=== PATIENT | male | born 1955 | race Caucasian/White ===

== ENCOUNTER 2023-04-08 22:22 | Emergency (ER) | payer MEDICARE, SELFPAY ==
[2023-04-08 22:30] VITALS: BP 166/98; PULSE 85; RESP 22; TEMP 36.6; O2SAT 98; BMI 32.3
--- NOTE | 2023-04-08 23:08 | ED.BACK1 ---
HPI - Back Pain/Injury General Chief Complaint: Back Pain/Injury Stated Complaint: BACK PAIN Time Seen by Provider: 04/08/23 23:08 Source: patient Mode of arrival: Wheelchair History of Present Illness HPI Narrative: Patient presents to emergency department complaining of right low back pain. Patient states he has a history of chronic spinal stenosis that he gets injections. He also this could be stools.His had increased low back pain for which he took 1 g of Tylenol and OxyContin. He did not help yesterday today he took 2 OxyContin and it did not help. He denies any trauma. He denies any fever, chills. He denies any hematuria, dysuria. He denies any nausea, vomiting, diarrhea, constipation, or abdominal pain. States at times the pain does radiate to the right lateral 5. He also had right knee steroid injections done recently. Patient denies any urinary, bowel incontinence, retention. He has an appointment with his urologist this week. Related Data Previous Rx's Medication Instructions Recorded cyclobenzaprine 10 mg tablet 10 mg PO TID PRN muscle spasm #14 04/09/23 tabs Allergies Allergy/AdvReac Type Severity Reaction Status Date / Time [id number]-ROB-[id number] Reductase Allergy Severe Verified 04/08/23 22:36 Inhibitor Review of Systems ROS Status of ROS 10 or more systems reviewed and unremarkable except as noted in history and below Exam Narrative Exam Narrative: Nurses notes and vital signs reviewed and patient is not hypoxic. General: Nontoxic, Well-appearing and in no apparent distress. Skin: Warm, dry, no pallor noted. No Rash Head: Normocephalic, atraumatic. Neck: Supple, non-tender. Eye: Pupils are equal, round and EOMI. No scleral icterus. Ears, Nose, Mouth, and Throat: TM clear, no posterior oropharynx erythema or nasal mucosal hypertrophy, uvula is mid-line Oral mucosa is moist Cardiovascular: Regular Rate and Rhythm without murmur, gallop or rub. Respiratory: No accessory muscle use or respiratory distress. Lungs are clear to auscultation, no wheezing, rales or rhonchi Chest Wall: no tenderness Back: No midline thoracic or lumbar vertebral tenderness. Tenderness to palpation to the right lumbosacral junction and sacroiliac junction. There is no erythema, signs of trauma, infection. No CVA tenderness Musculoskeletal: normal ROM, no calf or popliteal tenderness, no lower extremity edema/swelling GI: Abdomen is soft, non-distended. Normal bowel sounds. No masses appreciated. No tenderness to palpation. No rebound, guarding, or rigidity noted. Neurological: A&O x4. No cranial nerve dysfunction observed. No truncal ataxia. Moves all extremities. Sensation intact. Psychiatric: Cooperative and interactive. Normal mood and affect. Constitutional Vital Signs, click to edit/add: Last Vital Signs Temp 97.8 F 04/08/23 22:30 Pulse 85 04/08/23 22:30 Resp 22 04/08/23 22:30 BP 166/98 H 04/08/23 22:30 Pulse Ox 98 04/08/23 22:30 O2 Del Method Room Air 04/08/23 22:51 Course Vital Signs Vital signs: Vital Signs Temperature 97.8 F 04/08/23 22:30 Pulse Rate 85 04/08/23 22:30 Respiratory Rate 22 04/08/23 22:30 Blood Pressure 166/98 H 04/08/23 22:30 Pulse Oximetry 98 04/08/23 22:30 Oxygen Delivery Method Room Air 04/08/23 22:30 Temperature 97.8 F 04/08/23 22:30 Pulse Rate 85 04/08/23 22:30 Respiratory Rate 22 04/08/23 22:30 Blood Pressure 166/98 H 04/08/23 22:30 Pulse Oximetry 98 04/08/23 22:30 Oxygen Delivery Method Room Air 04/08/23 22:51 MDM - Back Pain/Injury MDM Narrative Medical decision making narrative: CT scan of the pelvis was done. CT of the lumbar spine were done. Blood work was done. All results were discussed with patient. Patient was given analgesics, and IV fluids. Symptoms improved. Patient has to Medrol Dosepak at home I advised him to start taking it. He also has follow-up appointment with urology this week in his primary care doctor. He was given prescription for Flexeril. The patient has OxyContin at home. At this time the patient is without objective evidence of an acute process requiring hospitalization or inpatient management. The patient has remained hemodynamically stable. No additional indication for emergent studies at this time. I answered all questions. Discussed discharge instructions including standard anticipatory guidance and what should prompt a return to the emergency department, including if they get worse are not getting better or develops any new or concerning symptoms. I've given them specific time frame in which to follow-up, and who to follow-up with. The patient demonstrates understanding. Patient is nontoxic and stable for discharge with outpatient follow-up. This note was created with the assistance of a speech recognition program. Although the intention is to generate documents that actually reflects the content of the visit, no guarantees can be provided that every mistake has been identified and corrected by editing. Differential Diagnosis Differential diagnosis: Likely lumbar radiculopathy, strain of lumbar region, renal colic, pyelonephritis, AAA and discitis Lab Data Attestation: I reviewed the patient's lab results. Labs: Lab Results 04/08/23 04/08/23 04/09/23 Range/Units 01:00 23:00 02:39 WBC 12.4 H (4.0-11.0) 10^3/uL RBC 5.16 (4.70-6.10) 10^6/uL Hgb 16.0 (14.0-18.0) g/dL Hct 46.8 (42.0-54.0) % MCV 90.7 (80.0-94.0) fL MCH 31.0 (25.9-34.0) pg MCHC 34.2 (29.9-35.2) g/dL RDW 12.0 (11.0-15.0) % Plt Count 298 (150-450) 10^3/uL MPV 9.3 L (9.5-13.5) fL Neut % (Auto) 64.6 (43.0-75.0) % Lymph % (Auto) 24.3 (20.5-60.0) % [place] % (Auto) 7.9 (1.7-12.0) % Eos % (Auto) 2.0 (0.9-7.0) % Baso % (Auto) 0.6 (0.2-2.0) % Neut # (Auto) 8.0 H (1.4-6.5) 10^3/uL Lymph # (Auto) 3.0 (1.2-3.8) 10^3/uL [place] # (Auto) 1.0 H (0.3-0.8) 10^3/uL Eos # (Auto) 0.3 (0.0-0.7) 10^3/uL Baso # (Auto) 0.1 (0.0-0.1) 10^3/uL Abs Immat Gran (auto) 0.08 H (0.00-0.03) 10^3/uL Imm/Tot Granulo (auto) 0.6 H (0.0-0.5) % Sodium 139 (136-145) mmol/L Potassium 3.9 (3.5-5.1) mmol/L Chloride 103 (98-107) mmol/L Carbon Dioxide 26.7 (21.0-32.0) mmol/L Anion Gap 13.2 BUN 18.0 (7.0-18.0) mg/dL Creatinine 1.00 (0.70-1.30) mg/dL Est GFR ( Amer) >60 (>=60) Est GFR (Non-Af Amer) >60 (>=60) BUN/Creatinine Ratio 18.0 Glucose 113 H (74-106) mg/dL Lactate 2.9 H* 2.5 H* (0.4-2.0) mmol/L Calcium 9.5 (8.5-10.1) mg/dL Total Bilirubin 0.8 (0.2-1.0) mg/dL AST 39 H (15-37) U/L ALT 81 H (16-63) U/L Alkaline Phosphatase 104 (46-116) U/L Total Protein 8.0 (6.4-8.2) g/dL Albumin 4.2 (3.4-5.0) g/dL Globulin 3.8 g/dL Albumin/Globulin Ratio 1.1 Urine Color Yellow (YELLOW) Urine Clarity Clear (CLEAR) Urine pH 7.0 (5.0-9.0) Ur Specific [place] 1.015 (1.005-1.025) Urine Protein Negative (NEG/TRACE) mg/dL Urine Glucose (UA) Negative (NEGATIVE) mg/dL Urine Ketones 15 A (NEGATIVE) mg/dL Urine Occult Blood Negative (NEGATIVE) Urine Nitrite Negative (NEGATIVE) Urine Bilirubin Negative (NEGATIVE) Urine Urobilinogen 0.2 (0.2-1.0) EU/dL Ur Leukocyte Esterase Negative (NEGATIVE) Discharge Plan Discharge Chief Complaint: Back Pain/Injury Clinical Impression: Lumbar radiculopathy Patient Disposition: Home, Self-Care Time of Disposition Decision: 03:13 Condition: Good Mode of Transportation: Private Vehicle Prescriptions / Home Meds: New cyclobenzaprine 10 mg tablet 10 mg PO TID PRN (Reason: muscle spasm) Qty: 14 0RF Instructions: Lumbar Radiculopathy (ED), Back Pain (ED) Stand Alone Forms: Portal Instructions Referrals: Mitchel Guerrero DO [Primary Care Provider] - 1 week Discharge Date/Time: 04/09/23 03:52
--- NOTE | 2023-04-08 23:34 | CT_ITS ---
The [address] [address] Patient Name: AMBER GORDON MRN: [id number] date: 1955 Sex: M Assigned Patient Location: ER Current Patient Location: ER Accession/Order Number: [id number] Exam Date: 04/08/2023 23:59 Report Date: 04/09/2023 01:47 At the request of: YOCASTA RIOS Procedure: CT abdomen pelvis wo con EXAM: CT abdomen pelvis wo con, CT lumbar spine wo con HISTORY: pain right flank, right lower abdominal pain for 2 days COMPARISON: None available TECHNIQUE: Multiple axial views CT abdomen pelvis without IV contrast. Coronal sagittal reformats. CT lumbar spine without IV contrast. Multiple axial views with coronal sagittal reformats. FINDINGS: Abdomen and pelvis: Visualized lung bases and cardiac apex are unremarkable. Small hiatal hernia. Moderate hepatic steatosis. Right peripheral hepatic lobe 6.3 cm oval density (image 38 series 3). Gallbladder, pancreas, spleen, adrenal glands, underdistended urinary bladder, and appendix are unremarkable. Multiple 1-8 mm bilateral renal stones, largest of which at the left inferior kidney. (At these 3 calculi at the right inferior and superior kidney and at least 10 calculi scattered throughout the left kidney). Numerous 0.6 cm-1.3 cm bilateral renal cysts and dense foci, probably proteinaceous cysts. Marked prostamegaly measuring 5.5 cm transverse diameter. Prostate protrudes into the posterior urinary bladder wall. Mild colonic diverticula. No evidence for small bowel obstruction, large ascites, or free air. No acute bony abnormality. Lumbar: No vertebral body height loss, acute fracture line, or traumatic subluxation. Multilevel degenerative endplate vertebral body changes with associated Schmorl's nodes throughout the lumbar levels. Multilevel listhesis secondary to disc degeneration and facet arthropathy. Multilevel broad-based annular disc bulges/herniation, facet arthropathy, and ligamentum flavum thickening throughout the lumbar levels contribute to moderate bony spinal canal stenoses at L2-L3, L3-L4, and L4-L5. Bilateral foraminal/extraforaminal disc bulges/herniation and facet arthropathy contribute to severe bilateral bony foraminal stenoses at L2-L3, L3-L4, and L4-L5. There is cephalad migrated disc material at right L2-L3 into the right mid L2 level. CT/CT abdomen pelvis wo con IMPRESSION: Abdomen and pelvis: Multiple 1-8 mm bilateral renal stones, largest of which at the left inferior kidney. (At these 3 calculi at the right inferior and superior kidney and at least 10 calculi scattered throughout the left kidney). No radiopaque ureteral or urinary bladder stone, hydronephrosis, or perinephric fluid collection. Numerous 0.6 cm-1.3 cm bilateral renal cysts and dense foci, probably proteinaceous cysts. Nonemergency MRI with contrast or ultrasound to further characterize. Moderate hepatic steatosis. Right peripheral hepatic lobe 6.3 cm oval density (image 38 series 3). Finding is incompletely evaluated without contrast and reflects either focal fatty sparing or hepatic mass. Nonemergency MRI abdomen with contrast to further evaluate recommended. Marked prostamegaly protruding into the posterior urinary bladder wall. Lumbar: Multilevel broad-based annular disc bulges/herniation, facet arthropathy, and ligamentum flavum thickening throughout the lumbar levels contribute to moderate bony spinal canal stenoses at L2-L3, L3-L4, and L4-L5. Bilateral foraminal/extraforaminal disc bulges/herniation and facet arthropathy contribute to severe bilateral bony foraminal stenoses at L2-L3, L3-L4, and L4-L5. There is cephalad migrated disc material at right L2-L3 into the right mid L2 level. MRI can better evaluate for any particular level of nerve impingement as indicated. Electronically authenticated by: REBECCA MONTOYA Date: 04/09/2023 01:47
[2023-04-08 23:43] LABS: Basophils Absolute Auto 0.1 10^3/uL (0.0-0.1); Basophils Percent Auto 0.6 % (0.2-2.0); Eosinophils Absolute Auto 0.3 10^3/uL (0.0-0.7); Hematocrit 46.8 % (42.0-54.0); Immature Granulocytes Abs Auto 0.08 10^3/uL (0.00-0.03); Immature Granulocytes Pct Auto 0.6 % (0.0-0.5); Lymphocytes Percent Auto 24.3 % (20.5-60.0); Mean Corpuscular HGB Conc 34.2 g/dL (29.9-35.2); Mean Corpuscular Volume 90.7 fL (80.0-94.0); Mean Platelet Volume 9.3 fL (9.5-13.5); Monocytes Percent Auto 7.9 % (1.7-12.0); Neutrophils Percent Auto 64.6 % (43.0-75.0); Platelet Count 298 10^3/uL (150-450); Red Blood Count 5.16 10^6/uL (4.70-6.10); White Blood Count 12.4 10^3/uL (4.0-11.0)
[2023-04-08 23:54] LABS: Alanine Aminotransferase 81 U/L (16-63); Albumin Globulin Ratio 1.1; Albumin Level 4.2 g/dL (3.4-5.0); Alkaline Phosphatase 104 U/L (46-116); Anion Gap 13.2; Aspartate Amino Transferase 39 U/L (15-37); Bilirubin Total 0.8 mg/dL (0.2-1.0); Calcium 9.5 mg/dL (8.5-10.1); Carbon Dioxide 26.7 mmol/L (21.0-32.0); Chloride 103 mmol/L (98-107); Estimated GFR (African America >60 (>=60); Estimated GFR (Non-African Ame >60 (>=60); Globulin 3.8 g/dL; Glucose 113 mg/dL (74-106); Potassium 3.9 mmol/L (3.5-5.1); Sodium 139 mmol/L (136-145)
[2023-04-08] MEDS: 0.9 % SODIUM CHLORIDE 1,000 ML 999 ML IV (23:55)
[2023-04-08] MEDS: ONDANSETRON PF 4 MG/2 ML VIAL IV (23:55)
[2023-04-08] MEDS: HYDROMORPHONE HCL 2 MG/ML VIAL 1 MG IV (23:55)
[2023-04-08 23:58] LABS: Lactate/Lactic Acid 2.9 mmol/L (0.4-2.0)
--- NOTE | 2023-04-09 00:05 | CT_ITS ---
The [address] [address] Patient Name: AMBER GORDON MRN: [id number] date: 1955 Sex: M Assigned Patient Location: ER Current Patient Location: ER Accession/Order Number: [id number] Exam Date: 04/09/2023 23:59 Report Date: 04/09/2023 01:47 At the request of: YOCASTA RIOS Procedure: CT lumbar spine wo con EXAM: CT abdomen pelvis wo con, CT lumbar spine wo con HISTORY: pain right flank, right lower abdominal pain for 2 days COMPARISON: None available TECHNIQUE: Multiple axial views CT abdomen pelvis without IV contrast. Coronal sagittal reformats. CT lumbar spine without IV contrast. Multiple axial views with coronal sagittal reformats. FINDINGS: Abdomen and pelvis: Visualized lung bases and cardiac apex are unremarkable. Small hiatal hernia. Moderate hepatic steatosis. Right peripheral hepatic lobe 6.3 cm oval density (image 38 series 3). Gallbladder, pancreas, spleen, adrenal glands, underdistended urinary bladder, and appendix are unremarkable. Multiple 1-8 mm bilateral renal stones, largest of which at the left inferior kidney. (At these 3 calculi at the right inferior and superior kidney and at least 10 calculi scattered throughout the left kidney). Numerous 0.6 cm-1.3 cm bilateral renal cysts and dense foci, probably proteinaceous cysts. Marked prostamegaly measuring 5.5 cm transverse diameter. Prostate protrudes into the posterior urinary bladder wall. Mild colonic diverticula. No evidence for small bowel obstruction, large ascites, or free air. No acute bony abnormality. Lumbar: No vertebral body height loss, acute fracture line, or traumatic subluxation. Multilevel degenerative endplate vertebral body changes with associated Schmorl's nodes throughout the lumbar levels. Multilevel listhesis secondary to disc degeneration and facet arthropathy. Multilevel broad-based annular disc bulges/herniation, facet arthropathy, and ligamentum flavum thickening throughout the lumbar levels contribute to moderate bony spinal canal stenoses at L2-L3, L3-L4, and L4-L5. Bilateral foraminal/extraforaminal disc bulges/herniation and facet arthropathy contribute to severe bilateral bony foraminal stenoses at L2-L3, L3-L4, and L4-L5. There is cephalad migrated disc material at right L2-L3 into the right mid L2 level. CT/CT lumbar spine wo con IMPRESSION: Abdomen and pelvis: Multiple 1-8 mm bilateral renal stones, largest of which at the left inferior kidney. (At these 3 calculi at the right inferior and superior kidney and at least 10 calculi scattered throughout the left kidney). No radiopaque ureteral or urinary bladder stone, hydronephrosis, or perinephric fluid collection. Numerous 0.6 cm-1.3 cm bilateral renal cysts and dense foci, probably proteinaceous cysts. Nonemergency MRI with contrast or ultrasound to further characterize. Moderate hepatic steatosis. Right peripheral hepatic lobe 6.3 cm oval density (image 38 series 3). Finding is incompletely evaluated without contrast and reflects either focal fatty sparing or hepatic mass. Nonemergency MRI abdomen with contrast to further evaluate recommended. Marked prostamegaly protruding into the posterior urinary bladder wall. Lumbar: Multilevel broad-based annular disc bulges/herniation, facet arthropathy, and ligamentum flavum thickening throughout the lumbar levels contribute to moderate bony spinal canal stenoses at L2-L3, L3-L4, and L4-L5. Bilateral foraminal/extraforaminal disc bulges/herniation and facet arthropathy contribute to severe bilateral bony foraminal stenoses at L2-L3, L3-L4, and L4-L5. There is cephalad migrated disc material at right L2-L3 into the right mid L2 level. MRI can better evaluate for any particular level of nerve impingement as indicated. Electronically authenticated by: REBECCA MONTOYA Date: 04/09/2023 01:47
[2023-04-09 01:05] LABS: Bilirubin Urine NEGATIVE (NEGATIVE); Blood Urine NEGATIVE (NEGATIVE); Clarity Urine CLEAR (CLEAR); Color Urine YELLOW (YELLOW); Glucose Urine UA NEGATIVE (NEGATIVE); Ketones Urine 15 mg/dL (NEGATIVE); Leukocyte Esterase Urine NEGATIVE (NEGATIVE); Nitrite Urine NEGATIVE (NEGATIVE); Protein Urine NEGATIVE (NEG/TRACE); Specific Gravity Urine 1.015 (1.005-1.025); Urobilinogen Urine 0.2 EU/dL (0.2-1.0)
[2023-04-09 01:39] LABS: Urine Microscopic Indicated NO
[2023-04-09 03:11] LABS: Lactate/Lactic Acid 2.5 mmol/L (0.4-2.0)
[2023-04-09] MEDS: HYDROMORPHONE HCL 1 MG/ML CARTRIDGE IVP (03:30)
== END 2023-04-09 03:52 | disposition home or self-care (01) ==
PROVIDERS: Emergency Provider Emergency Medicine; PCP Internal Medicine
DX: M54.16 Radiculopathy, lumbar region (principal)
CPT/HCPCS: 36415; 72131; 74176; 80053; 81003; 83605; 85025; 96374; 96375; 96376; 99285; J1170

== ENCOUNTER 2023-04-27 09:47 | Outpatient (RCR) | payer MEDICARE, SELFPAY | END 2023-05-06 11:28 | disposition home or self-care (01) | LOC: PT 09:47 | PROVIDERS: PCP Internal Medicine; Visit Provider Internal Medicine | DX: M47.816 Spondylosis without myelopathy or radiculopathy, lumbar region (principal); M54.50 Low back pain, unspecified | CPT/HCPCS: 97012; 97110; 97113; 97140; 97162 ==

== ENCOUNTER 2023-04-29 08:15 | Outpatient (OUT) | payer MEDICARE, SELFPAY ==
--- NOTE | 2023-04-29 09:00 | MR_ITS ---
[address] [address] Patient Name: AMBER GORDON MRN: [id number] date: 1955 Sex: M Assigned Patient Location: MRI Current Patient Location: Accession/Order Number: [id number] Exam Date: 04/29/2023 09:00 Report Date: 04/30/2023 07:50 At the request of: MINISTERIO EISENBERG Procedure: MR abdomen wo/w con EXAMINATION: MR abdomen wo/w con HISTORY: Liver mass R16.0 COMPARISON: No relevant comparison available. TECHNIQUE: A comprehensive MRI examination of the abdomen was performed to optimize visualization of suspected pathology. Images were obtained both before and after intravenous administration of Dotarem contrast. FINDINGS: LIVER: Within posterior right hepatic lobe is a slightly lobular 6.0 x 5.7 x 3.5 cm markedly enhancing mass which also demonstrates increased T2 signal and low T1 signal; favoring a hemangioma. Slightly more inferiorly within the posterior right hepatic lobe is a 1.3 cm similar-appearing lesion. BILIARY: No visible dilatation or calcification. PANCREAS: No lesion, fluid collection, ductal dilatation, or atrophy. SPLEEN: No enlargement or focal lesion. KIDNEYS: Several rounded lesions bilaterally which appear to represent simple cysts and a few benign-appearing proteinaceous cyst. ADRENALS: No mass or enlargement. AORTA/VASCULAR: No aneurysm or dissection. RETROPERITONEUM: No mass or adenopathy. BOWEL/MESENTERY: No visible mass, obstruction, or bowel wall thickening. ABDOMINAL WALL: No mass or hernia. BONES: No bony lesion or fracture. LUNG BASES: No visible pleural disease. Lung bases not well assessed with MRI. OTHER: Negative. MR/MR abdomen wo/w con IMPRESSION: 1. Right hepatic lobe lesions favor hemangiomas. 2. Renal lesions favoring benign cysts. Bilateral nonobstructing kidney stones. 3. Consider follow-up CT abdomen without and with IV contrast in one year to document stability. Electronically authenticated by: TATIANA YEBOAH Date: 04/30/2023 07:50
== END 2023-04-29 08:16 | disposition home or self-care (01) ==
LOC: MRI 08:17
PROVIDERS: PCP Internal Medicine; Visit Provider Internal Medicine
DX: R16.0 Hepatomegaly, not elsewhere classified (principal)
CPT/HCPCS: 74183; A9575

== ENCOUNTER 2024-04-10 06:59 | Outpatient (OUT) | payer MEDICARE, SELFPAY ==
[2024-04-10 07:21] LABS: Basophils Absolute Auto 0.1 10^3/uL (0.0-0.1); Basophils Percent Auto 1.6 % (0.2-2.0); Eosinophils Absolute Auto 0.4 10^3/uL (0.0-0.7); Eosinophils Percent Auto 5.1 % (0.9-7.0); Hematocrit 47.7 % (42.0-54.0); Hemoglobin 16.1 g/dL (14.0-18.0); Immature Granulocytes Abs Auto 0.03 10^3/uL (0.00-0.03); Immature Granulocytes Pct Auto 0.4 % (0.0-0.5); Lymphocytes Absolute Auto 2.1 10^3/uL (1.2-3.8); Lymphocytes Percent Auto 31.3 % (20.5-60.0); Mean Corpuscular HGB Conc 33.8 g/dL (29.9-35.2); Mean Corpuscular Hemoglobin 30.9 pg (25.9-34.0); Mean Corpuscular Volume 91.6 fL (80.0-94.0); Mean Platelet Volume 9.3 fL (9.5-13.5); Monocytes Absolute Auto 0.7 10^3/uL (0.3-0.8); Monocytes Percent Auto 9.8 % (1.7-12.0); Neutrophils Absolute Auto 3.5 10^3/uL (1.4-6.5); Neutrophils Percent Auto 51.8 % (43.0-75.0); Platelet Count 250 10^3/uL (150-450); Red Blood Count 5.21 10^6/uL (4.70-6.10); Red Cell Distribution Width 11.8 % (11.0-15.0); White Blood Count 6.8 10^3/uL (4.0-11.0)
[2024-04-10 08:51] LABS: Alanine Aminotransferase 90 U/L (16-63); Albumin Level 3.8 g/dL (3.4-5.0); Alkaline Phosphatase 114 U/L (46-116); Aspartate Amino Transferase 50 U/L (15-37); BUN Creatinine Ratio 20.9; Bilirubin Total 0.7 mg/dL (0.2-1.0); Calcium 9.4 mg/dL (8.5-10.1); Chloride 102 mmol/L (98-107); Chol HDL Ratio 6.2; Cholesterol 231 mg/dL (<=200); Estimated GFR (African America >60 (>=60); Estimated GFR (Non-African Ame >60 (>=60); Globulin 3.7 g/dL; Glucose 97 mg/dL (74-106); HDL Cholesterol 37 mg/dL (40-60); Sodium 140 mmol/L (136-145); Total Protein 7.5 g/dL (6.4-8.2); Triglycerides 151 mg/dL (<=150); VLDL CHOLESTEROL 30.2 mg/dL
[2024-04-10 09:03] LABS: Prostate Specific Antigen Scrn 3.15 ng/mL (<=4.00)
== END 2024-04-10 07:00 | disposition home or self-care (01) ==
LOC: LAB 06:59
PROVIDERS: PCP Internal Medicine; Visit Provider Internal Medicine
DX: M47.816 Spondylosis without myelopathy or radiculopathy, lumbar region (principal); I10 Essential (primary) hypertension; E78.00 Pure hypercholesterolemia, unspecified; Z12.5 Encounter for screening for malignant neoplasm of prostate
CPT/HCPCS: 36415; 80053; 80061; 85025; G0103

== ENCOUNTER 2024-05-09 13:27 | Outpatient (OUT) | payer MEDICARE, SELFPAY ==
--- NOTE | 2024-05-09 13:30 | CT_ITS ---
[address] [address] Patient Name: AMBER GORDON MRN: [id number] date: 1955 Sex: M Assigned Patient Location: CT Current Patient Location: Accession/Order Number: [id number] Exam Date: 05/09/2024 13:55 Report Date: 05/10/2024 06:00 At the request of: MINISTERIO EISENBERG Procedure: CT abdomen wo/w con EXAMINATION: CT abdomen wo/w con HISTORY: Liver Mass, Renal Cyst COMPARISON: CT abdomen pelvis without contrast 04/09/2023, MRI abdomen 04/29/2023 TECHNIQUE: Axial, Coronal, and Sagittal images were obtained without and/or with IV contrast as indicated by examination type. Dose reduction techniques were achieved by using automated exposure control and/or adjustment of mA and/or kV according to patient size and/or use of iterative reconstruction technique FINDINGS: LUNG BASES: No visible pulmonary or pleural disease. LIVER: Stable posterior right hepatic lobe hypodensity with peripheral lobular enhancement favoring a hemangioma. BILIARY: No visible dilatation or calcification. PANCREAS: No lesion, fluid collection, ductal dilatation, or atrophy. SPLEEN: Small benign-appearing cyst. No enlargement or focal lesion. ADRENALS: No mass or enlargement. KIDNEYS: Stable small simple cysts and hemorrhagic/proteinaceous cysts. No appreciable mass. Nonobstructing stones bilaterally. BOWEL/MESENTERY: No visible mass, obstruction, or bowel wall thickening. AORTA/VASCULAR: No aneurysm or dissection. RETROPERITONEUM: No mass or adenopathy. ABDOMINAL WALL: No mass or hernia. BONES: Multilevel marked degenerative disc disease of the visible upper lumbar spine with progression since prior study. OTHER: Negative. CT/CT abdomen wo/w con IMPRESSION: 1. Stable posterior right hepatic lobe lesion most compatible with a benign hemangioma. 2. Stable renal lesions favoring simple cysts and hemorrhagic/proteinaceous cyst. 3. Bilateral nonobstructing nephrolithiasis. 4. Interval progression of marked degenerative disc disease of lumbar spine. Electronically authenticated by: TATIANA YEBOAH Date: 05/10/2024 06:00
== END 2024-05-09 13:28 | disposition home or self-care (01) ==
LOC: CT 13:27
PROVIDERS: PCP Internal Medicine; Visit Provider Internal Medicine
DX: R16.0 Hepatomegaly, not elsewhere classified (principal); N28.1 Cyst of kidney, acquired; N20.0 Calculus of kidney
CPT/HCPCS: 74170; Q9967

== ENCOUNTER 2024-06-24 06:49 | Outpatient (OUT) | payer MEDICARE, SELFPAY ==
--- OUTSIDE RECORDS SUMMARY | 2024-06-24 06:53 | XMS_ITS | CCD ---
Author Organization [facility] Care Team Providers Care Legal Coordinator Name Role Phone BeckaHectore Unavailable Ceasar Tubbs Unavailable Mitchel Guerrero Unavailable [facility], DR BELL Admitting Unavailable MISC, DR BELL Attending Unavailable BALL, DR MANDEL Primary Care Unavailable [place], DR ROSE Brito Consulting Unavailable MISC, DR BELL Consulting Unavailable BALL, DR MANDEL Admitting Unavailable BALL, DR MANDEL Attending Unavailable BALL, DR MANDEL Primary Care Unavailable BALL, DR MANDEL Consulting Unavailable ZIEBER, DR TATIANA Broderick Consulting Unavailable Mitchel Guerrero DO Primary Care Provider MITCHEL GUERRERO Referring Unavailable MITCHEL GUERRERO Primary Care Unavailable KASIA PEPPER Attending Unavailable MITCHEL GUERRERO Referring Unavailable MITCHEL GUERRERO Primary Care Unavailable Ceasar Tubbs Attending Unavailable Ceasar Tubbs Admitting Unavailable Mitchel Guerrero Primary Care Unavailable DO Mitchel Guerrero Primary Care Provider MD Ceasar Tubbs Attending Provider MITCHEL GUERRERO Referring Unavailable MITCHEL GUERRERO Primary Care Unavailable LESLIE BARILLAS Attending Unavailable MITCHEL GUERRERO Referring Unavailable MITCHEL GUERRERO Primary Care Unavailable LESLIE BARILLAS Admitting Unavailable LESLIE BARILLAS Attending Unavailable MITCHEL GUERRERO Primary Care Unavailable LESLIE BARILLAS Attending Unavailable MITCHEL GUERRERO Referring Unavailable MITCHEL GUERRERO Primary Care Unavailable ALYSSA, LESLIE Alonso Referring Unavailable MITCHEL GUERRERO Primary Care Unavailable ALYSSALESLIE WRIGHT Admitting Unavailable LESLIE BARILLAS Attending Unavailable LESLIE BARILLAS Referring Unavailable IMTCHEL GUERRERO Primary Care Unavailable ORLIN GALINDO Attending Unavailable MITCHEL GUERRERO Primary Care Unavailable MITCHEL GUERRERO Referring Unavailable MITCHEL GUERRERO Primary Care Unavailable Allergies Allergy Classification Reported Allergen(s) Allergy Type Date of Onset Reaction(s) Facility (20 sources) HMG-CoA reductase inhibitor Drug allergy MUSCLE ACHES [employer] Other (1 source) Ydzdopv-NUT-GiO Reductase Inhibitor Drug allergy (disorder) 4 [facility] Repository Medications Current Medications Medication Drug Class(es) Dates Sig (Normalized) Sig (Original) acetaminophen 325 mg oral tablet (18 sources) take 2 tablets by mouth every six hours as needed for pain acetaminophen (TYLENOL) 325 mg tablet Take 2 tablets (650 mg total) by mouth every 6 (six) hours as needed for pain. 0 Active take 1 capsule by mouth every si x hours Acetaminophen 500 MG 1 capsule as needed Orally every 6 hrs Active Tylenol Active acetaminophen 300 mg / codeine phosphate 30 mg oral tablet (1 source) Opioid Agonist Start: 05-29-2020 acetaminophen-codeine (TYLENOL #3) 300-30 mg per tablet Take by mouth. 0 05/29/2020 Active acetaminophen 325 mg / HYDROcodone bitartrate 5 mg oral tablet (7 sources) Opioid Agonist Start: 08-14-2020 take 1 tablet by mouth every six hours as needed for pain amLODIPine 5 mg oral tablet (20 sources) Dihydropyridine Calcium Channel Nara Start: 05-25-2024 take 1 tablet by mouth once daily Amlodipine Active 0 .ROUTE .COMPLEX 90 May 25, 2024 8:49am TAKE 1 TABLET BY MOUTH EVERY DAY Start: 06-11-2021 End: 05-25-2024 take 5 mg by mouth once daily Amlodipine Discontinued 5 MG PO Daily December 06, 2023 12:00am May 25, 2024 8:49am azithromycin 250 mg oral tablet (6 sources) Macrolide Antimicrobial Start: 10-30-2022 take 250 mg by mouth once daily cyclobenzaprine hydrochloride 10 mg oral tablet (20 sources) Muscle Relaxant Start: 12-06-2023 take 1 tablet by mouth once daily at bedtime as needed Cyclobenzaprine Active 0 .ROUTE .COMPLEX December 06, 2023 5:07pm TAKE 1 TABLET BY MOUTH EVERY DAY AT BEDTIME NEEDED FOR 30 DAYS Start: 12-06-2023 End: 12-06-2023 take 10 mg by mouth once daily at bedtime Cyclobenzaprine Discontinued 10 MG PO Daily at bedtime December 06, 2023 12:00am December 06, 2023 5:07pm Start: 04-27-2023 take 1 tablet by jia th every twenty-four hours Cyclobenzaprine HCl 10 MG 1 tablet at bedtime as needed Orally Once a day Apr, Active Start: 04-09-2023 take 1 tablet by jia th three times daily as needed for muscle spasms cyclobenzaprine (FLEXERIL) 10 mg tablet TAKE 1 TABLET BY MOUTH THREE TIMES A DAY NEEDED FOR MUSCLE SPASM 0 04/09/2023 Active ezetimibe 10 mg oral tablet (7 sources) Dietary Cholesterol Absorption Inhibitor Start: 2024 take 10 mg by mouth once daily Ezetimibe Active 10 MG PO Daily 2024 12:00am 120 actuat fluticasone propionate 0.22 mg/actuat metered dose inhaler (1 source) Corticosteroid Start: 07-26-2020 take 2 spray(s) by inhalation twice daily fluticasone propionate (FLOVENT HFA) 220 mcg/actuation inhaler Indications: Eosinophilic esophagitis 2 sprays BID and swallow. Use without a spacer and do not inhale. Do not eat/drink for 30 min after. 2 Inhaler 5 07/26/2020 Active hydroCHLOROthiazide 25 mg oral tablet (20 sources) Thiazide Diuretic Start: 12-06-2023 take 25 mg by mouth once daily Hydrochlorothiazide Active 25 MG PO Daily December 06, 2023 12:00am Start: 02-17-2023 take 1 tablet by jia twice daily before mealtime hydroCHLOROthiazide (HYDRODIURIL) 25 mg tablet TAKE 1 TABLET BY MOUTH TWICE A DAY BEFORE MEALS 180 tablet 4 02/17/2023 Active lidocaine 0.05 mg/mg medicated patch (11 sources) Antiarrhythmic, Amide Local Anesthetic Lidocaine 5 % as dir ected Externally Active Lidocaine 4 % as directed Externally Active losartan potassium 50 mg oral tablet (20 sources) Angiotensin 2 Receptor Nara Start: 03-31-2024 take 25 mg by mouth twice daily Losartan Active 25 MG PO Twice daily March 31, 2024 11:02am Start: 12-31-2023 End: 03-31-2024 take 50 mg by mouth twice daily Losartan Discontinued 50 MG PO Twice daily December 31, 2023 4:05pm March 31, 2024 11:02am Start: 11-29-2023 End: 12-31-2023 take 1 tablet by mouth once daily Losartan Discontinued 0 .ROUTE .COMPLEX 90 November 29, 2023 1:23pm December 31, 2023 4:06pm TAKE 1 TABLET BY MOUTH EVERY DAY Start: 04-15-2018 End: 11-29-2023 take 50 mg by mouth once daily Losartan Discontinued 5 0 MG PO Daily November 29, 2023 12:00am November 29, 2023 1:24pm hixenvlu-spss-SU-calcium &mins (THERAGRAN-M) 9 mg iron-400 mcg tablet (1 source) qignuzzk-kjse-LZ -calcium &mins (THERAGRAN-M) 9 mg iron-400 mcg tablet Take 1 tablet by mouth in the morning. 0 Active Multivitamin Adult - (11 sources) take 1 tablet by mouth once daily Multivitamin Adult - 1 tablet Orally Once a day Active omeprazole 20 mg delayed release oral capsule (20 sources) Proton Pump Inhibitor Star t: 11-18 take 20 mg by mouth once daily Omeprazole Active 20 MG PO Daily December 06, 2023 12:00am Start: 12-11-2020 take 1 tablet by jia th once daily before breakfast omeprazole (PriLOSEC OTC) 20 mg tablet,delayed release (DR/EC) Indications: Esophageal dysphagia , Gastroesophageal reflux disease, unspecified whether esophagitis present TAKE 1 TABLET BY MOUTH EVERY MORNING BEFORE BREAKFAST. 28 tablet 5 12/11/2020 Active take 1 capsule by mo [facility] once daily Omeprazole 20 MG 1 capsule 30 minutes before morning meal Orally Once a day Active ondansetron 4 mg oral tablet (1 source) Serotonin-3 Receptor Antagonist take 1 tablet by mouth every eight hours as needed for nausea and vomiting ondansetron (ZOFRAN) 4 mg tablet Take 1 tablet (4 mg total) by mouth every 8 (eight) hours as needed for nausea or vomiting. 0 Active potassium citrate 10 meq extended release oral tablet (10 sources) Start: take 10 mEq by mouth twice daily Potassium Citrate Active 10 MEQ PO Twice daily January 28, 2024 12:00am Start: 12-22-2023 take 1 tablet by jia th in the morning potassium citrate (UROCIT-K) 10 mEq (1,080 mg) CR tablet Take 1 tablet (10 mEq total) by mouth in the morning and 1 tablet (10 mEq total) in the evening. Take with meals. 180 tablet 0 12/22/2023 Active pravastatin sodium 10 mg oral tablet (18 sources) HMG-CoA Reductase Inhibitor take 1 tablet by mouth once daily in the evening Pravastatin Sodium 10 MG TAKE 1 TABLET BY MOUTH EVERY EVENING for 90 Active predniSONE 20 mg oral tablet (5 sources) Start: 3 predniSONE 20 MG 1 tablet Orally tid w/ food x 3 days, then bid w/ food x 3 days, then qd w/ food x 3 days for 9 Nov, Active rosuvastatin calcium 5 mg oral tablet (20 sources) HMG-CoA Reductase Inhibitor take 1 tablet by mouth once daily in the evening Rosuvastatin Calcium 5 MG TAKE 1 TABLET BY MOUTH EVERY DAY IN THE EVENING Oral Active tamsulosin hydrochloride 0.4 mg oral capsule (20 sources) alpha-Adrenergic Nara Start: 4 take 1 capsule by mouth once daily in the evening Tamsulosin Active 0 .ROUTE .COMPLEX 90 December 24, 2023 8:42am TAKE 1 CAPSULE BY MOUTH EVERY EVENING Start: 12-06-2023 End: 12-24-2023 take 0.4 mg by mouth once daily in the evening Tamsulosin Discontinued 0.4 MG PO Every evening December 06, 2023 12:00am December 24, 2023 8:42am Completed/Discontinued Medications Medication Drug Class(es) Dates Sig (Normalized) Sig (Original) diclofenac sodium 75 mg delayed release oral tablet (20 sources) Nonsteroidal Anti-inflammatory Drug Start: 4 End: 4 take 75 mg by mouth twice daily Diclofenac Sodium Discontinued 75 MG PO Twice daily December 06, 2023 12:00am December 31, 2023 4:06pm methylPREDNISolone 4 mg oral tablet (8 sources) Corticosteroid Start: 4 End: 4 take 1 tablet by mouth once Methylprednisolone (Medrol (Zak)) 4 mg tablets,dose pack Discontinued 0 PO per package directions March 31, 2024 12:00am April 27, 2024 8:23am PO PER PKG DIR oxyCODONE hydrochloride 5 mg oral tablet (20 sources) Opioid Agonist Start: 2 End: 4 take 5 mg by mouth every six hours Oxycodone Discontinued 5 MG PO Every 6 hours 35 30 November 15, 2023 December 17, 2023 1:08pm Problems Active Problems Problem Classification Problem Date Documented Da te Episodic/Chronic Allergic reactions (10 sources) Inflammatory dermatosis; Translations: [Dermatitis, unspecified] Episodic Cataract (2 sources) Nuclear sclerotic cataract; Translations: [Age-related nuclear cataract, bilateral] Onset: 04-25-2017 04-25-2017 Chronic Disorders of lipid metabolism (20 sources) Pure hypercholesterolemia ; Translations: [Familial hypercholesterolemia ] Onset: 01-22-2023 Chronic Esophageal disorders (20 sources) Gastro-esophageal reflux disease with esophagitis; Translations: [Gastroesophageal reflux disease with esophagitis without hemorrhage] Chronic Essential hypertension (20 sources) Essential hypertension; Translations: [Essential (primary) hypertension] Onset: 01-22-2023 Chronic Gastrointestinal hemorrhage (10 sources) Melena; Translations: [Melena] Episodic Genitourinary symptoms and ill-defined conditions (2 sources) Frequency of micturition; Translations: [Retention of urine] Onset: 06-08-2024 Episodic Headache; including migraine (1 source) Ophthalmic migraine; Translations: [Migraine with aura, not intractable, without status migrainosus] Onset: 12-22-2018 12-22-2018 Chronic Hyperplasia of prostate (20 sources) Lower urinary tract symptoms due to benign prostatic hypertrophy; Translations: [Benign prostatic hyperplasia with lower urinary tract symptoms] Onset: 09-19-2022 12-22-2023 Chronic Joint disorders and dislocations; trauma-related (20 sources) Derangement of right knee; Translations: [Unspecified internal derangement of right knee] Onset: 01-18-2023 Chronic Osteoarthritis (15 sources) Osteoarthritis of right knee joint; Translations: [Unilateral primary osteoarthritis, right knee] Chronic Other aftercare (3 sources) Other assisted (current) drug therapy; Translations: [OTH [facility] CURRENT DRUG THERAPY] Onset: 01-22-2023 Episodic Other aftercare (9 sources) Long-term current use of drug therapy; Translations: [Other assisted (current) drug therapy] Episodic Other aftercare (9 sources) Drug therapy finding; Translations: [retirement (current) use of opiate analgesic] 01-28-2024 Episodic Other aftercare (11 sources) termite renewal inspector (current) use of opiate analgesic; Translations: [Long-term (current) use of other medications] 01-28-2024 Episodic Other and unspecified benign neoplasm (10 sources) Lipoma (clinical); Translations: [Benign lipomatous neoplasm, unspecified] Episodic Other and unspecified benign neoplasm (1 source) Hemangioma of intra-abdominal structures Episodic Other and unspecified benign neoplasm (2 sources) Hemangioma of liver; Translations: [Hemangioma of intra-abdominal structures] 05-10-2024 Episodic Other connective tissue disease (2 sources) Cramp and spasm; Translations: [CRAMP AND SPASM] Onset: 01-22-2023 Episodic Other diseases of kidney and ureters (1 source) Cyst of kidney, acquired Episodic Other diseases of kidney and ureters (2 sources) Cyst of kidney; Translations: [Cyst of kidney, acquired] 05-10-2024 Episodic Other eye disorders (1 source) Vitreous hemorrhage; Translations: [Vitreous hemorrhage, unspecified eye] Onset: 04-25-2017 04-25-2017 Chronic Other eye disorders (1 source) Posterior vitreous detachment; Translations: [Vitreous degeneration, unspecified eye] Onset: 04-25-2017 04-25-2017 Chronic Other eye disorders (1 source) Vitreous floaters; Translations: [Other vitreous opacities, unspecified eye] Onset: 04-25-2017 04-25-2017 Chronic Other eye disorders (1 source) Vitreous degeneration, bilateral; Translations: [Vitreous degeneration, bilateral] Onset: 04-25-2017 Chronic Other injuries and conditions due to external causes (9 sources) History of fall; Translations: [History of falling] Episodic Other injuries and conditions due to external causes (1 source) History of falling; Translations: [History of falling] Episodic Other liver diseases (7 sources) Non-alcoholic fatty liver; Translations: [Fatty (change of) liver, not elsewhere classified] Chronic Other liver diseases (20 sources) Fatty (change of) liver, not elsewhere classified; Translations: [Non-alcoholic fatty liver disease] Onset: 01-22-2023 Chronic Other liver diseases (10 sources) Steatosis of liver; Translations: [Fatty (change of) liver, not elsewhere classified] Chronic Other liver diseases (1 source) Hepatomegaly, not elsewhere classified Episodic Other lower respiratory disease (20 sources) Dyspnea on exertion; Translations: [Shortness of breath] Episodic Other lower respiratory disease (9 sources) Dyspnea; Translations: [Shortness of breath] Episodic Other lower respiratory disease (2 sources) Shortness of breath; Translations: [Short of breath on exertion] Episodic Other male genital disorders (9 sources) Impotence of organic origin; Translations: [Male erectile dysfunction, unspecified] Onset: 07-08-2015 Chronic Other male genital disorders (1 source) Male erectile dysfunction, unspecified; Translations: [Male erectile dysfunction, unspecified] Onset: 07-08-2015 Chronic Other nervous system disorders (20 sources) Chronic pain; Translations: [Other chronic pain] 12-09-2023 Chronic Other nervous system disorders (20 sources) Other chronic pain; Translations: [Other chronic pain] Onset: 02-24-2022 Resolved: 03-05-2022 Chronic Other nervous system disorders (1 source) Other acute postprocedural pain; Translations: [Other acute postprocedural pain] Onset: 06-08-2024 Episodic Other nutritional; endocrine; and metabolic disorders (9 sources) Morbid obesity; Translations: [Morbid (severe) obesity due to excess calories] Onset: 07-06-2016 Chronic Other nutritional; endocrine; and metabolic disorders (19 sources) Obesity; Translations: [Obesity, unspecified] 01-28-2024 Chronic Other nutritional; endocrine; and metabolic disorders (9 sources) Simple obesity ; Translations: [Other obesity due to excess calories] Onset: 07-06-2016 Chronic Other nutritional; endocrine; and metabolic disorders (3 sources) Other obesity due to excess calories; Translations: [Other obesity due to excess calories] Onset: 07-06-2016 Chronic Other nutritional; endocrine; and metabolic disorders (1 source) Morbid (severe) obesity due to excess calories; Translations: [Morbid (severe) obesity due to excess calories] Onset: 07-06-2016 Chronic Other nutritional; endocrine; and metabolic disorders (8 sources) Body mass index 30+ - obesity; Translations: [Body mass index (BMI) 32.0-32.9, adult] Chronic Other nutritional; endocrine; and metabolic disorders (6 sources) Obesity caused by energy imbalance; Translations: [Other obesity due to excess calories] Chronic Other nutritional; endocrine; and metabolic disorders (1 source) Body mass index (BMI) 32.0-32.9, adult Chronic Other nutritional; endocrine; and metabolic disorders (1 source) Body mass index (BMI) 33.0-33.9, adult Chronic Other nutritional; endocrine; and metabolic disorders (11 sources) Obesity, unspecified; Translations: [Obesity, unspecified] 01-28-2024 Chronic Other screening for suspected conditions (not mental disorders or infectious disease) (17 sources) Encounter for screening for malignant neoplasm of prostate; Translations: [Patient encounter status] Onset: 01-22-2023 Episodic Residual codes; unclassified (20 sources) Edema; Translations: [Localized edema] Episodic Residual codes; unclassified (11 sources) Localized edema; Translations: [Localized edema] Episodic Retinal detachments; defects; vascular occlusion; and retinopathy (2 sources) Lattice degeneration of right retina; 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, right eye] Onset: 04-25-2017 02-19-2020 Chronic Screening and history of mental health and substance abuse codes (1 source) Encounter for screening for depression; Translations: [Encounter for screening for depression] Episodic Spondylosis; intervertebral disc disorders; other back problems (20 sources) Lumbosacral spondylosis with radiculopathy; Translations: [Other spondylosis with radiculopathy, lumbosacral region] Onset: 02-10-2022 Resolved: 04-16-2022 Chronic Spondylosis; intervertebral disc disorders; other back problems (20 sources) Spinal stenosis, lumbar region without neurogenic claudication; Translations: [Radiculopathy, lumbar region] Onset: 02-10-2022 Resolved: 04-16-2022 Episodic Unclassified (10 sources) Elevation of levels of liver transaminase levels; Translations: [Elevation of levels of liver transaminase levels] Unclassified (1 source) Retinal tear of left eye Onset: 02-11-2024 Unclassified (1 source) Low back pain, unspecified; Translations: [Low back pain, unspecified] Onset: 02-02-2024 Unclassified (1 source) Benign prostatic hyperplasia with urinary frequency [N40.1, R35.0] Onset: 02-01-2024 Past or Other Problems Problem Classification Problem Date Documented Da te Episodic/Chronic Abdominal pain (10 sources) Right upper quadrant pain; Translations: [Right upper quadrant pain] Onset: 12-09-2017 Episodic Blindness and vision defects (2 sources) Photopsia of right eye; Translations: [Other subjective visual disturbances] Onset: 12-22-2018 12-22-2018 Episodic Calculus of urinary tract (20 sources) History of calculus of kidney; Translations: [Personal history of urinary calculi] Onset: 01-14-2018 Episodic Esophageal disorders (2 sources) Esophageal disorders Joint disorders and dislocations; trauma-related (1 source) Tear of medial meniscus of knee; Translations: [Other tear of medial meniscus, current injury, right knee, initial encounter] Onset: 01-27-2023 01-27-2023 Episodic Other male genital disorders (10 sources) Hemospermia; Translations: [Hematospermia] Onset: 06-16-2018 Episodic Retinal detachments; defects; vascular occlusion; and retinopathy (2 sources) Retinal tear ; Translations: [Horseshoe tear of retina without detachment, unspecified eye] Onset: 04-25-2017 04-25-2017 Episodic Unclassified (20 sources) Elevated transaminase level; Translations: [Elevated transaminase level] Unclassified (1 source) Acute bilateral low back pain without sciatica M54.50 Unclassified (1 source) Elevated transaminase level R74.01 Viral infection (20 sources) Disease caused by 2019-nCoV; Translations: [COVID-19] Results Test Name Value Interpretation Reference Range Facility BASIC METABOLIC PANLon 06-09 Anion gap [Moles/Vol] 12 mmol/L Normal 5-15 [facility] Comment on above: Performed By: #### C BCA, 2776-09, , BMP #### [facility] ([id number]) [address], [address] [place] [address] Calcium [Mass/Vol] 8.2 mg/dL Low 8.5-10.5 [facility] Comment on above: Performed By: #### C BCA, 2776-09, , BMP #### [facility] ([id number]) [address], [address] [place] [address] Chloride [Moles/Vol] 99 mmol/L Normal 98-109 [facility] Comment on above: Performed By: #### C BCA, 2776-09, , BMP #### [facility] ([id number]) [address], [address] [place] [address] CO2 [Moles/Vol] 23 mmol/L Normal 22-32 [facility] Comment on above: Performed By: #### C FARNAZ, 2776-09, , BMP #### [facility] ([id number]) [address], [address] [place] [address] Creatinine [Mass/Vol] 0.94 mg/dL Normal 0.60-1.30 [facility] Comment on above: Result Comment: METH OD TRACEABLE TO IDMS STANDARD Performed By: #### C FARNAZ, 2776-09, , BMP #### [facility] ([id number]) [address], [address] [place] [address] GFR/1.73 sq M.predicted among non-blacks MDRD (S/P/Bld) [Vol rate/Area] 88 mL/min/{1.73_m2} Normal >59 [facility] Comment on above: Result Comment: Reported eGFR is based on the CKD-EPI 2020 equation that does not use a race coefficient. Performed By: #### C FARNAZ, 2776-09, , BMP #### [facility] ([id number]) [address], [address] [place] [address] Glucose [Mass/Vol] 110 mg/dL High 65-99 [facility] Comment on above: Performed By: #### C FARNAZ, 2776-09, , BMP #### [facility] ([id number]) [address], [address] [place] [address] Potassium [Moles/Vol] 4.7 mmol/L Normal 3.5-5.0 [facility] Comment on above: Performed By: #### C FARNAZ, 2776-09, , BMP #### [facility] ([id number]) [address], [address] [place] [address] Sodium [Moles/Vol] 134 mmol/L Normal 134-146 [facility] Comment on above: Performed By: #### Liliana OSEI, 2776-09, , BMP #### [facility] ([id number]) [address], [facility] [address] [place] [address] Urea nitrogen [Mass/Vol] 28 mg/dL High 5-27 [facility] Comment on above: Performed By: #### Liliana OSEI, 2776-09, , BMP #### [facility] ([id number]) [address], [address] [address] CBC AND AUTO DIFFon 06-09- 24 ABSOLUTE BASOPHIL 0.0 X10E9/L Normal 0.0-0.2 [facility] Comment on above: Performed By: #### Liliana OSEI, 2776-09, , BMP #### [facility] ([id number]) [address], [address] [address] ABSOLUTE NEUTROPHIL 17.8 X10E9/L High 1.5-6.6 [facility] Comment on above: Performed By: #### Liliana OSEI, 2776-09, , BMP #### [facility] ([id number]) [address], [address] [address] Basophils/100 WBC (Bld) 0.1 % Normal [facility] Comment on above: Performed By: #### Liliana OSEI 2776-09, , BMP #### [facility] ([id number]) [address], [address] [address] Eosinophils (Bld) [#/Vol] 0.0 10*3/uL Normal 0.0-0.4 [facility] Comment on above: Performed By: #### Liliana OSEI, 2776-09, , BMP #### [facility] ([id number]) [address], [address] [place] [address] Eosinophils/100 WBC (Bld) 0.0 % Normal [facility] Comment on above: Performed By: #### Liliana OSEI, 2776-09, , BMP #### [facility] ([id number]) [address], [address] [place] [address] Erythrocyte distribution width (RBC) [Ratio] 13.0 % Normal 11.5-15.0 [facility] Comment on above: Performed By: #### Liliana OSEI, 2776-09, , BMP #### [facility] ([id number]) [address], [address] [place] [address] Hematocrit (Bld) [Volume fraction] 40.6 % Normal 39-49 [facility] Comment on above: Performed By: #### Liliana OSEI, 2776-09, , BMP #### [facility] ([id number]) [address], [address] [place] [address] Hemoglobin (Bld) [Mass/Vol] 14.0 g/dL Normal 13.0-17.0 [facility] Comment on above: Performed By: #### Liliana OSEI, 2776-09, , BMP #### [facility] ([id number]) [address], [address] [place] [address] Lymphocytes (Bld) [#/Vol] 1.1 10*3/uL Normal 1.0-3.5 [facility] Comment on above: Performed By: #### Liliana OSEI, 2776-09, , BMP #### [facility] ([id number]) [address], [address] [place] [address] Lymphocytes/100 WBC (Bld) 5.6 % Normal [facility] Comment on above: Performed By: #### Liliana OSEI, 2776-09, , BMP #### [facility] ([id number]) [address], [address] [place] [address] MCH (RBC) [Entitic mass] 31.8 pg Normal 27-34 [facility] Comment on above: Performed By: #### Liliana OSEI, 2776-09, , BMP #### [facility] ([id number]) [address], [address] [place] [address] MCHC (RBC) [Mass/Vol] 34.4 g/dL Normal 32-36 [facility] Comment on above: Performed By: #### Liliana OSEI, 2776-09, , BMP #### [facility] ([id number]) [address], [address] [place] [address] MCV (RBC) [Entitic vol] 92 fL Normal 80-100 [facility] Comment on above: Performed By: #### Liliana OSEI, 2776-09, , BMP #### [facility] ([id number]) [address], [address] [place] [address] Monocytes (Bld) [#/Vol] 1.1 10*3/uL High 0-0.9 [facility] Comment on above: Performed By: #### Liliana OSEI, 2776-09, , BMP #### [facility] ([id number]) [address], [address] [place] [address] Monocytes/100 WBC (Bld) 5.6 % Normal [facility] Comment on above: Performed By: #### Liliana OSEI, 2776-09, , BMP #### [facility] ([id number]) [address], [address] [place] [address] Neutrophils/100 WBC (Bld) 88.7 % Normal [facility] Comment on above: Performed By: #### Liliana OSEI, 2776-09, , BMP #### [facility] ([id number]) [address], [address] [place] [address] Platelet mean volume (Bld) [Entitic vol] 7.2 fL Normal 7-12 [facility] Comment on above: Performed By: #### C FARNAZ, 7-, , BMP #### [facility] ([id number]) [address], [facility] [address] [place] [address] Platelets (Bld) [#/Vol] 245 10*3/uL Normal 150-450 [facility] Comment on above: Performed By: #### C FARNAZ, 2776-09, , BMP #### [facility] ([id number]) [address], [facility] [address] [place] [address] RBC COUNT 4.40 X10E12/L Normal 4.10-5.70 [facility] Comment on above: Performed By: #### C FARNAZ, 2776-09, , BMP #### [facility] ([id number]) [address], [address] [address] WBC (Bld) [#/Vol] 20.1 10*3/uL High 4.0-11.[address] [facility] Comment on above: Performed By: #### Liliana OSEI, 2776-09, , BMP #### [facility] ([id number]) [address], [facility] [address] [place] [address] FLUID CREATININEon 4 Creatinine [Mass/Vol] 0.92 mg/dL Normal [facility] Comment on above: Result Comment: The reference interval and other method performance specifications are unavailable for this body fluid. Comparison of this result to serum or plasma is recommended. Performed By: #### F CRET #### [facility] ([id number]) [address] [address] [place] [address] CRET SPECIMEN TYPE ASPIRATE Normal [facility] Comment on above: Result Comment: ÓSCAR CARVAJAL DRAINAGE Performed By: #### F CRET #### [facility] ([id number]) [address], [address] [place] [address] MAGNESIUMon 06-09-2024 Magnesium [Mass/Vol] 1.9 mg/dL Normal 1.8-2.6 [facility] Comment on above: Performed By: #### C FARNAZ, 2777-1, 59095-7, BMP #### [facility] ([id number]) [address], [address] [place] [address] PHOSPHORUSon 06-09-2024 Phosphate [Mass/Vol] 4.5 mg/dL Normal 2.4-4.9 [facility] Comment on above: Performed By: #### C FARNAZ, 2777-, , BMP #### [facility] ([id number]) [address], [address] [place] [address] BASIC METABOLIC PANLon 06-08 Anion gap [Moles/Vol] 13 mmol/L Normal 5-15 [facility] Comment on above: Performed By: #### B MP, CBC #### [facility] ([id number]) [address], [address] [place] [address] Calcium [Mass/Vol] 8.8 mg/dL Normal 8.5-10.5 [facility] Comment on above: Performed By: #### B MP, CBC #### [facility] ([id number]) [address], [address] [place] [address] Chloride [Moles/Vol] 100 mmol/L Normal 98-109 [facility] Comment on above: Performed By: #### B MP, CBC #### [facility] ([id number]) [address], [address] [place] [address] CO2 [Moles/Vol] 25 mmol/L Normal 22-32 [facility] Comment on above: Performed By: #### B MP, CBC #### [facility] ([id number]) [address], [address] [place] [address] Creatinine [Mass/Vol] 1.06 mg/dL Normal 0.60-1.30 [facility] Comment on above: Result Comment: METH OD TRACEABLE TO IDMS STANDARD Performed By: #### B MP, CBC #### [facility] ([id number]) [address], [address] [place] [address] GFR/1.73 sq M.predicted among non-blacks MDRD (S/P/Bld) [Vol rate/Area] 76 mL/min/{1.73_m2} Normal >59 [facility] Comment on above: Result Comment: Reported eGFR is based on the CKD-EPI 2020 equation that does not use a race coefficient. Performed By: #### B BLAKE, CBC #### [facility] ([id number]) [address], [address] [place] [address] Glucose [Mass/Vol] 133 mg/dL High 65-99 [facility] Comment on above: Performed By: #### B BLAKE, CBC #### [facility] ([id number]) [address] [address] [place] [address] Potassium [Moles/Vol] 4.9 mmol/L Normal 3.5-5.0 [facility] Comment on above: Performed By: #### B BLAKE, CBC #### [facility] ([id number]) [address] [address] [place] [address] Sodium [Moles/Vol] 138 mmol/L Normal 134-146 [facility] Comment on above: Performed By: #### B BLAKE, CBC #### [facility] ([id number]) [address], [address] [place] [address] Urea nitrogen [Mass/Vol] 26 mg/dL Normal 5-27 [facility] Comment on above: Performed By: #### B MP, CBC #### [facility] ([id number]) [address] [address] [place] [address] COMPLETE BLOOD COUNTon 06-08 Erythrocyte distribution width (RBC) [Ratio] 13.2 % Normal 11.5-15.0 [facility] Comment on above: Performed By: #### B MP, CBC #### [facility] ([id number]) [address], [facility] [address] [place] [address] Hematocrit (Bld) [Volume fraction] 44.3 % Normal 39-49 [facility] Comment on above: Performed By: #### B MP, CBC #### [facility] ([id number]) [address] [address] [place] [address] Hemoglobin (Bld) [Mass/Vol] 15.3 g/dL Normal 13.0-17.0 [facility] Comment on above: Performed By: #### B MP, CBC #### [facility] ([id number]) [address] [address] [place] [address] MCH (RBC) [Entitic mass] 31.9 pg Normal 27-34 [facility] Comment on above: Performed By: #### B MP, CBC #### [facility] ([id number]) [address] [address] [place] [address] MCHC (RBC) [Mass/Vol] 34.5 g/dL Normal 32-36 [facility] Comment on above: Performed By: #### B MP, CBC #### [facility] ([id number]) [address] [address] [place] [address] MCV (RBC) [Entitic vol] 92 fL Normal 80-100 [facility] Comment on above: Performed By: #### B MP, CBC #### [facility] ([id number]) [address], [address] [place] [address] Platelet mean volume (Bld) [Entitic vol] 7.0 fL Normal 7-12 [facility] Comment on above: Performed By: #### B MP, CBC #### [facility] ([id number]) [address], [facility] [address] [place] [address] Platelets (Bld) [#/Vol] 305 10*3/uL Normal 150-450 [facility] Comment on above: Performed By: #### B MP, CBC #### [facility] ([id number]) [address] [facility] [address] [place] [address] RBC COUNT 4.79 X10E12/L Normal 4.10-5.70 [facility] Comment on above: Performed By: #### B MP, CBC #### [facility] ([id number]) [address] [facility] [address] [place] [address] WBC (Bld) [#/Vol] 29.5 10*3/uL High 4.0-11.[address] [facility] Comment on above: Performed By: #### B MP, CBC #### [facility] ([id number]) [address], [facility] [address] [place] [address] Surgical Pathologyon 024 Surgical Pathology Normal [facility] Comment on above: Result Comment: [facility] [address] [place] [address] Surgical Pathology Consultation Patient Name:AMBER HENSON:1955 (Age: 69)Gender:MTaken:4Reported:4Physician(s):Leslie Barillas M.D. ([phone])Copy To: Rec. #:[id number]: #[id number] Final Pathologic Diagnosis Prostate, simple prostatectomy: Prostatic nodular stromal and glandular hyperplasia. Report Electronically Signed [facility]/06/12/2024jaycob Toney MD Interpretation performed at [facility], [address] [place] [address], License number: [id number]. Clinical History Benign prostatic hyperplasia with urinary frequency. Gross Description Received in formalin labeled HEIDI, prostate is a 58 g none radical prostatectomy, 7.0 x 4.5 x 4.0 cm. The specimen is inked black and sectioned to reveal blancas-white rubbery cut surfaces with periurethral nodularity up to 0.7 cm. The prostatic urethra is lined by pink-blancas, focal hemorrhagic and smooth mucosa. Vehicle Painter sections are submitted in cassettes A-H. (8,[id number], m1) [facility]/06/09/2024GR Specimen(s) Received Prostate Fee Codes(s): 1; [address]52 URINALYSISon 05-25-2024 Bilirubin Ql (U) Negative Normal NEG [facility] Comment on above: Performed By: #### U A #### [facility] ([id number]) [address] [place] [address], [address] [place] [address] BLOOD/HGB Negative Normal NEG [facility] Comment on above: Performed By: #### U A #### [facility] ([id number]) [address] [place] [address] [address] [place] [address] Color (U) YELLOW Normal YELLOW [facility] Comment on above: Performed By: #### U A #### [facility] ([id number]) [address] [place] [address], [address] [place] [address] Glucose Ql (U) Negative Normal NEG [facility] Comment on above: Performed By: #### U A #### [facility] ([id number]) [address] [place] [address], [address] [place] [address] Ketones Ql (U) Negative Normal NEG [facility] Comment on above: Performed By: #### U A #### [facility] ([id number]) [address] [place] [address], [address] [place] [address] Leukocyte esterase Test strip Ql (U) Negative Normal NEG [facility] Comment on above: Performed By: #### U A #### [facility] ([id number]) [address], [address] [place] [address] MUCOUS PRESENT Abnormal NONE [facility] Comment on above: Performed By: #### U A #### [facility] ([id number]) [address], [address] [place] [address] Nitrite Ql (U) Negative Normal NEG [facility] Comment on above: Performed By: #### U A #### [facility] ([id number]) [address], [address] [place] [address] pH (U) 7.0 [pH] Normal 5.0-8.5 [facility] Comment on above: Performed By: #### U A #### [facility] ([id number]) [address], [address] [place] [address] Protein Ql (U) Trace Abnormal NEG [facility] Comment on above: Performed By: #### U A #### [facility] ([id number]) [address], [address] [place] [address] R.B.CELLS 1 /hpf Normal 0-5 [facility] Comment on above: Performed By: #### U A #### [facility] ([id number]) [address], [address] [place] [address] Specific gravity (U) [Rel density] 1.024 Normal 1.003-1.035 [facility] Comment on above: Performed By: #### U A #### [facility] ([id number]) [address], [address] [place] [address] SQUAMOUS EPITHELIUM <1 Normal 0-5 [facility] Comment on above: Performed By: #### U A #### [facility] ([id number]) [address], [address] [place] [address] TURBIDITY CLEAR Normal CLEAR [facility] Comment on above: Performed By: #### U A #### [facility] ([id number]) [address], [address] [place] [address] Urobilinogen (U) [Mass/Vol] mg/dL Normal <1.1 [facility] Comment on above: Performed By: #### U A #### [facility] ([id number]) [address], [address] [place] [address] W.B.CELLS 3 /hpf Normal 0-5 [facility] Comment on above: Performed By: #### U A #### [facility] ([id number]) [address], [address] [place] [address] URINE CULTUREon 05-25-2024 Bacteria identified Cx Nom (U) CULTURE RESULTS NO GROWTH AT <1000 CFU/mL Normal [facility] Comment on above: Performed By: #### 6 30-4 #### [facility] ([id number]) [address], [address] [place] [address] XR lumbar spine AP/LAT/FLX/E XTon 04-14-2024 XR lumbar spine AP/LAT/FLX/EXT [place] [address] MRI Report Signed Patient: Amber Henson MR#: [id number] 82 : 1955 Acct:[id number] Age/Sex: 69 / M ADM Date: 04/14/24 Loc: Room: Type: [facility] Attending Dr: Ceasar Tubbs MD Copies to: Ceasar Tubbs MD Ordering Provider: Ceasar Tubbs MD Date of Service: 04/14/24 XR/XR lumbar spine AP/LAT/FLX/EXT: M47.817 - Spondylosis without myelopathy or radiculopathy... ([id number]) MR/MR lumbar spine wo con: M47.817 - Spondylosis without myelopathy or radiculopathy... MR lumbar spine wo con, XR lumbar spine AP/LAT/FLX/EXT 04/14/2024 6:49 AM SIGNS AND SYMPTOMS: Back pain with left lower extremity radiculopathy PROTOCOL: Multiplanar multisequence MR images of the lumbar spine were obtained without IV contrast. Frontal and lateral radiographs of the lumbar spine were obtained including flexion and extension. COMPARISON: 12/31/2021 FINDINGS: Radiographs of the lumbar spine: There is a levoconvex curvature of the lumbar spine with the apex at L2-L3. There is moderate disc height loss at L1-L2 with moderate to severe disc height loss at L2-3. There is mild disc height loss at L3-L4 with moderate scattered loss at L4-5 and L5-S1. There is anterior osteophyte formation. There is facet hypertrophy throughout. The sacroiliac joints are preserved. Flexion and extension view show no pathologic movement or malalignment. Multiple suspected radiodense renal stones are noted on the left measuring up to 6 mm in greatest dimension. MRI lumbar spine: Disc height loss and alignment is as noted above. There is preservation of vertebral body heights. There is Modic type III endplate sclerosis at L2-L3. There is accompanying Modic type I endplate ed paty. There is Modic type II fatty endplate degenerative change at L4-L5. There is a benign-appearing hemangioma at L1. There is a benign-appearing hemangioma within the left L1 pedicle. The conus terminates at the superior endplate of the L1 vertebral body level. No epidural or paraspinous fluid collection is appreciated. At T12-L1: There is a normal disc, central canal, and neural foramen. At L1-L2: There is a circumferential disc bulge with facet hypertrophy. There is moderate narrowing of the spinal canal with moderate to severe left and moderate right neural foraminal stenosis. This is similar to the prior exam. At L2-L3: There is a circumferential disc bulge. There is facet hypertrophy with ligamentum flavum thickening. There is moderate severe narrowing of the spinal canal with severe bilateral neural foraminal narrowing right greater than left. There is mass effect on the exiting L2 nerve roots, right greater than left. There is redundancy of the nerve roots of the cauda equina above this level suggesting mass effect on the cauda equina. This is worse when compared to the prior exam. At L3-L4: There is a circumferential disc bulge with facet hypertrophy. There is a small right-sided facet effusion. There is moderate spinal canal stenosis with moderate severe left and severe right neural foraminal narrowing. There is mass effect on the exiting right L3 nerve roots. This is similar to the prior exam. At L4-L5: There is a circumferential disc bulge with facet hypertrophy, ligament flavum thickening, and a small right-sided facet effusion. There is moderate narrowing of the spinal canal with severe right and moderate to severe left neural foraminal stenosis. Is mass effect on the exiting right L4 nerve roots. This is similar to the prior exam. At L5-S1: There is a circumferential disc bulge with endplate osteophyte formation. There is facet hypertrophy left greater than right. There is mild spinal canal stenosis with severe left and moderate right neural foraminal narrowing. There is mass effect on the exiting left L5 nerve roots similar to the prior exam. MR/MR lumbar spine wo con IMPRESSION: At L2-L3: There is a circumferential disc bulge. There is facet hypertrophy with ligamentum flavum thickening. There is moderate severe narrowing of the spinal canal with severe bilateral neural foraminal narrowing right greater than left. There is mass effect on the exiting L2 nerve roots, right greater than left. There is redundancy of the nerve roots of the cauda equina above this level suggesting mass effect on the cauda equina. This is worse when compared to the prior exam. At L3-L4: There is a circumferential disc bulge with facet hypertrophy. There is a small right-sided facet effusion. There is moderate spinal canal stenosis with moderate severe left and severe right neural foraminal narrowing. There is mass effect on the exiting right L3 nerve roots. This is similar to the prior exam. At L4-L5: There is a circumferential disc bulge with facet hypertrop (more content not included)... Normal [facility] Basophils Auto (Bld) [#/Vol] on 04-10-2024 Basophils (Bld) [#/Vol] 0.1 10 3/uL 0.0-0.1 [facility] Basophils/100 WBC Auto (Bld) on 04-10-2024 Basophils/100 WBC (Bld) 1.6 % 0.2-2.0 [facility] Cholesterol in LDL Calc [Mas s/Vol]on 04-10-2024 Cholesterol in LDL [Mass/Vol] 164.0 mg/dL [facility] Comment on above: <100 mg/dl [id number] 0-129 mg/dl NEAR OR ABOVE [id number] mg/dl BORDERLINE [id number] mg/dl HIGH>190 mg/dl VERY HIGH Cholesterol in VLDL Calc [Ma ss/Vol]on 04-10-2024 Cholesterol in VLDL [Mass/Vol] 30.2 mg/dL [facility] Eosinophils/100 WBC Auto (Bl d)on 04-10-2024 Eosinophils/100 WBC (Bld) 5.1 % 0.9-7.0 [facility] Erythrocyte distribution wid th Auto (RBC) [Ratio]on 04-10-2024 Erythrocyte distribution width (RBC) [Ratio] 11.8 % 11.0-15.0 [facility] Estimated glomerular filtrat ion rate (GFR) non- Americanon 04-10-2024 GFR/1.73 sq M.predicted among non-blacks MDRD (S/P/Bld) [Vol rate/Area] mL/min/{1.73_m2} >=60 [facility] Globulin Calc (S) [Mass/Vol] on 04-10-2024 Globulin (S) [Mass/Vol] 3.7 g/dL [facility] Hematocrit Auto (Bld) [Volum e fraction]on 04-10-2024 Hematocrit (Bld) [Volume fraction] 47.7 % 42.0-54.0 [facility] Hemoglobin [Mass/volume] in Bloodon 04-10-2024 Hemoglobin (Bld) [Mass/Vol] 16.1 g/dL 14.0-18.0 [facility] Laboratory - Chemistry and C hemistry - challengeon 04-10-2024 Albumin [Mass/Vol] 3.8 g/dL 3.4-5.0 [facility] ALP [Catalytic activity/Vol] 114 U/L 46-116 [facility] ALT [Catalytic activity/Vol] 90 U/L High 16-63 [facility] AST [Catalytic activity/Vol] 50 U/L High 15-37 [facility] Bilirubin [Mass/Vol] 0.7 mg/dL 0.2-1.0 [facility] Calcium [Mass/Vol] 9.4 mg/dL 8.5-10.1 [facility] Chloride [Moles/Vol] 102 mmol/L 98-107 [facility] Cholesterol [Mass/Vol] 231 mg/dL High <=200 [facility] Cholesterol in HDL [Mass/Vol] 37 mg/dL Low 40-60 [facility] Comment on above: > or =60 mg/dl - LOW CARDIOVASCULAR RISK<40 mg/dl - HIGH CARDIOVASCULAR RISK CO2 [Moles/Vol] 29.0 mmol/L 21.0-32.0 [facility] Creatinine [Mass/Vol] 0.86 mg/dL 0.70-1.30 [facility] GFR/1.73 sq M.predicted MDRD (S/P/Bld) [Vol rate/Area] mL/min/{1.73_m2} >=60 [facility] Glucose [Mass/Vol] 97 mg/dL 74-106 [facility] Potassium [Moles/Vol] 4.0 mmol/L 3.5-5.1 [facility] Protein [Mass/Vol] 7.5 g/dL 6.4-8.2 [facility] Sodium [Moles/Vol] 140 mmol/L 136-145 [facility] Triglyceride [Mass/Vol] 151 mg/dL High <=150 [facility] Urea nitrogen [Mass/Vol] 18.0 mg/dL 7.0-18.0 [facility] Urea nitrogen/Creatinine [Mass ratio] 20.9 mg/mg [facility] Laboratory - Hematology and Cell countson 04-10-2024 Immature granulocytes/100 WBC (Bld) 0.4 % 0.0-0.5 [facility] Leukocytes [#/volume] correc janna for nucleated erythrocytes in Blood by Automated counon 04-10-2024 WBC corrected for nucl RBC Auto (Bld) [#/Vol] 6.8 10 3/uL 4.0-11.0 [facility] Lymphocytes Auto (Bld) [#/Vo l]on 04-10-2024 Lymphocytes (Bld) [#/Vol] 2.1 10 3/uL 1.2-3.8 [facility] Lymphocytes/100 WBC Auto (Bl d)on 04-10-2024 Lymphocytes/100 WBC (Bld) 31.3 % 20.5-60.0 [facility] MCH Auto (RBC) [Entitic mass ]on 04-10-2024 MCH (RBC) [Entitic mass] 30.9 pg 25.9-34.0 [facility] MCHC Auto (RBC) [Mass/Vol]on 04-10-2024 MCHC (RBC) [Mass/Vol] 33.8 g/dL 29.9-35.2 [facility] MCV Auto (RBC) [Entitic vol] on 04-10-2024 MCV (RBC) [Entitic vol] 91.6 fL 80.0-94.0 [facility] Monocytes Auto (Bld) [#/Vol] on 04-10-2024 Monocytes (Bld) [#/Vol] 0.7 10 3/uL 0.3-0.8 [facility] Monocytes/100 WBC Auto (Bld) on 04-10-2024 Monocytes/100 WBC (Bld) 9.8 % 1.7-12.0 [facility] Neutrophils Auto (Bld) [#/Vo l]on 04-10-2024 Neutrophils (Bld) [#/Vol] 3.5 10 3/uL 1.4-6.5 [facility] Neutrophils/100 WBC Auto (Bl d)on 04-10-2024 Neutrophils/100 WBC (Bld) 51.8 % 43.0-75.0 [facility] No Panel Informationon 04-10 Eosinophils # (Auto) 0.4 10 3/uL 0.0-0.7 [facility] Immature Granulocyte # (Auto) 0.03 10 3/uL 0.00-0.03 [facility] Prostate Specific Antigen Screen 3.15 ng/mL <=4.00 [facility] Platelet mean volume Auto (B ld) [Entitic vol]on 04-10-2024 Platelet mean volume (Bld) [Entitic vol] 9.3 fL Low 9.5-13.5 [facility] Platelets Auto (Bld) [#/Vol] on 04-10-2024 Platelets (Bld) [#/Vol] 250 10 3/uL 150-450 [facility] RBC Auto (Bld) [#/Vol]on RBC (Bld) [#/Vol] 5.21 10 6/uL 4.70-6.10 [facility] Serum or plasma albumin/glob ulin mass ratioon 04-10-2024 Albumin/Globulin [Mass ratio] 1.0 {ratio} [facility] Serum or plasma anion gap de terminationon 04-10-2024 Anion gap [Moles/Vol] 13.0 mmol/L [facility] Serum or plasma total choles terol/high density lipoprotein (HDL) cholesterol mass jarad 04-10-2024 Cholesterol.total/Cho lesterol in HDL [Mass ratio] 6.2 {ratio} [facility] Comment on above: 3.3 - 4.4 LOW RISK4. 4 - 7.1 AVERAGE RISK7.1 - 11.0 MODERATE RISK>11.0 HIGH RISK XR ABDOMEN AP 1 VWon 024 XR ABDOMEN AP 1 VW XR ABDOMEN AP 1 VW XR ABDOMEN AP 1 VW HISTORY: Renal calculus screening and follow-up. Lower back pain. COMPARISON: Abdominal radiograph 06/18/2021. FINDINGS: Nonobstructive bowel gas pattern. Mild stool burden. Calcifications overlying the left kidney largest measuring up to 4 mm. Other smaller calculi projecting over the lower pole of both kidneys. Unchanged pelvic phleboliths. Levoconvex curvature of the lumbar spine with multilevel degenerative changes. IMPRESSION: * Left nephrolithiasis. Approved by Resident Juanjose Armendariz MD on 12/23/2023 8:17 AM I, Unruly Dowell MD have personally reviewed the image(s) and agree with and/or edited the report Finalized by Unruly Dowell MD on 12/23/2023 10:59 AM [facility] MRI KNEE RT WO CONon 023 MRI KNEE RT WO CON EXAMINATION: MRI KNEE RT WO CON HISTORY: Derangement of right knee ; chronic anterior medial right knee pain COMPARISON: No relevant comparison available. TECHNIQUE: A complete multi-planar MRI was performed. FINDINGS: MEDIAL COMPARTMENT MEDIAL MENISCUS: Maceration and extrusion of the body of the meniscus from the joint space. Undersurface tear of posterior horn. CARTILAGE: Thinning without focal defect. BONES: Mild subchondral edema adjacent the weightbearing surface of the tibial plateau and femoral condyle suggesting bone bruising. MCL AND MEDIAL CAPSULE: Grade I sprain of the medial collateral ligament. LATERAL COMPARTMENT LATERAL MENISCUS: No visible tear or significant degeneration. CARTILAGE: No visible defect. BONES: No marrow pathology, fracture, or significant arthropathy. LCL/POSTEROLAT COMPLEX: Normal lateral collateral ligament, fascicles, lateral capsule and ligaments. ANTERIOR COMPARTMENT PATELLA: No marrow pathology, fracture, or significant arthropathy. CARTILAGE: Tear of the cartilage overlying the lateral facet, mid body near the apex. No underlying marrow edema. TENDONS: Normal. EFFUSION: Moderate joint effusion. ACL: Normal appearing ligament. PCL: Normal appearing ligament. MENISCOFEMORAL: Normal meniscofemoral ligaments. OTHER: Moderate size Harrison's cyst. IMPRESSION: 1. 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 2. Medial compartment cartilage thinning and mild bone bruising of the tibial plateau and femoral condyle. 3. 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 4. Moderate joint effusion. 5. Moderate-sized Harrison's cyst. Electronically authenticated by: TATIANA YEBOAH Date: 2023-01-19 09:56 Normal [facility] CBC AUTO DIFFon 01-18-2023 BASO # 0.1 103/ul Normal 0.0-0.1 [facility] Comment on above: Performed By: #### C BC #### [facility] [address] [place], [place] [address] Dr. Sienna Powers Basophils/100 WBC (Bld) 1.4 % Normal 0.2-2.0 [facility] Comment on above: Performed By: #### C BC #### [facility] [address] [place], [place] [address] Dr. Sienna Powers EO # 0.4 103/ul Normal 0.0-0.7 [facility] Comment on above: Performed By: #### C BC #### [facility] [address] [place] [address] Dr. Sienna Powers Eosinophils/100 WBC (Bld) 5.3 % Normal 0.9-7.0 [facility] Comment on above: Performed By: #### C BC #### [facility] [address] [place] [address] Dr. Sienna Powers Erythrocyte distribution width (RBC) [Ratio] 12.2 % Normal 11.0-15.0 [facility] Comment on above: Performed By: #### C BC #### [facility] [address] [place] [address] Dr. Sienna Powers Hematocrit (Bld) [Volume fraction] 46.8 % Normal 42.0-54.0 [facility] Comment on above: Performed By: #### C BC #### [facility] [address] [place] [address] Dr. Sienna Powers Hemoglobin (Bld) [Mass/Vol] 15.8 g/dL Normal 14.0-18.0 [facility] Comment on above: Performed By: #### C BC #### [facility] [address] [place] [address] Dr. Sienna Powers IG # 0.05 10e3/ul Critically high 0.00-0.03 [facility] Comment on above: Performed By: #### C BC #### [facility] [address] [place] [address] Dr. Sienna Powers IG % 0.7 % Critically high 0.0-0.5 [facility] Comment on above: Performed By: #### C BC #### [facility] [address] [place] [address] Dr. Sienna Powers LYMPH # 1.8 103/ul Normal 1.2-3.8 [facility] Comment on above: Performed By: #### C BC #### [facility] [address] [place] [address] Dr. Sienna Powers Lymphocytes/100 WBC (Bld) 25.1 % Normal 20.5-60.0 [facility] Comment on above: Performed By: #### C BC #### [facility] [address] [place] [address] Dr. Sienna Powers MANUAL DIFF REQ NO Normal [facility] Comment on above: Performed By: #### C BC #### [facility] [address] [place] [address] Dr. Sienna Powers MCH (RBC) [Entitic mass] 30.9 pg Normal 25.9-34.0 [facility] Comment on above: Performed By: #### C BC #### [facility] [address] [place] [address] Dr. Sienna Powers MCHC (RBC) [Mass/Vol] 33.8 g/dL Normal 29.9-35.2 [facility] Comment on above: Performed By: #### C BC #### [facility] [address] [place] [address] Dr. Sienna Powers MCV (RBC) [Entitic vol] 91.6 fL Normal 80.0-94.0 [facility] Comment on above: Performed By: #### C BC #### [facility] [address] [place] [address] Dr. Sienna Powers MONO # 0.6 103/ul Normal 0.3-0.8 [facility] Comment on above: Performed By: #### C BC #### [facility] [address] [place] [address] Dr. Sienna Powers Monocytes/100 WBC (Bld) 8.8 % Normal 1.7-12.0 [facility] Comment on above: Performed By: #### C BC #### [facility] [address] [place] [address] Dr. Sienna Powers NEUT # 4.1 103/ul Normal 1.4-6.5 [facility] Comment on above: Performed By: #### C BC #### [facility] [address] [place] [address] Dr. Sienna Powers Neutrophils/100 WBC (Bld) 58.7 % Normal 43.0-75.0 [facility] Comment on above: Performed By: #### C BC #### [facility] [address] [place] [address] [address] Sienna Powers Platelet mean volume (Bld) [Entitic vol] 9.0 fL Critically low 9.5-13.5 [facility] Comment on above: Performed By: #### C BC #### [facility] [address] [place] [address] [address] Sienna Powers PLT 267 103/ul Normal 150-450 [facility] Comment on above: Performed By: #### C BC #### [facility] [address] [place] [address] Dr. Sienna Powers RBC 5.11 106/ul Normal 4.70-6.10 [facility] Comment on above: Performed By: #### C BC #### [facility] [address] [place] [address] Dr. Sienna Powers WBC 7.0 103/ul Normal 4.0-11.0 [facility] Comment on above: Performed By: #### C BC #### [facility] [address] [place] [address] Dr. Sienna Powers LIPID PROFILEon 01-18-2023 CHOL-HDL RATIO NORM SEE BELOW Normal [facility] Comment on above: Result Comment: 3.3 - 4.4 LOW RISK 4.4 - 7.1 AVERAGE RISK 7.1 - 11.0 MODERATE RISK >11.0 HIGH RISK Performed By: #### M G, LIPID, CMP #### [facility] [address] [place] [address] Dr. Sienna Powers Cholesterol [Mass/Vol] 212 mg/dL Critically high <=200 [facility] Comment on above: Performed By: #### M G, LIPID, CMP #### [facility] [address] [place] [address] Dr. Sienna Powers Cholesterol in HDL [Mass/Vol] 40 mg/dL Normal 40-60 [facility] Comment on above: Performed By: #### M G, LIPID, CMP #### [facility] [address] [place] [address] Dr. Sienna Powers Cholesterol in LDL [Mass/Vol] 154.0 mg/dL Normal [facility] Comment on above: Performed By: #### M G, LIPID, CMP #### [facility] [address] [place] [address] [address] Sienna Powers Cholesterol.total/Cho lesterol in HDL [Mass ratio] 5.3 {ratio} Normal [facility] Comment on above: Performed By: #### M G, LIPID, CMP #### [facility] [address] [place] [address] [address] Sienna Powers HDL NORMAL > or = 60 mg/dl - LOW CARDIOVASCULAR RISK <40 mg/dl - HIGH CARDIOVASCULAR RISK Normal [facility] Comment on above: Performed By: #### M G, LIPID, CMP #### [facility] [address] [place] [address] [address] Sienna Powers LDL CALC NORMAL SEE BELOW Normal [facility] Comment on above: Result Comment: <100 mg/dl OPTIMAL 100 - 129 mg/dl NEAR OR ABOVE OPTIMAL 130 - 159 mg/dl BORDERLINE HIGH 160 - 189 mg/dl HIGH >190 mg/dl VERY HIGH Performed By: #### M G, LIPID, CMP #### [facility] [address] [place] [address] [address] Sienna Powers Triglyceride [Mass/Vol] 90 mg/dL Normal <=150 [facility] Comment on above: Performed By: #### M G, LIPID, CMP #### [facility] [address] [place] [address] [address] Sienna Powers VLDL CALC 18.0 mg/dL Normal [facility] Comment on above: Performed By: #### M G, LIPID, CMP #### [facility] [address] [place] [address] [address] Sienna Powers MAGNESIUMon 01-18-2023 Magnesium [Mass/Vol] 1.7 mg/dL Critically low 1.8-2.4 [facility] Comment on above: Performed By: #### M G, LIPID, CMP #### [facility] [address] [place] [address] [address] Sienna Powers PROF 14(COMP METB)on 05-01-2 023 Albumin [Mass/Vol] 3.7 g/dL Normal 3.4-5.0 [facility] Comment on above: Performed By: #### M G, LIPID, CMP #### [facility] [address] [place] [address] [address] Sienna Powers Albumin/Globulin [Mass ratio] 0.9 {ratio} Normal [facility] Comment on above: Performed By: #### M G, LIPID, CMP #### [facility] [address] [place] [address] [address] Sienna Powers ALP [Catalytic activity/Vol] 111 U/L Normal 46-116 [facility] Comment on above: Performed By: #### M G, LIPID, CMP #### [facility] [address] [place] [address] [address] Sienna Powers ALT [Catalytic activity/Vol] 76 U/L Critically high 16-63 [facility] Comment on above: Performed By: #### M G, LIPID, CMP #### [facility] [address] [place] [address] [address] Sienna Powers Anion gap [Moles/Vol] 11.2 mmol/L Normal [facility] Comment on above: Performed By: #### M G, LIPID, CMP #### [facility] [address] [place] [address] [address] Sienna Powers AST [Catalytic activity/Vol] 31 U/L Normal 15-37 [facility] Comment on above: Performed By: #### M G, LIPID, CMP #### [facility] [address] [place] [address] [address] Sienna Powers Bilirubin [Mass/Vol] 0.7 mg/dL Normal 0.2-1.0 [facility] Comment on above: Performed By: #### M G, LIPID, CMP #### [facility] [address] [place] [address] [address] Sienna Powers Calcium [Mass/Vol] 9.6 mg/dL Normal 8.5-10.1 [facility] Comment on above: Performed By: #### M G, LIPID, CMP #### [facility] [address] [place] [address] [address] Sienna Powers Chloride [Moles/Vol] 104 mmol/L Normal 98-107 [facility] Comment on above: Performed By: #### M G, LIPID, CMP #### [facility] [address] [place] [address] [address] Sienna Powers CO2 [Moles/Vol] 29.1 mmol/L Normal 21.0-32.[address] [facility] Comment on above: Performed By: #### M G, LIPID, CMP #### [facility] [address] [place] [address] [address] Sienna Powers Creatinine [Mass/Vol] 0.95 mg/dL Normal 0.70-1.30 [facility] Comment on above: Performed By: #### M G, LIPID, CMP #### [facility] [address] [place] [address] Dr. Sienna Powers EGFR-AF KENYAN >60 Normal >=[address] [facility] Comment on above: Performed By: #### M G, LIPID, CMP #### [facility] [address] [place] [address] Dr. Sienna Powers EGFR-NON AF KENYAN >60 Normal >=60 [facility] Comment on above: Performed By: #### M G, LIPID, CMP #### [facility] [address] [place] [address] Dr. Sienna Powers Globulin (S) [Mass/Vol] 3.9 g/dL Normal [facility] Comment on above: Performed By: #### M G, LIPID, CMP #### [facility] [address] [place] [address] Dr. Sienna Powers Glucose [Mass/Vol] 99 mg/dL Normal 74-106 [facility] Comment on above: Performed By: #### M G, LIPID, CMP #### [facility] [address] [place] [address] [address] Sienna Powers Potassium [Moles/Vol] 4.3 mmol/L Normal 3.5-5.1 [facility] Comment on above: Performed By: #### M G, LIPID, CMP #### [facility] [address] [place] [address] [address] Sienna Powers Protein [Mass/Vol] 7.6 g/dL Normal 6.4-8.2 [facility] Comment on above: Performed By: #### M G, LIPID, CMP #### [facility] [address] [place] [address] [address] Sienna Powers Sodium [Moles/Vol] 140 mmol/L Normal 136-145 [facility] Comment on above: Performed By: #### M G, LIPID, CMP #### [facility] [address] [place] [address] [address] Sienna Powers Urea nitrogen [Mass/Vol] 16.0 mg/dL Normal 7.0-18.0 [facility] Comment on above: Performed By: #### M G, LIPID, CMP #### [facility] [address] [place] [address] [address] Sienna Powers Urea nitrogen/Creatinine [Mass ratio] 16.8 mg/mg Normal [facility] Comment on above: Performed By: #### M G, LIPID, CMP #### [facility] [address] [place] [address] [address] Sienna Powers XR KUB 1 VIEWon 09-18-2022 XR KUB 1 VIEW EXAMINATION: XR KUB 1 VIEW HISTORY: Kidney stone COMPARISON: No relevant comparison available. FINDINGS: KIDNEY/URETER - RIGHT: No visible renal or ureteral calcifications. KIDNEY/URETER - LEFT: Multiple left nephroliths PELVIS: No visible ureteral calcifications. Any visible calcifications favor phleboliths. BOWEL: No abnormal dilation or deviation. BONES: No acute abnormality. Degenerative changes of the spine OTHER: Negative. No abnormal gaseous collections. IMPRESSION: Left nephrolithiasis Electronically authenticated by: ROSE AGUILERA Date: 2022-09-18 07:51 Normal [facility] Vital Signs Date Time Vital Sign Value Performing Clinician Facility 06-06-2024 08:53-0400 Body weight 101.15 kg DO Mitchel Sunway [employer] Work Phone: [facility] 06-06-2024 08:53-0400 Diastolic blood pressure 80 mm[Hg] DO Mitchel [employer]way [employer] Work Phone: [facility] 06-06-2024 08:53-0400 Heart rate 81 /min DO Mitchel Ball Work Phone: [facility] 06-06-2024 08:53-0400 SaO2% (BldA) [Mass fraction] 97 % DO Mitchel Ball Work Phone: [facility] 06-06-2024 08:53-0400 Systolic blood pressure 122 mm[Hg] DO Mitchel Ball Work Phone: [facility] 05-09-2024 11:12-0400 Body height 177.8 cm DO Mitchel Ball Work Phone: [facility] 05-09-2024 11:12-0400 Body mass index (BMI) [Ratio] 32 kg/m2 DO Mitchel Ball Work Phone: [facility] 05-09-2024 11:12-0400 Body weight 101.15 kg DO Mitchel Ball Work Phone: [facility] 05-08-2024 15:21-0400 Body weight 101.6 kg DO Mitchel Ball Work Phone: [facility] 05-08-2024 15:21-0400 Diastolic blood pressure 90 mm[Hg] DO Mitchel Ball Work Phone: [facility] 05-08-2024 15:21-0400 Heart rate 83 /min DO Mitchel Ball Work Phone: [facility] 05-08-2024 15:21-0400 SaO2% (BldA) [Mass fraction] 97 % DO Mitchel Ball Work Phone: [facility] 05-08-2024 15:21-0400 Systolic blood pressure 152 mm[Hg] DO Mitchel Ball Work Phone: [facility] 04-27-2024 08:22-0400 Body height 177.8 cm DO Mitchel Ball Work Phone: [facility] 04-27-2024 08:22-0400 Body mass index (BMI) [Ratio] 32.1 kg/m2 DO Mitchel Ball Work Phone: [facility] 04-27-2024 08:22-0400 Body weight 101.6 kg DO Mitchel Ball Work Phone: [facility] 04-27-2024 08:22-0400 Diastolic blood pressure 85 mm[Hg] DO Mitchel Ball Work Phone: [facility] 04-27-2024 08:22-0400 Heart rate 103 /min DO Mitchel Ball Work Phone: [facility] 04-27-2024 08:22-0400 Systolic blood pressure 136 mm[Hg] DO Mitchel Ball Work Phone: [facility] 04-21-2024 13:00-0400 Body weight 103.41 kg DO Mitchel Ball Work Phone: [facility] 04-21-2024 13:00-0400 Diastolic blood pressure 70 mm[Hg] DO Mitchel Ball Work Phone: [facility] 04-21-2024 13:00-0400 Heart rate 98 /min DO Mitchel Ball Work Phone: [facility] 04-21-2024 13:00-0400 SaO2% (BldA) [Mass fraction] 97 % DO Mitchel Ball Work Phone: [facility] 04-21-2024 13:00-0400 Systolic blood pressure 118 mm[Hg] DO Mitchel Ball Work Phone: [facility] 03-31-2024 11:01-0400 Body weight 102.51 kg [facility] 03-31-2024 11:01-0400 Diastolic blood pressure 90 mm[Hg] [facility] 03-31-2024 11:01-0400 Heart rate 81 /min [facility] 03-31-2024 11:01-0400 SaO2% (BldA) [Mass fraction] 97 % [facility] 03-31-2024 11:01-0400 Systolic blood pressure 140 mm[Hg] [facility] 01-28-2024 09:09-0400 Body height 177.8 cm [facility] 01-28-2024 09:09-0400 Body mass index (BMI) [Ratio] 32.7 kg/m2 [facility] 01-28-2024 09:09-0400 Body weight 103.53 kg [facility] 01-28-2024 09:09-0400 Diastolic blood pressure 103 mm[Hg] [facility] 01-28-2024 09:09-0400 Heart rate 92 /min [facility] 01-28-2024 09:09-0400 Systolic blood pressure 138 mm[Hg] [facility] 01-10-2024 09:37-0400 Diastolic blood pressure 100 mm[Hg] [facility] 01-10-2024 09:37-0400 Heart rate 72 /min [facility] 01-10-2024 09:37-0400 SaO2% (BldA) [Mass fraction] 97 % [facility] 01-10-2024 09:37-0400 Systolic blood pressure 150 mm[Hg] [facility] 12-22-2023 08:09-0400 Body height 177.8 cm Leslie Barillas MD Work Phone: [facility] 12-22-2023 08:09-0400 Body mass index (BMI) [Ratio] 33 kg/m2 Leslie Barillas MD Work Phone: [facility] 12-22-2023 08:09-0400 Body weight 104.33 kg Leslie Barillas MD Work Phone: [facility] 12-22-2023 08:09-0400 Diastolic blood pressure 99 mm[Hg] Leslie Barillas MD Work Phone: [facility] 12-22-2023 08:09-0400 Heart rate 99 /min Leslie Barillas MD Work Phone: [facility] 12-22-2023 08:09-0400 Systolic blood pressure 164 mm[Hg] Leslie Barillas MD Work Phone: [facility] 12-09-2023 16:38-0400 Diastolic blood pressure 82 mm[Hg] [facility] 12-09-2023 16:38-0400 Heart rate 79 /min [facility] 12-09-2023 16:38-0400 SaO2% (BldA) [Mass fraction] 97 % [facility] 12-09-2023 16:38-0400 Systolic blood pressure 120 mm[Hg] [facility] 10-08-2023 09:30-0500 Body height 177.8 cm Mitchel Ball Other [facility] 10-08-2023 09:30-0500 Body mass index (BMI) [Ratio] 33.17 kg/m2 Mitchel Ball Other [facility] [employer] Other 10-08-2023 09:30-0500 Body weight 104.87 kg Mitchel Ball Other [facility] 10-08-2023 09:30-0500 Diastolic blood pressure 103 mm[Hg] Mitchel Ball Other [facility] 10-08-2023 09:30-0500 Respiratory rate 16 /min Mitchel Ball Other [employer] Other 10-08-2023 09:30-0500 Systolic blood pressure 164 mm[Hg] Mitchel Ball Other [facility] 08-19-2023 16:30-0500 Body height 177.8 cm Ceasar Tubbs Other [employer] Other 08-19-2023 16:30-0500 Body mass index (BMI) [Ratio] 33.17 kg/m2 Ceasar Tubbs Other [employer] Other 08-19-2023 16:30-0500 Body weight 104.87 kg Ceasar Tubbs Other [employer] Other 08-19-2023 16:30-0500 Diastolic blood pressure 84 mm[Hg] Ceasar Tubbs Other [employer] Other 08-19-2023 16:30-0500 SaO2% (BldA) [Mass fraction] 96 % Ceasar Tubbs Other [employer] Other 08-19-2023 16:30-0500 Systolic blood pressure 140 mm[Hg] Ceasar Tubbs Other [employer] Other 07-08-2023 10:30-0400 Body height 177.8 cm Mitchel Ball Other [employer] Other 07-08-2023 10:30-0400 Body mass index (BMI) [Ratio] 32.05 kg/m2 Mitchel Ball Other [employer] Other 07-08-2023 10:30-0400 Body weight 101.33 kg Mitchel Ball Other [employer] Other 07-08-2023 10:30-0400 Diastolic blood pressure 86 mm[Hg] Mitchel Ball Other [employer] Other 07-08-2023 10:30-0400 Respiratory rate 12 /min Mitchel Ball Other [employer] Other 07-08-2023 10:30-0400 Systolic blood pressure 128 mm[Hg] Mitchel Ball Other [employer] Other 05-17-2023 09:45-0400 Body height 177.8 cm Ceasar Tubbs Other [employer] Other 05-17-2023 09:45-0400 Body mass index (BMI) [Ratio] 32.28 kg/m2 Ceasar Tubbs Other [employer] Other 05-17-2023 09:45-0400 Body weight 102.06 kg Ceasar Tubbs Other [employer] Other 05-17-2023 09:45-0400 Diastolic blood pressure 90 mm[Hg] Ceasar Tubbs Other [employer] Other 05-17-2023 09:45-0400 SaO2% (BldA) [Mass fraction] 98 % Ceasar Tubbs Other [employer] Other 05-17-2023 09:45-0400 Systolic blood pressure 140 mm[Hg] Ceasar Tubbs Other [employer] Other 04-26-2023 14:30-0400 Body height 177.8 cm Ceasar Tubbs Other [employer] Other 04-26-2023 14:30-0400 Diastolic blood pressure 88 mm[Hg] Ceasar Tubbs Other [employer] Other 04-26-2023 14:30-0400 SaO2% (BldA) [Mass fraction] 97 % Ceasar Tubbs Other [employer] Other 04-26-2023 14:30-0400 Systolic blood pressure 126 mm[Hg] Ceasar Tubbs Other [employer] Other 04-16-2023 09:45-0400 Body height 177.8 cm Mitchel Cesar Other [employer] Other 04-16-2023 09:45-0400 Body mass index (BMI) [Ratio] 32.51 kg/m2 Mitchel Ball Other [employer] Other 04-16-2023 09:45-0400 Body weight 102.79 kg Mitchel Ball Other [employer] Other 04-16-2023 09:45-0400 Diastolic blood pressure 103 mm[Hg] Mitchel Ball Other [employer] Other 04-16-2023 09:45-0400 Respiratory rate 12 /min Mitchel Ball Other [employer] Other 04-16-2023 09:45-0400 Systolic blood pressure 163 mm[Hg] Mitchel Ball Other [employer] Other 03-22-2023 11:30-0400 Body height 177.8 cm Mitchel Ball Other [employer] Other 03-22-2023 11:30-0400 Body mass index (BMI) [Ratio] 33.11 kg/m2 Mitchel Ball Other [employer] Other 03-22-2023 11:30-0400 Body weight 104.69 kg Mitchel Ball Other [employer] Other 03-22-2023 11:30-0400 Diastolic blood pressure 83 mm[Hg] Mitchel Ball Other [employer] Other 03-22-2023 11:30-0400 Respiratory rate 12 /min Mitchel Ball Other [employer] Other 03-22-2023 11:30-0400 Systolic blood pressure 137 mm[Hg] Mitchel Ball Other [employer] Other 01-04-2023 11:30-0400 Body height 177.8 cm Mitchel Ball Other [employer] Other 01-04-2023 11:30-0400 Body mass index (BMI) [Ratio] 32.34 kg/m2 Mitchel Ball Other [employer] Other 01-04-2023 11:30-0400 Body weight 102.24 kg Mitchel Ball Other [employer] Other 01-04-2023 11:30-0400 Diastolic blood pressure 88 mm[Hg] Mitchel Ball Other [employer] Other 01-04-2023 11:30-0400 Respiratory rate 12 /min Mitchel Ball Other [employer] Other 01-04-2023 11:30-0400 Systolic blood pressure 140 mm[Hg] Mitchel Ball Other [employer] Other 12-24-2022 16:30-0400 Body height 177.8 cm Ceasarpaco Tubbs Other [employer] Other 12-24-2022 16:30-0400 Diastolic blood pressure 80 mm[Hg] Ceasar Tubbs Other [employer] Other 12-24-2022 16:30-0400 SaO2% (BldA) [Mass fraction] 98 % Ceaasrpaco Tubbs Other [employer] Other 12-24-2022 16:30-0400 Systolic blood pressure 130 mm[Hg] Ceasar Tubbs Other [employer] Other 12-04-2022 12:00-0400 Body height 177.8 cm Ceasar Tubbs Other [employer] Other 12-04-2022 12:00-0400 Body mass index (BMI) [Ratio] 32.83 kg/m2 Ceasar Tubbs Other [employer] Other 12-04-2022 12:00-0400 Body weight 103.78 kg Ceasar Tubbs Other [employer] Other 12-04-2022 12:00-0400 SaO2% (BldA) [Mass fraction] 96 % Ceasar Tubbs Other [employer] Other 11-24-2022 09:00-0500 Body height 177.8 cm Ceasar Tubbs Other [employer] Other 11-24-2022 09:00-0500 Body mass index (BMI) [Ratio] 33 kg/m2 Ceasar Tubbs Other [employer] Other 11-24-2022 09:00-0500 Body weight 104.33 kg Ceasar Tubbs Other [employer] Other 11-24-2022 09:00-0500 Diastolic blood pressure 82 mm[Hg] Ceasar Tubbs Other [employer] Other 11-24-2022 09:00-0500 SaO2% (BldA) [Mass fraction] 96 % Ceasar Tubbs Other [employer] Other 11-24-2022 09:00-0500 Systolic blood pressure 130 mm[Hg] Ceasar Tubbs Other [employer] Other 04-16-2022 12:20-0400 Body height 177.8 cm Andre Villeda [employer] Other 04-16-2022 12:20-0400 Body mass index (BMI) [Ratio] 32.28 kg/m2 Andre Jovel Other [employer] Other 04-16-2022 12:20-0400 Body weight 102.06 kg Andre Jovel Other [employer] Other 03-05-2022 15:00-0400 Body height 177.8 cm Ceasar Tubbs Other [employer] Other 03-05-2022 15:00-0400 Body mass index (BMI) [Ratio] 32.91 kg/m2 Ceasar Tubbs Other [employer] Other 03-05-2022 15:00-0400 Body weight 104.06 kg Ceasar Tubbs Other [employer] Other 03-05-2022 15:00-0400 Diastolic blood pressure 84 mm[Hg] Ceasar Tubbs Other [employer] Other 03-05-2022 15:00-0400 SaO2% (BldA) [Mass fraction] 97 % Ceasar Tubbs Other [employer] Other 03-05-2022 15:00-0400 Systolic blood pressure 138 mm[Hg] Ceasar Tubbs Other [employer] Other 02-24-2022 10:30-0400 Body height 177.8 cm Ceasar Tubbs Other [employer] Other 02-24-2022 10:30-0400 Body mass index (BMI) [Ratio] 34.15 kg/m2 Ceasar Tubbs Other [employer] Other 02-24-2022 10:30-0400 Body weight 107.96 kg Ceasar Tubbs Other [employer] Other 02-24-2022 10:30-0400 Diastolic blood pressure 80 mm[Hg] Ceasar Tubbs Other [employer] Other 02-24-2022 10:30-0400 SaO2% (BldA) [Mass fraction] 98 % Ceasar Tubbs Other [employer] Other 02-24-2022 10:30-0400 Systolic blood pressure 140 mm[Hg] Ceasar Tubbs Other [employer] Other 02-10-2022 09:40-0400 Body height 177.8 cm Andre Jovel Other [employer] Other 02-10-2022 09:40-0400 Body mass index (BMI) [Ratio] 39.31 kg/m2 Andre Jovel Other [employer] Other 02-10-2022 09:40-0400 Body weight 124.29 kg Andre Jovel Other [employer] Other Encounters Encounter Date Encounter Type Care Provider Facility Start: 06-16-2024 End: 06-16-2024 ambulatory MITCHEL GUERRERO [facility] Start: 06-09-2024 End: 06-09-2024 Evaluation and management of inpatient ORLIN Carmona [facility] Start: 06-08-2024 End: 06-09-2024 ambulatory LESLIE BARILLAS [facility] Start: 06-06-2024 End: 06-06-2024 ambulatory DO Mitchel Laughlin Phone: [facility] Work Phone: Start: 06-06-2024 End: 06-06-2024 Patient encounter procedure DO Mitchel Guererro Work Phone: [facility] Work Phone: Start: 05-30-2024 Non-patient / Non-visit DO Timoteo Guerrero Work Phone: [facility] Work Phone: Start: 05-30-2024 End: 05-30-2024 ambulatory DO Mitchel Guerrero Work Phone: [facility] Work Phone: Start: 05-30-2024 End: 05-30-2024 Patient encounter procedure DO Mitchel Guerrero Work Phone: [facility] Work Phone: Start: 05-25-2024 End: 05-25-2024 ambulatory [facility] Start: 05-25-2024 Encounter for other preprocedural examination [facility] Start: 05-09-2024 End: 05-09-2024 ambulatory DO Mitchel Guerrero Work Phone: [facility] Work Phone: Start: 05-09-2024 End: 05-09-2024 Patient encounter procedure DO Mitchel Cesar Work Phone: [facility] Work Phone: Start: 05-08-2024 End: 05-08-2024 ambulatory DO Mitchel Guerrero Work Phone: [facility] Work Phone: Start: 05-08-2024 End: 05-08-2024 Patient encounter procedure DO Mitchel Guerrero Work Phone: [facility] Work Phone: Start: 04-27-2024 Non-patient / Non-visit DO Timoteo Guerrero Work Phone: [facility] Work Phone: Start: 04-27-2024 End: 04-27-2024 ambulatory DO Mitchel Guerrero Work Phone: [facility] Work Phone: Start: 04-27-2024 End: 04-27-2024 Patient encounter procedure DO Mitchel Ball Work Phone: [facility] Work Phone: Start: 04-27-2024 End: 04-27-2024 ambulatory DO Mitchel Guerrero Work Phone: [facility] Work Phone: Start: 04-27-2024 End: 04-27-2024 Patient encounter procedure DO Mitchel Guerrero Work Phone: [facility] Work Phone: Start: 04-21-2024 End: 04-21-2024 ambulatory DO Mitchel Guerrero Work Phone: [facility] Work Phone: Start: 04-21-2024 End: 04-21-2024 Patient encounter procedure DO Mitchel Guerrero Work Phone: [facility] Work Phone: Start: 04-14-2024 End: 04-14-2024 Patient encounter procedure DO Mitchel Ball Work Phone: [facility] [place] Work Phone: Start: 04-14-2024 End: 04-14-2024 ambulatory Ceasar Tubbs Facility:[facility] Start: 04-10-2024 Non-patient / Non-visit DO Timoteo Guerrero Work Phone: [facility] Work Phone: Start: 03-31-2024 End: 03-31-2024 ambulatory [facility] Work Phone: Start: 03-31-2024 End: 03-31-2024 Patient encounter procedure [facility] [place] Work Phone: Start: 03-29-2024 End: 03-29-2024 ambulatory [facility] Start: 02-11-2024 End: 02-11-2024 ambulatory KASIA PEPPER [facility] Start: 02-02-2024 ambulatory MITCHEL GUERRERO [facility] Start: 02-01-2024 End: 02-01-2024 Evaluation and management of inpatient [facility] Start: 01-28-2024 End: 01-28-2024 ambulatory [facility] Work Phone: Start: 01-28-2024 End: 01-28-2024 Patient encounter procedure [facility] Work Phone: Start: 01-10-2024 End: 01-10-2024 ambulatory [facility] Work Phone: Start: 01-10-2024 End: 01-10-2024 Patient encounter procedure [facility] Work Phone: Start: 12-23-2023 End: 12-23-2023 ambulatory [facility] Work Phone: Start: 12-23-2023 End: 12-23-2023 Patient encounter procedure [facility] Work [facility]: Start: 12-23-2023 Non-patient / Non-visit [facility] Work Phone: Start: 12-22-2023 End: 12-22-2023 Office outpatient visit 25 minutes Leslie Barillas MD Work Phone: [facility] Comment on above: Calculus of kidney ( Primary Dx); Benign prostatic hyperplasia with urinary frequency Start: 12-22-2023 End: 12-22-2023 ambulatory MITCHEL GUERRERO [facility] Start: 12-09-2023 End: 12-09-2023 ambulatory [facility] Work Phone: Start: 12-09-2023 End: 12-09-2023 Patient encounter procedure [facility] Work Phone: Start: 11-29-2023 Non-patient / Non-visit [facility] [facility] [employer] Work Phone: Start: 11-15-2023 End: 11-15-2023 ambulatory Mitchel Guerrero Other [employer] Other Start: 11-15-2023 Telephone encounter Mitchel Cesar [facility] Start: 11-15-2023 Non-patient / Non-visit [facility] Work Phone: Start: 10-08-2023 End: 10-08-2023 ambulatory Mitchel Guerrero Other [employer] Other Start: 10-08-2023 Office outpatient vi sit 25 minutes Mitchel Guerrero [facility] Start: 10-08-2023 End: 10-08-2023 Patient encounter procedure [facility]- Start: 08-31-2023 (PROC) PROCEDURE Ceasar Fernandes [facility] Start: 08-31-2023 End: 08-31-2023 ambulatory Ceasar Tubbs Other [employer] Other Start: 08-23-2023 End: 08-23-2023 ambulatory Mitchel Guerrero Other [employer] Other Start: 08-23-2023 Telephone encounter Mitchel Guerrero KO [facility] Start: 08-19-2023 End: 08-19-2023 ambulatory Ceasar Tubbs Other [employer] Other Start: 08-19-2023 Office outpatient vi sit 25 minutes Ceasar Arley [facility] Start: 07-08-2023 End: 07-08-2023 ambulatory Mitchel Guerrero Other [employer] Other Start: 07-08-2023 Office outpatient vi sit 15 minutes Mitchel Cesar [facility] Start: 06-08-2023 End: 06-08-2023 ambulatory Mitchel Guerrero Other [employer] Other Start: 06-08-2023 Telephone encounter Mitchel Guerrero [facility] Start: 05-17-2023 End: 05-17-2023 ambulatory Ceasar Arley Other [employer] Other Start: 05-17-2023 Office outpatient vi sit 15 minutes Ceasar Arley [facility] Start: 05-10-2023 End: 05-10-2023 ambulatory Mitchel Guerrero Other [employer] Other Start: 05-10-2023 Telephone encounter Mitchel Guerrero [facility] Start: 04-30-2023 End: 04-30-2023 ambulatory Mitchel Guerrero Other [employer] Other Start: 04-30-2023 Telephone encounter Mitchel Guerrero [facility] Start: 04-27-2023 End: 04-27-2023 ambulatory Mitchel Guerrero Other [employer] Other Start: 04-27-2023 Telephone encounter Mitchel Guerrero [facility] Start: 04-26-2023 End: 04-26-2023 ambulatory Ceasar Arley Other [employer] Other Start: 04-26-2023 Office outpatient vi sit 25 minutes Ceasar Arley [facility] Start: 04-23-2023 End: 04-23-2023 ambulatory Mitchel Guerrero Other [employer] Other Start: 04-23-2023 Telephone encounter Mitchel Ball [facility] Start: 04-22-2023 End: 04-22-2023 ambulatory Mitchel Cesar Other [employer] Other Start: 04-22-2023 Telephone encounter Mitchel Ball [facility] Start: 04-16-2023 End: 04-16-2023 ambulatory Mitchel Cesar Other [employer] Other Start: 04-16-2023 Office outpatient vi sit 15 minutes Mitchel Ball [facility] Start: 04-15-2023 (PROC) PROCEDURE Ceasar Tubbs [facility] Start: 04-15-2023 End: 04-15-2023 ambulatory Ceasar Tubbs Other [employer] Other Start: 03-22-2023 End: 03-22-2023 ambulatory Mitchel Guerrero Other [employer] Other Start: 03-22-2023 Office outpatient vi sit 15 minutes Mitchel Ball [facility] Start: 02-19-2023 End: 02-19-2023 ambulatory Mitchel Guerrero Other [employer] Other Start: 02-19-2023 Telephone encounter Mitchel Ball [facility] Start: 01-26-2023 End: 01-26-2023 ambulatory Mitchel Cesar Other [employer] Other Start: 01-26-2023 Telephone encounter Mitchel Ball [facility] Start: 01-19-2023 End: 01-19-2023 ambulatory Mitchel Cesar Other [employer] Other Start: 01-19-2023 Telephone encounter Mitchel Ball [facility] Start: 01-18-2023 End: 01-19-[address] MITCHEL GUERRERO Facility: Start: 01-04-2023 End: 01-04-2023 ambulatory Mitchel Guerrero Other [employer] Other Start: 01-04-2023 Patient encounter procedure Mitchel Guerrero [facility] Start: 12-24-2022 End: 12-24-2022 ambulatory Ceasar Tubbs Other [employer] Other Start: 12-24-2022 Office outpatient vi sit 25 minutes Ceasar Arley [facility] Start: 12-10-2022 (PROC) PROCEDURE Ceasarpaco Fernandes [facility] Start: 12-10-2022 End: 12-10-2022 ambulatory Ceasar Arley Other [employer] Other Start: 12-04-2022 End: 12-04-2022 ambulatory Ceasarpaco Tubbs Other [employer] Other Start: 12-04-2022 Office outpatient vi sit 25 minutes Ceasar Arley [facility] Start: 12-02-2022 End: 12-02-2022 ambulatory Mitchel Guerrero Other [employer] Other Start: 12-02-2022 Telephone encounter Mitchel Guerrero [facility] Start: 11-26-2022 (PROC) PROCEDURE Ceasarpaco Fernandes S [facility] Start: 11-26-2022 End: 11-26-2022 ambulatory Ceasar Arley Other [employer] Other Start: 11-24-2022 End: 11-24-2022 ambulatory Ceasar Arley Other [employer] Other Start: 11-24-2022 Office outpatient vi sit 25 minutes Ceasar Arley [facility] Start: 09-17-2022 End: 09-18-[address] DOCTOR CARY Facility: Start: 04-16-2022 End: 04-16-2022 ambulatory Andre Jovel Other [employer] Other Start: 04-16-2022 Office outpatient vi sit 15 minutes Andre Jovel [facility] Start: 03-05-2022 End: 03-05-2022 ambulatory Ceasar Tubbs Other [employer] Other Start: 03-05-2022 Office outpatient vi sit 25 minutes Ceasar Tubbs [facility] Start: 02-26-2022 (Procedure) Short Ceasarpaco Tubbs [facility] Start: 02-26-2022 End: 02-26-2022 ambulatory Ceasar Tubbs Other [employer] Other Start: 02-26-2022 Telephone encounter Ceasar Tubbs [facility] [employer] Start: 02-24-2022 End: 02-24-2022 ambulatory Ceasar Tubbs Other [employer] Other Start: 02-24-2022 Office outpatient ne w 45 minutes Ceasar Tubbs [facility] Start: 02-10-2022 End: 02-10-2022 ambulatory Andre Jovel Other [employer] Other Start: 02-10-2022 Office outpatient ne w 30 minutes Andre Jovel [facility] Start: 01-22-2022 Adult health examination Jeanine kel Arley Other [employer] Other Start: 01-22-2022 Encounter for genera l adult medical examination without abnormal findings Mitchel Guerrero Other [employer] Other Procedures Date Procedure Procedure Detail Performing Clinician Start: 04-14-2024 MR lumbar spine wo con DO [employer] Work Phone: Start: 04-14-2024 X-ray of lumbar spin e, four views DO [employer] Work Phone: Start: 12-22-2023 Follow-up visit Follow-up LESLIE BARILLAS Start: 01-18-[address] DOCTOR CARY Comment on above: Performed By: #### P SASC #### [facility] [address] [place] [address] Dr. Sienna Powers Start: 09-17-[address] DOCTOR CARY Comment on above: Performed By: #### P SAD #### [facility] [address] [address] [address] Sienna Powers Start: 05-20-2017 Screening for malign ant neoplasm of colon Ceasar Tubbs Other Depression screening Ceasar Tubbs Other Screening for malign ant neoplasm of prostate Ceasar Tubbs Other Plan of Treatment Date Care Activity Detail Author Start: 12-21-2024 Adult BMI Screening Adult BMI Screen ing [facility] Start: 12-21-2024 Tobacco Screening Tobacco Screening [facility] Start: 06-28-2024 End: 06-28-2024 Patient encounter procedure [facility] - [facility] Start: 06-22-2024 End: 12-21-2024 Litholink 24 Hour (Non-[facility]) [facility]olink 24 Hour (Non[facility]) Lab Routine Calculus of kidney Expected: 06/22/2024 (Approximate), Expires: 12/21/2024 [facility] Comment on above: Expected: 06/22/2024 (Approximate), Expires: 12/21/2024 Start: 06-19-2024 End: 12-21-2024 Basic metabolic 2000 panel - Serum or Plasma Basic Metabolic Panel Lab Routine Calculus of kidney Expected: 06/19/2024 (Approximate), Expires: 12/21/2024 [facility] Comment on above: Expected: 06/19/2024 (Approximate), Expires: 12/21/2024 Start: 06-19-2024 End: 12-21-2024 XR Abdomen AP X-ray abdomen ap 1 view Imaging Routine Calculus of kidney Expected: 06/19/2024, Expires: 12/21/2024 [employer] Work Phone: Comment on above: Expected: 06/19/2024 , Expires: 12/21/2024 Start: 05-21-2024 Influenza vaccination Influenza Vacc ine [facility] Start: 04-21-2024 Patient referral [facility] Work Phone: Start: 02-11-2024 End: 02-11-2024 Patient encounter procedure 02/11/2024 8:00 AM EDT Office Visit [facility] [address] [place] [id number] Kasia Pepper MD [address] [place] [id number] [facility] Start: 05-21-2023 COVID-19 Vaccine ( season) COVID-19 Vaccine ( season) [facility] Start: 2021 Fall Risk Screening Fall Risk Screen ing [facility] Start: 2006 Administration of varicella zoster vaccine Zoster (Shingles) Vaccine (1 of 2) [facility] Start: 1975 DTaP,Tdap and Td Vac cines (1 - Tdap) DTaP,Tdap and Td Vaccines (1 - Tdap) [facility] Start: 1974 Adult BMI Follow Up Plan Adult BMI Follow Up Plan [facility] Start: 1968 Depression Screening Depression Scre ening [facility] Start: 1955 Medicare Annual Well ness Visit Medicare Annual Wellness Visit [facility] Comprehensive metabo lic 1999 panel - Serum or Plasma [facility] MR Lumbar spine WO contrast [facility] Patient Education Low back pain in adults [facility] Work Phone: Patient referral [facility] Work Phone: XR Lumbar spine 4 Views [facility] Immunizations Immunization Date Immunization Notes Care Provider Fa cility 07-14-2022 COVID-19 Moderna (BIvalent) Mitchel Guerrero Other [facility] 07-14-2022 Fluzone QIV High-Dos e 65YR+ DO Mitchel Guerrero Work Phone: [facility] 07-14-2022 influenza virus vaccine, unspecified formulation [facility] 07-14-2022 influenza, high dose seasonal, preservative-free Mitchel Guerrero Other [employer] Other 07-20-2021 COVID-19 Vaccine Moderna - Documentation Purposes Only Mitchel Guerrero Other [facility] 06-20-2021 influenza, injectabl e, quadrivalent, preservative free DO Mitchel Guerrero Work Phone: [facility] 06-20-2021 influenza virus vaccine, unspecified formulation Leslie Barillas MD Work Phone: [email or web address] 10-16-2020 COVID-19 Vaccine Moderna - Documentation Purposes Only Mitchel Guerrero Other [facility] 09-18-2020 COVID-19 Vaccine Moderna - Documentation Purposes Only Mitchel Guerrero Other [facility] 06-20-2020 influenza, injectabl e, quadrivalent, preservative free DO Mitchel Guerrero Work Phone: [facility] 07-19-2009 novel [id number], preservative-free, injectable DO Mitchel Guerrero Work Phone: [facility] 01-27-2006 tetanus toxoid, adsorbed Mitchel Guerrero Other [facility] Payers Date Payer Category Payer Self-pay 2021 Private Health Insurance [facility] SUPPLEMENT [id number] 2021-Present [phone] [address] [place] [address] [id number] 2021 Medicare MEDICARE MEDICAR E PART A & B [id number] 2021-Present [phone] [address] [place] [address] [id number] 2015 Unknown [id number] 1959 Medicare [id number] 1959 Unknown [id number] 1956 Unknown [id number] [id number] .593 1956 Unknown [id number] [id number] .593 1956 Unknown [id number] [id number] .128 1956 Unknown [id number] [id number] .1285 1955 Unknown [id number] [id number] .1285 1956 Unknown [id number] [id number] .128 1956 Unknown [id number] [id number] .128 1956 Unknown [id number] [id number] .128 1956 Unknown [id number] [id number] .1285 1956 Unknown [id number] 2.16.840.1.781978.3.579.2 .1285 1956 Unknown [id number] 2.16.840.1.307915.3.579.2 .1285 1956 Unknown [id number] 2.16.840.1.383562.3.579.2 .1286 1955 Unknown [id number] [id number] .1286 Unknown [id number] .531 Social History Date Type Detail Facility Start: 10-01-2020 End: 12-22-2023 Sex Assigned At [facility] Start: 1955 Sex Assigned At Male F [facility] Start: 01-27-2023 End: 06-06-2024 Tobacco smoking status NHIS Never smoked tobacco [facility] Start: 01-27-2023 Tobacco use and exposure Smokeless tobacco non-user [facility] Start: 12-22-2023 Alcohol intake Current drinke r of alcohol (finding) [facility] Start: 10-01-2020 End: 12-22-2023 History of Social function [facility] Childcare Unknown [facility] Start: 07-08-2020 Alcohol Comment OCC [facility] Start: 1955 Sex Assigned At Not on file P [facility] Clinical Notes 02-10-2022 to 12-22-2023 Leslie Barillas MD - 12/22/2023 8:30 AM EDT Note Date & Type Note Facility 12-22-2023 History of Present illness Narrative Images from the original note were not included. [address] [facility] [id number] Patient: Amber Henson Date of : 1955 Encounter Date: 12/22/2023 History of Present Illness: Chief Complaint: FOLLOW UP 6 MO LITHOLINK The patient is a 68 y.o. male, an established patient, and is here for kidney stones, BPH. Previous office note x1 reviewed. Patient presents today for follow-up of BPH and kidney stones. He denies any interval hematuria, dysuria, UTI, or flank pain in the interim. KUB today shows worsening left nonobstructive nephrolithiasis since 2020 and possibly some punctate stone in the right side with official read pending. Patient has been doing okay. He stopped taking his calcium supplement unfortunately 8 weeks ago due to the size of the pill. He also has been somewhat noncompliant with his hydrochlorothiazide and not taking it daily. I did review with him his Litholink that was completed on 12/08/2023 today showing - Vol 1.75 (L), UCa 325 (H), UOx 31, UCit 632 (BL), UpH 5.98, UUa 0.936 (H), Mihai 336 (H). Based on this, his urinary volume is still significantly low and I did advise him to increase his fluids as well as add lemon juice or other citric acid containing foods/compounds to increase citrate load which is still borderline low. His urinary calcium remains quite elevated and we will stop his calcium citrate supplement and after discussion of risks and benefits will start him on potassium citrate 10 mEq twice daily. Urine uric acid and sodium are also elevated and I did advise him to significantly reduce his dietary sodium and reduce animal protein. He needs to be compliant with this hydrochlorothiazide and I discussed with him that elevated sodium in the urine will negate the beneficial effect of calcium reabsorption from the medication. He does have progressively worsening overactive symptoms from likely BPH. I did discuss risks and benefits of proceeding with local cystoscopy for consideration of surgical intervention given that he is on Flomax and still having worsening issues. I did discuss with him course of disease of BPH as well as bladder health. I will try to obtain images from previous CT scan obtained at [facility] for stone disease to measure the size of the prostate. He would like to proceed with cystoscopy which I will plan to schedule in the near future. Regarding his stone disease, I will plan to see him back in 6 months with a repeat Litholink, KUB, and BMP. Patient agrees with plan of care and all questions were answered to satisfaction. Moderate MDM due to 2 chronic conditions with exacerbation (stone disease and BPH), record reviewed x1, labs and tests ordered and reviewed x5 with pharmacologic management and plans for diagnostic/operative evaluation. AUA-SS: 01/01 (urg) EDENILSON: 15 Summary of old records: OPV 06/16/23: The patient is a 68 y.o. male, an established patient, and is here for follow-up of nephrolithiasis. Patient here for 2 month follow-up with Litholink study. Today, patient denies any interval hematuria, dysuria, or UTI. Litholink study summarized as follows: 24-LL (05/04/23) - UVol 1.59 (L), UCa 271 (H), UOx 30 (BL), UCit 679, UpH 5.87, UUa 0.817, Mihai 316. Based on these results, patient has a low urinary volume, persistently elevated urine calcium, borderline urinary oxalate and citrate, and elevated urinary sodium. I did advise him today that we should increase his HCTZ to twice daily to reduce his urinary calcium and that he needs to significantly reduce his added salt to reduce his risk of stones as well as make his medication more efficacious. He does not need a refill at this time. I also advised to increase his fluids so that he has 2.5 L at least of urinary volume per day and add lemon as well as a calcium citrate supplement to increase his citrate load to prevent future stone episodes. I will plan to have the patient follow back up with a KUB in 6 months as well as a Litholink. Patient agrees with plan of care and all questions were answered to satisfaction. Moderate MDM due to chronic condition addressed with exacerbation, record reviewed x1, labs and tests ordered and reviewed x3 with pharmacologic management. Urinalysis today: No results for input(s): EXTPOCURCO , EXTPOCURCH , EXTPOCAPP , EXTPOCURBS , EXTPOCURBIL , EXTPOCUKET , EXTPOCUSPG , EXTPOCUHGB , EXTPOCUPRO , EXTPOCUURO , EXTPOCULEU , EXTPOCUNIT , EXTPOCUWBC , EXTPOCUBLD , EXTPOCURBC , EXTPOCUCRY , EXTPOCUBAC , EXTPOCUTREP , EXTPOCUPH , EXTPOCULEE in the last 72 hours. Last BUN and creatinine: Lab Results Component Value Date BUN 21 08/07/2020 Lab Results Component Value Date CREATININE 1.00 08/07/2020 Last PSA: Lab Results Component Value Date PSA 3.49 09/17/2022 PSA 3.28 12/27/2018 Lab Results Component Value Date PROSTATICSP 2.71 08/07/2020 Additional Lab/Culture results: None Imaging Reviewed during this Office Visit: KUB (Results were independently reviewed by physician and radiology report verified) Past Medical, Family, and Social History Update: The following portions of the patient's history were reviewed and updated as appropriate: allergies, current medications, past family history, past medical history, past social history, past surgical history and problem list. Past Medical History: Diagnosis Date Arthritis back- bulging disks- L1-L5 Benign headache Fatty liver GERD (gastroesophageal reflux disease) HL (hearing loss) slight HTN (hypertension) Hx of detached retina repair 04/2017 bilateral- repaired Hyperlipidemia no meds Kidney stone on left side here for workup for pending cysto lithotripsy Pneumonia hx of Visual floaters left worse than right Visual impairment glasses Past Surgical History: Procedure Laterality Date COLONOSCOPY CYST REMOVAL left side of head near ear- benign CYSTOSCOPY FLEXIBLE N/A 07/04/2018 Performed by Yuri Gomez MD at [facility] CYSTOSCOPY HOLMIUM LASER URETEROSCOPY Left 08/14/2020 Performed by Yuri Gomez MD at [facility] CYSTOSCOPY INSERTION STENT Left 08/14/2020 Performed by Yuri Gomez MD at [facility] CYSTOSCOPY REMOVAL STENT Left 08/19/2020 Performed by Yuri Gomez MD at [facility] CYSTOSCOPY W/ LASER LITHOTRIPSY EGD, DILATATION and biopsy N/A 07/25/2020 Performed by Antione Marin MD at [facility] ENDOSCOPY ESOPHAGOSCOPY / EGD with dilation HERNIA REPAIR 1980s left inguinal KNEE ARTHROSCOPY WITH SUBTOTAL MEDIAL MENISECTOMY, MEDIAL FEMORAL CONDYLE CHONDROPLASTY, PATELLA CHONDROPLASTY Right 02/05/2023 Performed by Edgardo Estrada MD at [facility] LASER REPAIR RETINOL TEAR DUONG Bilateral 04/21/2017 Performed by Kasia Pepper MD at [facility] SURGERY LITHOTRIPSY Left 08/29/2018 Performed by Yuri Gomez MD at [facility] SURGERY LITHOTRIPSY Left 07/04/2018 Performed by Yuri Gomez MD at [facility] SKIN BIOPSY right side of face- benign Family History Problem Relation Age of Onset Cancer Mother ovarian Cancer Father bladder Heart disease Father Hypertension Father No Known Problems Brother No Known Problems Brother Macular degeneration Neg Hx Diabetes Neg Hx Cataracts Neg Hx Glaucoma Neg Hx Anesthesia problems Neg Hx Current Outpatient Medications Medication Sig Dispense Refill acetaminophen (TYLENOL) 325 mg tablet Take 2 tablets (650 mg total) by mouth every 6 (six) hours as needed for pain. amLODIPine (NORVASC) 5 mg tablet Take 1 tablet (5 mg total) by mouth in the morning. cyclobenzaprine (FLEXERIL) 10 mg tablet TAKE 1 TABLET BY MOUTH THREE TIMES A DAY NEEDED FOR MUSCLE SPASM diclofenac (VOLTAREN) 75 mg EC tablet Take 1 tablet (75 mg total) by mouth in the morning and 1 tablet (75 mg total) before bedtime. With food . hydroCHLOROthiazide (HYDRODIURIL) 25 mg tablet TAKE 1 TABLET BY MOUTH TWICE A DAY BEFORE MEALS 180 tablet 4 losartan (COZAAR) 50 mg tablet Take 1 tablet (50 mg total) by mouth in the morning. 3 jbpoxeqo-wktt-DO-calcium &mins (THERAGRAN-M) 9 mg iron-400 mcg tablet Take 1 tablet by mouth in the morning. omeprazole (PriLOSEC OTC) 20 mg tablet,delayed release (DR/EC) TAKE 1 TABLET BY MOUTH EVERY MORNING BEFORE BREAKFAST. 28 tablet 5 ondansetron (ZOFRAN) 4 mg tablet Take 1 tablet (4 mg total) by mouth every 8 (eight) hours as needed for nausea or vomiting. oxyCODONE (ROXICODONE) 5 mg immediate release tablet Take 1 tablet (5 mg total) by mouth every 6 (six) hours as needed. tamsulosin (FLOMAX) 0.4 mg capsule Take 1 capsule (0.4 mg total) by mouth in the morning. acetaminophen-codeine (TYLENOL #3) 300-30 mg per tablet Take by mouth. (Patient not taking: Reported on 02/24/2021) fluticasone propionate (FLOVENT HFA) 220 mcg/actuation inhaler 2 sprays BID and swallow. Use without a spacer and do not inhale. Do not eat/drink for 30 min after. (Patient not taking: Reported on 03/02/2022) 2 Inhaler 5 HYDROcodone-acetaminophen (NORCO) 5-325 mg per tablet Take 1 tablet by mouth every 6 (six) hours as needed for pain for up to 20 doses. Max Daily Amount: 4 tablets (Patient not taking: Reported on 02/24/2021) 20 tablet 0 potassium citrate (UROCIT-K) 10 mEq (1,080 mg) CR tablet Take 1 tablet (10 mEq total) by mouth in the morning and 1 tablet (10 mEq total) in the evening. Take with meals. 180 tablet 0 No current facility-administered medications for this visit. (All medications reviewed and updated by provider since last office visit or hospitalization) Allergies: Patient has no known allergies. Tobacco History: Social History Tobacco Use Smoking Status Never Smokeless Tobacco Never (If patient a smoker, smoking cessation counseling offered) Social History: Social History Substance and Sexual Activity Alcohol Use Yes Comment: OCC Review of Systems: General: Negative for chills and fever. Cardiovascular: Negative for chest pain and shortness of breath. Gastrointestinal: Negative for constipation, diarrhea, nausea, and vomitting. -per HPI Physical Exam: BP (!) 164/99 Pulse 99 Ht 177.8 cm (5' 10 ) Wt 104.3 kg (230 lb) BMI 33.00 kg/m General: Alert, well appearing, and in no distress Integumentary: Normal coloration of skin, normal skin moisture Chest and lung exam: quiet, even and easy respiratory effort with no use of accessory muscles Neurologic: Normal coordination, normal gait Assessment and Plan: Amber was seen today for follow-up. Diagnoses and all orders for this visit: Calculus of kidney - X-ray abdomen ap 1 view; Future - Basic Metabolic Panel; Future - Litholink 24 Hour (Non-[facility]); Future Benign prostatic hyperplasia with urinary frequency Other orders - potassium citrate (UROCIT-K) 10 mEq (1,080 mg) CR tablet; Take 1 tablet (10 mEq total) by mouth in the morning and 1 tablet (10 mEq total) in the evening. Take with meals. Problem List Genitourinary Calculus of kidney - Primary Overview 04/13/23: Hx ca ox stone disease w/ hypercalciuria s/p L URS/HLL 08/14/20 100% ca ox mono; ERV [place] 04/08/23 - R low back, hx spinal stenosis, Cr 1.00, K 3.9, Ca 9.5, UA neg blood, pH7 - CTAP - BL stones nonobs; on HCTZ 25 mg qd x1 yr - get CTAP uploaded, check LL 2 mo 06/16/23: 24-LL (05/04/23) - UVol 1.59 (L), UCa 271 (H), UOx 30 (BL), UCit 679, UpH 5.87, UUa 0.817, Mihai 316 - inc HCTZ BID, cut Na, inc H20+lemon, ca cit supp, F/U 6 mo KUB/LL 12/22/23: KUB 12/22/23 - L nonobs neph, inc since 2020 (?R side punctate stone)>worsening; 24-LL (12/08/23) - UVol 1.75 (L), UCa 325 (H), UOx 31, UCit 632 (BL), UpH 5.98, UUa 0.936 (H), Mihai 336 (H)>>>inc fluids+lemon, stop Ca cit, start Urocit K 10 mEq BID, dec Na, F/U 6 mo KUB/LL/BMP Relevant Medications potassium citrate (UROCIT-K) 10 mEq (1,080 mg) CR tablet Other Relevant Orders X-ray abdomen ap 1 view Basic Metabolic Panel Litholink 24 Hour (Non[facility]) Other Benign prostatic hyperplasia with urinary frequency Overview 04/13/23: AUA-SS 12/3 (on Flomax 0.4 mg qd), PSA 3.71 (01/18/23) Cr 1.00 (04/08/23), PVR 0 mL; FHx bladder ca (father); JEREMY 50+g benign; cysto 08/14/20 (EP) - TL-BPH/large IPE - will monitor for now 12/22/23: AUA 14/4 (urg), bothered despite Flomax - plan local cysto, get outside CT images Follow-up: For cysto, 6 months for stone disease LESLIE BARILLAS MD This note was created with the assistance of a speech recognition program. While intending to generate a timely document that accurately reflects the content of the visit, no guarantee can be provided that every grammatical or spelling mistake has been or will be identified or corrected. Thank you for your understanding. documented in this encounter [facility] 11-15-2023 Evaluation note Encounter Date Diagnosis Assessment Notes Oct, Lumbosacral spondylosis with radiculopathy (ICD-10 - M47.27) [employer] Other 01-19-2024 Evaluation note* Encounter Date Diagnosis Assessment Notes Treatment Notes Treatment Clinical Notes Sep, Primary hypertension (ICD-10 - I10) This patient is instructed to consume a healthy, low-fat, low-salt diet. They are also encouraged to continue exercise to achieve/maintain a normal BMI. Patient is instructed on home BP measurements: - rest for 5 minutes w/o talking.- positioned w/ feet on floor and arm supported.- average best 2/3 readings w/ goal < 135/85.- update office w/ home readings in 2 weeks. Sep, Gastroesophageal reflux disease with esophagitis without hemorrhage (ICD-10 - K21.00) Avoid lying flat after eating. Avoid eating 2 hours prior to bedtime. Smaller, frequent meals may be better tolerated.Weight loss if overweight.PPI with any heartburn.Monitor for dysphagia. Sep, Bilateral renal cyst s (ICD-10 - N28.1) MRI abd: simple cyst - 04/2023 Appearance suggestive of symple cysts but recommended to recheck w/ CT in year. Denies flank pain or hematuria. Sep, Other obesity due to excess calories (ICD-10 - E66.09) This patient has been instructed on a low-fat, high-fiber diet. They are instructed to reduce calories, portion sizes and snacks. It is recommended that they exercise for 30 minutes, 3-5 times weekly. Sep, Body mass index [BMI ] 33.0-33.9, adult (ICD-10 - Z68.33) Sep, Hepatic hemangioma (ICD-10 - D18.03) MRI: hemangioma - 04/2023 Liver mass w/ appearance of hemangioma. Mild elevation of ALT alone. Denies RUQ pain. Monitor w/ CT abd in year. Sep, Elevated transaminas e level (ICD-10 - R74.01) Avoid alcohol, reduce dietary intake of fat, exercise w/ goal of loss of 10% body weight. Monitor Liver enzymes periodically. Sep, Primary osteoarthrit is of right knee (ICD-10 - M17.11) Quad exercises, ice/heat and Tylenol. Continue NSAIDs Avoid squatting or kneeling. Sep, Lumbosacral spondylosis with radiculopathy (ICD-10 - M47.27) The patient is instructed to avoid bending, twisting or lifting. They are to use intermittent heat and ice as needed. They may schedule a massage or gentle manipulation. They may safely use Tylenol as needed. f/u Pain management. This patient requires opiate use on a daily basis to control pain.This patient does not exhibit drug-seeking or aberrant behavior.This patient is able to continue with ADL, with an adequate quality of life, that they would not be able toachieve without the prescription pain medication.There has been no surgical treatment recommended for this condition.Use of non-opiate treatment should be continued, such as nonstrenuous and aquatic exercises.This patient has a pain management contract and they have been counseled on safe storage of the medication.They have been counseled on the risks of concomitant use with alcohol or sedating meds. PDMP is being followed and this patient's OARRS report is being monitored every 90 days. [employer] Other 12-04-2023 Evaluation note* Encounter Date Diagnosis Assessment Notes Treatment Notes Treatment Clinical Notes Aug, Lumbosacral spondylosis with radiculopathy (ICD-10 - M47.27) [employer] Other 11-30-2023 Evaluation note* Encounter Date Diagnosis Assessment Notes Treatment Notes Treatment Clinical Notes Jul, Lumbosacral spondylosis (ICD-10 - M47.817) Continue with current treatment plan. Jul, Lumbar radiculopathy (ICD-10 - M54.16) 68 year old male here for follow up to discuss chronic pain. He was last seen 3 months ago. He voices complaints of low back pain with radiation into the thighs bilaterally. He feels pain is worst in the mornings and is negatively impacting his activities of daily living. Anatomy of spine as well as different treatment options were discussed in detail with patient in regards to patients condition. I recommend we repeat the L5-S1 lumbar epidural steroid injection under fluoroscopic guidance as he feels this provided significant relief in the past. Risks and benefits of procedure explained to patient; patient verbalizes understanding. Jul, Sacroiliitis (ICD-10 - M46.1) In the future if the pain persists, we can consider bilateral sacroiliac joint injections in the future, if applicable. Jul, Chronic pain (ICD-10 - G89.29) Follow up after procedure. [employer] Other 10-19-2023 Evaluation note* Encounter Date Diagnosis Assessment Notes Treatment Notes Treatment Clinical Notes Jun, Primary hypertension (ICD-10 - I10) This patient is instructed to consume a healthy, low-fat, low-salt diet. They are also encouraged to continue exercise to achieve/maintain a normal BMI. Jun, Lumbosacral spondylosis with radiculopathy (ICD-10 - M47.27) The patient is instructed to avoid bending, twisting or lifting. They are to use intermittent heat and ice as needed. They may schedule a massage or gentle manipulation. They may safely use Tylenol as needed. Jun, Other obesity due to excess calories (ICD-10 - E66.09) This patient has been instructed on a low-fat, high-fiber diet. They are instructed to reduce calories, portion sizes and snacks. It is recommended that they exercise for 30 minutes, 3-5 times weekly. Jun, Body mass index [BMI] 32.0-32.9, adult (ICD-10 - Z68.32) [employer] Other 09-19-2023 Evaluation note* Encounter Date Diagnosis Assessment Notes Treatment Notes Treatment Clinical Notes May, Lumbar spondylosis (ICD-10 - M47.816) [employer] Other 08-28-2023 Evaluation note* Encounter Date Diagnosis Assessment Notes Treatment Notes Treatment Clinical Notes Apr, Lumbosacral spondylosis (ICD-10 - M47.817) Stable. Apr, Lumbar degenerative disc disease (ICD-10 - M51.36) 68 year old male here for follow up status post interlaminar epidural steroid injection at the L5-S1 level under fluoroscopic guidance. Patient reports 80% pain relief following procedure. He denies any back or lower extremity pain today but admits he had pain this morning upon rising. He states pain is generally worse in the mornings. Overall, He appears to be doing well. I recommend he increase his activities as tolerated. He is counseled against any excessive bending or twisting. He is advised to call the office if his pain returns. Apr, Sacroiliitis (ICD-10 - M46.1) Proceed with treatment plan. Apr, Chronic pain (ICD-10 - G89.29) Follow up after procedure. Apr, Lumbar stenosis with neurogenic claudication (ICD-10 - M48.062) Continue with current treatment plan. [employer] Other 08-21-2023 Evaluation note* Encounter Date Diagnosis Assessment Notes Treatment Notes Treatment Clinical Notes Apr, Lumbar spondylosis (ICD-10 - M47.816) [employer] Other 08-08-2023 Evaluation note* Encounter Date Diagnosis Assessment Notes Treatment Notes Treatment Clinical Notes Apr, Lumbar degenerative disc disease (ICD-10 - M51.36) [employer] Other 08-07-2023 Evaluation note* Encounter Date Diagnosis Assessment Notes Treatment Notes Treatment Clinical Notes Apr, Lumbosacral spondylosis (ICD-10 - M47.817) Stable. Apr, Lumbar degenerative disc disease (ICD-10 - M51.36) 68 year old male here for follow up status post lumbar facet medial branch nerve block bilaterally at the L2, L3 and L4 levels as well as the L5 dorsal ramus under fluoroscopic guidance. Patient reports minimal pain relief as well as increased function in standing, walking and daily activities following procedure. He voices complaints of low back pain. We will proceed with an L5-S1 epidural steroid injection. Risks and benefits of procedure explained to patient; patient verbalizes understanding. Apr, Sacroiliitis (ICD-10 - M46.1) Proceed with treatment plan. Apr, Chronic pain (ICD-10 - G89.29) Follow up after procedure. Apr, Lumbar stenosis with neurogenic claudication (ICD-10 - M48.062) [employer] Other 08-04-2023 Evaluation note* Encounter Date Diagnosis Assessment Notes Treatment Notes Treatment Clinical Notes Apr, Lumbar spondylosis (ICD-10 - M47.816) [employer] Other 08-03-2023 Evaluation note* Encounter Date Diagnosis Assessment Notes Treatment Notes Treatment Clinical Notes Apr, Liver mass (ICD-10 - R16.0) [employer] Other 07-28-2023 Evaluation note* Encounter Date Diagnosis Assessment Notes Treatment Notes Treatment Clinical Notes Mar, Acute bilateral low back pain without sciatica (ICD-10 - M54.50) Continue f/u w/ pain management Continue Voltaren, Tylenol and lidocaine Flexeril at HS Oxycodone as needed. Refer to PT Mar, Lumbar spondylosis (ICD-10 - M47.816) The patient is instructed to avoid bending, twisting or lifting. They are to use intermittent heat and ice as needed. They may schedule a massage. They may safely use Tylenol as needed. Mar, Primary hypertension (ICD-10 - I10) This patient is instructed to consume a healthy, low-fat, low-salt diet. They are also encouraged to continue exercise to achieve/maintain a normal BMI. INstructed to recheck BP at home when not in so much pain Goal < 140/90 [employer] Other 07-03-2023 Evaluation note* Encounter Date Diagnosis Assessment Notes Treatment Notes Treatment Clinical Notes Mar, Essential hypertension (ICD-10 - I10) This patient is instructed to consume a healthy, low-fat, low-salt diet. They are also encouraged to continue exercise to achieve/maintain a normal BMI. Mar, Non-alcoholic fatty liver disease (ICD-10 - K76.0) Low fat, high protein diet Exercise and weight loss stressed. Discussed NAFLD, BRODERICK and Cirrhosis risks. Mar, Lumbosacral spondylosis (ICD-10 - M47.817) The patient is instructed to avoid bending, twisting or lifting. They are to use intermittent heat and ice as needed. They may schedule a massage or gentle manipulation. They may safely use Tylenol as needed. [employer] Other 06-02-2023 Evaluation note* Encounter Date Diagnosis Assessment Notes Treatment Notes Treatment Clinical Notes Feb, Lumbosacral spondylosis with radiculopathy (ICD-10 - M47.27) [employer] Other 05-02-2023 Evaluation note* Encounter Date Diagnosis Assessment Notes Treatment Notes Treatment Clinical Notes January, Hyperlipidemia type II (ICD-10 - E78.01) [employer] Other 04-17-2023 Evaluation note* Encounter Date Diagnosis Assessment Notes Treatment Notes Treatment Clinical Notes Dec, Medicare annual wellness visit, initial (ICD-10 - Z00.00) Personalized health advice was given to the beneficiary including a written plan for screenings discussed and provided. Advanced care planning reviewed and/or information given as requested. Additional counseling was provided here today in regards to, [ ]. The above visit was performed by [ ] under direct supervision of [ ]. Document reviewed and amended by provider signed below. Dec, Essential hypertensi on (ICD-10 - I10) This patient is instructed to consume a healthy, low-fat, low-salt diet. They are also encouraged to continue exercise to achieve/maintain a normal BMI. Dec, Hyperlipidemia type II (ICD-10 - E78.01) Diet and exercise with continued statin therapy. Dec, Non-alcoholic fatty liver disease (ICD-10 - K76.0) Healthy low fat, high protein diet. Exercise and weight loss Dec, Lumbosacral spondylosis (ICD-10 - M47.817) The patient is instructed to avoid bending, twisting or lifting. They are to use intermittent heat and ice as needed. They may schedule a massage or gentle manipulation. They may safely use Tylenol as needed. Dec, Internal derangement of right knee (ICD-10 - M23.91) Failed conservative treatment - ROM exercises - Quad exercises - NSAIDs, Voltaren Gel, ice and Tylenol Dec, Gastroesophageal reflux disease with esophagitis without hemorrhage (ICD-10 - K21.00) Dec, Muscle cramp (ICD-10 - R25.2) Check Mg, K, Ca Hydrate Dec, High risk medication use (ICD-10 - Z79.899) Dec, Screening PSA (prostate specific antigen) (ICD-10 - Z12.5) Yearly JEREMY and PSA [employer] Other 04-06-2023 Evaluation note* Encounter Date Diagnosis Assessment Notes Treatment Notes Treatment Clinical Notes Dec, Sacroiliitis (ICD-10 - M46.1) Patient reports 70-80% pain relief and increased function following procedure. Dec, Lumbar radiculopathy (ICD-10 - M54.16) 67 year old male here for follow up status post bilateral sacroiliac joint injection under fluoroscopic guidance. Patient reports 70-80% pain relief as well as improved walking, standing and daily functions following procedure. He also complains of lower extremity muscle cramps. He also complains of heaviness in the left heel. Different treatment options were discussed in detail with the patient, if his lower extremity cramping persists or worsens, we can consider proceeding with a left L4,5 transforaminal epidural steroid injection under fluoroscopic guidance. Risks and benefits of procedure explained to patient; patient verbalizes understanding. Patient will call the office to schedule if he wishes to proceed Dec, Chronic pain (ICD-10 - G89.29) Patient is encouraged to call the office if his symptoms worsen. [employer] Other 03-17-2023 Evaluation note* Encounter Date Diagnosis Assessment Notes Treatment Notes Treatment Clinical Notes Nov, Lumbosacral spondylosis (ICD-10 - M47.817) Once sacral pain is improved we will consider a repeat lumbar facet medial branch nerve block. Nov, Sacroiliitis (ICD-10 - M46.1) 67 year old male here for follow up status post lumbar facet medial branch nerve block bilaterally at the L3 and L4 levels, as well as the L5 dorsal ramus under fluoroscopic guidance. Patient reports minimal pain even for a short time following the procedure. He continues to complain of low back pain today as expected. Clinically his pain presents as a combination of sacroiliitis and lumbosacral spondylosis, more prominent in the sacral area. I recommend proceeding with a bilateral SI joint injection. Risks and benefits of procedure explained to patient; patient verbalizes understanding. In the future once his sacral pain is improved we will consider a repeat lumbar facet medial branch nerve block. Nov, Chronic pain (ICD-10 - G89.29) Continue with current treatment plan [employer] Other 03-15-2023 Evaluation note* Encounter Date Diagnosis Assessment Notes Treatment Notes Treatment Clinical Notes Nov, Lumbosacral spondylosis with radiculopathy (ICD-10 - M47.27) [employer] Other 03-07-2023 Evaluation note* Encounter Date Diagnosis Assessment Notes Treatment Notes Treatment Clinical Notes Nov, Lumbosacral spondylosis (ICD-10 - M47.817) 67 year old male here for follow up to discuss chronic pain. He was last seen 9 months ago. He voices complaints of low back pain, denying radicular symptoms. He feels his pain is negatively impacting his activities of daily living. Anatomy of spine discussed in detail with patient in regards to patients condition. Patient is a candidate for a bilateral lumbar facet medial branch nerve block under fluoroscopic guidance. Risks and benefits of procedure explained to patient; patient verbalizes understanding. Nov, Sacroiliitis (ICD-10 - M46.1) If sacral pain becomes more bothersome, we can consider proceedng with a bilateral sacroiliac joint injection under fluoroscopic guidance. Nov, Chronic pain (ICD-10 - G89.29) Continue with current treatment plan [facility] Other 07-28-2022 Evaluation note* Encounter Date Diagnosis Assessment Notes Treatment Notes Treatment Clinical Notes Mar, Sacroiliitis (ICD-10 - M46.1) Mar, Lumbar radiculopathy (ICD-10 - M54.16) I again reviewed the MRI of the lumbar spine showing multiple level spinal stenosis and foraminal stenosis. The patient clinically had a left L5 radiculopathy and underwent a transforaminal injection by pain management which was also reviewed on film by me. The patient has had near complete relief of symptoms and is back to normal. He is happy with his result. I will see him on an as-needed basis. Mar, Lumbosacral spondylosis (ICD-10 - M47.817) Mar, Left lumbar radiculopathy (ICD-10 - M54.16) [employer] Other 06-16-2022 Evaluation note* Encounter Date Diagnosis Assessment Notes Treatment Notes Treatment Clinical Notes Feb, Sacroiliitis (ICD-10 - M46.1) Consider proceeding with an sacroiliac joint injection under fluoroscopic guidance in the future if needed. Feb, Lumbar radiculopathy (ICD-10 - M54.16) 66 year old male here for follow up status post left L5 transforaminal epidural steroid injection under fluoroscopic guidance. Patient reports 75% pain relief as well as improved walking, standing and daily functions following procedure. He voices complaints of left sided low back pain today. He feels radicular pain has significantly decreased since the procedure. He is overall doing very well and does not require any further treatment at this time. He can increase his activities gradually as tolerated. He is encouraged to call the office should his pain become bothersome. Feb, Lumbosacral spondylosis (ICD-10 - M47.817) Consider proceeding with a lumbar facet medial branch nerve block followed by a RFA if applicable in the future. Feb, Chronic pain (ICD-10 - G89.29) Stable. [facility] [employer] Other 06-07-2022 Evaluation note* Encounter Date Diagnosis Assessment Notes Treatment Notes Treatment Clinical Notes Feb, Sacroiliitis (ICD-10 - M46.1) In the future if the pain persists, we can consider proceeding with a left sacroiliac joint injection under fluoroscopic guidance. Feb, Lumbar radiculopathy (ICD-10 - M54.16) 66 y/o male here with complaints of low back pain with radiaiton down the left lower extremity to the big toe. 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 Pain significantly increased approx. 2 years ago after picking up his neighbor after a fall. He notes since the onset of pain he could use Prednisone intermittently which would relieve his pain however it is now becoming less effective. He denies any prior pain management, physical therapy or back surgeries. He notes he did join a gym, but this significantly increased his pain. Prior to examining the patient, I reviewed progress notes from his referring physician Dr Jovel. I also independently reviewed previous imaging of the lumbar spine which shows degenerative changes as well as facet arthropathy. Anatomy of spine discussed in detail with patient in regards to patients condition. Patient is a candidate for a L5 transforaminal epidural steroid injection on the left side under fluoroscopic guidance. Risks and benefits of procedure explained to patient; patient verbalizes understanding. Feb, Lumbosacral spondylosis (ICD-10 - M47.817) In the future if the pain persists, we can consider proceeding with a lumbar facet medial branch nerve block followed by a RFA if applicable under fluoroscopic guidance Feb, Chronic pain (ICD-10 - G89.29) Patient is aware to hold Diclofenac for 3-5 days prior to procedure. Feb, Other Medical deci franchesca making shows a new problem to me with further workup planned or suggested with the potential for extensive treatment options that were considered with the most applicable given this patient's situation as noted above. Treatment options considered include a combination of physical therapy approaches, pharmacologic management, and interventional procedures. Those most applicable to the patient were discussed at this time. Risk of complications and/or morbidity and mortality is high given that acute and chronic pain poses a threat to life and bodily function if undertreated, poorly treated or with failure to maintain adequate treatment and timely followup. Given the serious and fluctuating nature of pain with extensive consideration for whenever pain changes, there always remains the possibility of prolonged functional impairment requiring constant patient reassessment and high-level medical decision making. The amount and complexity of data reviewed is high given that patient labs, radiology reports, and other test were obtained, reviewed and summarized as applicable from the physician portal and/or outside medical records. Pertinent positive and negative findings were considered in medical decision-making. [facility] [employer] Other 05-24-2022 Evaluation note* Encounter Date Diagnosis Assessment Notes Treatment Notes Treatment Clinical Notes January, Lumbar stenosis without neurogenic claudication (ICD-10 - M48.061) I have independently reviewed the MRI of the lumbar spine and the report. I have ordered a 6 view lumbar spine of his back for the future. At this point the patient has left low back pain without true radicular component. He can walk a mile and a quarter. Most of his pain is in the left low back which is sacroiliac and lumbosacral in origin. He has no true neurogenic claudication. His MRI shows spinal stenosis at L2-3, L3-4, L4-5 that is moderate to moderate severe and a foraminal stenosis that is severe left L5-S1. I think it is important that we try pain management first. I would concentrate on the sacroiliac region and also consider medial-branch blocks lower lumbar spine. I would even consider 1 transforaminal injection L5-S1. Any surgery in this gentleman would be a very extensive surgery. I would like to see conservative care help him. January, Left lumbar radiculopathy (ICD-10 - M54.16) January, Inflammation of left sacroiliac joint (ICD-10 - M46.1) [facility] Other [facility]No [facility] [employer] Other Evaluation note* Diagnosis Onset Date Resolution Status Chronic pain acute Lumbar degenerative disc disease acute Lumbar radiculopathy acute [facility] Work Phone: Evaluation note* Diagnosis Calculus of kidney- Primary Benign prostatic hyperplasia with urinary frequency [facility]* Diagnosis Onset Date Resolution Status Chronic pain acute Lumbar degenerative disc disease acute Lumbar radiculopathy acute Lumbar spondylosis acute [facility] Work Phone: Evaluation note* Diagnosis Onset Date Resolution Status Chronic pain acute Lumbar degenerative disc disease acute Lumbar radiculopathy acute Lumbar spondylosis acute Chronic pain acute Lumbar radiculopathy acute Lumbosacral spondylosis acut e [facility] Work Phone: Evaluation note* Diagnosis Onset Date Resolution Status Chronic pain acute Lumbar degenerative disc disease acute Lumbar radiculopathy acute Lumbar spondylosis acute Chronic pain acute Lumbar radiculopathy acute Lumbosacral spondylosis acut e Essential hypertension acute Hypercholesterolemia acute Lumbar spondylosis acute Obesity acute Opiate analgesic use agreement exists acute Screening PSA (prostate specific antigen) acute Medicare annual wellness visit, subsequent noneactive [facility] Work Phone: Evaluation note* Diagnosis Onset Date Resolution Status Chronic pain acute Lumbar radiculopathy acute Lumbosacral spondylosis acut e Essential hypertension acute Hypercholesterolemia acute Lumbar spondylosis acute Obesity acute Opiate analgesic use agreement exists acute Screening PSA (prostate specific antigen) acute Medicare annual wellness visit, subsequent noneactive Chronic pain acute Lumbar radiculopathy acute Lumbosacral spondylosis acut e [facility] Work Phone: Evaluation note* Diagnosis Onset Date Resolution Status Essential hypertension acute Hypercholesterolemia acute Lumbar spondylosis acute Obesity acute Opiate analgesic use agreement exists acute Screening PSA (prostate specific antigen) acute Medicare annual wellness visit, subsequent noneactive Chronic pain acute Lumbar radiculopathy acute Lumbosacral spondylosis acut e Chronic pain acute Lumbar radiculopathy acute Lumbosacral spondylosis acut e Sacroiliitis acute [facility] Work Phone: Evaluation note* Diagnosis Onset Date Resolution Status Essential hypertension acute Hypercholesterolemia acute Lumbar spondylosis acute Obesity acute Opiate analgesic use agreement exists acute Screening PSA (prostate specific antigen) acute Medicare annual wellness visit, subsequent noneactive Chronic pain acute Lumbar radiculopathy acute Lumbosacral spondylosis acut e Chronic pain acute Lumbar radiculopathy acute Lumbosacral spondylosis acut e Sacroiliitis acute Essential hypertension acute Hypercholesterolemia acute Lumbar spondylosis acute Obesity acute Opiate analgesic use agreement exists acute [facility] Work Phone: Evaluation note* Diagnosis Onset Date Resolution Status Chronic pain acute Lumbar radiculopathy acute Lumbosacral spondylosis acut e Chronic pain acute Lumbar radiculopathy acute Lumbosacral spondylosis acut e Sacroiliitis acute Essential hypertension acute Hypercholesterolemia acute Lumbar spondylosis acute Obesity acute Opiate analgesic use agreement exists acute Chronic pain acute Lumbar radiculopathy acute Lumbosacral spondylosis acut e Sacroiliitis acute [facility] Work Phone: Evaluation note* Diagnosis Onset Date Resolution Status Chronic pain acute Lumbar radiculopathy acute Lumbosacral spondylosis acut e Chronic pain acute Lumbar radiculopathy acute Lumbosacral spondylosis acut e Sacroiliitis acute Essential hypertension acute Hypercholesterolemia acute Lumbar spondylosis acute Obesity acute Opiate analgesic use agreement exists acute Chronic pain acute Lumbar radiculopathy acute Lumbosacral spondylosis acut e Sacroiliitis acute Low back pain acute Lumbar stenosis without neurogenic claudication acute [facility] Work Phone: Evaluation note* Diagnosis Onset Date Resolution Status Chronic pain acute Lumbar radiculopathy acute Lumbosacral spondylosis acut e Chronic pain acute Lumbar radiculopathy acute Lumbosacral spondylosis acut e Sacroiliitis acute Essential hypertension acute Hypercholesterolemia acute Lumbar spondylosis acute Obesity acute Opiate analgesic use agreement exists acute Chronic pain acute Lumbar radiculopathy acute Lumbosacral spondylosis acut e Sacroiliitis acute Low back pain acute Lumbar stenosis without neurogenic claudication acute Chronic pain acute Lumbosacral spondylosis acut e Sacroiliitis acute [facility] Work Phone: History general Narrative - Reported* Type Description Date Medical History hypertension Medical History hypercholesterolemia Surgical History inguinal hernia repair Surgical History lithotripsy Surgical History EGD Surgical History eyes Surgical History ureteral stent placement Hospitalization History See Above [employer] [employer] Other [facility]ykhr general Narrative - Reported* Type Description Date Medical History hypercholesterolemia Medical History Lumbosacral spondylosis with rad iculopathy Medical History Edema of both lower extremities Medical History Elevated transaminase level Medical History COVID-19 Medical History Hyperlipidemia type II Medical History Short of breath on exertion Medical History Benign prostatic hyp erplasia with lower urinary tract symptoms Medical History Essential hypertension Medical History Non-alcoholic fatty liver diseas e Medical History History of nephrolithiasis Surgical History inguinal hernia repair Surgical History lithotripsy Surgical History EGD Surgical History eyes Surgical History ureteral stent placement Hospitalization History See Above [facility] Other Hismxdx general Narrative - Reported* Type Description Date Medical History hypercholesterolemia Medical History Lumbosacral spondylosis with rad iculopathy Medical History Edema of both lower extremities Medical History Elevated transaminase level Medical History COVID-19 Medical History Hyperlipidemia type II Medical History Short of breath on exertion Medical History Benign prostatic hyp erplasia with lower urinary tract symptoms Medical History Essential hypertension Medical History Non-alcoholic fatty liver diseas e Medical History History of nephrolithiasis Surgical History inguinal hernia repair Surgical History lithotripsy Surgical History EGD Surgical History eyes Surgical History ureteral stent placement Surgical History Right knee arthroscopy 01/2023 Hospitalization History See Above [facility] [employer] Other Hospital Discharge instructionsAmbulatory Orders* Referral to Neurosurgery Location: None Selected [facility] Work Phone: Instructions* Attachments The following attachments cannot be sent through Care Everywhere. * [facility] (Sammarinese) [facility] Reason for Referral Reason *Waiting for appt Evaluate and Treat Back Pain Please have Dr Tubbs read Dr Aldridge office note for specifics Diagnosis 1 Lumbar stenosis with out neurogenic claudication (M48.061) Referral Organization [facility] urosurgery Referring Provider First Name Andre Referring Provider Last Name Becka Referring Provider Specialty Neurologica l Surgery Referred Organization [facility] Referred Provider Ceasar Tubbs Referred Address [address] [address] ,[place], [place],[address] Referred Provider Specialty Pain Medicin e Referral Priority Routine General Notes Fore, Deepti M 022 07:27:46 AM >Received today and sent P2P Summary Purpose Family History No Family History Records Found Relationship Condition Age at Onset Recorded Date/T jennifer father Heart disease Unknown Malignant neoplasm Unknown mother Malignant neoplasm Unknown Advance Directives No Advanced Directives Records Found Advance Directive Response Recorded Date/ Time Advance Directives No December 08 4:31pm Advance Directive Response Recorded Date/ Time Advance Directives No April 24 3:20pm Chief Complaint and Reason for Visit Chief Complaint 3 Month Follow Up Amb Documentation Amb Documentation increased back pain Reason for Visit Chronic pain Lumbar degenerative disc disease Lumbar radiculopathy Chief Complaint 3 Month Follow Up Amb Documentation Amb Documentation increased back pain L5-S1 Lumbar epidural steroid injection Reason for Visit Chronic pain Lumbar degenerative disc disease Lumbar radiculopathy Lumbar spondylosis Chief Complaint Amb Documentation Amb Documentation increased back pain L5-S1 Lumbar epidural steroid injection f/u after LES Reason for Visit Chronic pain Lumbar degenerative disc disease Lumbar radiculopathy Lumbar spondylosis Chronic pain Lumbar radiculopathy Lumbosacral spondylosis Chief Complaint Amb Documentation Amb Documentation increased back pain L5-S1 Lumbar epidural steroid injection f/u after LES [facility] WELLNESS Reason for Visit Chronic pain Lumbar degenerative disc disease Lumbar radiculopathy Lumbar spondylosis Chronic pain Lumbar radiculopathy Lumbosacral spondylosis Essential hypertension Hypercholesterolemia Lumbar spondylosis Obesity Opiate analgesic use agreement exists Screening PSA (prostate specific antigen) Medicare annual wellness visit, subsequent Chief Complaint f/u after LES [facility] WELLNESS Back Pain Reason for Visit Chronic pain Lumbar radiculopathy Lumbosacral spondylosis Essential hypertension Hypercholesterolemia Lumbar spondylosis Obesity Opiate analgesic use agreement exists Screening PSA (prostate specific antigen) Medicare annual wellness visit, subsequent Chronic pain Lumbar radiculopathy Lumbosacral spondylosis Chief Complaint [facility] WELLNESS Back Pain M47.817 review MRI Reason for Visit Essential hypertensi on Hypercholesterolemia Lumbar spondylosis Obesity Opiate analgesic use agreement exists Screening PSA (prostate specific antigen) Medicare annual wellness visit, subsequent Chronic pain Lumbar radiculopathy Lumbosacral spondylosis Chronic pain Lumbar radiculopathy Lumbosacral spondylosis Sacroiliitis Chief Complaint [facility] WELLNESS Back Pain M47.817 review MRI 3 MONTH FOLLOW UP Reason for Visit Essential hypertensi on Hypercholesterolemia Lumbar spondylosis Obesity Opiate analgesic use agreement exists Screening PSA (prostate specific antigen) Medicare annual wellness visit, subsequent Chronic pain Lumbar radiculopathy Lumbosacral spondylosis Chronic pain Lumbar radiculopathy Lumbosacral spondylosis Sacroiliitis Essential hypertension Hypercholesterolemia Lumbar spondylosis Obesity Opiate analgesic use agreement exists Chief Complaint [facility] WELLNESS Back Pain M47.817 review MRI 3 MONTH FOLLOW UP L5-S1 EPIDURAL STEROID INJ Reason for Visit Essential hypertensi on Hypercholesterolemia Lumbar spondylosis Obesity Opiate analgesic use agreement exists Screening PSA (prostate specific antigen) Medicare annual wellness visit, subsequent Chronic pain Lumbar radiculopathy Lumbosacral spondylosis Chronic pain Lumbar radiculopathy Lumbosacral spondylosis Sacroiliitis Essential hypertension Hypercholesterolemia Lumbar spondylosis Obesity Opiate analgesic use agreement exists Chief Complaint Back Pain M47.817 review MRI 3 MONTH FOLLOW UP L5-S1 EPIDURAL STEROID INJ FOLLOW UP AFTER LES Reason for Visit Chronic pain Lumbar radiculopathy Lumbosacral spondylosis Chronic pain Lumbar radiculopathy Lumbosacral spondylosis Sacroiliitis Essential hypertension Hypercholesterolemia Lumbar spondylosis Obesity Opiate analgesic use agreement exists Chronic pain Lumbar radiculopathy Lumbosacral spondylosis Sacroiliitis Chief Complaint Back Pain M47.817 review MRI 3 MONTH FOLLOW UP L5-S1 EPIDURAL STEROID INJ FOLLOW UP AFTER LES f/u after injections-new images in pacs Reason for Visit Chronic pain Lumbar radiculopathy Lumbosacral spondylosis Chronic pain Lumbar radiculopathy Lumbosacral spondylosis Sacroiliitis Essential hypertension Hypercholesterolemia Lumbar spondylosis Obesity Opiate analgesic use agreement exists Chronic pain Lumbar radiculopathy Lumbosacral spondylosis Sacroiliitis Chief Complaint Back Pain M47.817 review MRI 3 MONTH FOLLOW UP L5-S1 EPIDURAL STEROID INJ FOLLOW UP AFTER LES f/u after injections-new images in pacs Bilat SI joint injection Reason for Visit Chronic pain Lumbar radiculopathy Lumbosacral spondylosis Chronic pain Lumbar radiculopathy Lumbosacral spondylosis Sacroiliitis Essential hypertension Hypercholesterolemia Lumbar spondylosis Obesity Opiate analgesic use agreement exists Chronic pain Lumbar radiculopathy Lumbosacral spondylosis Sacroiliitis Low back pain Lumbar stenosis without neurogenic claudication Chief Complaint Back Pain M47.817 review MRI 3 MONTH FOLLOW UP L5-S1 EPIDURAL STEROID INJ FOLLOW UP AFTER LES f/u after injections-new images in pacs Bilat SI joint injection follow up after SI Reason for Visit Chronic pain Lumbar radiculopathy Lumbosacral spondylosis Chronic pain Lumbar radiculopathy Lumbosacral spondylosis Sacroiliitis Essential hypertension Hypercholesterolemia Lumbar spondylosis Obesity Opiate analgesic use agreement exists Chronic pain Lumbar radiculopathy Lumbosacral spondylosis Sacroiliitis Low back pain Lumbar stenosis without neurogenic claudication Chronic pain Lumbosacral spondylosis Sacroiliitis Additional Source Comments REASON FOR VISIT (unrecogniz ed section and content) Reason Comments Follow-up FOLLOW UP 6 MO LITHO LINK (unrecognized sect ion and content) No Status Records FoundNo Status Records FoundNo Status Records FoundNo Status Records Found INFORMATION SOURCE (unrecogn ized section and content) DATE CREATED AUTHOR 01/23/2023 [facility] DATE CREATED AUTHOR AUTHOR'S ORGANIZ ATION 02/13/2024 [facility] DATE CREATED AUTHOR AUTHOR'S ORGANIZ ATION 04/17/2024 [facility] DATE CREATED AUTHOR AUTHOR'S ORGANIZ ATION 06/17/2024 [facility] Care Teams (unrecognized sec tion and content) Team Status: Active Member Role Status Dates Mitchel Guerrero DO Primary Care Provider Active Team Status: Inactive Member Role Status Dates Mitchel Guerrero DO Primary Care Provider Active Start: January 10, 2024 End: January 10, 2024 Ceasar Tubbs MD Attending Provider Active Sta rt: January 10, 2024 End: January 10, 2024 Team Status: Inactive Member Role Status Dates Mitchel Guerrero DO Primary Care Provide r, Attending Provider Active Start: January 28, 2024 End: January 28, 2024 Team Status: Inactive Member Role Status Dates Mitchel Guerrero DO Primary Care Provider Active Start: March 31, 2024 End: March 31, 2024 Ceasar Tubbs MD Attending Provider Active Sta rt: March 31, 2024 End: March 31, 2024 Team Status: Active Member Role Status Dates Mitchel Guerrero DO Primary Care Provider Active Start: November 15, 2023 Ambar Resendiz Attending Provider Active Start: [facility] 2023 Team Status: Active Member Role Status Dates Mitchel Guerrero DO Primary Care Provider Active Start: November 29, 2023 JORGE Brewster Attending Provider Active Start : November 29, 2023 Team Status: Inactive Member Role Status Remy Guerrero DO Primary Care Provider Active Start: December 09, 2023 End: December 09, 2023 Ceasar Tubbs MD Attending Provider Active Sta rt: December 09, 2023 End: December 09, 2023 Team Status: Active Member Role Status Remy Guerrero DO Primary Care Provider Active Start: December 23, 2023 Ceasar Tubbs MD Attending Provider Active Sta rt: December 23, 2023 Team Status: Inactive Member Role Status Remy Guerrero DO Primary Care Provider Active Start: December 23, 2023 End: December 23, 2023 Ceasar Tubbs MD Attending Provider Active Sta rt: December 23, 2023 End: December 23, 2023 Team Status: Inactive Member Role Status Remy Guerrero DO Attending Provider Active Sta rt: October 08, 2023 End: October 08, 2023 Legal Coordinator Relationship Specialty Start Date End Date Mitchel Guerrero DO [address] [place] [address] PCP - General 04/21/17 Team Status: Active Member Role Status Remy Guerrero DO Primary Care Provide r, Attending Provider Active Start: April 10, 2024 Team Status: Inactive Member Role Status Remy Guerrero DO Primary Care Provider Active Start: April 14, 2024 End: April 14, 2024 Ceasar Tubbs MD Attending Provider Active Sta rt: April 14, 2024 End: April 14, 2024 Team Status: Inactive Member Role Status Remy Guerrero DO Primary Care Provider Active Start: April 21, 2024 End: April 21, 2024 Ceasar Tubbs MD Attending Provider Active Sta rt: April 21, 2024 End: April 21, 2024 Team Status: Inactive Member Role Status Remy Guerrero DO Primary Care Provide r, Attending Provider Active Start: April 27, 2024 End: April 27, 2024 Team Status: Inactive Member Role Status Remy Guerrero DO Primary Care Provider Active Start: April 27, 2024 End: April 27, 2024 Ceasar Tubbs MD Attending Provider Active Sta rt: April 27, 2024 End: April 27, 2024 Team Status: Active Member Role Status Remy Guerrero DO Primary Care Provider Active Start: April 27, 2024 Ceasar Tubbs MD Attending Provider Active Sta rt: April 27, 2024 Team Status: Inactive Member Role Status Remy Guerrero DO Primary Care Provider Active Start: May 08, 2024 End: May 08, 2024 Ceasar Tubbs MD Attending Provider Active Sta rt: May 08, 2024 End: May 08, 2024 Team Status: Inactive Member Role Status Remy Guerrero DO Primary Care Provider Active Start: May 09, 2024 End: May 09, 2024 Andre Jovel MD Attending Provider Active Star t: May 09, 2024 End: May 09, 2024 Team Status: Inactive Member Role Status Remy Guerrero DO Primary Care Provider Active Start: May 30, 2024 End: May 30, 2024 Ceasar Tubbs MD Attending Provider Active Sta rt: May 30, 2024 End: May 30, 2024 Team Status: Active Member Role Status Remy Guerrero DO Primary Care Provider Active Start: May 30, 2024 Ceasar Tubbs MD Attending Provider Active Sta rt: May 30, 2024 Team Status: Inactive Member Role Status Remy Guerrero DO Primary Care Provider Active Start: June 06, 2024 End: June 06, 2024 Ceasar Tubbs MD Attending Provider Active Sta rt: June 06, 2024 End: June 06, 2024 Goals (unrecognized section and content) Goals may be documented in a n alternate section FOR RECORDS PERTAINING TO PATIENTS WHO ARE OR HAVE BEEN ENROLLED IN A CHEMICAL DEPENDENCY/SUBSTANCEABUSE PROGRAM, SOME INFORMATION MAY BE OMITTED. This clinical summary was aggregated from multiple sources. Caution should be exercised in using it in the provision of clinical care. This summary normalizes information from multiple sources, and as a consequence, information in this document may materially change the coding, format and clinical context of patient data. In addition, data may be omitted in some cases. CLINICAL DECISIONS SHOULD BE BASED ON THE PRIMARY CLINICAL RECORDS. [facility] [employer] [facility]. provides no warranty or guarantee of the accuracy or completeness of information in this document.
[2024-06-24 08:59] LABS: Anion Gap 13.9; BUN Creatinine Ratio 18.8; Calcium 9.7 mg/dL (8.5-10.1); Carbon Dioxide 29.6 mmol/L (21.0-32.0); Chloride 100 mmol/L (98-107); Estimated GFR (African America >60 (>=60 mL/min/1.73m^2); Estimated GFR (Non-African Ame >60 (>=60 mL/min/1.73m^2); Glucose 104 mg/dL (74-106); Potassium 4.5 mmol/L (3.5-5.1); Sodium 139 mmol/L (136-145)
== END 2024-06-24 06:50 | disposition home or self-care (01) ==
LOC: LAB 06:50
PROVIDERS: PCP Internal Medicine
DX: N20.0 Calculus of kidney (principal)
CPT/HCPCS: 36415; 80048

== ENCOUNTER 2025-05-09 19:54 | Outpatient (OUT) | payer MEDICARE, SELFPAY ==
--- OUTSIDE RECORDS SUMMARY | 2025-05-09 19:57 | XMS_ITS | CCD ---
Author Organization [facility] CliniSyid Care Team Providers Care Fish Warden Name Role Phone JovelAndre Unavailable Ceasar Tubbs Unavailable Mitchel Guerrero Unavailable MISC, DR BELL Admitting Unavailable MISC, DR BELL Attending Unavailable BALL, DR MANDEL Primary Care Unavailable WEST, DR ROSE Brito Consulting Unavailable MISC, DR BELL Consulting Unavailable BALL, DR MANDEL Admitting Unavailable BALL, DR MANDEL Attending Unavailable BALL, DR MANDEL Primary Care Unavailable BALL, DR MANDEL Consulting Unavailable ZIEBER, DR TATIANA Broderick Consulting Unavailable MITCHEL GUERRERO Referring Unavailable MITCHEL GUERRERO Primary Care Unavailable KASIA PEPPER Attending Unavailable MITCHEL GUERRERO Referring Unavailable MITCHEL GUERRERO Primary Care Unavailable DO Mitchel Guerrero Primary Care Provider [phone] MD Ceasar Tubbs Attending Provider [phone] Mitchel Guerrero DO Primary Care Provider Mitchel Guerrero Primary Care Unavailable Ceasar Tubbs Attending Unavailable Ceasar Tubbs Admitting Unavailable Ceasar Tubbs Attending Unavailable Ceasar Tubbs Admitting Unavailable Mitchel Guerrero Primary Care Unavailable Mitchel Guerrero DO Primary Care Provider Ceasar Tubbs MD Attending Provider [phone] Mitchel Guerrero DO Primary Care Provider Ceasar Tubbs MD Attending Provider [phone] Mitchel Guerrero DO Primary Care Provider Mitchel Guerrero DO Attending Provider [phone] Ceasar Tubbs MD Attending Provider [phone] MITCHEL GUERRERO Referring Unavailable MITCHEL GUERRERO Primary Care Unavailable LESLIE BARILLAS Referring Unavailable BALL, MITCHEL E Primary Care Unavailable ALYSSA, LESLIE Alonso Admitting Unavailable ALYSSA, LESLIE M Attending Unavailable ALYSSA, LESLIE M Referring Unavailable BALL, MITCHEL E Primary Care Unavailable ORLIN GALINDO Attending Unavailable BALL, MITCHEL E Primary Care Unavailable BALL, MITCHEL E Referring Unavailable BALL, MITCHEL E Primary Care Unavailable BALL, MITCHEL E Referring Unavailable BALL, MITCHEL E Primary Care Unavailable ALYSSA, LESLIE M Attending Unavailable BALL, MITCHEL E Referring Unavailable BALL, MITCHEL E Primary Care Unavailable BALL, MITCHEL E Referring Unavailable BALL, MITCHEL E Primary Care Unavailable ALYSSA, ELSLIE M Attending Unavailable BALL, MITCHEL E Referring Unavailable BALL, MITCHEL E Primary Care Unavailable LARS, KASIA Nguyễn Attending Unavailable BALL, MITCHEL E Referring Unavailable BALL, MITCHEL E Primary Care Unavailable LARS, KASIA Nguyễn Referring Unavailable BALL, MITCHEL E Primary Care Unavailable BALL, MITCHEL E Referring Unavailable BALL, MITCHEL E Primary Care Unavailable ALYSSA, LESLIE M Attending Unavailable BALL, MITCHEL E Referring Unavailable BALL, MITCHEL E Primary Care Unavailable Allergies Allergy Classification Reported Allergen(s) Allergy Type Date of Onset Reaction(s) Facility (20 sources) HMG-CoA reductase inhibitor Drug allergy MUSCLE ACHES Pager Other (1 source) [id number] Reductase Inhibitor Drug allergy (disorder) 4 [facility] Repository Medications Current Medications Medication Drug Class(es) Dates Sig (Normalized) Sig (Original) acetaminophen 325 mg oral tablet (20 sources) take 2 tablets by mouth every six hours as needed for pain acetaminophen (TYLENOL) 325 mg tablet Take 2 tablets (650 mg total) by mouth every 6 (six) hours as needed for pain. Active take 1 capsule by mouth every [...] 1 tablet by mouth once daily Amlodipine 5 mg tablet Active 0 .ROUTE .COMPLEX May 25, 2024 8:49am TAKE 1 TABLET BY MOUTH EVERY DAY Complies with drug therapy Start: 06-11-2021 End: 05-25-2024 take 1 tablet by mouth in the morning amLODIPine (NORVASC) 5 mg tablet Take 1 tablet (5 mg total) by mouth in the morning. 06/11/2021 Active cefadroxil 500 mg oral capsule (1 source) Cephalosporin Antibacterial Start: 02-01-2024 End: 02-04-2024 take 1 capsule by mouth in the morning, then take 1 capsule by mouth at bedtime cefaDROXil (DURICEF) 500 mg capsule Take 1 capsule (500 mg total) by mouth in the morning and 1 capsule (500 mg total) before bedtime. Do all this for 3 days. 6 capsule 02/01/2024 02/04/2024 Active cyclobenzaprine hydrochloride 10 mg oral tablet (20 sources) Muscle Relaxant Start: 12-06-2023 End: 10-20-2024 take 1 tablet by mouth once daily at bedtime as needed Cyclobenzaprine 10 mg tablet Active 0 .ROUTE .COMPLEX October 20, 2024 8:24am TAKE 1 TABLET BY MOUTH EVERY DAY AT BEDTIME NEEDED FOR 30 DAYS Complies with drug therapy Start: 04-09-2023 End: 12-06-2023 cyclobenzaprine (FLEXERIL) 1 0 mg tablet 04/09/2023 Active Start: 04-09-2023 take 1 tablet by jia th three times daily as needed for muscle spasms cyclobenzaprine (FLEXERIL) 10 mg tablet TAKE 1 TABLET BY MOUTH THREE TIMES A DAY NEEDED FOR MUSCLE SPASM 04/09/2023 Active docusate sodium 100 mg oral capsule (1 source) take 1 capsule by mouth in the morning, then take 1 capsule by mouth at bedtime docusate sodium (COLACE) 100 mg capsule Take 1 capsule (100 mg total) by mouth in the morning and 1 capsule (100 mg total) before bedtime. Active 120 actuat fluticasone propionate 0.22 mg/actuat metered dose inhaler (1 source) Corticosteroid Start : 07-26 take 2 spray(s) by inhalation twice daily fluticasone propionate (FLOVENT HFA) 220 mcg/actuation inhaler Indications: Eosinophilic esophagitis 2 sprays BID and swallow. Use without a spacer and do not inhale. Do not eat/drink for 30 min after. 2 Inhaler 5 07/26/2020 Active hydroCHLOROthiazide 25 mg oral tablet (20 sources) Thiazide Diuretic Start : 12-08 take 1 tablet by mouth twice daily before mealtime Hydrochlorothiazide 25 mg tablet Active 0 .ROUTE .COMPLEX 180 December 08, 2024 12:59pm TAKE 1 TABLET BY MOUTH TWICE A DAY BEFORE MEALS Complies with drug therapy Start: 12-06-2023 End: 12-08-2024 take 1 tablet by mouth once daily Hydrochlorothiazide 25 mg tablet Discontinued 25 MG PO Daily December 06, 2023 12:00am December 08, 2024 1:00pm Start: 02-17-2023 take 1 tablet by jia th twice daily before mealtime hydroCHLOROthiazide (HYDRODIURIL) 25 mg tablet TAKE 1 TABLET BY MOUTH TWICE A DAY BEFORE MEALS 180 tablet 4 02/17/2023 Active lidocaine 0.05 mg/mg medicated patch (20 sources) Antiarrhythmic, Amide Local Anesthetic apply 1 dose transdermal route once daily as needed, then apply 1 dose transdermal route every twelve hours as needed lidocaine (LIDODERM) 5 % Place 1 patch on the skin daily. Remove & Discard patch within 12 hours or as directed by MD-uses as needed Active Lidocaine 4 % as directed Externally Active losartan potassium 50 mg oral tablet (20 sources) Angiotensin 2 Receptor Nara Start: 01-14-2025 take 1 tablet by mouth once daily Losartan 50 mg tablet Active 0 .ROUTE .COMPLEX 90 January 14, 2025 8:13am TAKE 1 TABLET BY MOUTH EVERY DAY Complies with drug therapy Start: 07-18-2024 End: 01-14-2025 take 1 tablet by mouth twice daily Losartan 50 mg tablet Discontinued 0 .ROUTE .COMPLEX 180 July 18, 2024 8:36am January 14, 2025 8:13am TAKE 1 TABLET BY MOUTH TWICE A DAY Start: 03-31-2024 End: 07-18-2024 Losartan 50 mg tablet Discon tinued 25 MG PO Twice daily March 31, 2024 11:02am July 18, 2024 8:36am Start: 03-31-2024 take 25 mg by mouth twice roland y Losartan Active 25 MG PO Twice daily March 31, 2024 11:02am Start: 11-29-2023 End: 12-31-2023 take 1 tablet by mouth once daily Losartan 50 mg tablet Discontinued 0 .ROUTE .COMPLEX 90 November 29, 2023 1:23pm December 31, 2023 4:06pm TAKE 1 TABLET BY MOUTH EVERY DAY Start: 04-15-2018 End: 03-31-2024 take 1 tablet by mouth in the morning, then take 1 tablet by mouth at bedtime losartan (COZAAR) 50 mg tablet Take 1 tablet (50 mg total) by mouth in the morning and 1 tablet (50 mg total) before bedtime. 3 04/15/2018 Active Start: 04-15-2018 End: 11-29-2023 take 1 tablet by mouth once daily Losartan 50 mg tablet Discontinued 50 MG PO Daily November 29, 2023 12:00am November 29, 2023 1:24pm magnesium oxide 500 mg oral capsule (16 sources) take 1 capsule by mo uth in the morning magnesium oxide 500 mg capsule Take 1 capsule (500 mg total) by mouth in the morning. Active lojrjpjl-ycbf-AN-calcium &mins (THERAGRAN-M) 9 mg iron-400 mcg tablet (20 sources) endpmzde-jclf-WT -calcium &mins (THERAGRAN-M) 9 mg iron-400 mcg tablet Take 1 tablet by mouth in the morning. Active xtcmszdp-kspz-AR -calcium &mins (THERAGRAN-M) 9 mg iron-400 mcg tablet Take 1 tablet by mouth in the morning. 0 Active Multivitamin Adult - (11 sources) take 1 tablet by mouth once daily Multivitamin Adult - 1 tablet Orally Once a day Active omeprazole 20 mg delayed release oral capsule (20 sources) Proton Pump Inhibitor Start: take 1 capsule by mouth once daily Omeprazole 20 mg capsule,delayed release(DR/EC) Active 20 MG PO Daily December 06, 2023 12:00am Complies with drug therapy Start: 12-11-2020 take 1 tablet by jia th once daily before breakfast omeprazole (PriLOSEC OTC) 20 mg tablet,delayed release (DR/EC) Indications: Esophageal dysphagia , Gastroesophageal reflux disease, unspecified whether esophagitis present TAKE 1 TABLET BY MOUTH EVERY MORNING BEFORE BREAKFAST. 28 tablet 5 12/11/2020 Active take 1 capsule by mo uth once daily Omeprazole 20 MG 1 capsule 30 minutes before morning meal Orally Once a day Active ondansetron 4 mg oral tablet (20 sources) Serotonin-3 Receptor Antagonist take 1 tablet by mouth every eight hours as needed for nausea and vomiting ondansetron (ZOFRAN) 4 mg tablet Take 1 tablet (4 mg total) by mouth every 8 (eight) hours as needed for nausea or vomiting. Active oxyCODONE hydrochloride 5 mg oral tablet (20 sources) Opioid Agonist Start: 06-09-20 take 1 tablet by mouth every four hours as needed for pain oxyCODONE (ROXICODONE) 5 mg immediate release tablet Indications: Acute post-operative pain Take 1 tablet (5 mg total) by mouth every 4 (four) hours as needed for pain for up to 10 doses. Max Daily Amount: 30 mg 10 tablet 06/09/2024 Active Start: 01-19-2022 End: 03-08-2025 take 1 tablet by mouth every six hours as needed oxyCODONE (ROXICODONE) 5 mg immediate release tablet Take 1 tablet (5 mg total) by mouth every 6 (six) hours as needed. Takes one every am 01/19/2022 Active polyethylene glycol 3350 [id number] mg powder for oral solution (9 sources) Osmotic Laxative Start: 06-09-2024 End: 07-09-2024 polyethylene glycol (GLYCOLAX) 17 gram packet Take 17 g by mouth in the morning for 30 days. 30 packet 06/09/2024 07/09/2024 Active potassium citrate 10 meq extended release oral tablet (20 sources) Start: 12-22-2023 End: 04-08-2025 take 1 tablet by mouth at mealtime potassium citrate (UROCIT-K) 10 mEq (1,080 mg) CR tablet TAKE 1 TABLET BY MOUTH IN THE MORNING AND IN THE EVENING WITH MEALS 100 tablet 1 04/08/2025 Active pravastatin sodium 10 mg oral tablet (18 sources) HMG-CoA Reductase Inhibitor take 1 tablet by mouth once daily in the evening Pravastatin Sodium 10 MG TAKE 1 TABLET BY MOUTH EVERY EVENING for 90 Active predniSONE 20 mg oral tablet (5 sources) Start: 12-02-2022 predniSONE 20 MG 1 tablet Orally tid [...] EVERY DAY IN THE EVENING Oral Active sulfamethoxazole 800 mg / trimethoprim 160 mg oral tablet (2 sources) Dihydrofolate Reductase Inhibitor Antibacterial, Sulfonamide Antimicrobial Start: 06-09-2024 End: 06-12-2024 take 1 tablet by mouth once in the morning sulfamethoxazole- trimethoprim (BACTRIM DS) 800-160 mg per tablet Take 1 tablet by mouth in the morning and 1 tablet before bedtime. Do all this for 3 days. 6 tablet 06/09/2024 06/12/2024 Active Completed/Discontinued Medications Medication Drug Class(es) Dates Sig (Normalized) Sig (Original) azithromycin 250 mg oral tablet (11 sources) Macrolide Antimicrobial Start: 11-08-2024 End: 02-06-2025 Azithromycin 250 mg tablet Discontinued 250 MG PO .COMPLEX 6 5 November 08, 2024 1:00am February 06, 2025 9:25am 2 tabs on first day followed by 1 tab on days 2-5 Start: 10-30-2022 take 250 mg by mouth once roland y diclofenac sodium 75 mg delayed release oral tablet (20 sources) Nonsteroidal Anti-inflammatory Drug Start: 10-20-2024 End: 10-20-2024 take 1 tablet by mouth twice daily Diclofenac Sodium 75 mg tablet,delayed release (DR/EC) Discontinued 75 MG PO Twice daily 60 October 20, 2024 2:02pm October 20, 2024 2:03pm Start: 12-06-2023 End: 12-31-2023 take 1 tablet by mouth twice daily as needed Diclofenac Sodium 75 mg tablet,delayed release (DR/EC) Discontinued 75 MG PO Twice daily as needed December 06, 2023 12:00am December 31, 2023 4:06pm ezetimibe 10 mg oral tablet (20 sources) Dietary Cholesterol Absorption Inhibitor Start: 2024 End: 12-06-2024 take 1 tablet by mouth once daily Ezetimibe 10 mg tablet Discontinued 10 MG PO Daily December 06, 2024 4:19pm December 06, 2024 4:20pm hyoscyamine sulfate 0.125 mg oral tablet (12 sources) Start: 06-09-2024 End: 04-08-2025 take 1 tablet by mouth every four hours as needed for pain hyoscyamine (ANASPAZ,LEVSIN) 0.125 mg tablet Take 1 tablet (0.125 mg total) by mouth every 4 (four) hours as needed for cramping (bladder spasm). 30 tablet 06/09/2024 04/08/2025 Discontinued (Therapy completed) methylPREDNISolone 4 mg oral tablet (14 sources) Corticosteroid Start: 03-31-2024 End: 04-27-2024 take 1 tablet by mouth once Methylprednisolone (Medrol (Zak)) 4 mg tablets,dose pack Discontinued 0 PO per package directions March 31, 2024 12:00am April 27, 2024 8:23am PO PER PKG DIR tamsulosin hydrochloride 0.4 mg oral capsule (20 sources) alpha-Adrenergic Nara Start: 12-24-2023 End: 08-03-2024 take 1 capsule by mouth once daily in the evening Tamsulosin 0.4 mg capsule Discontinued 0 .ROUTE .COMPLEX 90 December 24, 2023 8:42am August 03, 2024 10:27am TAKE 1 CAPSULE BY MOUTH EVERY EVENING Start: 12-06-2023 End: 06-28-2024 take 1 capsule by mouth once daily in the evening Tamsulosin 0.4 mg capsule Discontinued 0.4 MG PO Every evening December 06, 2023 12:00am December 24, 2023 8:42am Problems Active Problems Problem Classification Problem Date Documented Da te Episodic/Chronic Allergic reactions (10 sources) Inflammatory dermatosis; Translations: [Dermatitis, unspecified] Episodic Calculus of urinary tract (20 sources) History of calculus of kidney; Translations: [Personal history of urinary calculi] Onset: 01-14-2018 Episodic Cataract (20 sources) Age-related nuclear cataract, bilateral; Translations: [Nuclear sclerotic cataract] Onset: 04-25-2017 04-25-2017 Chronic Disorders of lipid metabolism (20 sources) Pure hypercholesterolemia ; Translations: [Familial hypercholesterolemia ] Onset: 01-22-2023 Chronic Esophageal disorders (20 sources) Gastro-esophageal reflux disease with esophagitis; Translations: [Gastroesophageal reflux disease with esophagitis without hemorrhage] Chronic Essential hypertension (20 sources) Essential hypertension; Translations: [Essential (primary) hypertension] Onset: 01-22-2023 Chronic Gastrointestinal hemorrhage (10 sources) Melena; Translations: [Melena] Episodic Headache; including migraine (20 sources) Ophthalmic migraine; Translations: [Migraine with aura, not intractable, without status migrainosus] Onset: 12-22-2018 12-22-2018 Chronic Hyperplasia of prostate (20 sources) Lower urinary tract symptoms due to benign prostatic hypertrophy; Translations: [Benign prostatic hyperplasia with lower urinary tract symptoms] Onset: 09-19-2022 04-13-2024 Chronic Influenza (3 sources) Influenza due to other identified influenza virus with other respiratory manifestations; Translations: [Influenza due to identified 2008 H1N1 influenza virus with other respiratory manifestations] 11-02-2024 Episodic Joint disorders and dislocations; trauma-related (20 sources) Derangement of right knee; Translations: [Unspecified internal derangement of right knee] Onset: 01-18-2023 Chronic Osteoarthritis (20 sources) Osteoarthritis of right knee joint; Translations: [Unilateral primary osteoarthritis, right knee] Chronic Other aftercare (4 sources) Other intermediate accountant (current) drug therapy; Translations: [OTH EXECUTIVE CONSULTANT CURRENT DRUG THERAPY] Onset: 01-22-2023 Episodic Other aftercare (9 sources) Long-term current use of drug therapy; Translations: [Other alf (current) drug therapy] Episodic Other aftercare (17 sources) Drug therapy finding; Translations: [retirement (current) use of opiate analgesic] 01-28-2024 Episodic Other aftercare (15 sources) intermediate accountant (current) use of opiate analgesic; Translations: [Long-term (current) use of other medications] 01-28-2024 Episodic Other and unspecified benign neoplasm (10 sources) Lipoma (clinical); Translations: [Benign lipomatous neoplasm, unspecified] Episodic Other and unspecified benign neoplasm (1 source) Hemangioma of intra-abdominal structures Episodic Other and unspecified benign neoplasm (8 sources) Hemangioma of liver; Translations: [Hemangioma of intra-abdominal structures] 05-10-2024 Episodic Comment on above: CT: 04/2024 Other connective tissue disease (2 sources) Cramp and spasm; Translations: [CRAMP AND SPASM] Onset: 01-22-2023 Episodic Other diseases of kidney and ureters (1 source) Cyst of kidney, acquired Episodic Other diseases of kidney and ureters (8 sources) Cyst of kidney; Translations: [Cyst of kidney, acquired] 05-10-2024 Episodic Comment on above: Simple 04/2024 Other eye disorders (2 sources) Vitreous degeneration, bilateral; Translations: [Vitreous degeneration, bilateral] Onset: 04-25-2017 Chronic Other eye disorders (20 sources) Vitreous hemorrhage; Translations: [Vitreous hemorrhage, unspecified eye] Onset: 04-25-2017 04-25-2017 Chronic Other eye disorders (20 sources) Posterior vitreous detachment; Translations: [Vitreous degeneration, unspecified eye] Onset: 04-25-2017 04-25-2017 Chronic Other eye disorders (20 sources) Vitreous floaters; Translations: [Other vitreous opacities, unspecified eye] Onset: 04-25-2017 04-25-2017 Chronic Other eye disorders (2 sources) Bilateral posterior vitreous detachment; Translations: [Vitreous degeneration, bilateral] 02-11-2024 Chronic Other injuries and conditions due to [...] pain] Onset: 02-24-2022 Resolved: 03-05-2022 Chronic Other nutritional; endocrine; and metabolic disorders (9 sources) Morbid obesity; Translations: [Morbid (severe) obesity due to excess calories] Onset: 07-06-2016 Chronic Other nutritional; endocrine; and metabolic disorders (20 sources) Obesity; Translations: [Obesity, unspecified] 01-28-2024 Chronic [...] Chronic Other nutritional; endocrine; and metabolic disorders (15 sources) Obesity, unspecified; Translations: [Obesity, unspecified] 01-28-2024 Chronic Other screening for suspected conditions (not mental disorders or infectious disease) (20 sources) Encounter for screening for malignant neoplasm of prostate; Translations: [Patient encounter status] Onset: 01-22-2023 Episodic Residual codes; unclassified (20 sources) Edema; Translations: [Localized edema] Episodic Residual codes; unclassified (11 sources) Localized edema; Translations: [Localized edema] Episodic Retinal detachments; defects; vascular occlusion; and retinopathy (20 sources) Lattice degeneration of retina, right eye; Translations: [Lattice degeneration of right retina] Onset: 04-25-2017 02-19-2020 Chronic Screening and history [...] hyperplasia with urinary frequency [N40.1, R35.0] Onset: 06-08-2024 Past or Other Problems Problem Classification Problem Date Documented Date Episodic/Chronic Abdominal pain (10 sources) Right upper quadrant pain; Translations: [Right upper quadrant pain] Onset: 12-09-2017 Episodic Blindness and vision defects (20 sources) Other subjective visual disturbances; Translations: [Photopsia of right eye] Onset: 12-22-2018 12-22-2018 Episodic Esophageal disorders (2 sources) Esophageal disorders Genitourinary symptoms and ill-defined conditions (3 sources) Frequency of micturition; Translations: [Retention of urine] Onset: 06-16-2024 Episodic Joint disorders and dislocations; trauma-related (20 sources) Tear of medial meniscus of knee; Translations: [Other tear of medial meniscus, current injury, right knee, initial encounter] Onset: 01-27-2023 01-27-2023 Episodic Mood disorders (14 sources) Mood disorders Onset: 06-08-2024 06-08-2024 Other male genital disorders (10 sources) Hemospermia; Translations: [Hematospermia] Onset: 06-16-2018 Episodic Other nervous system disorders (1 source) Other acute postprocedural pain; Translations: [Other acute postprocedural pain] Onset: 06-08-2024 Episodic Retinal detachments; defects; vascular occlusion; and retinopathy (20 sources) Horseshoe tear of retina without detachment, left eye; Translations: [Retinal tear ] Onset: 04-25-2017 04-25-2017 Episodic Unclassified (20 sources) Elevated transaminase level; Translations: [Elevated transaminase level] Unclassified (1 source) Acute bilateral low back pain without sciatica M54.50 Unclassified (1 source) Elevated transaminase level R74.01 Viral infection (20 sources) Disease caused by 2019-nCoV; Translations: [COVID-19] Results Test Name Value Interpretation Reference Range Facility XR ABDOMEN AP 1 VWon 025 XR ABDOMEN AP 1 VW XR ABDOMEN [...] Fritz Davidson MD on 04/26/2025 11:37 AM Normal [facility] Measure post void residualon 04-25-2025 Volume 0 ml [facility] POCT urinalysis dipstick onl yon 04-25-2025 External Poct Urine Bilirubin Negative [facility] External Poct Urine Blood Negative [facility] External Poct Urine Glucose Negative [facility] External Poct Urine Leukocyte Esterase Negative [facility] External Poct Urine Nitrite Negative [facility] External Poct Urine Ph 6 [facility] External Poct Urine Protein Trace [facility] CBC WITH AUTO DIFFERENTIALon 04-20-2025 BASOPHILS ABSOLUTE COUNT (10*3/UL) BY AUTOMATED COUNT 0.1 10*3/uL Normal 0.0-0.2 [facility] Comment on above: Performed By: #### C BCA #### [facility] ([facility]) [address] [place] [address] VIR BASOPHILS RELATIVE PERCENT BY AUTOMATED COUNT 1.2 % Normal [facility] Comment on above: Performed By: #### C BCA #### [facility] ([facility]) [address] [place] [address] VIR CELLAVISION DIFFERENTIAL TYPE AUTOMATED DIFFERENTIAL Normal [facility] Comment on above: Performed By: #### C BCA #### [facility] ([facility]) [address] [place] [address] VIR Eosinophils (Bld) [#/Vol] 0.2 10*3/uL Normal 0.0-0.4 [facility] Comment on above: Performed By: #### C BCA #### [facility] ([facility]) [address] [place] [address] VIR EOSINOPHILS RELATIVE PERCENT BY AUTOMATED COUNT 3.1 % Normal [facility] Comment on above: Performed By: #### C BCA #### [facility] ([facility]) [address] [place] [address] VIR Erythrocyte distribution width (RBC) [Ratio] 12.8 % Normal 11.5-15 [facility] Comment on above: Performed By: #### C BCA #### [facility] ([facility]) [address] [place] [address] VIR Hematocrit (Bld) [Volume fraction] 45.3 % Normal 39-50 [facility] Comment on above: Performed By: #### C BCA #### [facility] ([facility]) [address] [place] [address] VIR Hemoglobin (Bld) [Mass/Vol] 15.6 g/dL Normal 13-17 [facility] Comment on above: Performed By: #### C BCA #### [facility] ([facility]) [address] [place] [address] VIR LYMPHOCYTES ABSOLUTE COUNT (10*3/UL) BY AUTOMATED COUNT 1.6 10*3/uL Normal 1.0-3.5 [facility] Comment on above: Performed By: #### C BCA #### [facility] ([facility]) [address] [place] [address] VIR LYMPHOCYTES RELATIVE PERCENT BY AUTOMATED COUNT 28.4 % Normal [facility] Comment on above: Performed By: #### C BCA #### [facility] ([facility]) [address] [place] [address] VIR MCH (RBC) [Entitic mass] 31.3 pg Normal 27-34 [facility] Comment on above: Performed By: #### C BCA #### [facility] ([facility]) [address] [place] [address] VIR MCHC (RBC) [Mass/Vol] 34.5 g/dL Normal 32-36 [facility] Comment on above: Performed By: #### C BCA #### [facility] ([facility]) [address] [place] [address] VIR MCV (RBC) [Entitic vol] 91 fL Normal 80-100 [facility] Comment on above: Performed By: #### C BCA #### [facility] ([facility]) [address] [place] [address] VIR MONOCYTES ABSOLUTE COUNT (10*3/UL) BY AUTOMATED COUNT 0.5 10*3/uL Normal 0.0-0.9 [facility] Comment on above: Performed By: #### C BCA #### [facility] ([facility]) [address] [place] [address] VIR MONOCYTES RELATIVE PERCENT BY AUTOMATED COUNT 9.0 % Normal [facility] Comment on above: Performed By: #### C BCA #### [facility] ([facility]) [address] [place] [address] VIR NEUTROPHILS ABSOLUTE COUNT BY AUTOMATED COUNT 3.2 10*3/uL Normal 1.5-6.6 [facility] Comment on above: Performed By: #### C BCA #### [facility] ([facility]) [address] [place] [address] VIR NEUTROPHILS RELATIVE PERCENT BY AUTOMATED COUNT 58.3 % Normal [facility] Comment on above: Performed By: #### C BCA #### [facility] ([facility]) [address] [place] [address] VIR Platelet mean volume (Bld) [Entitic vol] 7.5 fL Normal 7-12 [facility] Comment on above: Performed By: #### C BCA #### [facility] ([facility]) [address] [place] [address] VIR Platelets (Bld) [#/Vol] 255 10*3/uL Normal 150-450 [facility] Comment on above: Performed By: #### C BCA #### [facility] ([facility]) [address] [place] [address] VIR RBC COUNT 4.99 X10E12/L Normal 4.1-5.7 [facility] Comment on above: Performed By: #### C BCA #### [facility] ([facility]) [address] [place] [address] VIR WBC (Bld) [#/Vol] 5.5 10*3/uL Normal 4-11 [facility] Comment on above: Performed By: #### C BCA #### [facility] ([facility]) [address] [place] [address] VIR COMPREHENSIVE METABOLIC PANE Zachary 04-20-2025 Albumin [Mass/Vol] 4.3 g/dL Normal 3.2-5.3 [facility] Comment on above: Performed By: #### C MP #### [facility] ([facility]) [address] [place] [address] VIR ALP [Catalytic activity/Vol] 72 U/L Normal 39-130 [facility] Comment on above: Performed By: #### C MP #### [facility] ([facility]) [address] [place] [address] VIR ALT [Catalytic activity/Vol] 59 U/L High <=40 [facility] Comment on above: Performed By: #### C MP #### [facility] ([facility]) [address] [place] [address] VIR Anion gap [Moles/Vol] 9 mmol/L Normal 5-15 [facility] Comment on above: Performed By: #### C MP #### [facility] ([facility]) [address] [place] [address] VIR AST [Catalytic activity/Vol] 41 U/L Normal <=41 [facility] Comment on above: Performed By: #### C MP #### [facility] ([facility]) [address] [place] [address] VIR Bilirubin [Mass/Vol] 0.7 mg/dL Normal 0.3-1.2 [facility] Comment on above: Performed By: #### C MP #### [facility] ([facility]) [address] [place] [address] VIR Calcium [Mass/Vol] 9.5 mg/dL Normal 8.5-10.5 [facility] Comment on above: Performed By: #### C MP #### [facility] ([facility]) [address] [place] [address] VIR Chloride [Moles/Vol] 100 mmol/L Normal 98-109 [facility] Comment on above: Performed By: #### C MP #### [facility] ([facility]) [address] [place] [address] VIR CO2 [Moles/Vol] 30 mmol/L Normal 22-32 [facility] Comment on above: Performed By: #### C MP #### [facility] ([facility]) [address] [place] [address] VIR Creatinine [Mass/Vol] 0.92 mg/dL Normal 0.60-1.30 [facility] Comment on above: Result Comment: METH OD TRACEABLE TO IDMS STANDARD Performed By: #### C MP #### [facility] ([facility]) [address] [place] [address] VIR GFR/1.73 sq M.predicted among non-blacks MDRD (S/P/Bld) [Vol rate/Area] 90 mL/min/{1.73_m2} Normal >=60 [facility] Comment on above: Result Comment: [facility] eGFR is based on the CKD-EPI 2020 equation that does not use a race coefficient. Performed By: #### C MP #### [facility] ([facility]) [address] [place] [address] VIR Glucose [Mass/Vol] 93 mg/dL Normal 65-99 [facility] Comment on above: Performed By: #### C MP #### [facility] ([facility]) [address] [place] [address] VIR Potassium [Moles/Vol] 4.1 mmol/L Normal 3.5-5.0 [facility] Comment on above: Performed By: #### C MP #### [facility] ([facility]) [address] [place] [address] VIR Protein [Mass/Vol] 7.0 g/dL Normal 6.0-8.0 [facility] Comment on above: Performed By: #### C MP #### [facility] ([facility]) [address] [place] [address] VIR Sodium [Moles/Vol] 139 mmol/L Normal 134-146 [facility] Comment on above: Performed By: #### C MP #### [facility] ([facility]) [address] [place] [address] VIR Urea nitrogen [Mass/Vol] 22 mg/dL Normal 5-27 [facility] Comment on above: Performed By: #### C MP #### [facility] ([facility]) [address] [place] [address] VIR LIPID PROFILEon 04-20-2025 Cholesterol [Mass/Vol] 207 mg/dL High 150-200 [facility] Comment on above: Performed By: #### L IPR #### [facility] ([facility]) [address] [place] [address] VIR Cholesterol in HDL [Mass/Vol] 41 mg/dL Normal >39 [facility] Comment on above: Result Comment: HDL <40 mg/dL - High Risk HDL > or = 40mg/dL- Desirable HDL >60 mg/dL - Negative Risk Performed By: #### L IPR #### [facility] ([facility]) [address] [place] [address] VIR Cholesterol in LDL [Mass/Vol] 141 mg/dL High <130 [facility] Comment on above: Result Comment: LDL <100 mg/dL - Desirable LDL >160 mg/dL - High Risk Performed By: #### L IPR #### [facility] ([facility]) [address] [place] [address] VIR CHOLESTEROL:HDL 5.0 Normal 1.0-5.0 [facility] Comment on above: Performed By: #### L IPR #### [facility] ([facility]) [address] [place] [address] VIR Triglyceride [Mass/Vol] 123 mg/dL Normal 27-150 [facility] Comment on above: Performed By: #### L IPR #### [facility] ([facility]) [address] [place] [address] VIR VERY LOW LIPOPROTEIN 25 mg/dL Normal 0-30 [facility] Comment on above: Performed By: #### L IPR #### [facility] ([facility]) [address] [place] [address] VIR MAGNESIUMon 04-20-2025 Magnesium [Mass/Vol] 1.8 mg/dL Normal 1.8-2.6 [facility] Comment on above: Performed By: #### M G #### [facility] ([facility]) [address] [place] [address] VIR PROSTATIC SPECIFIC ANTIGEN, DIAGNOSTICon 04-20-2025 PROSTATIC SPEC ANT 0.50 ng/mL Normal 0.00-4.00 [facility] Comment on above: Result Comment: The method used for this test is [employer] DXI chemiluminescent immunoassay. Values obtained by different assay methods cannot be used interchangeably. Performed By: #### P SA #### [facility] ([facility]) [address] [place] [address] VIR No Panel Informationon 02-15 [facility] Measure post void residualon 06-28-2024 Volume 0 [facility] POCT Urinalysis Auto, W/O Mi croscopyon 06-28-2024 External Poct Urine Blood 3+ [facility] External Poct Urine Glucose Negative [facility] External Poct Urine Ketones Negative [facility] External Poct Urine Leukocyte Esterase 1+ [facility] External Poct Urine Nitrite Negative [facility] External Poct Urine Ph 6.5 [facility] External Poct Urine Protein 1+ [facility] [employer] [facility] XR ABDOMEN AP 1 VWon 024 XR [...] Eleazar Bender MD on 06/28/2024 8:40 PM Normal [facility] BASIC METABOLIC PANLon 06-09 Anion gap [Moles/Vol] 12 mmol/L Normal 5-15 [facility] Comment on above: Performed By: #### C BCA, BMP, , 2776-09 #### [facility] ([id number]) [address] [place] [address] Calcium [Mass/Vol] 8.2 mg/dL Low 8.5-10.5 [facility] Comment on above: Performed By: #### C BCA, BMP, , 2776-09 #### [facility] ([id number]) [address] [place] [address] Chloride [Moles/Vol] 99 mmol/L Normal 98-109 [facility] Comment on above: Performed By: #### C BCA, BMP, , 2776-09 #### [facility] ([id number]) [address], [address] [place] [address] CO2 [Moles/Vol] 23 mmol/L Normal 22-32 [facility] Comment on above: Performed By: #### C BCA, BMP, , 2776-09 #### [facility] ([id number]) [address] [place] [address] Creatinine [Mass/Vol] 0.94 mg/dL Normal 0.60-1.30 [facility] Comment on above: Result Comment: METH OD TRACEABLE TO IDMS STANDARD Performed By: #### C BCA, BMP, , 2776-09 #### [facility] ([id number]) [address] [place] [address] GFR/1.73 sq M.predicted among non-blacks MDRD (S/P/Bld) [Vol rate/Area] 88 mL/min/{1.73_m2} Normal >59 [facility] Comment on above: Result Comment: Reported eGFR is based on the CKD-EPI 2020 equation that does not use a race coefficient. Performed By: #### C DONA OSEI, , 2776-09 #### [facility] ([id number]) [address], [facility] [address] [place] [address] Glucose [Mass/Vol] 110 mg/dL High 65-99 [facility] Comment on above: Performed By: #### C DONA OSEI, , 2776-09 #### [facility] ([id number]) [address] [address] [place] [address] Potassium [Moles/Vol] 4.7 mmol/L Normal 3.5-5.0 [facility] Comment on above: Performed By: #### C DONA OSEI, , 2776-09 #### [facility] ([id number]) [address], [facility] [address] [place] [address] Sodium [Moles/Vol] 134 mmol/L Normal 134-146 [facility] Comment on above: Performed By: #### C DONA OSEI, , 2776-09 #### [facility] ([id number]) [address] [address] Urea nitrogen [Mass/Vol] 28 mg/dL High 5-27 [facility] Comment on above: Performed By: #### C DONA OSEI, , 2776-09 #### [facility] ([id number]) [address] [address] CBC AND AUTO DIFFon 09-20-20 24 ABSOLUTE BASOPHIL 0.0 X10E9/L Normal 0.0-0.2 [facility] Comment on above: Performed By: #### C DONA OSEI, , 2776-09 #### [facility] ([id number]) [address] [place] [address] ABSOLUTE NEUTROPHIL 17.8 X10E9/L High 1.5-6.6 [facility] Comment on above: Performed By: #### C FARNAZ, BMP, , 2776-09 #### [facility] ([id number]) [address] [place] [address] Basophils/100 WBC (Bld) 0.1 % Normal [facility] Comment on above: Performed By: #### C FARNAZ, BMP, , 2776-09 #### [facility] ([id number]) [address], [address] [place] [address] Eosinophils (Bld) [#/Vol] 0.0 10*3/uL Normal 0.0-0.4 [facility] Comment on above: Performed By: #### C FARNAZ, BMP, , 2776-09 #### [facility] ([id number]) [address] [place] [address] Eosinophils/100 WBC (Bld) 0.0 % Normal [facility] Comment on above: Performed By: #### C FARNAZ, BMP, , 2776-09 #### [facility] ([id number]) [address] [place] [address] Erythrocyte distribution width (RBC) [Ratio] 13.0 % Normal 11.5-15.0 [facility] Comment on above: Performed By: #### C FARNAZ, BMP, , 2776-09 #### [facility] ([id number]) [address] [place] [address] Hematocrit (Bld) [Volume fraction] 40.6 % Normal 39-49 [facility] Comment on above: Performed By: #### C FARNAZ, DONA, , 2776-09 #### [facility] ([id number]) [address] [place] [address] Hemoglobin (Bld) [Mass/Vol] 14.0 g/dL Normal 13.0-17.0 [facility] Comment on above: Performed By: #### Liliana OSEI, DONA, , 2776-09 #### [facility] ([id number]) [address] [place] [address] Lymphocytes (Bld) [#/Vol] 1.1 10*3/uL Normal 1.0-3.5 [facility] Comment on above: Performed By: #### Liliana OSEI, BMP, , 2776-09 #### [facility] ([id number]) [address], [facility] [address] [place] [address] Lymphocytes/100 WBC (Bld) 5.6 % Normal [facility] Comment on above: Performed By: #### Liliana OSEI, DONA, , 2776-09 #### [facility] ([id number]) [address] [place] [address] MCH (RBC) [Entitic mass] 31.8 pg Normal 27-34 [facility] Comment on above: Performed By: #### Liliana OSEI, DONA, , 2776-09 #### [facility] ([id number]) [address] [place] [address] MCHC (RBC) [Mass/Vol] 34.4 g/dL Normal 32-36 [facility] Comment on above: Performed By: #### C FARNAZ, BMP, , 2776-09 #### [facility] ([id number]) [address] [place] [address] MCV (RBC) [Entitic vol] 92 fL Normal 80-100 [facility] Comment on above: Performed By: #### C FARNAZ, BMP, , 2776-09 #### [facility] ([id number]) [address] [place] [address] Monocytes (Bld) [#/Vol] 1.1 10*3/uL High 0-0.9 [facility] Comment on above: Performed By: #### C BCA, BMP, , 2776-09 #### [facility] ([id number]) [address] [place] [address] Monocytes/100 WBC (Bld) 5.6 % Normal [facility] Comment on above: Performed By: #### C BCA, BMP, , 2776-09 #### [facility] ([id number]) [address] [place] [address] Neutrophils/100 WBC (Bld) 88.7 % Normal [facility] Comment on above: Performed By: #### C FARNAZ, BMP, , 2776-09 #### [facility] ([id number]) [address] [place] [address] Platelet mean volume (Bld) [Entitic vol] 7.2 fL Normal 7-12 [facility] Comment on above: Performed By: #### Liliana BCA, BMP, , 2776-09 #### [facility] ([id number]) [address] [place] [address] Platelets (Bld) [#/Vol] 245 10*3/uL Normal 150-450 [facility] Comment on above: Performed By: #### C BCA, BMP, , 2776-09 #### [facility] ([id number]) [address] [place] [address] RBC COUNT 4.40 X10E12/L Normal 4.10-5.70 [facility] Comment on above: Performed By: #### C BCA, BMP, , 2776-09 #### [facility] ([id number]) [address] [place] [address] WBC (Bld) [#/Vol] 20.1 10*3/uL High 4.0-11.0 [facility] Comment on above: Performed By: #### C BCA, BMP, , 2776-09 #### [facility] ([id number]) [address] [place] [address] FLUID CREATININEon Creatinine [Mass/Vol] 0.92 mg/dL Normal [facility] Comment on above: Result Comment: The reference interval and other method performance specifications are unavailable for this body fluid. Comparison of this result to serum or plasma is recommended. Performed By: #### F CRET #### [facility] ([id number]) [address] [place] [address] CRET SPECIMEN TYPE ASPIRATE Normal [facility] Comment on above: Result Comment: ÓSCAR NEGRETE CARVAJAL DRAINAGE Performed By: #### F CRET #### [facility] ([id number]) [address] [place] [address] MAGNESIUMon 06-09-2024 Magnesium [Mass/Vol] 1.9 mg/dL Normal 1.8-2.6 [facility] Comment on above: Performed By: #### C BCA, BMP, , 2776-09 #### [facility] ([id number]) [address], [facility] [address] [place] [address] PHOSPHORUSon 06-09-2024 Phosphate [Mass/Vol] 4.5 mg/dL Normal 2.4-4.9 [facility] Comment on above: Performed By: #### C BCA, BMP, , 2776-09 #### [facility] ([id number]) [address] [place] [address] BASIC METABOLIC PANLon 06-08 Anion gap [Moles/Vol] 13 mmol/L Normal 5-15 [facility] Comment on above: Performed By: #### Liliana NAVARRETE, BMP #### [facility] ([id number]) [address], [address] [place] [address] Calcium [Mass/Vol] 8.8 mg/dL Normal 8.5-10.5 [facility] Comment on above: Performed By: #### C ROSALBA, BMP #### [facility] ([id number]) [address] [place] [address] Chloride [Moles/Vol] 100 mmol/L Normal 98-109 [facility] Comment on above: Performed By: #### Liliana NAVARRETE, BMP #### [facility] ([id number]) [address] [place] [address] CO2 [Moles/Vol] 25 mmol/L Normal 22-32 [facility] Comment on above: Performed By: #### Liliana NAVARRETE, BMP #### [facility] ([id number]) [address] [address] [place] [address] Creatinine [Mass/Vol] 1.06 mg/dL Normal 0.60-1.30 [facility] Comment on above: Result Comment: METH OD TRACEABLE TO IDMS STANDARD Performed By: #### C ROSALBA, BMP #### [facility] ([id number]) [address] [address] [place] [address] GFR/1.73 sq M.predicted among non-blacks MDRD (S/P/Bld) [Vol rate/Area] 76 mL/min/{1.73_m2} Normal >59 [facility] Comment on above: Result Comment: Reported eGFR is based on the CKD-EPI 2020 equation that does not use a race coefficient. Performed By: #### C ROSALBA, BMP #### [facility] ([id number]) [address] [place] [address] Glucose [Mass/Vol] 133 mg/dL High 65-99 [facility] Comment on above: Performed By: #### C BC, BMP #### [facility] ([id number]) [address] [place] [address] Potassium [Moles/Vol] 4.9 mmol/L Normal 3.5-5.0 [facility] Comment on above: Performed By: #### C ROSALBA, BMP #### [facility] ([id number]) [address] [place] [address] Sodium [Moles/Vol] 138 mmol/L Normal 134-146 [facility] Comment on above: Performed By: #### C ROSALBA, BMP #### [facility] ([id number]) [address] [place] [address] Urea nitrogen [Mass/Vol] 26 mg/dL Normal 5-27 [facility] Comment on above: Performed By: #### C ROSALBA, BMP #### [facility] ([id number]) [address] [place] [address] COMPLETE BLOOD COUNTon 06-08 Erythrocyte distribution width (RBC) [Ratio] 13.2 % Normal 11.5-15.0 [facility] Comment on above: Performed By: #### C ROSALBA, BMP #### [facility] ([id number]) [address], [address] [place] [address] Hematocrit (Bld) [Volume fraction] 44.3 % Normal 39-49 [facility] Comment on above: Performed By: #### C BC, BMP #### [facility] ([id number]) [address], [address] [place] [address] Hemoglobin (Bld) [Mass/Vol] 15.3 g/dL Normal 13.0-17.0 [facility] Comment on above: Performed By: #### C ROSALBA, BMP #### [facility] ([id number]) [address], [address] [place] [address] MCH (RBC) [Entitic mass] 31.9 pg Normal 27-34 [facility] Comment on above: Performed By: #### C ROSALBA, BMP #### [facility] ([id number]) [address], [address] [place] [address] MCHC (RBC) [Mass/Vol] 34.5 g/dL Normal 32-36 [facility] Comment on above: Performed By: #### C ROSALBA, BMP #### [facility] ([id number]) [address], [address] [place] [address] MCV (RBC) [Entitic vol] 92 fL Normal 80-100 [facility] Comment on above: Performed By: #### C ROSALBA, BMP #### [facility] ([id number]) [address], [address] [place] [address] Platelet mean volume (Bld) [Entitic vol] 7.0 fL Normal 7-12 [facility] Comment on above: Performed By: #### C ROSALBA, BMP #### [facility] LAB ([id number]) [address], [address] [place] [address] Platelets (Bld) [#/Vol] 305 10*3/uL Normal 150-450 [facility] Comment on above: Performed By: #### C ROSALBA, BMP #### [facility] ([id number]) [address], [address] [place] [address] RBC COUNT 4.79 X10E12/L Normal 4.10-5.70 [facility] Comment on above: Performed By: #### C ROSALBA, BMP #### [facility] ([id number]) [address] [place] [address], [address] [place] [address] WBC (Bld) [#/Vol] 29.5 10*3/uL High 4.0-11.0 [facility] Comment on above: Performed By: #### C BC, BMP #### [facility] ([id number]) [address] [place] [address], [address] [place] [address] Surgical Pathologyon [address] [facility] Comment on above: Result Comment: [facility] [address] [place] [address] Surgical Pathology Consultation Patient Name:AMBER HENSON:1955 (Age: 69)Gender:MTaken:06/08/2024eported:06/12/2024hysician(s):Leslie Barillas M.D. ([phone])Copy To: Rec. #:[id number]: #[id number] Final Pathologic Diagnosis Prostate, simple prostatectomy: Prostatic nodular stromal and glandular hyperplasia. Report Electronically Signed [facility]/06/12/2024jaycob Toney MD Interpretation [place] [address], License number: [id number]. Clinical History Benign prostatic hyperplasia with urinary frequency. Gross Description Received in formalin labeled dorota HENSON is a 59 g none radical prostatectomy, 7.0 x 4.5 x 4.0 cm. The specimen is inked black and sectioned to reveal blancas-white rubbery cut surfaces with periurethral nodularity up to 0.7 cm. The prostatic urethra is lined by pink-blancas, focal hemorrhagic and smooth mucosa. Real Estate Assistant sections are submitted in cassettes A-H. (8,ss,[id number], m1) [facility]/06/09/2024GR Specimen(s) Received Prostate Fee Codes(s): 1; 12181 Bacteria identified Cx Nom ( U)on 05-26-2024 Service comment (Unsp spec) [Interp] NO GROWTH AT <1000 CFU/mL [facility] ABO Rh Repeaton 05-25-2024 ABO O [facility] Rh Nom (Bld) Positive [facility] ECG 12 leadon 05-25-2024 TRACEMASTERVUE [facility] Type and screen(includes ind irect elías)on 05-25-2024 ABO O [facility] Rh Nom (Bld) Positive [facility] URINALYSISon 05-25-2024 Bilirubin Ql (U) Negative Normal NEG [facility] Comment on above: Performed By: #### U A #### [facility] ([id number]) [address], [address] [place] [address] BLOOD/HGB Negative Normal NEG [facility] Comment on above: Performed By: #### U A #### [facility] ([id number]) [address], [address] [place] [address] Color (U) YELLOW Normal YELLOW [facility] Comment on above: Performed By: #### U A #### [facility] ([id number]) [address], [address] [place] [address] Glucose Ql (U) Negative Normal NEG [facility] Comment on above: Performed By: #### U A #### [facility] ([id number]) [address], [address] [place] [address] Ketones Ql (U) Negative Normal NEG [facility] Comment on above: Performed By: #### U A #### [facility] ([id number]) [address], [address] [place] [address] Leukocyte esterase Test strip Ql (U) Negative Normal NEG [facility] Comment on above: Performed By: #### U A #### [facility] ([id number]) [address], [address] [place] [address] MUCOUS PRESENT Abnormal NONE [facility] Comment on above: Performed By: #### U A #### [facility] ([id number]) [address], [address] [place] [address] Nitrite Ql (U) Negative Normal NEG [facility] Comment on above: Performed By: #### U A #### [facility] ([id number]) [address], [address] [place] [address] pH (U) 7.0 [pH] Normal 5.0-8.5 [facility] Comment on above: Performed By: #### U A #### [facility] ([id number]) [address] [facility] [facility] [place] [address] Protein Ql (U) Trace Abnormal NEG [facility] Comment on above: Performed By: #### U A #### [facility] ([id number]) [address] [facility] [facility] [place] [address] R.B.CELLS 1 /hpf Normal 0-5 [facility] Comment on above: Performed By: #### U A #### [facility] ([id number]) [address] [facility] [facility] [facility] [place] [address] Specific gravity (U) [Rel density] 1.024 Normal 1.003-1.035 [facility] Comment on above: Performed By: #### U A #### [facility] ([id number]) [address], [address] [place] [address] SQUAMOUS EPITHELIUM <1 Normal 0-5 [facility] Comment on above: Performed By: #### U A #### [facility] ([id number]) [address] [facility] [facility] [place] [address] TURBIDITY CLEAR Normal CLEAR [facility] Comment on above: Performed By: #### U A #### [facility] ([id number]) [address], [address] [place] [address] Urobilinogen (U) [Mass/Vol] mg/dL Normal <1.1 [facility] Comment on above: Performed By: #### U A #### [facility] ([id number]) [address], [address] [place] [address] W.B.CELLS 3 /hpf Normal 0-5 [facility] Comment on above: Performed By: #### U A #### [facility] ([id number]) [address], [address] [place] [address] URINE CULTUREon 05-25-2024 Bacteria identified Cx Nom (U) CULTURE RESULTS NO GROWTH AT <1000 CFU/mL Normal [facility] Comment on above: Performed By: #### 6 30-4 #### [facility] ([id number]) [address], [address] [place] [address] Urinalysison 05-25-2024 Bilirubin Ql (U) Negative Negative^Ne ga tive [facility] Color (U) YELLOW YELLOW^YELLOW [facility] Epithelial cells Auto (Urine sed) [#/Area] [facility] Glucose (U) [Mass/Vol] Negative Negative^Nega tive mg/dL [facility] Hemoglobin Auto test strip Ql (U) Negative Negative^Nega tive [facility] Interpretation and review of laboratory results Abnormal [facility] Ketones (U) [Mass/Vol] Negative Negative^Nega tive mg/dL [facility] Leukocyte esterase Auto test strip Ql (U) Negative Negative^Nega tive [facility] Mucus Ql (Urine sed) PRESENT Abnormal NONE^NONE [facility] Nitrite Auto test strip Ql (U) Negative Negative^Nega tive [facility] pH (U) 7.0 [pH] 5.0 - 8.5 [facility] Protein (U) [Mass/Vol] Trace Abnormal Negative^Nega tive mg/dL [facility] RBC Auto (Urine sed) [#/Area] 1 [facility] Specific gravity Refractometry automated (U) [Rel density] 1.024 1.003 - 1.035 [facility] Turbidity Ql (U) CLEAR CLEAR^CLEAR [facility] Urobilinogen Qn (U) NINF [facility] WBC Auto (Urine sed) [#/Area] 3 [facility] XR lumbar spine AP/LAT/FLX/E XTon 04-14-2024 XR lumbar spine AP/LAT/FLX/EXT [place] [address] MRI Report Signed Patient: Amber Henson MR#: [id number] 82 : 1955 Acct:[id number] Age/Sex: 69 / M ADM Date: 04/14/24 Loc: Room: Type: [facility] Attending Dr: Ceasar Tubbs MD Copies to: Ceasar Tubbs MD Ordering Provider: Ceasar Tubbs MD Date of Service: 04/14/24 XR/XR lumbar spine AP/LAT/FLX/EXT: M47.817 - Spondylosis without myelopathy or radiculopathy... ([id number]) MR/MR lumbar spine wo con: M47.817 - [...] hypertrop (more content not included)... Normal [facility] Basophils Auto (Bld) [#/Vol] on 04-10-2024 Basophils (Bld) [#/Vol] 0.1 10 3/uL 0.0-0.1 [facility] Basophils/100 WBC Auto (Bld) on 04-10-2024 Basophils/100 WBC (Bld) 1.6 % 0.2-2.0 [facility] Cholesterol in LDL Calc [Mas s/Vol]on 04-10-2024 Cholesterol in LDL [Mass/Vol] 164.0 mg/dL [facility] Comment on above: <100 mg/dl [id number] 0-129 mg/dl NEAR OR ABOVE [id number] mg/dl BORDERLINE [id number] mg/dl HIGH>190 mg/dl VERY HIGH Cholesterol in VLDL Calc [Ma ss/Vol]on 04-10-2024 Cholesterol in VLDL [Mass/Vol] 30.2 mg/dL [facility] Eosinophils/100 WBC Auto (Bl d)on 04-10-2024 Eosinophils/100 WBC (Bld) 5.1 % 0.9-7.0 [facility] Erythrocyte distribution wid th Auto (RBC) [Ratio]on 04-10-2024 Erythrocyte distribution width (RBC) [Ratio] 11.8 % 11.0-15.0 [facility] Estimated glomerular filtrat ion rate (GFR) non- Americanon 04-10-2024 GFR/1.73 sq M.predicted among non-blacks MDRD (S/P/Bld) [Vol rate/Area] mL/min/{1.73_m2} >=60 [facility] Globulin Calc (S) [Mass/Vol] on 04-10-2024 Globulin (S) [Mass/Vol] 3.7 g/dL [facility] Hematocrit Auto (Bld) [Volum e fraction]on 04-10-2024 Hematocrit (Bld) [Volume fraction] 47.7 % 42.0-54.0 [facility] Hemoglobin [Mass/volume] in Bloodon 04-10-2024 Hemoglobin (Bld) [Mass/Vol] 16.1 g/dL 14.0-18.0 [facility] Laboratory - Chemistry and C hemistry - challengeon 04-10-2024 Albumin [Mass/Vol] 3.8 g/dL 3.4-5.0 [facility] ALP [Catalytic activity/Vol] 114 U/L 46-116 [facility] ALT [Catalytic activity/Vol] 90 U/L High 16-63 [facility] AST [Catalytic activity/Vol] 50 U/L High 15-37 [facility] Bilirubin [Mass/Vol] 0.7 mg/dL 0.2-1.0 [facility] Calcium [Mass/Vol] 9.4 mg/dL 8.5-10.1 [facility] Chloride [Moles/Vol] 102 mmol/L 98-107 [facility] Cholesterol [Mass/Vol] 231 mg/dL High <=200 [facility] Cholesterol in HDL [Mass/Vol] 37 mg/dL Low 40-60 [facility] Comment on above: > or =60 mg/dl - LOW CARDIOVASCULAR RISK<40 mg/dl - HIGH CARDIOVASCULAR RISK CO2 [Moles/Vol] 29.0 mmol/L 21.0-32.0 [facility] Creatinine [Mass/Vol] 0.86 mg/dL 0.70-1.30 [facility] GFR/1.73 sq M.predicted MDRD (S/P/Bld) [Vol rate/Area] mL/min/{1.73_m2} >=60 [facility] Glucose [Mass/Vol] 97 mg/dL 74-106 [facility] Potassium [Moles/Vol] 4.0 mmol/L 3.5-5.1 [facility] Protein [Mass/Vol] 7.5 g/dL 6.4-8.2 [facility] Sodium [Moles/Vol] 140 mmol/L 136-145 [facility] Triglyceride [Mass/Vol] 151 mg/dL High <=150 [facility] Urea nitrogen [Mass/Vol] 18.0 mg/dL 7.0-18.0 [facility] Urea nitrogen/Creatinine [Mass ratio] 20.9 mg/mg [facility] Laboratory - Hematology and Cell countson 04-10-2024 Immature granulocytes/100 WBC (Bld) 0.4 % 0.0-0.5 [facility] Leukocytes [#/volume] correc janna for nucleated erythrocytes in Blood by Automated counon 04-10-2024 WBC corrected for nucl RBC Auto (Bld) [#/Vol] 6.8 10 3/uL 4.0-11.0 [facility] Lymphocytes Auto (Bld) [#/Vo l]on 04-10-2024 Lymphocytes (Bld) [#/Vol] 2.1 10 3/uL 1.2-3.8 [facility] Lymphocytes/100 WBC Auto (Bl d)on 04-10-2024 Lymphocytes/100 WBC (Bld) 31.3 % 20.5-60.0 [facility] MCH Auto (RBC) [Entitic mass ]on 04-10-2024 MCH (RBC) [Entitic mass] 30.9 pg 25.9-34.0 [facility] MCHC Auto (RBC) [Mass/Vol]on 04-10-2024 MCHC (RBC) [Mass/Vol] 33.8 g/dL 29.9-35.2 [facility] MCV Auto (RBC) [Entitic vol] on 04-10-2024 MCV (RBC) [Entitic vol] 91.6 fL 80.0-94.0 [facility] Monocytes Auto (Bld) [#/Vol] on 04-10-2024 Monocytes (Bld) [#/Vol] 0.7 10 3/uL 0.3-0.8 [facility] Monocytes/100 WBC Auto (Bld) on 04-10-2024 Monocytes/100 WBC (Bld) 9.8 % 1.7-12.0 [facility] Neutrophils Auto (Bld) [#/Vo l]on 04-10-2024 Neutrophils (Bld) [#/Vol] 3.5 10 3/uL 1.4-6.5 [facility] Neutrophils/100 WBC Auto (Bl d)on 04-10-2024 Neutrophils/100 WBC (Bld) 51.8 % 43.0-75.0 [facility] No Panel Informationon 04-10 Eosinophils # (Auto) 0.4 10 3/uL 0.0-0.7 [facility] Immature Granulocyte # (Auto) 0.03 10 3/uL 0.00-0.03 [facility] Prostate Specific Antigen Screen 3.15 ng/mL <=4.00 [facility] Platelet mean volume Auto (B ld) [Entitic vol]on 04-10-2024 Platelet mean volume (Bld) [Entitic vol] 9.3 fL Low 9.5-13.5 [facility] Platelets Auto (Bld) [#/Vol] on 04-10-2024 Platelets (Bld) [#/Vol] 250 10 3/uL 150-450 [facility] RBC Auto (Bld) [#/Vol]on RBC (Bld) [#/Vol] 5.21 10 6/uL 4.70-6.10 [facility] Serum or plasma albumin/glob ulin mass ratioon 04-10-2024 Albumin/Globulin [Mass ratio] 1.0 {ratio} [facility] Serum or plasma anion gap de terminationon 04-10-2024 Anion gap [Moles/Vol] 13.0 mmol/L [facility] Serum or plasma total choles terol/high density lipoprotein (HDL) cholesterol mass jarad 04-10-2024 Cholesterol.total/C holesterol in HDL [Mass ratio] 6.2 {ratio} [facility] Comment on above: 3.3 - 4.4 LOW RISK4. 4 - 7.1 AVERAGE RISK7.1 - 11.0 MODERATE RISK>11.0 HIGH RISK Measure post void residualon 03-29-2024 Volume 16 cc's [facility] POCT Urinalysis Auto, W/O Mi croscopyon 03-29-2024 External Poct Urine Blood Trace [employer] [facility] External Poct Urine Glucose Negative [facility] External Poct Urine Ketones Trace [employer] [facility] External Poct Urine Leukocyte Esterase Negative [facility] External Poct Urine Nitrite Negative [employer] External Poct Urine Ph 5.5 [facility] External Poct Urine Protein Trace [employer] [facility] MRI KNEE RT WO CONon 023 MRI [...] TATIANA YEBOAH Date: 2023-01-19 09:[address] [facility] CBC AUTO DIFFon 01-18-2023 BASO # 0.1 103/ul Normal 0.0-0.1 [facility] Comment on above: Performed By: #### C BC #### [facility] [address] [address] [address] Sienna Powers Basophils/100 WBC (Bld) 1.4 % Normal 0.2-2.0 [facility] Comment on above: Performed By: #### C BC #### [facility] [address] [place] [address] Dr. Sienna Powers EO # 0.4 103/ul Normal 0.0-0.7 [facility] Comment on above: Performed By: #### C BC #### [facility] [address] [address] [address] Sienna Powers Eosinophils/100 WBC (Bld) 5.3 % Normal 0.9-7.0 [facility] Comment on above: Performed By: #### C BC #### [facility] [address] [place] [address] Dr. Sienna Powers Erythrocyte distribution width (RBC) [Ratio] 12.2 % Normal 11.0-15.0 [facility] Comment on above: Performed By: #### C BC #### [facility] [address] [address] [address] Sienna Powers Hematocrit (Bld) [Volume fraction] 46.8 % Normal 42.0-54.0 [facility] Comment on above: Performed By: #### C BC #### [facility] [address] [place] [address] Dr. Sienna Powers Hemoglobin (Bld) [Mass/Vol] 15.8 g/dL Normal 14.0-18.0 [facility] Comment on above: Performed By: #### C BC #### [facility] [address] [place] [address] Dr. Sienna Powers IG # 0.05 10e3/ul Critically high 0.00-0.03 [facility] Comment on above: Performed By: #### C BC #### [facility] [address] [place] [address] Dr. Sienna Powers IG % 0.7 % Critically high 0.0-0.5 [facility] Comment on above: Performed By: #### C BC #### [facility] [address] [place] [address] Dr. Sienna Powers LYMPH # 1.8 103/ul Normal 1.2-3.8 [facility] Comment on above: Performed By: #### C BC #### [facility] [address] [place] [address] Dr. Sienna Powers Lymphocytes/100 WBC (Bld) 25.1 % Normal 20.5-60.0 [facility] Comment on above: Performed By: #### C BC #### [facility] [address] [place] [address] Dr. Sienna Powers MANUAL DIFF REQ NO Normal [facility] Comment on above: Performed By: #### C BC #### [facility] [address] [place] [address] Dr. Sienna Powers MCH (RBC) [Entitic mass] 30.9 pg Normal 25.9-34.0 [facility] Comment on above: Performed By: #### C BC #### [facility] [address] [place] [address] Dr. Sienna Powers MCHC (RBC) [Mass/Vol] 33.8 g/dL Normal 29.9-35.2 [facility] Comment on above: Performed By: #### C BC #### [facility] [address] [place] [address] Dr. Sienna Powers MCV (RBC) [Entitic vol] 91.6 fL Normal 80.0-94.0 [facility] Comment on above: Performed By: #### C BC #### [facility] [address] [place] [address] Dr. Sienna Powers MONO # 0.6 103/ul Normal 0.3-0.8 [facility] Comment on above: Performed By: #### C BC #### [facility] [address] [place] [address] Dr. Sienna Powers Monocytes/100 WBC (Bld) 8.8 % Normal 1.7-12.0 [facility] Comment on above: Performed By: #### C BC #### [facility] [address] [place] [address] Dr. Sienna Powers NEUT # 4.1 103/ul Normal 1.4-6.5 [facility] Comment on above: Performed By: #### C BC #### [facility] [address] [place] [address] Dr. Sienna Powers Neutrophils/100 WBC (Bld) 58.7 % Normal 43.0-75.0 [facility] Comment on above: Performed By: #### C BC #### [facility] [address] [place] [address] Dr. Sienna Powers Platelet mean volume (Bld) [Entitic vol] 9.0 fL Critically low 9.5-13.5 [facility] Comment on above: Performed By: #### C BC #### [facility] [address] [place] [address] Dr. Sienna Powers PLT 267 103/ul Normal 150-450 [facility] Comment on above: Performed By: #### C BC #### [facility] [address] [place] [address] Dr. Sienna Powers RBC 5.11 106/ul Normal 4.70-6.[address] [facility] Comment on above: Performed By: #### C BC #### [facility] [address] [place] [address] Dr. Sienna Powers WBC 7.0 103/ul Normal 4.0-11.0 [facility] Comment on above: Performed By: #### C BC #### [facility] [address] [place] [address] Dr. Sienna Powers LIPID PROFILEon 01-18-2023 CHOL-HDL RATIO NORM SEE BELOW Normal [facility] Comment on above: Result Comment: 3.3 - 4.4 LOW RISK 4.4 - 7.1 AVERAGE RISK 7.1 - 11.0 MODERATE RISK >11.0 HIGH RISK Performed By: #### M G, LIPID, CMP #### [facility] [address] [address] [address] Sienna Powers Cholesterol [Mass/Vol] 212 mg/dL Critically high <=200 [facility] Comment on above: Performed By: #### M G, LIPID, CMP #### [facility] [address] [address] [address] Sienna Powers Cholesterol in HDL [Mass/Vol] 40 mg/dL Normal 40-60 [facility] Comment on above: Performed By: #### M G, LIPID, CMP #### [facility] [address] [address] [address] Sienna Powers Cholesterol in LDL [Mass/Vol] 154.0 mg/dL Normal [facility] Comment on above: Performed By: #### M G, LIPID, CMP #### [facility] [address] [address] [address] Sienna Powers Cholesterol.total/C holesterol in HDL [Mass ratio] 5.3 {ratio} Normal [facility] Comment on above: Performed By: #### M G, LIPID, CMP #### [facility] [address] [address] [address] Sienna Powers HDL NORMAL > or = 60 mg/dl - LOW CARDIOVASCULAR RISK <40 mg/dl - HIGH CARDIOVASCULAR RISK Normal [facility] Comment on above: Performed By: #### M G, LIPID, CMP #### [facility] [address] [address] [address] Sienna Powers LDL CALC NORMAL SEE BELOW Normal [facility] Comment on above: Result Comment: <100 mg/dl OPTIMAL 100 - 129 mg/dl NEAR OR ABOVE OPTIMAL 130 - 159 mg/dl BORDERLINE HIGH 160 - 189 mg/dl HIGH >190 mg/dl VERY HIGH Performed By: #### M G, LIPID, CMP #### [facility] [address] [address] [address] Sienna Powers Triglyceride [Mass/Vol] 90 mg/dL Normal <=150 [facility] Comment on above: Performed By: #### M G, LIPID, CMP #### [facility] [address] [place] [address] Dr. Sienna Powers VLDL CALC 18.0 mg/dL Normal [facility] Comment on above: Performed By: #### M G, LIPID, CMP #### [facility] [address] [place] [address] Dr. Sienna Powers MAGNESIUMon 01-18-2023 Magnesium [Mass/Vol] 1.7 mg/dL Critically low 1.8-2.4 [facility] Comment on above: Performed By: #### M G, LIPID, CMP #### [facility] [address] [place] [address] Dr. Sienna Powers PROF 14(COMP METB)on 023 Albumin [Mass/Vol] 3.7 g/dL Normal 3.4-5.0 [facility] Comment on above: Performed By: #### M G, LIPID, CMP #### [facility] [address] [place] [address] Dr. Sienna Powers Albumin/Globulin [Mass ratio] 0.9 {ratio} Normal [facility] Comment on above: Performed By: #### M G, LIPID, CMP #### [facility] [address] [place] [address] Dr. Sienna Powers ALP [Catalytic activity/Vol] 111 U/L Normal 46-116 [facility] Comment on above: Performed By: #### M G, LIPID, CMP #### [facility] [address] [place] [address] Dr. Sienna Powers ALT [Catalytic activity/Vol] 76 U/L Critically high 16-63 [facility] Comment on above: Performed By: #### M G, LIPID, CMP #### [facility] [address] [place] [address] Dr. Sienna Powers Anion gap [Moles/Vol] 11.2 mmol/L Normal [facility] Comment on above: Performed By: #### M G, LIPID, CMP #### [facility] [address] [address] [address] Sienna Powers AST [Catalytic activity/Vol] 31 U/L Normal 15-37 [facility] Comment on above: Performed By: #### M G, LIPID, CMP #### [facility] [address] [address] [address] Sienna Powers Bilirubin [Mass/Vol] 0.7 mg/dL Normal 0.2-1.0 [facility] Comment on above: Performed By: #### M G, LIPID, CMP #### [facility] [address] [address] [address] Sienna Powers Calcium [Mass/Vol] 9.6 mg/dL Normal 8.5-10.1 [facility] Comment on above: Performed By: #### M G, LIPID, CMP #### [facility] [address] [place] [address] Dr. Sienna Powers Chloride [Moles/Vol] 104 mmol/L Normal 98-107 [facility] Comment on above: Performed By: #### M G, LIPID, CMP #### [facility] [address] [address] [address] Sienna Powers CO2 [Moles/Vol] 29.1 mmol/L Normal 21.0-32.0 [facility] Comment on above: Performed By: #### M G, LIPID, CMP #### [facility] [address] [place] [address] Dr. Sienna Powers Creatinine [Mass/Vol] 0.95 mg/dL Normal 0.70-1.30 [facility] Comment on above: Performed By: #### M G, LIPID, CMP #### [facility] [address] [address] [address] Sienna Powers EGFR-AF OMANI >60 Normal >=60 [facility] Comment on above: Performed By: #### M G, LIPID, CMP #### [facility] [address] [place] [address] Dr. Sienna Powers EGFR-NON AF OMANI >60 Normal >=60 [facility] Comment on above: Performed By: #### M G, LIPID, CMP #### [facility] [address] [address] [address] Sienna Powers Globulin (S) [Mass/Vol] 3.9 g/dL Normal [facility] Comment on above: Performed By: #### M G, LIPID, CMP #### [facility] [address] [address] [address] Sienna Powers Glucose [Mass/Vol] 99 mg/dL Normal 74-106 [facility] Comment on above: Performed By: #### M G, LIPID, CMP #### [facility] [address] [address] [address] Sienna Powers Potassium [Moles/Vol] 4.3 mmol/L Normal 3.5-5.1 [facility] Comment on above: Performed By: #### M G, LIPID, CMP #### [facility] [address] [place] [address] Dr. Sienna Powers Protein [Mass/Vol] 7.6 g/dL Normal 6.4-8.2 [facility] Comment on above: Performed By: #### M G, LIPID, CMP #### [facility] [address] [address] [address] Sienna Powers Sodium [Moles/Vol] 140 mmol/L Normal 136-145 [facility] Comment on above: Performed By: #### M G, LIPID, CMP #### [facility] [address] [address] [address] Sienna Powers Urea nitrogen [Mass/Vol] 16.0 mg/dL Normal 7.0-18.0 [facility] Comment on above: Performed By: #### M G, LIPID, CMP #### [facility] [address] [address] [address] Sienna Powers Urea nitrogen/Creatinine [Mass ratio] 16.8 mg/mg Normal [facility] Comment on above: Performed By: #### M G, LIPID, CMP #### [facility] [address] [address] [address] Sienna Powers XR KUB 1 VIEWon [...] by: ROSE AGUILERA Date: 2022-09-18 07:51 Normal [facility] Vital Signs Date Time Vital Sign Value Performing Clinician Facility 04-25-2025 10:56-0400 Body height 177.8 cm Leslie Barillas MD Work Phone: [facility] 04-25-2025 10:56-0400 Body mass index (BMI) [Ratio] 32.51 kg/m2 Leslie Barillas MD Work Phone: [facility] 04-25-2025 10:56-0400 Body weight 102.78 kg Leslie Barillas MD Work Phone: [facility] 04-25-2025 10:56-0400 Diastolic blood pressure 98 mm[Hg] Leslie Barillas MD Work Phone: [facility] 04-25-2025 10:56-0400 Heart rate 82 /min Leslie Barillas MD Work Phone: [facility] 04-25-2025 10:56-0400 Systolic blood pressure 142 mm[Hg] Leslie Barillas MD Work Phone: [facility] 03-28-2025 16:04-0400 Body height 177.8 cm Mitchel Ball DO Work Phone: [facility] 03-28-2025 16:04-0400 Body mass index (BMI) [Ratio] 32.4 kg/m2 Mitchel Ball DO Work Phone: [facility] 03-28-2025 16:04-0400 Body weight 102.51 kg Mitchel Ball DO Work Phone: [facility] 03-28-2025 16:04-0400 Diastolic blood pressure 90 mm[Hg] Mitchel Ball DO Work Phone: [facility] 03-28-2025 16:04-0400 Heart rate 86 /min Mitchel Ball DO Work Phone: [facility] 03-28-2025 16:04-0400 SaO2% (BldA) [Mass fraction] 97 % Mitchel Ball DO Work Phone: [facility] 03-28-2025 16:04-0400 Systolic blood pressure 138 mm[Hg] Mtichel Ball DO Work Phone: [facility] 03-05-2025 16:36-0400 Body height 177.8 cm Mitchel Ball DO Work Phone: [facility] 03-05-2025 16:36-0400 Body mass index (BMI) [Ratio] 33 kg/m2 Mitchel Ball DO Work Phone: [facility] 03-05-2025 16:36-0400 Body weight 104.32 kg Mitchel Ball DO Work Phone: [facility] 03-05-2025 16:36-0400 Diastolic blood pressure 84 mm[Hg] Mitchel Ball DO Work Phone: [facility] 03-05-2025 16:36-0400 Heart rate 76 /min Mitchel Ball DO Work Phone: [facility] 03-05-2025 16:36-0400 SaO2% (BldA) [Mass fraction] 97 % Mitchel Ball DO Work Phone: [facility] 03-05-2025 16:36-0400 Systolic blood pressure 126 mm[Hg] Mitchel Ball DO Work Phone: [facility] 02-06-2025 09:32-0400 Body height 177.8 cm Mitchel Ball DO Work Phone: [facility] 02-06-2025 09:32-0400 Body mass index (BMI) [Ratio] 33 kg/m2 Mitchel Ball DO Work Phone: [facility] 02-06-2025 09:32-0400 Body weight 104.32 kg Mitchel Ball DO Work Phone: [facility] 02-06-2025 09:32-0400 Diastolic blood pressure 80 mm[Hg] Mitchel Ball DO Work Phone: [facility] 02-06-2025 09:32-0400 Heart rate 83 /min Mitchel Ball DO Work Phone: [facility] 02-06-2025 09:32-0400 Respiratory rate 12 /min Mitchel Ball DO Work Phone: [facility] 02-06-2025 09:32-0400 Systolic blood pressure 125 mm[Hg] Mitchel Ball DO Work Phone: [facility] 12-06-2024 14:59-0400 Diastolic blood pressure 80 mm[Hg] [facility] 12-06-2024 14:59-0400 Heart rate 85 /min [facility] 12-06-2024 14:59-0400 SaO2% (BldA) [Mass fraction] 96 % [facility] 12-06-2024 14:59-0400 Systolic blood pressure 120 mm[Hg] [facility] 11-22-2024 16:41-0500 Body weight 101.6 kg Mitchel Ball DO Work Phone: [facility] 11-22-2024 16:41-0500 Diastolic blood pressure 76 mm[Hg] Mitchel Ball DO Work Phone: [facility] 11-22-2024 16:41-0500 Heart rate 82 /min Mitchel Ball DO Work Phone: [facility] 11-22-2024 16:41-0500 SaO2% (BldA) [Mass fraction] 92 % Micthel Ball DO Work Phone: [facility] 11-22-2024 16:41-0500 Systolic blood pressure 120 mm[Hg] Mitchel Ball DO Work Phone: [facility] 11-02-2024 09:29-0500 Body height 177.8 cm Mitchel Ball DO Work Phone: [facility] 11-02-2024 09:29-0500 Body mass index (BMI) [Ratio] 32.7 kg/m2 Mitchel Ball DO Work Phone: [facility] 11-02-2024 09:29-0500 Body weight 103.41 kg Mitchel Ball DO Work Phone: [facility] 11-02-2024 09:29-0500 Diastolic blood pressure 89 mm[Hg] Mitchel Ball DO Work Phone: [facility] 11-02-2024 09:29-0500 Heart rate 97 /min Mitchel Ball DO Work Phone: [facility] 11-02-2024 09:29-0500 Respiratory rate 12 /min Mitchel Ball DO Work Phone: [facility] 11-02-2024 09:29-0500 Systolic blood pressure 139 mm[Hg] Mitchel Ball DO Work Phone: [facility] 10-24-2024 16:24-0500 Body height 177.8 cm Leslie Barillas MD Work Phone: [facility] 10-24-2024 16:24-0500 Body mass index (BMI) [Ratio] 33.58 kg/m2 Leslie Barillas MD Work Phone: [facility] 10-24-2024 16:24-0500 Body weight 106.14 kg Leslie Barillas MD Work Phone: [facility] [employer] [facility] 10-24-2024 16:24-0500 Diastolic blood pressure 95 mm[Hg] Leslie Barillas MD Work Phone: [facility] 10-24-2024 16:24-0500 Heart rate 75 /min Leslie Barillas MD Work Phone: [facility] 10-24-2024 16:24-0500 Systolic blood pressure 154 mm[Hg] Leslie Barillas MD Work Phone: [facility] [employer] 09-25-2024 13:50-0500 Diastolic blood pressure 80 mm[Hg] Mitchel Ball DO Work Phone: [facility] 09-25-2024 13:50-0500 Heart rate 94 /min Mitchel Ball DO Work Phone: [facility] 09-25-2024 13:50-0500 SaO2% (BldA) [Mass fraction] 97 % Mitchel Ball DO Work Phone: [facility] 09-25-2024 13:50-0500 Systolic blood pressure 122 mm[Hg] Mitchel Ball DO Work Phone: [facility] 08-30-2024 10:56-0500 Diastolic blood pressure 90 mm[Hg] Mitchel Ball DO Work Phone: [facility] 08-30-2024 10:56-0500 Heart rate 74 /min Mitchel Ball DO Work Phone: [facility] 08-30-2024 10:56-0500 Respiratory rate 20 /min Mitchel Ball DO Work Phone: [facility] 08-30-2024 10:56-0500 SaO2% (BldA) [Mass fraction] 95 % Mitchel Ball DO Work Phone: [facility] 08-30-2024 10:56-0500 Systolic blood pressure 125 mm[Hg] Mitchel Ball DO Work Phone: [facility] 08-30-2024 10:16-0500 Inhaled oxygen flow rate 4 L/min Mitchel Ball DO Work Phone: [facility] 08-30-2024 08:44-0500 Body height 177.8 cm Mitchel Ball DO Work Phone: [facility] 08-30-2024 08:44-0500 Body weight 99.79 kg Mitchel Ball DO Work Phone: [facility] 08-29-2024 11:21-0500 Diastolic blood pressure 82 mm[Hg] Mitchel Ball DO Work Phone: [facility] 08-29-2024 11:21-0500 Heart rate 83 /min Mitchel Ball DO Work Phone: [facility] 08-29-2024 11:21-0500 SaO2% (BldA) [Mass fraction] 98 % Mitchel Ball DO Work Phone: [facility] 08-29-2024 11:21-0500 Systolic blood pressure 122 mm[Hg] Mitchel Ball DO Work Phone: [facility] 06-28-2024 07:57-0400 Body height 177.8 cm Leslie Barillas MD Work Phone: [facility] 06-28-2024 07:57-0400 Body mass index (BMI) [Ratio] 31.6 kg/m2 Leslie Barillas MD Work Phone: [facility] 06-28-2024 07:57-0400 Body weight 99.88 kg Leslie Barillas MD Work Phone: [facility] [employer] [facility] 06-28-2024 07:57-0400 Diastolic blood pressure 97 mm[Hg] Leslie Barillas MD Work Phone: [facility] 06-28-2024 07:57-0400 Heart rate 85 /min Leslie Barillas MD Work Phone: [facility] 06-28-2024 07:57-0400 Systolic blood pressure 140 mm[Hg] Leslie Barillas MD Work Phone: [facility] 06-06-2024 08:53-0400 Body weight 101.15 kg DO Mitchel Ball Work Phone: [facility] 06-06-2024 08:53-0400 Diastolic blood pressure 80 mm[Hg] DO Mitchel Ball Work Phone: [facility] 06-06-2024 08:53-0400 Heart rate 81 /min DO Mitchel Ball Work Phone: [facility] 06-06-2024 08:53-0400 SaO2% (BldA) [Mass fraction] 97 % DO Mitchel Ball Work Phone: [facility] 06-06-2024 08:53-0400 Systolic blood pressure 122 mm[Hg] DO Mitchel Ball Work Phone: [facility] 05-25-2024 12:02-0400 Body temperature 97.5 [degF] [facility] [employer] [facility] 05-25-2024 12:02-0400 Diastolic blood pressure 89 mm[Hg] [facility] [address] [place] [address] 05-25-2024 12:02-0400 Heart rate 87 /min [facility] [address] [place] [address] 05-25-2024 12:02-0400 Respiratory rate 16 /min [facility] [address] [place] [address] [employer] 05-25-2024 12:02-0400 SaO2% (BldA) [Mass fraction] 96 % [facility] [address] [place] [address] 05-25-2024 12:02-0400 Systolic blood pressure 128 mm[Hg] [facility] [address] [place] [address] 05-25-2024 11:27-0400 Body height 177.8 cm [facility] [address] [place] [address] 05-25-2024 11:27-0400 Body mass index (BMI) [Ratio] 32.01 kg/m2 [facility] [address] [place] [address] 05-25-2024 11:27-0400 Body weight 101.2 kg [facility] [address] [place] [address] 05-09-2024 11:12-0400 Body height 177.8 cm DO Mitchel Ball Work Phone: [facility] 05-09-2024 11:12-0400 Body mass index (BMI) [Ratio] 32 kg/m2 DO Mitchel Ball Work Phone: [facility] 05-09-2024 11:12-0400 Body weight 101.15 kg DO Mitchel Ball Work Phone: [facility] 05-08-2024 15:21-0400 Body weight 101.6 kg DO Mitchel Ball Work Phone: [facility] 05-08-2024 15:21-0400 Diastolic blood pressure 90 mm[Hg] DO Mitchel Ball Work Phone: [facility] 05-08-2024 15:21-0400 Heart rate 83 /min DO Mitchel Ball Work Phone: [facility] 05-08-2024 15:21-0400 SaO2% (BldA) [Mass fraction] 97 % DO Mitchel Ball Work Phone: [facility] 05-08-2024 15:21-0400 Systolic blood pressure 152 mm[Hg] DO Mitchel Ball Work Phone: [facility] 04-27-2024 08:22-0400 Body height 177.8 cm DO Mitchel Ball Work Phone: [facility] 04-27-2024 08:22-0400 Body mass index (BMI) [Ratio] 32.1 kg/m2 DO Mitchel Ball Work Phone: [facility] 04-27-2024 08:22-0400 Body weight 101.6 kg DO Mitchel Ball Work Phone: [facility] 04-27-2024 08:22-0400 Diastolic blood pressure 85 mm[Hg] DO Mitchel Ball Work Phone: [facility] 04-27-2024 08:22-0400 Heart rate 103 /min DO Mitchel Ball Work Phone: [facility] 04-27-2024 08:22-0400 Systolic blood pressure 136 mm[Hg] DO Mitchel Ball Work Phone: [facility] 04-21-2024 13:00-0400 Body weight 103.41 kg DO Mitchel Ball Work Phone: [facility] 04-21-2024 13:00-0400 Diastolic blood pressure 70 mm[Hg] DO Mitchel Ball Work Phone: [facility] 04-21-2024 13:00-0400 Heart rate 98 /min DO Mitchel Ball Work Phone: [facility] 04-21-2024 13:00-0400 SaO2% (BldA) [Mass fraction] 97 % DO Mitchel Ball Work Phone: [facility] 04-21-2024 13:00-0400 Systolic blood pressure 118 mm[Hg] DO Mitchel Ball Work Phone: [facility] 03-31-2024 11:01-0400 Body weight 102.51 kg [facility] 03-31-2024 11:01-0400 Diastolic blood pressure 90 mm[Hg] [facility] 03-31-2024 11:01-0400 Heart rate 81 /min [facility] 03-31-2024 11:01-0400 SaO2% (BldA) [Mass fraction] 97 % [facility] 03-31-2024 11:01-0400 Systolic blood pressure 140 mm[Hg] [facility] 03-29-2024 10:24-0400 Body height 177.8 cm Leslie Barillas MD Work Phone: [facility] 03-29-2024 10:24-0400 Body mass index (BMI) [Ratio] 32 kg/m2 Leslie Barillas MD Work Phone: [facility] 03-29-2024 10:24-0400 Body weight 101.15 kg Leslie Barillas MD Work Phone: [facility] 03-29-2024 10:24-0400 Diastolic blood pressure 93 mm[Hg] Leslie Barillas MD Work Phone: [facility] 03-29-2024 10:24-0400 Heart rate 89 /min Leslie Barillas MD Work Phone: [facility] 03-29-2024 10:24-0400 Systolic blood pressure 127 mm[Hg] Leslie Barillas MD Work Phone: [facility] 01-28-2024 09:09-0400 Body height 177.8 cm [facility] 01-28-2024 09:09-0400 Body mass index (BMI) [Ratio] 32.7 kg/m2 [facility] 01-28-2024 09:09-0400 Body weight 103.53 kg [facility] 01-28-2024 09:09-0400 Diastolic blood pressure 103 mm[Hg] [facility] 01-28-2024 09:09-0400 Heart rate 92 /min [facility] 01-28-2024 09:09-0400 Systolic blood pressure 138 mm[Hg] [facility] 01-10-2024 09:37-0400 Diastolic blood pressure 100 mm[Hg] [facility] 01-10-2024 09:37-0400 Heart rate 72 /min [facility] 01-10-2024 09:37-0400 SaO2% (BldA) [Mass fraction] 97 % [facility] 01-10-2024 09:37-0400 Systolic blood pressure 150 mm[Hg] [facility] 12-22-2023 08:09-0400 Body height 177.8 cm Leslie Barillas MD Work Phone: [facility] 12-22-2023 08:09-0400 Body mass index (BMI) [Ratio] 33 kg/m2 Leslie Barillas MD Work Phone: [facility] 12-22-2023 08:09-0400 Body weight 104.33 kg Leslie Barillas MD Work Phone: [facility] 12-22-2023 08:09-0400 Diastolic blood pressure 99 mm[Hg] Leslie Barillas MD Work Phone: [facility] 12-22-2023 08:09-0400 Heart rate 99 /min Leslie Barillas MD Work Phone: [facility] 12-22-2023 08:09-0400 Systolic blood pressure 164 mm[Hg] Leslie Barillas MD Work Phone: [facility] 12-09-2023 16:38-0400 Diastolic blood pressure 82 mm[Hg] [facility] 12-09-2023 16:38-0400 Heart rate 79 /min [facility] 12-09-2023 16:38-0400 SaO2% (BldA) [Mass fraction] 97 % [facility] 12-09-2023 16:38-0400 Systolic blood pressure 120 mm[Hg] [facility] 10-08-2023 09:30-0500 Body height 177.8 cm Mitchel Ball Other [facility] 10-08-2023 09:30-0500 Body mass index (BMI) [Ratio] 33.17 kg/m2 Mitchel Ball Other [employer] [facility] [employer] Other 10-08-2023 09:30-0500 Body weight 104.87 kg Mitchel Ball Other [facility] 10-08-2023 09:30-0500 Diastolic blood pressure 103 mm[Hg] Mitchel Ball Other [facility] 10-08-2023 09:30-0500 Respiratory rate 16 /min Mitchel Ball Other [employer] Other 10-08-2023 09:30-0500 Systolic blood pressure 164 mm[Hg] Mitchel Ball Other [facility] 08-19-2023 16:30-0500 Body height 177.8 cm Ceasar Tubbs Other [employer] Other 08-19-2023 16:30-0500 Body mass index (BMI) [Ratio] 33.17 kg/m2 Ceasar Tubbs Other [facility] Other 08-19-2023 16:30-0500 Body weight 104.87 kg Ceasar Tubbs Other [facility] Other 08-19-2023 16:30-0500 Diastolic blood pressure 84 mm[Hg] Ceasar Tubbs Other [facility] Other 08-19-2023 16:30-0500 SaO2% (BldA) [Mass fraction] 96 % Ceasar Tubbs Other [facility] Other 08-19-2023 16:30-0500 Systolic blood pressure 140 mm[Hg] Ceasar Tubbs Other [facility] Other 07-08-2023 10:30-0400 Body height 177.8 cm Mitchel Ball Other [facility] Other 07-08-2023 10:30-0400 Body mass index (BMI) [Ratio] 32.05 kg/m2 Mitchel Ball Other [facility] Other 07-08-2023 10:30-0400 Body weight 101.33 kg Mitchel Ball Other [facility] Other 07-08-2023 10:30-0400 Diastolic blood pressure 86 mm[Hg] Mitchel Ball Other [facility] Other 07-08-2023 10:30-0400 Respiratory rate 12 /min Mitchel Ball Other [facility] Other 07-08-2023 10:30-0400 Systolic blood pressure 128 mm[Hg] Mitchel Ball Other [facility] Other 05-17-2023 09:45-0400 Body height 177.8 cm Ceasar Tubbs Other [facility] Other 05-17-2023 09:45-0400 Body mass index (BMI) [Ratio] 32.28 kg/m2 Ceasar Tubbs Other [facility] Other 05-17-2023 09:45-0400 Body weight 102.06 kg Ceasar Tubbs Other [facility] Other 05-17-2023 09:45-0400 Diastolic blood pressure 90 mm[Hg] Ceasar Tubbs Other [facility] Other 05-17-2023 09:45-0400 SaO2% (BldA) [Mass fraction] 98 % Ceasar Tubbs Other [facility] Other 05-17-2023 09:45-0400 Systolic blood pressure 140 mm[Hg] Ceasar Tubbs Other [facility] Other 04-26-2023 14:30-0400 Body height 177.8 cm Ceasar Tubbs Other [facility] Other 04-26-2023 14:30-0400 Diastolic blood pressure 88 mm[Hg] Ceasar Tubbs Other [facility] Other 04-26-2023 14:30-0400 SaO2% (BldA) [Mass fraction] 97 % Ceasar Tubbs Other [facility] Other 04-26-2023 14:30-0400 Systolic blood pressure 126 mm[Hg] Ceasar Tubbs Other [facility] Other 04-16-2023 09:45-0400 Body height 177.8 cm Mitchel Ball Other [employer] Other 04-16-2023 09:45-0400 Body mass index (BMI) [Ratio] 32.51 kg/m2 Mitchel Ball Other [employer] Other 04-16-2023 09:45-0400 Body weight 102.79 kg Mitchel Ball Other [employer] Other 04-16-2023 09:45-0400 Diastolic blood pressure 103 mm[Hg] Mitchel Ball Other [facility] Other 04-16-2023 09:45-0400 Respiratory rate 12 /min Mitchel Ball Other [employer] Other 04-16-2023 09:45-0400 Systolic blood pressure 163 mm[Hg] Mitchel Ball Other [facility] Other 03-22-2023 11:30-0400 Body height 177.8 cm Mitchel Ball Other [employer] Other 03-22-2023 11:30-0400 Body mass index (BMI) [Ratio] 33.11 kg/m2 Mitchel Ball Other [employer] Other 03-22-2023 11:30-0400 Body weight 104.69 kg Mitchel Ball Other [employer] Other 03-22-2023 11:30-0400 Diastolic blood pressure 83 mm[Hg] Mitchel Ball Other [facility] Other 03-22-2023 11:30-0400 Respiratory rate 12 /min Mitchel Ball Other [facility] Other 03-22-2023 11:30-0400 Systolic blood pressure 137 mm[Hg] Mitchel Ball Other [facility] Other 01-04-2023 11:30-0400 Body height 177.8 cm Mitchel Ball Other [facility] Other 01-04-2023 11:30-0400 Body mass index (BMI) [Ratio] 32.34 kg/m2 Mitchel Ball Other [facility] Other 01-04-2023 11:30-0400 Body weight 102.24 kg Mitchel Ball Other [facility] Other 01-04-2023 11:30-0400 Diastolic blood pressure 88 mm[Hg] Mitchel Ball Other [facility] Other 01-04-2023 11:30-0400 Respiratory rate 12 /min Mitchel Ball Other [facility] Other 01-04-2023 11:30-0400 Systolic blood pressure 140 mm[Hg] Mitchel Ball Other [facility] Other 12-24-2022 16:30-0400 Body height 177.8 cm Ceasar Tubbs Other [facility] Other 12-24-2022 16:30-0400 Diastolic blood pressure 80 mm[Hg] Ceasar Tubbs Other [facility] Other 12-24-2022 16:30-0400 SaO2% (BldA) [Mass fraction] 98 % Ceasar Tubbs Other [facility] Other 12-24-2022 16:30-0400 Systolic blood pressure 130 mm[Hg] Ceasar Tubbs Other [employer] Other 12-04-2022 12:00-0400 Body height 177.8 cm Ceasar Tubbs Other [employer] Other 12-04-2022 12:00-0400 Body mass index (BMI) [Ratio] 32.83 kg/m2 Ceasar Tubbs Other [facility] Other 12-04-2022 12:00-0400 Body weight 103.78 kg Ceasar Tubbs Other [facility] Other 12-04-2022 12:00-0400 SaO2% (BldA) [Mass fraction] 96 % Ceasar Tubbs Other [facility] Other 11-24-2022 09:00-0500 Body height 177.8 cm Ceasar Tubbs Other [facility] Other 11-24-2022 09:00-0500 Body mass index (BMI) [Ratio] 33 kg/m2 Ceasar Tubbs Other [facility] Other 11-24-2022 09:00-0500 Body weight 104.33 kg Ceasar Tubbs Other [facility] Other 11-24-2022 09:00-0500 Diastolic blood pressure 82 mm[Hg] Ceasar Tubbs Other [facility] Other 11-24-2022 09:00-0500 SaO2% (BldA) [Mass fraction] 96 % Ceasar Tubbs Other [facility] Other 11-24-2022 09:00-0500 Systolic blood pressure 130 mm[Hg] Ceasar Tubbs Other [facility] Other 04-16-2022 12:20-0400 Body height 177.8 cm Andre Jovel Other [facility] Other 04-16-2022 12:20-0400 Body mass index (BMI) [Ratio] 32.28 kg/m2 Andrekenneth Jovel Other [facility] Other 04-16-2022 12:20-0400 Body weight 102.06 kg Andre Jovel Other [facility] Other 03-05-2022 15:00-0400 Body height 177.8 cm Ceasar Tubbs Other [facility] Other 03-05-2022 15:00-0400 Body mass index (BMI) [Ratio] 32.91 kg/m2 Ceasar Tubbs Other [facility] Other 03-05-2022 15:00-0400 Body weight 104.06 kg Ceasar Tubbs Other [facility] Other 03-05-2022 15:00-0400 Diastolic blood pressure 84 mm[Hg] Ceasar Tubbs Other [facility] Other 03-05-2022 15:00-0400 SaO2% (BldA) [Mass fraction] 97 % Ceasarpaco Tubbs Other [facility] Other 03-05-2022 15:00-0400 Systolic blood pressure 138 mm[Hg] Ceasar Tubbs Other [facility] Other 02-24-2022 10:30-0400 Body height 177.8 cm Ceasar Tubbs Other [facility] Other 02-24-2022 10:30-0400 Body mass index (BMI) [Ratio] 34.15 kg/m2 Ceasar Tubbs Other [facility] Other 02-24-2022 10:30-0400 Body weight 107.96 kg Ceasar Tubbs Other [facility] Other 02-24-2022 10:30-0400 Diastolic blood pressure 80 mm[Hg] Ceasar Tubbs Other [facility] Other 02-24-2022 10:30-0400 SaO2% (BldA) [Mass fraction] 98 % Ceasar Tubbs Other [facility] Other 02-24-2022 10:30-0400 Systolic blood pressure 140 mm[Hg] Ceasar Tubbs Other [facility] Other 02-10-2022 09:40-0400 Body height 177.8 cm Andre Jovel Other [facility] Other 02-10-2022 09:40-0400 Body mass index (BMI) [Ratio] 39.31 kg/m2 Andre Jovel Other [facility] Other 02-10-2022 09:40-0400 Body weight 124.29 kg Andre Jovel Other [employer] Other Encounters Encounter Date Encounter Type Care Provider Facility Start: 04-25-2025 End: 04-25-2025 Office outpatient visit 25 minutes Leslie Barillas MD Work Phone: [facility] Comment on above: Benign prostatic hyp erplasia with urinary frequency (Primary Dx); [facility] kidney Start: 04-25-2025 End: 04-25-2025 ambulatory MITCHEL GUERRERO [facility] Start: 04-20-2025 ambulatory MITCHEL GUERRERO [facility] Start: 04-19-2025 End: 04-19-2025 Telephone encounter Yonatan Rosenbaum CMA [facility] Start: 04-08-2025 End: 04-08-2025 Refill Leslie Barillas MD Work Phone: [facility] Start: 03-28-2025 End: 03-28-2025 ambulatory Mitchel Guerrero DO Work Phone: [facility] Work Phone: Start: 03-28-2025 End: 03-28-2025 Patient encounter procedure Ceasar Tubbs MD -[facility] Work Phone: Start: 03-15-2025 Non-patient / Non-visit Ceasar berger MD -[facility] Work Phone: Start: 03-15-2025 End: 03-15-2025 ambulatory Mitchel Guerrero DO Work Phone: [facility] Work Phone: Start: 03-15-2025 End: 03-15-2025 Patient encounter procedure Ceasar Tubbs MD -[facility] Work Phone: Start: 03-05-2025 End: 03-05-2025 Patient encounter procedure Ceasar Tubbs MD -[facility] Work Phone: Start: 02-15-2025 End: 02-15-2025 Office outpatient visit 25 minutes Kasia Pepper MD Work Phone: [facility], A Department of [facility] Comment on above: Retinal tear of left eye (Primary Dx); Posterior vitreous detachment of both eyes; Nuclear sclerotic cataract of both eyes; Lattice degeneration of retina, right; Photopsia of right eye Start: 02-15-2025 End: 02-15-2025 ambulatory [facility] Comment on above: Retinal tear of left eye Start: 02-06-2025 End: 02-06-2025 Patient encounter procedure Mitchel Ball DO -[facility] Work Phone: Start: 01-02-2025 End: 01-02-2025 Taoill Leslie Barillas MD Work Phone: [facility] Start: 12-06-2024 End: 12-06-2024 ambulatory [facility] Work Phone: Start: 12-06-2024 End: 12-06-2024 Patient encounter procedure [facility] Work Phone: Start: 11-28-2024 End: 11-28-2024 ambulatory [facility] Work Phone: Start: 11-28-2024 End: 11-28-2024 Patient encounter procedure [facility] Work Phone: Start: 11-28-2024 Non-patient / Non-visit [facility] Work Phone: Start: 11-22-2024 End: 11-22-2024 ambulatory Mitchel Ball DO Work Phone: [facility] Work Phone: Start: 11-22-2024 End: 11-22-2024 Patient encounter procedure Mitchel Ball DO Work Phone: [facility] Work Phone: Start: 11-02-2024 End: 11-02-2024 ambulatory Mitchel Ball DO Work Phone: [facility] Work Phone: Start: 11-02-2024 End: 11-02-2024 Patient encounter procedure Mitchel Ball DO Work Phone: [facility] Work Phone: Start: 10-24-2024 End: 10-24-2024 Office outpatient visit 25 minutes Leslie Barillas MD Work Phone: [facility] Comment on above: Calculus of kidney ( Primary Dx); Benign prostatic hyperplasia with urinary frequency Start: 10-24-2024 End: 10-25-2024 ambulatory P[facility] Gregorio Nurse 1 [facility] Comment on above: Benign prostatic hyp erplasia with urinary frequency (Primary Dx) Start: 09-25-2024 End: 09-25-2024 Patient encounter procedure Mitchel Ball DO Work Phone: [facility] Work Phone: Start: 09-08-2024 End: 09-08-2024 Refill Leslie Barillas MD Work Phone: [facility] Start: 08-30-2024 Non-patient / Non-visit Benjam in Ball DO Work Phone: [facility] [place][Note 2] Pain Mg[facility] Work Phone: Start: 08-30-2024 End: 08-30-2024 Admission to same day surgery center Mitchel Guerrero DO Work Phone: [facility] Work Phone: Start: 08-30-2024 End: 08-30-2024 ambulatory Mitchel Guerrero Facility:[facility] Start: 08-29-2024 End: 08-29-2024 Patient encounter procedure Mitchel Guerrero DO Work Phone: [facility] Work Phone: Start: 06-28-2024 End: 06-28-2024 Office outpatient visit 15 minutes Leslie Barillas MD Work Phone: [facility] Comment on above: Calculus of kidney ( Primary Dx); Benign prostatic hyperplasia with urinary frequency Start: 06-28-2024 End: 06-28-2024 ambulatory MITCHEL GUERRERO [facility] Start: 06-21-2024 End: 06-21-2024 Telephone encounter Yonatan Rosenbaum CMA [facility] Start: 06-16-2024 End: 06-16-2024 ambulatory Psc Gregorio Nurse 1 [facility] Comment on above: Benign prostatic hyp erplasia with urinary frequency (Primary Dx) Start: 06-10-2024 End: 06-10-2024 Refill Leslie Barillas MD Work Phone: [facility] Start: 06-09-2024 End: 06-09-2024 Evaluation and management of inpatient ORLIN GALINDO [facility] Start: 06-09-2024 End: 06-09-2024 Telephone encounter Leslie Barillas MD Work Phone: [facility] Start: 06-08-2024 End: 06-09-2024 ambulatory LESLIE M ALYSSA [facility] Start: 06-06-2024 End: 06-06-2024 ambulatory DO Mitchel Ball Work Phone: [facility] Work Phone: Start: 06-06-2024 End: 06-06-2024 Patient encounter procedure DO Mitchel Ball Work Phone: [facility] Work Phone: Start: 06-05-2024 End: 06-05-2024 Telephone encounter Yonatan Rosenbaum CMA [facility] Start: 05-30-2024 Non-patient / Non-visit DO Timoteo peña Ball Work Phone: [facility] Work Phone: Start: 05-30-2024 End: 05-30-2024 ambulatory DO Mitchel Ball Work Phone: [facility] Work Phone: Start: 05-30-2024 End: 05-30-2024 Patient encounter procedure DO Mitchel Ball Work Phone: [facility] Work Phone: Start: 05-25-2024 End: 05-25-2024 ambulatory [facility] Start: 05-25-2024 Encounter for other preprocedural examination [facility] Start: 05-25-2024 End: 05-25-2024 Patient encounter procedure [facility] 10 [facility] Comment on above: Preop testing (Prima ry Dx); Benign prostatic hyperplasia with urinary frequency Start: 05-25-2024 End: 05-25-2024 Patient encounter status [facility] Start: 05-16-2024 End: 05-16-2024 Telephone encounter Rosibel Funez [facility] Start: 05-09-2024 End: 05-09-2024 ambulatory DO Mitchel Ball Work Phone: [facility] Work Phone: Start: 05-09-2024 End: 05-09-2024 Patient encounter procedure DO Mitchel Ball Work Phone: [facility] Work Phone: Start: 05-08-2024 End: 05-08-2024 ambulatory DO Mitchel Ball Work Phone: [facility] Work Phone: Start: 05-08-2024 End: 05-08-2024 Patient encounter procedure DO Mitchel Ball Work Phone: [facility] Work Phone: Start: 04-27-2024 Non-patient / Non-visit DO Timoteo casey Ball Work Phone: [facility] Work Phone: Start: 04-27-2024 End: 04-27-2024 ambulatory DO Mitchel Ball Work Phone: [facility] Work Phone: Start: 04-27-2024 End: 04-27-2024 Patient encounter procedure DO Mitchel Guerrero Work Phone: [facility] Work Phone: Start: 04-27-2024 End: 04-27-2024 ambulatory DO Mitchel Guerrero Work Phone: [facility] Work Phone: Start: 04-27-2024 End: 04-27-2024 Patient encounter procedure DO Mitchel Guerrero Work Phone: [facility] Work Phone: Start: 04-21-2024 End: 04-21-2024 ambulatory DO Mitchel Guerrero Work Phone: [facility] Work Phone: Start: 04-21-2024 End: 04-21-2024 Patient encounter procedure DO Mitchel Guerrero Work Phone: [facility] Pain Management Work Phone: Start: 04-14-2024 End: 04-14-2024 Patient encounter procedure DO Mitchel Guerrero Work Phone: [facility] Work Phone: Start: 04-14-2024 End: 04-14-2024 ambulatory Ceasar Tubbs Facility:[facility] Start: 2024 End: 2024 Telephone encounter Leslie Barillas MD Work Phone: [facility] Start: 04-10-2024 Non-patient / Non-visit DO Timoteo Guerrero Work Phone: [facility] Work Phone: Start: 03-31-2024 End: 03-31-2024 ambulatory [facility] Work Phone: Start: 03-31-2024 End: 03-31-2024 Patient encounter procedure [facility] [place] Work Phone: Start: 03-29-2024 End: 03-29-2024 Office outpatient visit 40 minutes Leslie Barillas MD Work Phone: [facility] Comment on above: Calculus of kidney ( Primary Dx); Benign prostatic hyperplasia with urinary frequency Start: 03-22-2024 End: 03-22-2024 Telephone encounter [facility] Start: 03-18-2024 End: 03-19-2024 Refill Leslie Barillas MD Work Phone: [facility] Start: 02-11-2024 End: 02-11-2024 ambulatory [facility] Start: 02-11-2024 End: 02-11-2024 Office outpatient visit 15 minutes Kasia Pepper MD Work Phone: [facility] Comment on above: Retinal tear of left eye (Primary Dx); Lattice degeneration of retina, right; Nuclear sclerotic cataract of both eyes; Posterior vitreous detachment of both eyes; Photopsia of right eye Start: 02-02-2024 ambulatory MITCHEL GUERRERO [facility] Start: 02-01-2024 End: 02-01-2024 Telephone encounter Leslie Barillas MD [facility] Start: 01-28-2024 End: 01-28-2024 ambulatory [facility] Work Phone: Start: 01-28-2024 End: 01-28-2024 Patient encounter procedure [facility] Work Phone: Start: 01-10-2024 End: 01-10-2024 ambulatory [facility] Work Phone: Start: 01-10-2024 End: 01-10-2024 Patient encounter procedure [facility] Work Phone: Start: 12-23-2023 End: 12-23-2023 ambulatory [facility] Work Phone: Start: 12-23-2023 End: 12-23-2023 Patient encounter procedure [facility] Work Phone: Start: 12-23-2023 Non-patient / Non-visit [facility] Work Phone: Start: 12-22-2023 End: 12-22-2023 Office outpatient visit 25 minutes Leslie Barillas MD Work Phone: [facility] Comment on above: Calculus of kidney ( Primary Dx); Benign prostatic hyperplasia with urinary frequency Start: 12-09-2023 End: 12-09-2023 ambulatory [facility] Work Phone: Start: 12-09-2023 End: 12-09-2023 Patient encounter procedure [facility] Pain [facility] Work Phone: Start: 11-29-2023 Non-patient / Non-visit [facility] Work Phone: Start: 11-15-2023 End: 11-15-2023 ambulatory Mitchel Guerrero Other Pager Other Start: 11-15-2023 Telephone encounter Mitchel Guerrero [facility] Start: 11-15-2023 Non-patient / Non-visit [facility] Work Phone: Start: 10-08-2023 End: 10-08-2023 ambulatory Mitchel Guerrero Other Pager Other Start: 10-08-2023 Office outpatient vi sit 25 minutes Mitchel Guerrero [facility] Start: 10-08-2023 End: 10-08-2023 Patient encounter procedure [facility]- Start: 08-31-2023 (PROC) PROCEDURE Ceasar Fernandes [facility] Start: 08-31-2023 End: 08-31-2023 ambulatory Ceasar Arley Other Pager Other Start: 08-23-2023 End: 08-23-2023 ambulatory Mitchel Guerrero Other Pager Other Start: 08-23-2023 Telephone encounter Mitchel Guerrero FP [facility] Start: 08-19-2023 End: 08-19-2023 ambulatory Ceasarpaco Tubbs Other Pager Other Start: 08-19-2023 Office outpatient vi sit 25 minutes Ceasar Arley [facility] Start: 07-08-2023 End: 07-08-2023 ambulatory Mitchel Guerrero Other Pager Other Start: 07-08-2023 Office outpatient vi sit 15 minutes Mitchel Cesar [facility] Start: 06-08-2023 End: 06-08-2023 ambulatory Mitchel Guerrero Other Pager Other Start: 06-08-2023 Telephone encounter Mitchel Guerrero FP [facility] Start: 05-17-2023 End: 05-17-2023 ambulatory Ceasar Tubbs Other Pager Other Start: 05-17-2023 Office outpatient vi sit 15 minutes Ceasar Arley [facility] Start: 05-10-2023 End: 05-10-2023 ambulatory Mitchel Guerrero Other Pager Other Start: 05-10-2023 Telephone encounter Mitchel Ball FP G [facility] Start: 04-30-2023 End: 04-30-2023 ambulatory Mitchel Ball Other Pager Other Start: 04-30-2023 Telephone encounter Mitchel Ball FP G [facility] Start: 04-27-2023 End: 04-27-2023 ambulatory Mitchel Ball Other Pager Other Start: 04-27-2023 Telephone encounter Mitchel Guerrero FP [facility] Start: 04-26-2023 End: 04-26-2023 ambulatory Ceasar Arley Other Pager Other Start: 04-26-2023 Office outpatient vi sit 25 minutes Ceasar Tubbs [facility] Start: 04-23-2023 End: 04-23-2023 ambulatory Mitchel Guerrero Other Pager Other Start: 04-23-2023 Telephone encounter Mitchel Guerrero FP G [facility] Start: 04-22-2023 End: 04-22-2023 ambulatory Mitchel Cesar Other Pager Other Start: 04-22-2023 Telephone encounter Mitchel Guerrero FP [facility] Start: 04-16-2023 End: 04-16-2023 ambulatory Mitchel Guerrero Other Pager Other Start: 04-16-2023 Office outpatient vi sit 15 minutes Mitchel Ball [facility] Start: 04-15-2023 (PROC) PROCEDURE Ceasar Fernandes [facility] Start: 04-15-2023 End: 04-15-2023 ambulatory Ceasar Arley Other Pager Other Start: 03-22-2023 End: 03-22-2023 ambulatory Mitchel Guerrero Other Pager Other Start: 03-22-2023 Office outpatient vi sit 15 minutes Mitchel Ball [facility] Start: 02-19-2023 End: 02-19-2023 ambulatory Mitchel Ball Other Pager Other Start: 02-19-2023 Telephone encounter Mitchel Guerrero FP G [facility] Start: 01-26-2023 End: 01-26-2023 ambulatory Mitchel Ball Other Pager Other Start: 01-26-2023 Telephone encounter Mitchel CONNELL G [facility] Start: 01-19-2023 End: 01-19-2023 ambulatory Mitchel Guerrero Other Pager Other Start: 01-19-2023 Telephone encounter Mitchel [facility] Start: 01-18-2023 End: 01-19-[address] MITCHEL GUERRERO Facility:[facility] Start: 01-04-2023 End: 01-04-2023 ambulatory Mitchel Guerrero Other Pager Other Start: 01-04-2023 Patient encounter procedure Mitchel VALDERRAMA [facility] Start: 12-24-2022 End: 12-24-2022 ambulatory Ceasar Tubbs Other Pager Other Start: 12-24-2022 Office outpatient vi sit 25 minutes Ceasar Arley [facility] Start: 12-10-2022 (PROC) PROCEDURE [facility] Arley [facility] Start: 12-10-2022 End: 12-10-2022 ambulatory Ceasar Arley Other Pager Other Start: 12-04-2022 End: 12-04-2022 ambulatory Ceasarpaco Tubbs Other Pager Other Start: 12-04-2022 Office outpatient vi sit 25 minutes Ceasar Arley [facility] Start: 12-02-2022 End: 12-02-2022 ambulatory Mitchel Guerrero Other Pager Other Start: 12-02-2022 Telephone encounter Mitchel CONNELL G [facility] Start: 11-26-2022 (PROC) PROCEDURE Ceasarpaco Tubbs [facility] Start: 11-26-2022 End: 11-26-2022 ambulatory Ceasarpaco Tubbs Other Pager Other Start: 11-24-2022 End: 11-24-2022 ambulatory Ceasar Tubbs Other Pager Other Start: 11-24-2022 Office outpatient vi sit 25 minutes Ceasarpaco Tubbs [facility] Start: 09-17-2022 End: 09-18-[address] DOCTOR CARY Facility:[facility] Start: 04-16-2022 End: 04-16-2022 ambulatory Andre Jovel Other Pager Other Start: 04-16-2022 Office outpatient vi sit 15 minutes [address] [facility] Start: 03-05-2022 End: 03-05-2022 ambulatory Ceasar Tubbs Other Pager Other Start: 03-05-2022 Office outpatient vi sit 25 minutes Ceasar Tubbs [facility] Start: 02-26-2022 (Procedure) Short Ceasar Tubbs [facility] Start: 02-26-2022 End: 02-26-2022 ambulatory Ceasar Tubbs Other Pager Other Start: 02-26-2022 Telephone encounter Ceasar Tubbs [facility] Start: 02-24-2022 End: 02-24-2022 ambulatory Ceasar Tubbs Other Pager Other Start: 02-24-2022 Office outpatient ne w 45 minutes Ceasar Tubbs [facility] Start: 02-10-2022 End: 02-10-2022 ambulatory Andre Becka Other Pager Other Start: 02-10-2022 Office outpatient ne w 30 minutes [address] [facility] Start: 01-22-2022 Adult health examination Jeanine kel Arley Other Pager Other Start: 01-22-2022 Encounter for genera l adult medical examination without abnormal findings Mitchel Guerrero Other Pager Other Procedures Date Procedure Procedure Detail Performing Clinician Start: 04-25-2025 Urnls dip stick/tabl et rgnt non-auto w/o micrscp Leslie Barillas MD Work Phone: Start: 04-25-2025 MEASURE POST VOID RESIDUAL Leslie Barillas MD Work Phone: Start: 02-15-2025 Fundus photography w/interpretation & report Kasia Pepper MD Work Phone: Start: 08-30-2024 Injection of spinal epidural space Mitchel Guerrero DO Work Phone: Start: 06-28-2024 Urnls dip stick/tabl et rgnt auto w/o microscopy Leslie Barillas MD Work Phone: Start: 06-28-2024 MEASURE POST VOID RESIDUAL Leslie Barillas MD Work Phone: Start: 06-28-2024 Follow-up visit Follow-up LESLIE BARILLAS Start: 06-08-2024 Adult depression scr eening assessment Leslie Barillas MD Work Phone: Start: 05-25-2024 Antibody screen [facility] 1 0 Start: 05-25-2024 Blood typing serologic abo Leslie Barillas MD Work Phone: Start: 05-25-2024 REPEATED ABORH Leslie Barillas MD Work Phone: Start: 05-25-2024 Ecg routine ecg w/le ast 12 lds trcg only w/o i&r Jessica Fagan MD Work Phone: Start: 05-25-2024 Culture bacterial quanttative colony count urine Leslie Barillas MD Work Phone: Start: 05-25-2024 Urnls dip stick/tabl et rgnt auto w/o microscopy Leslie Barillas MD Work Phone: Start: 04-14-2024 MR lumbar spine wo con DO [employer] Work Phone: Start: 04-14-2024 X-ray of lumbar spin e, four views DO Mitchel Guerrero Work Phone: Start: 03-29-2024 Urnls dip stick/tabl et rgnt auto w/o microscopy Leslie Barillas MD Work Phone: Start: 03-29-2024 MEASURE POST VOID RESIDUAL Leslie Barillas MD Work Phone: Start: 01-18-[address] DOCTOR CARY Comment on above: Performed By: #### P SASC #### [facility] [address] [place] [address] Dr. Sienna Powers Start: 09-17-[address] DOCTOR CARY Comment on above: Performed By: #### P SAD #### [facility] [address] [place] [address] Dr. Sienna Powers Start: 05-20-2017 Screening for malign ant neoplasm of colon Ceasar Tubbs Other Depression screening Ceasar Tubbs Other Screening for malign ant neoplasm of prostate Ceasar Tubbs Other Plan of Treatment Date Care Activity Detail Author Start: 05-07-2026 Tobacco Screening Tobacco Screening [facility] Start: 05-01-2026 End: 05-01-2026 Patient encounter procedure 05/01/2026 8:15 AM EDT Office Visit [facility] [address] [place] [address] Leslie Barillas MD [address] [place] [address] [facility] Start: 04-25-2026 Adult BMI Screening Adult BMI Screen ing [facility] Start: 04-25-2026 End: 04-25-2027 XR Abdomen AP X-ray abdomen ap 1 view Imaging Routine Calculus of kidney Expected: 04/25/2026, Expires: 04/25/2027 Roberto Work Phone: Comment on above: Expected: 04/25/2026 , Expires: 04/25/2027 Start: 02-20-2026 End: 02-20-2026 Patient encounter procedure 02/20/2026 8:10 AM EDT Office Visit Roberto Maza A Department of [facility] [address] [facility] [address] [place] [id number] Kasia Pepper MD [address] [facility] [address] [place] [address] Roberto Maza A Department of [facility] Start: 02-15-2026 Tobacco Screening Tobacco Screening [facility] Start: 11-07-2025 Tobacco Screening Tobacco Screening [facility] Start: 10-24-2025 Adult BMI Screening Adult BMI Screen ing [facility] Start: 10-24-2025 Tobacco Screening Tobacco Screening [facility] Start: 07-06-2025 Tobacco Screening Tobacco Screening [facility] Start: 06-28-2025 Adult BMI Screening Adult BMI Screen ing [facility] Start: 06-28-2025 Tobacco Screening Tobacco Screening [facility] Start: 06-08-2025 Adult BMI Screening Adult BMI Screen ing [facility] Start: 06-08-2025 Depression Screening Depression Scre ening [facility] Start: 05-25-2025 Adult BMI Screening Adult BMI Screen ing [facility] Start: 05-25-2025 Tobacco Screening Tobacco Screening [facility] Start: 05-21-2025 Influenza vaccination Influenza Vacc ine [facility] Start: 04-25-2025 End: 04-25-2025 Patient encounter procedure [facility] Start: 04-23-2025 End: 10-24-2025 Prostatic specific antigen, diagnostic Prostatic specific antigen, diagnostic Lab Routine Benign prostatic hyperplasia with urinary frequency Expected: 04/23/2025 (Approximate), Expires: 10/24/2025 [facility] Comment on above: Expected: 04/23/2025 (Approximate), Expires: 10/24/2025 Start: 04-22-2025 End: 10-24-2025 XR Abdomen AP X-ray abdomen ap 1 view Imaging Routine Calculus of kidney Expected: 04/22/2025, Expires: 10/24/2025 [facility] Work Phone: Comment on above: Expected: 04/22/2025 , Expires: 10/24/2025 Start: 04-13-2025 Tobacco Screening Tobacco Screening [facility] Start: 03-29-2025 Adult BMI Screening Adult BMI Screen ing [facility] Start: 03-29-2025 Tobacco Screening Tobacco Screening [facility] Start: 02-15-2025 End: 02-15-2025 Patient encounter procedure [facility] Start: 02-10-2025 Tobacco Screening Tobacco Screening [facility] Start: 01-31-2025 Adult BMI Screening Adult BMI Screen ing [facility] Start: 01-31-2025 Tobacco Screening Tobacco Screening [facility] Start: 12-21-2024 Adult BMI Screening Adult BMI Screen ing [facility] Start: 12-21-2024 Tobacco Screening Tobacco Screening [facility] Start: 10-24-2024 End: 10-24-2024 Patient encounter procedure [facility] Comment on above: Arrived Start: 10-24-2024 End: 10-24-2024 ambulatory 10/24/2024 4:00 PM EST Support Visit [facility] [address] [place] [phone] [facility] Start: 10-04-2024 End: 10-04-2024 Patient encounter procedure 10/04/2024 10:45 AM EST Office Visit [facility] [address] [place] [phone] Leslie Barillas MD [address] [place] [phone] [facility] Start: 10-04-2024 End: 10-04-2024 ambulatory 10/04/2024 10:00 AM EST Support Visit [facility] [address] [place] [phone] [facility] Start: 09-28-2024 End: 12-27-2024 [facility] 24 Hour ([facility]) [facility] 24 Hour ([facility]) Lab Routine Calculus of kidney Expected: 09/28/2024 (Approximate), Expires: 12/27/2024 [facility] Work Phone: Comment on above: Expected: 09/28/2024 (Approximate), Expires: 12/27/2024 Start: 09-28-2024 End: 12-27-2024 Uroflowmetry Uroflowmetry Procedure Routine Benign prostatic hyperplasia with urinary frequency Expected: 09/28/2024 (Approximate), Expires: 12/27/2024 [place] [facility] [employer] [facility] Comment on above: Expected: 09/28/2024 (Approximate), Expires: 12/27/2024 Start: 08-30-2024 [facility] Start: 06-28-2024 End: 06-28-2024 Patient encounter procedure [facility] Start: 06-22-2024 End: 12-21-2024 [facility] 24 Hour ([facility]) [facility] Hour ([facility]) Lab Routine Calculus of kidney Expected: 06/22/2024 (Approximate), Expires: 12/21/2024 [facility] [employer] Comment on above: Expected: 06/22/2024 (Approximate), Expires: 12/21/2024 Start: 06-19-2024 End: 12-21-2024 Basic metabolic 2000 panel - Serum or Plasma Basic Metabolic Panel Lab Routine Calculus of kidney Expected: 06/19/2024 (Approximate), Expires: [facility]24 [facility] Comment on above: Expected: 06/19/2024 (Approximate), Expires: 12/21/2024 Start: 06-19-2024 End: 12-21-2024 XR Abdomen AP X-ray abdomen ap 1 view Imaging Routine Calculus of kidney Expected: 06/19/2024, Expires: 12/21/2024 [employer] Work Phone: Comment on above: Expected: 06/19/2024 , Expires: 12/21/2024 Start: 06-16-2024 End: 06-16-2025 Void Trial Void Trial Procedure Routine Benign prostatic hyperplasia with urinary frequency Expected: 06/16/2024 (Approximate), Expires: 06/16/2025 [employer] Work Phone: Comment on above: Expected: 06/16/2024 (Approximate), Expires: 06/16/2025 Start: 06-16-2024 End: 06-16-2024 ambulatory 06/16/2024 9:00 AM EDT Support Visit [facility] [address] [place] [address] [facility] Start: 06-08-2024 End: 06-08-2024 Admission to same day surgery center [facility] Comment on above: DAVINCI PROSTATECTOM Y SIMPLE [93534 (CPT )] Start: 06-08-2024 End: 06-08-2024 DAVINCI PROSTATECTOMY SIMPLE [facility] Start: 06-08-2024 Subsequent hospital visit by physician [facility] Start: 05-25-2024 End: 05-25-2024 Patient encounter procedure 05/25/2024 11:00 AM EDT [facility] [address] [id number] [facility] Start: 05-21-2024 COVID-19 Vaccine ( season) COVID-19 Vaccine ( season) [facility] Start: 05-21-2024 COVID-19 Vaccine ( season) COVID-19 Vaccine ( season) [facility] Start: 05-21-2024 Influenza vaccination Influenza Vacc ine [facility] Start: 04-21-2024 Patient referral [facility] Work Phone: Start: 03-29-2024 End: 03-29-2024 Patient encounter procedure 03/29/2024 10:15 AM EDT Office Visit [facility] [address] [place] [phone] Leslie Barillas MD [address] [place] [phone] [facility] Start: 02-11-2024 End: 02-11-2024 Patient encounter procedure 02/11/2024 8:00 AM EDT Office Visit [facility] [address] [facility] [address] [place] [phone] Kasia Pepper MD [address] [facility] [address] [place] [phone] [facility] Start: 05-21-2023 COVID-19 Vaccine ( season) COVID-19 Vaccine ( season) [facility] Start: 05-21-2023 COVID-19 Vaccine ( season) COVID-19 Vaccine ( season) [facility] Start: 2021 Fall Risk Screening Fall Risk Screen ing [facility] Start: 2006 Administration of varicella zoster vaccine Zoster (Shingles) Vaccine (1 of 2) [facility] Start: 1975 DTaP,Tdap and Td Vac cines (1 - Tdap) DTaP,Tdap and Td Vaccines (1 - Tdap) [facility] Start: 1974 Adult BMI Follow Up Plan Adult BMI Follow Up Plan [facility] Start: 1968 Depression Screening Depression Scre ening [facility] Start: 1955 Medicare Annual Well ness Visit Medicare Annual Wellness Visit [facility] Comprehensive metabo lic 1999 panel - Serum or Plasma [facility] Comprehensive metabo lic 1999 panel - Serum or Plasma [facility] MR Lumbar spine WO contrast [facility] Patient Education [facility] Work Phone: Patient referral [facility] Work Phone: XR Lumbar spine 4 Views [facility] Immunizations Immunization Date Immunization Notes Care Provider Fa [facility] 08-03-2024 influenza, high dose seasonal, preservative-free Mitchel Guerrero DO Work Phone: [facility] 07-14-2022 COVID-19 Moderna (BIvalent) Mitchel Cesar Other [facility] 07-14-2022 Fluzone QIV High-Dos e 65YR+ DO Mitchel Guerrero Work Phone: [facility] 07-14-2022 influenza virus vaccine, unspecified formulation [facility] 07-14-2022 influenza, high dose seasonal, preservative-free Mitchel Guerrero Other [facility] Other 07-20-2021 COVID-19 Vaccine Moderna - Documentation Purposes Only Mitchel Guerrero Other [facility] 06-20-2021 influenza, injectabl e, quadrivalent, preservative free DO Mitchel Guerrero Work Phone: [facility] 06-20-2021 influenza virus vaccine, unspecified formulation Lelsie Barillas MD Work Phone: [facility] 10-16-2020 COVID-19 Vaccine Moderna - Documentation Purposes Only Mitchel Guerrero Other [facility] 09-18-2020 COVID-19 Vaccine Moderna - Documentation Purposes Only Mitchel Cesar Other [facility] 06-20-2020 influenza, injectabl e, quadrivalent, preservative free DO Mitchel Guerrero Work Phone: [facility] 07-19-2009 novel [id number], preservative-free, injectable DO Mitchel Guerrero Work Phone: [facility] 01-27-2006 tetanus toxoid, adsorbed Mitchel Guerrero Other [facility] Payers Date Payer Category Payer Self-pay 2021 Managed Care Other (unspecified) [facility] [id number] 2021 Private Health Insurance [facility] AAR SUPPLEMENT [id number] 2021-Present [phone] [address] [place] [address] [id number] 2021 Medicare [id number] 2015 Unknown [id number] 1959 Medicare [id number] 1959 Unknown [id number] [id number] 1956 Unknown [id number] 2.16.840.1.390811.3.579.2 .593 1956 Unknown [id number] 2.16.840.1.478555.3.579.2 .593 1956 Unknown [id number] 2.16.840.1.416120.3.579.2 .1285 1956 Unknown [id number] 2.16.840.1.055694.3.579.2 .1285 1956 Unknown [id number] 2.16.840.1.345224.3.579.2 .1285 1956 Unknown [id number] 2.16840.1.123622.3.579.2 .1285 1956 Unknown [id number] 2.16840.1.917314.3.579.2 .1285 1956 Unknown [id number] 2.16840.1.167640.3.579.2 .1285 1956 Unknown [id number] 2.840.1.129977.3.579.2 .1285 1956 Unknown [id number] 2.840.1.078154.3.579.2 .1285 1956 Unknown [id number] 2.840.1.329913.3.579.2 .1285 1956 Unknown [id number] 2.16840.1.080708.3.579.2 .1285 1956 Unknown [id number] 2.840.1.289881.3.579.2 .1285 1956 Unknown [id number] 2.840.1.119039.3.579.2 .1285 1956 Unknown [id number] 2.16840.1.967093.3.579.2 .1285 1956 Unknown [id number] 2.16840.1.295712.3.579.2 .1285 1956 Unknown [id number] 2.16840.1.498970.3.579.2 .1285 1956 Unknown [id number] 2.16.840.1.040742.3.579.2 .1286 Unknown [id number] 2.16.840.1.831089.3.579.2 .531 Unknown [id number] 2.16.840.1.827855.3.579.2 .531 Social History Date Type Detail Facility Start: 10-01-2020 End: 06-08-2024 Sex Assigned At Pager Other Start: 1955 Sex Assigned At Male [facility] Start: 01-27-2023 End: 04-27-2024 Tobacco smoking status NHIS Never smoked tobacco (finding) [facility] Start: 01-27-2023 Tobacco use and exposure Smokeless tobacco non-user [facility] Start: 07-06-2024 End: 05-08-2025 Alcoholic beverage intake Current drinker of alcohol (finding) [facility] Start: 10-01-2020 End: 06-08-2024 History of Social function [facility] Has the [employer], or [employer] threatened to shut off services in your home in past 12Mo No [facility] How often to you hav e a drink containing alcohol? Never [facility] How many standard drinks containing alcohol do you have on a typical day? Patient does not drink [facility] Start: 07-08-2020 Alcohol Comment OCC [facility] Start: 1955 Sex assigned at Not on file [facility] [employer] Start: 04-23-2015 End: 12-06-2024 Sex Male (finding) [facility] Start: 04-25-2025 Gender identity Identifies as male gender (finding) [facility] Start: 04-25-2025 Sexual orientation Heterosexual (finding) [facility] Goals Date Patient Goal Desired Activity /State Clinical Notes 02-10-2022 to 04-25-2025 Leslie Barillas MD - 04/25/2025 10:15 AM EDTTelephone Encounter - Yonatan Rosenbaum CMA - 04/19/2025 11:41 AM EDTTelephone Encounter - Yonatan Rosenbaum DIANA - 04/19/2025 11:41 AM EDT Note Date & Type Note Facility 04-25-2025 History of Present illness Narrative Images from the original note were not included. [id number] [facility] [id number] Patient: Amber Henson Date of : 1955 Encounter Date: 04/25/2025 History of Present Illness: Chief Complaint: x6 months; elevated psa and kub The patient is a 70 y.o. male, an established patient, and is here for follow-up BPH/kidney stones. Patient presents today for six-month follow-up. He is relatively well. He denies any hematuria, dysuria, UTI symptoms, flank pain or stone episodes in the interim. He is voiding very well since his previous robotic simple prostatectomy. KUB today shows stable bilateral nephrolithiasis (nonobstructing) he is following previous stone prevention recommendations as I previously discuss with him. He has no concerns today. We will continue to monitor his voiding. I will plan to follow up in 1 year with a KUB. Patient agrees with plan of care and all questions were answered to satisfaction. Moderate MDM due to 2 stable chronic conditions addressed, testing reviewed/order x5 including imaging. Please note that I am providing longitudinal care for a specific serious/complex urologic condition that I am assuming responsibility for (BPH/kidney stones; modifier G2211). UMIC: 01/18 UA: neg PVR: 0 mL Summary of old records: Prior office note Urinalysis today: No results for input(s): EXTPOCURCO , EXTPOCURCH , EXTPOCAPP , EXTPOCURBS , EXTPOCURBIL , EXTPOCUKET , EXTPOCUSPG , EXTPOCUHGB , EXTPOCUPRO , EXTPOCUURO , EXTPOCULEU , EXTPOCUNIT , EXTPOCUWBC , EXTPOCUBLD , EXTPOCURBC , EXTPOCUCRY , EXTPOCUBAC , EXTPOCUTREP , EXTPOCUPH , EXTPOCULEE in the last 72 hours. Last BUN and creatinine: Lab Results Component Value Date BUN 22 04/20/2025 Lab Results Component Value Date CREATININE 0.92 04/20/2025 Last PSA: Lab Results Component Value Date PSA 0.50 04/20/2025 PSA 3.49 09/17/2022 PSA 3.28 12/27/2018 Lab [...] Diagnosis Date Arthritis back- bulging disks- L1-L5 Back pain 10/2017 Benign headache Benign prostatic hyperplasia with urinary frequency DDD (degenerative disc disease), lumbar Dental crown present Fatty liver GERD (gastroesophageal reflux disease) HL (hearing loss) slight HTN (hypertension) Hx of detached retina repair 04/2017 bilateral- repaired Hyperlipidemia no meds Kidney stone on left side here for workup for pending cysto lithotripsy Nocturia Numbness right thigh and left large toe Pneumonia 20+years ago hx of Visual floaters left worse than right Visual impairment glasses Past Surgical History: Procedure Laterality Date CARDIAC CATHETERIZATION Normal COLONOSCOPY CYST REMOVAL left side of head near ear- benign CYSTOSCOPY N/A 02/01/2024 Performed by Leslie Barillas MD at [facility] CYSTOSCOPY FLEXIBLE N/A 07/04/2018 Performed by Yuri Gomez MD at [facility] CYSTOSCOPY HOLMIUM LASER URETEROSCOPY Left 08/14/2020 Performed by Yuri Gomez MD at [facility] CYSTOSCOPY INSERTION STENT Left 08/14/2020 Performed by Yuri Gomez MD at [facility] CYSTOSCOPY REMOVAL STENT Left 08/19/2020 Performed by Yuri Gomez MD at [facility] CYSTOSCOPY W/ LASER LITHOTRIPSY [facility] PROSTATECTOMY SIMPLE N/A 06/08/2024 Performed by Leslie Barillas MD at [facility] EGD, DILATATION and biopsy N/A 07/25/2020 Performed by Antione Marin MD at [facility] ENDOSCOPY ESOPHAGOSCOPY / EGD with dilation HERNIA REPAIR left inguinal INGUINAL HERNIA REPAIR KNEE ARTHROSCOPY WITH SUBTOTAL MEDIAL MENISECTOMY, MEDIAL FEMORAL CONDYLE CHONDROPLASTY, PATELLA CHONDROPLASTY Right 02/05/2023 Performed by Edgardo Estrada MD at [facility] LASER REPAIR RETINOL TEAR JERO Bilateral 04/21/2017 Performed by Kasia Pepper MD at [facility] SURGERY LITHOTRIPSY Left 08/29/2018 Performed by Yuri Gomez MD at [facility] LITHOTRIPSY Left 07/04/2018 Performed by Yuri Gomez MD at [facility] SURGERY SKIN BIOPSY right side of face- benign Family History Problem Relation Age of Onset Cancer Mother ovarian Ovarian cancer Mother Arthritis Mother Cancer Father bladder Heart disease Father Hypertension Father No Known Problems Brother No Known Problems Brother Early Maternal Grandmother Other Maternal Grandmother childbirth Lung cancer Maternal Grandfather Stroke Paternal Grandmother Macular degeneration Neg Hx Diabetes Neg Hx Cataracts Neg Hx Glaucoma Neg Hx Anesthesia problems Neg Hx Bleeding Disorder Neg Hx Clotting disorder Neg Hx Prostate cancer Neg Hx Colon cancer Neg Hx Current Outpatient Medications Medication Sig Dispense Refill acetaminophen (TYLENOL) 325 mg tablet Take 2 tablets (650 mg total) by mouth every 6 (six) hours as needed for pain. amLODIPine (NORVASC) 5 mg tablet Take 1 tablet (5 mg total) by mouth in the morning. cyclobenzaprine (FLEXERIL) 10 mg tablet diclofenac (VOLTAREN) 75 mg EC tablet Take 1 tablet (75 mg total) by mouth in the morning and 1 tablet (75 mg total) before bedtime. With food . docusate sodium (COLACE) 100 mg capsule Take 1 capsule (100 mg total) by mouth in the morning and 1 capsule (100 mg total) before bedtime. ezetimibe (ZETIA) 10 mg tablet Take 1 tablet (10 mg total) by mouth in the morning. hydroCHLOROthiazide (HYDRODIURIL) 25 mg tablet TAKE 1 TABLET BY MOUTH TWICE A DAY BEFORE MEALS (Patient taking differently: Take 1 tablet (25 mg total) by mouth daily Indications: high blood pressure, prevention of calcium-containing kidney stones. Pt takes as needed) 180 tablet 4 lidocaine (LIDODERM) 5 % Place 1 patch on the skin daily. Remove & Discard patch within 12 hours or as directed by MD-uses as needed losartan (COZAAR) 50 mg tablet Take 1 tablet (50 mg total) by mouth in the morning and 1 tablet (50 mg total) before bedtime. 3 magnesium oxide 500 mg capsule Take 1 capsule (500 mg total) by mouth in the morning. hobprgda-xmks-KF-calcium &mins (THERAGRAN-M) 9 mg iron-400 mcg tablet Take 1 tablet by mouth in the morning. omeprazole (PriLOSEC OTC) 20 mg tablet,delayed release (DR/EC) TAKE 1 TABLET BY MOUTH EVERY MORNING BEFORE BREAKFAST. (Patient taking differently: Take 1 tablet (20 mg total) by mouth every morning before breakfast.) 28 tablet 5 ondansetron (ZOFRAN) 4 mg tablet Take 1 tablet (4 mg total) by mouth every 8 (eight) hours as needed for nausea or vomiting. oxyCODONE (ROXICODONE) 5 mg immediate release tablet Take 1 tablet (5 mg total) by mouth every 6 (six) hours as needed. Takes one every am potassium citrate (UROCIT-K) 10 mEq (1,080 mg) CR tablet TAKE 1 TABLET BY MOUTH IN THE MORNING AND IN THE EVENING WITH MEALS 100 tablet 1 oxyCODONE (ROXICODONE) 5 mg immediate release tablet Take 1 tablet (5 mg total) by mouth every 4 (four) hours as needed for pain for up to 10 doses. Max Daily Amount: 30 mg (Patient not taking: Reported on 10/24/2024) 10 tablet 0 No current facility-administered medications for [...] General: Negative for chills and fever. Cardiovascular: Positive for shortness of breath Gastrointestinal: Negative for constipation, diarrhea, nausea, and vomitting. -per HPI Physical Exam: BP (!) 142/98 (BP Site: Left Arm, BP Postition: Sitting, BP CUFF SIZE: L (13-17 inches)) Pulse 82 Ht 177.8 cm (5' 10 ) Wt 102.8 kg (226 lb 9.6 oz) BMI 32.51 kg/m General: Alert, well appearing, and in no distress Integumentary: Normal coloration of skin, normal skin moisture Chest and lung exam: quiet, even and easy respiratory effort with no use of accessory muscles Neurologic: Normal coordination, normal gait Assessment and Plan: Amber was seen today for follow-up. Diagnoses and all orders for this visit: Benign prostatic hyperplasia with urinary frequency - POCT urinalysis dipstick only - Measure post void residual Calculus of kidney - X-ray abdomen ap 1 view; Future Problem List Genitourinary Calculus of kidney Overview 04/13/23: Hx ca ox stone disease w/ hypercalciuria s/p L URS/HLL 08/14/20 100% ca ox mono; ERV Irina 04/08/23 - R low back, hx spinal [...] BID, dec Na, F/U 6 mo KUB/LL/BMP 06/28/24: KUB 06/28/24 - non-obs stones (7mm largest), ?3mm punctate R stone; Cr 1.17, K 4.5, Ca 9.7 (06/24/24); 24-LL (03/20/24) - UVol 1.59 (L), UCa 244 (H), UOx 34, UCit 997, UpH 5.83, UUa 0.712, Mihai 274 (H)>>>inc fluids, dec Na, F/U 3 mo LL 10/24/24: 24-LL (10/12/24) - UVol 1.59 (L), UCa 258 (H), UOx 28, UCit 810, UUa 0.905 (H), Mihai 246 (H); Taking HCTZ daily, UCK BID - monitor KUB Relevant Orders X-ray abdomen ap 1 view Other Benign prostatic hyperplasia with urinary frequency - Primary Overview 04/13/23: AUA-SS 12/ (on Flomax 0.4 mg qd), PSA 3.71 (01/18/23) Cr 1.00 (04/08/23), PVR 0 mL; FHx bladder ca (father); JEREMY 50+g benign; cysto 08/14/20 (EP) - TL-BPH/large IPE - will monitor for now 12/22/23: AUA 14/ (urg), bothered despite Flomax - plan local cysto, get outside CT images 02/01/24: Cysto - TL-BPH (small IPE), sig lat lobes; G2-3 trab/DTM; CT-L/WOC - prost vol >100 mL (04/14/23) 03/29/24: Discussed options - plan RASP 06/08/24: RASP - path benign (58g) 06/28/24: PVR 0 - F/U 3 mo UF, stop Flomax 10/24/24: AUA 01/18, UF (10/24/24): Qmax 17.6 mL/s, PVR 38 mL (vv 106 mL) - monitor Relevant Orders POCT urinalysis dipstick only (Completed) Measure post void residual (Completed) Follow-up: 1 year LESLIE BARILLAS MD This note was created with the assistance of a speech recognition program. While intending to generate a timely document that accurately reflects the content of the visit, no guarantee can be provided that every grammatical or spelling mistake has been or will be identified or corrected. Thank you for your understanding. documented in this encounter [employer] 04-19-2025 Miscellaneous Notes Appt 04/25/25 Called and spoke with pt to remind him to get PSA done. Pt understood. Pt is going to a [facility] lab. Offered to email him lab orders if [facility] pt declined and stated he will go to [place] documented in this encounter [facility] 04-19-2025 Telephone encounter Note Appt 04/25/25 Called and spoke with pt to remind him to get PSA done. Pt understood. Pt is going to a [facility] lab. Offered to email him lab orders if he would like to [facility]-- pt declined and stated he will go to [facility] 02-15-2025 Note Right Eye Progression has no prior data. Disc findings include normal observations. Macula findings include normal observations. Vessel findings include normal observations. Periphery findings include laser scars. Left Eye Progression has no prior data. Disc findings include normal observations. Macula findings include normal observations. Vessel findings include normal observations. Periphery findings include laser scars, retinal tear. MANUALLY TRANSCRIBED RESULTS 02-15-2025 Note Right Eye Progression has no prior data. Disc findings include normal observations. Macula findings include normal observations. Vessel findings include normal observations. Periphery findings include laser scars. Left Eye Progression has no prior data. Disc findings include normal observations. Macula findings include normal observations. Vessel findings include normal observations. Periphery findings include laser scars, retinal tear. MANUALLY TRANSCRIBED RESULTS 02-15-2025 History of Present illness Narrative Amber Henson had concerns including Retinal tear of left eye . HPI EP/ME Patient is here for a yearly follow up. Patient states vision is stable since last visit. He has longstanding floaters, not bothersome. Denies flashes. He does not use any eye drops. Last edited by Erika Bell on 02/15/2025 7:59 AM. ROS Positive for: Genitourinary, Cardiovascular Negative for: Constitutional, Gastrointestinal, Neurological, Skin, Musculoskeletal, HENT, Endocrine, Eyes, Respiratory, Psychiatric, Allergic/Imm, Heme/Lymph Last edited by Erika Bell on 02/15/2025 7:59 AM. No current outpatient medications on file. (Ophthalmic Drugs) No current facility-administered medications for this visit. (Ophthalmic Drugs) Current Outpatient Medications (Other) Medication Sig acetaminophen (TYLENOL) 325 mg tablet Take 2 tablets (650 mg total) by mouth every 6 (six) hours as needed for pain. amLODIPine (NORVASC) 5 mg tablet Take 1 tablet (5 mg total) by mouth in the morning. cyclobenzaprine (FLEXERIL) 10 mg tablet diclofenac (VOLTAREN) 75 mg EC tablet Take 1 tablet (75 mg total) by mouth in the morning and 1 tablet (75 mg total) before bedtime. With food . ezetimibe (ZETIA) 10 mg tablet Take 1 tablet (10 mg total) by mouth in the morning. hydroCHLOROthiazide (HYDRODIURIL) 25 mg tablet TAKE 1 TABLET BY MOUTH TWICE A DAY BEFORE MEALS (Patient taking differently: Take 1 tablet (25 mg total) by mouth daily Indications: high blood pressure, prevention of calcium-containing kidney stones. Pt takes as needed) lidocaine (LIDODERM) 5 % Place 1 patch on the skin daily. Remove & Discard patch within 12 hours or as directed by MD-uses as needed losartan (COZAAR) 50 mg tablet Take 1 tablet (50 mg total) by mouth in the morning and 1 tablet (50 mg total) before bedtime. magnesium oxide 500 mg capsule Take 1 capsule (500 mg total) by mouth in the morning. vzjssnmr-dhsw-HP-calcium &mins (THERAGRAN-M) 9 mg iron-400 mcg tablet Take 1 tablet by mouth in the morning. omeprazole (PriLOSEC OTC) 20 mg tablet,delayed release (DR/EC) TAKE 1 TABLET BY MOUTH EVERY MORNING BEFORE BREAKFAST. (Patient taking differently: Take 1 tablet (20 mg total) by mouth every morning before breakfast.) ondansetron (ZOFRAN) 4 mg tablet Take 1 tablet (4 mg total) by mouth every 8 (eight) hours as needed for nausea or vomiting. oxyCODONE (ROXICODONE) 5 mg immediate release tablet Take 1 tablet (5 mg total) by mouth every 6 (six) hours as needed. Takes one every am potassium citrate (UROCIT-K) 10 mEq (1,080 mg) CR tablet TAKE 1 TABLET BY MOUTH IN THE MORNING AND IN THE EVENING WITH MEALS hyoscyamine (ANASPAZ,LEVSIN) 0.125 mg tablet Take 1 tablet (0.125 mg total) by mouth every 4 (four) hours as needed for cramping (bladder spasm). (Patient not taking: Reported on 10/24/2024) oxyCODONE (ROXICODONE) 5 mg immediate release tablet Take 1 tablet (5 mg total) by mouth every 4 (four) hours as needed for pain for up to 10 doses. Max Daily Amount: 30 mg (Patient not taking: Reported on 10/24/2024) No current facility-administered medications for this visit. (Other) Social History Socioeconomic History Marital status: Spouse name: Not on file Number of children: Not on file Years of education: Not on file Highest education level: Not on file Occupational History Not on file Tobacco Use Smoking status: Never Smokeless tobacco: Never Vaping Use Vaping status: Never Used Substance and Sexual Activity Alcohol use: Yes Comment: OCC Drug use: No Sexual activity: Defer Other Topics Concern Not on file Social History Narrative Lives with . Social Drivers of Health Financial Resource Strain: Not on file Food Insecurity: No Food Insecurity (10/24/2024) Hunger Screening Food Insecurity - Worry: Never True Food Insecurity - Inability: Never True Transportation Needs: No Transportation Needs (06/08/2024) PRAPARE - Transportation Lack of Transportation (Medical): No Lack of Transportation (Non-Medical): No Physical Activity: Not on file Stress: Not on file Social Connections: Not on file Interpersonal Safety: Not At Risk (06/08/2024) Humiliation, Afraid, Rape, and Kick questionnaire Fear of Current or Ex-Partner: No Emotionally Abused: No Physically Abused: No Sexually Abused: No Housing Instability: Low Risk (06/08/2024) Housing Instability Housing Instability: No Family History Problem Relation Age of Onset Cancer Mother ovarian Cancer Father bladder Heart disease Father Hypertension Father No Known Problems Brother No Known Problems Brother Early Maternal Grandmother Other Maternal Grandmother childbirth Lung cancer Maternal Grandfather Stroke Paternal Grandmother Macular degeneration Neg Hx Diabetes Neg Hx Cataracts Neg Hx Glaucoma Neg Hx Anesthesia problems Neg Hx Bleeding Disorder Neg Hx Clotting disorder Neg Hx Prostate cancer Neg Hx Colon cancer Neg Hx Mr. Henson has a past medical history of Arthritis, Back pain, Benign headache, Benign prostatic hyperplasia with urinary frequency, DDD (degenerative disc disease), lumbar, Dental crown present, Fatty liver, GERD (gastroesophageal reflux disease), HL (hearing loss), HTN (hypertension), detached retina repair (04/2017), Hyperlipidemia, Kidney stone on left side, Nocturia, Numbness, Pneumonia (), Visual floaters, and Visual impairment. He has a past surgical history that includes Colonoscopy; Cystoscopy w/ laser lithotripsy; Esophagoscopy / EGD; Cyst Removal; Extracorporeal shock wave lithotripsy (Left, 07/04/2018); Cystoscopy (N/A, 07/04/2018); Extracorporeal shock wave lithotripsy (Left, 08/29/2018); Esophagogastroduodenoscopy (N/A, 07/25/2020); Eye surgery (Bilateral, 04/21/2017); Hernia repair (); Skin biopsy; Cystourethroscopy (Left, 08/14/2020); Cystoscopy w/ ureteral stent placement (Left, 08/14/2020); Cystoscopy w/ ureteral stent removal (Left, 08/19/2020); Knee arthroscopy w/ meniscectomy (Right, 02/05/2023); Cystoscopy (N/A, 02/01/2024); and Prostatectomy (N/A, 06/08/2024). Base Eye Exam Visual Acuity (Snellen - Linear) Right Left Dist cc 20/20 20/25 Correction: Glasses Tonometry (Tonopen, 8:04 AM) Right Left Pressure 11 12 Pupils Pupils Right PERRL Left PERRL Visual Packer (Counting fingers) Right Left Full Full Extraocular Movement Right Left Full Full Neuro/Psych Oriented x3: Yes Mood/Affect: Normal Dilation Both eyes: 1.0% Tropicamide, 2.5% Phenylephrine Hydrochloride @ 8:04 AM Slit Lamp and Fundus Exam External Exam Right Left External Normal Normal Slit Lamp Exam Right Left Lids/Lashes Meibomian gland dysfunction Meibomian gland dysfunction Conjunctiva/Sclera White and quiet White and quiet Cornea Clear Clear Anterior Chamber Deep and quiet Deep and quiet Iris Round and reactive Round and reactive Lens 1+ Nuclear sclerosis 1+ Nuclear sclerosis Fundus Exam Right Left Vitreous Posterior vitreous detachment Posterior vitreous detachment, floaters Disc Normal Normal C/D Ratio 0.2 0.2 Macula Normal Normal Vessels Normal Normal Periphery Inferior laser, vitreoretinal tuft inferior Supratemporal laser Diagnosis 1. Retinal tear of left eye 2. Posterior vitreous detachment of both eyes 3. Nuclear sclerotic cataract of both eyes 4. Lattice degeneration of retina, right 5. Photopsia of right eye ASSESSMENT/PLAN 1. Retinal tear of left eye (Primary) LEFT EYE- s/p RTR 04-21-17 -Retinal tear sealed well with laser -s/p RTR -No new retinal tears, holes or detachments -Continue observation. - Fundus Photos - OU - Both Eyes; Future 2. Posterior vitreous detachment of both eyes BOTH EYES- stable. -Posterior vitreous detachment noted on exam -No holes or tears noted. -Patient instructed to return sooner if any visual changes are noted. -Continue observation 3. Nuclear sclerotic cataract of both eyes BOTH EYES- stable. -Nuclear sclerotic cataract noted on examination. -Continue observation. 4. Lattice degeneration of retina, right BOTH EYES- stable. -Nuclear sclerotic cataract noted on examination. -Visual requirement for cataract surgery: (-) -Continue observation. 5. Photopsia of right eye RIGHT EYE - Observation Patient Education: Questions were encouraged to stated satisfaction from the patient. Discussed with patient that failure to follow up as recommended (appointment time, onset of new ocular symptoms) can lead to permanent loss of vision and/or blindness. Patient understands and agrees. Return Visit: 1 year DFE OU with OCT Physician: Kasia Pepper MD Scribe: EDMUNDO Hazel Scribe Statement: Scribed for and in the presence of Kasia Pepper MD by EDMUNDO Hazel documented in this encounter [facility] [employer] 02-06-2025 Evaluation note Diagnosis Onset Date Resolution Benign prostatic hyperplasia with lower urinary tract symptoms acute February 06, 2025 9:23am Essential hypertension acute 2024 9:23am Hypercholesterolemia acute February 06, 2025 9:23am Lumbar spondylosis acute February 062024 9:23am Obesity acute February 06, 2025 9:23am Opiate analgesic use agreement exists acute February 06, 2025 9:23am Screening PSA (prostate specific antigen) acute February 06, 2025 9:23am Medicare annual wellness visit, subsequent noneactive February 06, 2025 9:23am Chronic pain acute March 05, 2 025 4:28pm Lumbosacral spondylosis acute J une 2024 4:28pm Sacroiliitis acute March 05 2 025 4:28pm [facility] Work Phone: 1(538) 663-658605-20-2025 Evaluation note* Diagnosis Onset Date Resolution Status Admit Date Benign prostatic hyperplasia with lower urinary tract symptoms acute February 06, 2025 9:23am Essential hypertension acute 2024 9:23am Hypercholesterolemia acute February 06, 2025 9:23am Lumbar spondylosis acute February 062024 9:23am Obesity acute February 06, 2025 9:23am Opiate analgesic use agreeme nt exists acute February 06, 2025 9:23am Screening PSA (prostate spec ific antigen) acute February 06, 2025 9:23am Medicare annual wellness vis it, subsequent noneactive February 06, 2025 9:23am Chronic pain acute March 05, 2 025 4:28pm Lumbosacral spondylosis acute J une 2024 4:28pm Sacroiliitis acute March 05, 025 4:28pm Chronic pain acute March 28 4:01pm Lumbosacral spondylosis acute J adan 2024 4:01pm Sacroiliitis acute March 28 4:01pm [facility] Work Phone: 1(661) 963-863002-04-2025 History of Present illness Narrative* Leslie Barillas MD - 10/24/2024 4:30 PM EST Images from the original note were not included. [address] [facility] [id number] Patient: Amber Henson Date of : 1955 Encounter Date: 10/24/2024 History of Present Illness: Chief Complaint: Follow up kidney stone/BPH The patient is a 69 y.o. male, an established patient, and is here for follow up above. Patient presents today for short-term follow-up. He is voiding very well since simple prostatectomy with no hematuria, dysuria, UTI symptoms, flank pain, or stone episodes. He is having some mild abdominal tenderness which is minimal over the incision sites which we will monitor. On exam there was no hernia or incisional abnormalities at this time. I did recommend vitamin-E cream to help over the scars. 24 hour urine Litholink repeated on 10/12/2024 with the following findings - UVol 1.59 (L), UCa 258 (H),UOx 28, UCit 810, UUa 0.905 (H), Mihai 246 (H). I reiterated to patient he needs to continue to work on increasing hydration so that urine volume is 2.5 L or greater daily. I have also recommended thathe reduce animal protein and decrease added salt/reduce sodium 223 mg daily from food sources. He is taking hydrochlorothiazide daily and Urocit-K twice daily. He needs to continue to work on decreasing sodium. Uroflow as noted below is excellent and he has significant improvement in voiding off of Flomax. I will have him follow up in 6 months with a KUB and PSA. Patient agrees with plan of care and all questions were answered to satisfaction. Moderate MDM due to 2 stable chronic conditions addressed, record reviewed x1, labs and tests ordered and reviewed x4. AUA-SS: 01/18 UF (10/24/24): Qmax 17.6 mL/s, PVR 38 mL (vv 106 mL) Summary of old records: Previous office note Urinalysis today: No results for input(s): EXTPOCURCO , EXTPOCURCH , EXTPOCAPP , EXTPOCURBS , EXTPOCURBIL , EXTPOCUKET , EXTPOCUSPG , EXTPOCUHGB , EXTPOCUPRO , EXTPOCUURO , EXTPOCULEU , EXTPOCUNIT , EXTPOCUWBC , EXTPOCUBLD , EXTPOCURBC , EXTPOCUCRY , EXTPOCUBAC , EXTPOCUTREP , EXTPOCUPH , EXTPOCUL EE in the last 72 hours. Last BUN and creatinine: Lab Results Component Value Date BUN 28 (H) 06/09/2024 Lab Results Component Value Date CREATININE 0.94 06/09/2024 Last PSA: Lab Results Component Value Date PSA 3.49 09/17/2022 PSA 3.28 12/27/2018 Lab Results Component Value Date PROSTATICSP 2.71 08/07/2020 Additional Lab/Culture results: None Imaging Reviewed during this Office Visit: None (Results were independently reviewed by physician and radiology report verified) Past Medical, Family, and Social History Update: The following portions of the patient's history were reviewed and updated as appropriate: allergies, current medications, past family history, past medical history, past social history, past surgicalhistory and problem list. Past Medical History: Diagnosis Date Arthritis back- bulging disks- L1-L5 Back pain Benign headache Benign prostatic hyperplasia with urinary frequency DDD (degenerative disc disease), lumbar Dental crown present Fatty liver GERD (gastroesophageal reflux disease) HL (hearing loss) slight HTN (hypertension) Hx of detached retina repair 04/2017 bilateral- repaired Hyperlipidemia no meds Kidney stone on left side here for workup for pending cysto lithotripsy Nocturia Numbness right thigh and left large toe Pneumonia hx of Visual floaters left worse than right Visual impairment glasses Past Surgical History: Procedure Laterality Date COLONOSCOPY CYST REMOVAL left side of head near ear- benign CYSTOSCOPY N/A 02/01/2024 Performed by Leslie Barillas MD at [facility] CYSTOSCOPY FLEXIBLE N/A 07/04/2018 Performed by Yuri Gomez MD at [facility] CYSTOSCOPY HOLMIUM LASER URETEROSCOPY Left 08/14/2020 Performed by Yuri Gomez MD at [facility] CYSTOSCOPY INSERTION STENT Left 08/14/2020 Performed by Yuri Gomez MD at [facility] CYSTOSCOPY REMOVAL STENT Left 08/19/2020 Performed by Yuri Gomez MD at [facility] CYSTOSCOPY W/ LASER LITHOTRIPSY DAVINCI PROSTATECTOMY SIMPLE N/A 06/08/2024 Performed by Leslie Barillas MD at [facility] EGD, DILATATION and biopsy N/A 07/25/2020 Performed by Antione Marin MD at [facility] ENDOSCOPY ESOPHAGOSCOPY / EGD with dilation HERNIA REPAIR 1980s left inguinal KNEE ARTHROSCOPY WITH SUBTOTAL MEDIAL MENISECTOMY, MEDIAL FEMORAL CONDYLE CHONDROPLASTY, PATELLA CHONDROPLASTY Right 02/05/2023 Performed by Edgardo Estrada MD at [facility] LASER REPAIR RETINOL TEAR JERO Bilateral 04/21/2017 Performed by Kasia Pepper MD at [facility] SURGERY LITHOTRIPSY Left 08/29/2018 Performed by Yuri Gomez MD at [facility] SURGERY LITHOTRIPSY Left 07/04/2018 Performed by Yuri Gomez MD at [facility] SKIN BIOPSY right side of face- benign Family History Problem Relation Age of Onset Cancer Mother ovarian Cancer Father bladder Heart disease Father Hypertension Father No Known Problems Brother No Known Problems Brother Early Maternal Grandmother Other Maternal Grandmother childbirth Lung cancer Maternal Grandfather Stroke Paternal Grandmother Macular degeneration Neg Hx Diabetes Neg Hx Cataracts Neg Hx Glaucoma Neg Hx Anesthesia problems Neg Hx Bleeding Disorder Neg Hx Clotting disorder Neg Hx Prostate cancer Neg Hx Colon cancer Neg Hx Current Outpatient Medications Medication Sig Dispense Refill acetaminophen (TYLENOL) 325 mg tablet Take 2 tablets (650 mg total) by mouth every 6 (six) hours asneeded for pain. amLODIPine (NORVASC) 5 mg tablet Take 1 tablet (5 mg total) by mouth in the morning. cyclobenzaprine (FLEXERIL) 10 mg tablet diclofenac (VOLTAREN) 75 mg EC tablet Take 1 tablet (75 mg total) by mouth in the morning and 1 tablet (75 mg total) before bedtime. With food . ezetimibe (ZETIA) 10 mg tablet Take 1 tablet (10 mg total) by mouth in the morning. hydroCHLOROthiazide (HYDRODIURIL) 25 mg tablet TAKE 1 TABLET BY MOUTH TWICE A DAY BEFORE MEALS (Patient taking differently: Take 1 tablet (25 mg total) by mouth daily Indications: high blood pressure, prevention of calcium-containing kidney stones. Pt takes as needed) 180 tablet 4 lidocaine (LIDODERM) 5 % Place 1 patch on the skin daily. Remove & Discard patch within 12 hours or as directed by MD-uses as needed losartan (COZAAR) 50 mg tablet Take 1 tablet (50 mg total) by mouth in the morning and 1 tablet (50mg total) before bedtime. 3 magnesium oxide 500 mg capsule Take 1 capsule (500 mg total) by mouth in the morning. uxacykdw-jxlt-UY-calcium &mins (THERAGRAN-M) 9 mg iron-400 mcg tablet Take 1 tablet by mouth inthe morning. omeprazole (PriLOSEC OTC) 20 mg tablet,delayed release (DR/EC) TAKE 1 TABLET BY MOUTH EVERY MORNINGBEFORE BREAKFAST. (Patient taking differently: Take 1 tablet (20 mg total) by mouth every morning before breakfast.) 28 tablet 5 oxyCODONE (ROXICODONE) 5 mg immediate release tablet Take 1 tablet (5 mg total) by mouth every 6 (six) hours as needed. Takes one every am potassium citrate (UROCIT-K) 10 mEq (1,080 mg) CR tablet TAKE 1 TABLET BY MOUTH IN THE MORNING AND IN THE EVENING WITH MEALS 180 tablet 0 hyoscyamine (ANASPAZ,LEVSIN) 0.125 mg tablet Take 1 tablet (0.125 mg total) by mouth every 4 (four)hours as needed for cramping (bladder spasm). (Patient not taking: Reported on 10/24/2024) 30 tablet 0 ondansetron (ZOFRAN) 4 mg tablet Take 1 tablet (4 mg total) by mouth every 8 (eight) hours as needed for nausea or vomiting. (Patient not taking: Reported on 10/24/2024) oxyCODONE (ROXICODONE) 5 mg immediate release tablet Take 1 tablet (5 mg total) by mouth every 4 (four) hours as needed for pain for up to 10 doses. Max Daily Amount: 30 mg (Patient not taking: Reported on 10/24/2024) 10 tablet 0 No current facility-administered medications for [...] vomitting. -per HPI Physical Exam: BP (!) 154/95 (BP Site: Left Arm, BP Postition: Sitting) Pulse 75 Ht 177.8 cm (5' 10 ) Wt 106.1 kg (234 lb) BMI 33.58 kg/m General: Alert, well appearing, and in no distress Integumentary: Normal coloration of skin, normal skin moisture Chest and lung exam: quiet, even and easy respiratory effort with no use of accessory muscles Neurologic: Normal coordination, normal gait\ Assessment and Plan: Amber was seen today for follow-up. Diagnoses and all orders for this visit: Calculus of kidney - X-ray abdomen ap 1 view; Future Benign prostatic hyperplasia with urinary frequency - Prostatic specific antigen, diagnostic; Future Problem List Genitourinary Calculus of kidney - Primary Overview 04/13/23: Hx ca ox stone disease w/ hypercalciuria s/p L URS/HLL 08/14/20 100% ca ox mono; ERV Irina 04/08/23 - R low back, hx spinal [...] BID, dec Na, F/U 6 mo KUB/LL/BMP 06/28/24: KUB 06/28/24 - non-obs stones (7mm largest), ?3mm punctate R stone; Cr 1.17, K 4.5, Ca 9.7 (06/24/24); 24-LL (03/20/24) - UVol 1.59 (L), UCa 244 (H), UOx 34, UCit 997, UpH 5.83, UUa 0.712, Mihai 274 (H)>>>inc fluids, dec Na, F/U 3 mo LL 10/24/24: 24-LL (10/12/24) - UVol 1.59 (L), UCa 258 (H), UOx 28, UCit 810, UUa 0.905 (H), Mihai 246 (H);Taking HCTZ daily, UCK BID - monitor KUB Relevant Orders X-ray abdomen ap 1 view Other Benign prostatic hyperplasia with urinary frequency Overview 04/13/23: AUA-SS 12/ (on Flomax 0.4 mg qd), PSA 3.71 (01/18/23) Cr 1.00 (04/08/23), PVR 0 mL; FHx bladder ca (father); JEREMY 50+g benign; cysto 08/14/20 (EP) - TL- BPH/large IPE - will monitor for now 12/22/23: AUA 14/ (urg), bothered despite Flomax - plan local cysto, get outside CT images 02/01/24: Cysto - TL-BPH (small IPE), sig lat lobes; G2-3 trab/DTM; CT-L/WOC - prost vol >100 mL (04/14/23) 03/29/24: Discussed options - plan RASP 06/08/24: RASP - path benign (58g) 06/28/24: PVR 0 - F/U 3 mo UF, stop Flomax 10/24/24: AUA 5, UF (10/24/24): Qmax 17.6 mL/s, PVR 38 mL (vv 106 mL) - monitor Relevant Orders Prostatic specific antigen, diagnostic Follow-up: Six-month LESLIE BARILLAS MD This note was created with the assistance of a speech recognition program. While intending to generate a timely document that accurately reflects the content of the visit, no guarantee can be provided that every grammatical or spelling mistake has been or will be identified or corrected. Thank you for your understanding. [facility] History of Present illness Narrative* Anette Ward LPN - 10/24/2024 4:00 PM EST Images from the original note were not included. NAME: Amber Henson : 1955 STAFF: Anette Ward LPN URINE VOLUME: 106 mL FLOW TIME: 11 sec. PEAK FLOW RATE: 3 mL/sec. AVERAGE FLOW RATE: 9.4 mL/sec. POST VOIDED RESIDUAL URINE: 0 mL [facility] Evaluation note* Diagnosis Onset Date Resolution Status Admit Date Chronic pain acute September 25, 2024 1:46pm Lumbar radiculopathy acute Marcio [id number] 1:46pm Lumbosacral spondylosis acute J anuary 2024 1:46pm Sacroiliitis acute September 25, 2024 1:46pm Essential hypertension acute Fe bruary 2024 9:17am Hypercholesterolemia acute Febr uary 2024 9:17am Lumbar spondylosis acute Febr2024 9:17am Obesity acute November 02, 2024 9:17am Opiate analgesic use agreeme nt exists acute November 02 9:17am Influenza A (H1N1) noneactive 2024 9:17am Chronic pain acute November 22 4:28pm Lumbar radiculopathy acute Diego 2024 4:28pm Lumbosacral spondylosis acute 2024 4:28pm Sacroiliitis acute November 22 4:28pm [facility] Work Phone: 1(461) 834-848701-06-2025 Evaluation note* Diagnosis Onset Date Resolution Status Admit Date Chronic pain acute September 25, 2024 1:46pm Lumbar radiculopathy acute Marcio [id number] 1:46pm Lumbosacral spondylosis acute J anuary 2024 1:46pm Sacroiliitis acute September 25, 2024 1:46pm Essential hypertension acute Fe bruary 2024 9:17am Hypercholesterolemia acute Febr uary 2024 9:17am Lumbar spondylosis acute Februa ry 2024 9:17am Obesity acute November 02, 2024 9:17am Opiate analgesic use agreeme nt exists acute November 02 9:17am Influenza A (H1N1) noneactive Februa 2024 9:17am Chronic pain acute November 22 025 4:28pm Lumbar radiculopathy acute Diego h 2024 4:28pm Lumbosacral spondylosis acute M arch 2024 4:28pm Sacroiliitis acute November 22 025 4:28pm Chronic pain acute December 06, 2024 2:49pm Lumbosacral spondylosis acute M arch 2024 2:49pm Sacroiliitis acute December 06, 2024 2:49pm [facility] Work Phone: 1(363) 918-207412-10-2024 Evaluation note* Diagnosis Onset Date Resolution Status Admit Date Chronic pain acute August 11:06am Lumbar radiculopathy acute Dece mber 2023 11:06am Lumbosacral spondylosis acute D ecember 2023 11:06am Sacroiliitis acute August 11:06am Chronic pain acute September 25, 2024 1:46pm Lumbar radiculopathy acute Marcio barb 2024 1:46pm Lumbosacral spondylosis acute J anuary 2024 1:46pm Sacroiliitis acute September 25, 2024 1:46pm Benign prostatic hyperplasia with lower urinary tract symptoms acute Feb ruary 2024 9:17am Essential hypertension acute Fe bruary 2024 9:17am Hypercholesterolemia acute Febr uary 2024 9:17am Lumbar spondylosis acute Februa ry 2024 9:17am Obesity acute November 02, 2024 9:17am Opiate analgesic use agreeme nt exists acute November 02 9:17am [facility] Work Phone: 1(244) 164-885110-09-2024 History of Present illness Narrative* Leslie Barillas MD - 06/28/2024 8:15 AM EDT Images from the original note were not included. [address] [facility] [id number] Patient: Amber Henson Date of : 1955 Encounter Date: 06/28/2024 History of Present Illness: Chief Complaint: Follow up simple prostatectomy, kidney stones The patient is a 69 y.o. male, an established patient, and is here for follow up of BPH and kidney stones. Patient presents today for postoperative visit as well as follow up for kidney stones. He underwent uncomplicated robotic simple prostatectomy on 06/08/2024 for BPH refractory to pharmacologictherapy. His pathology did return benign tissue, 58 g. Postoperatively he has been doing relativelywell. Bowel function is okay with return of good diet and ambulating well without issue. He is having some mild unmasked overactive bladder symptoms, but his flow/stream is good and he is sleeping better at night. He denies any current hematuria, dysuria, UTI. On exam his incisions are okay other than some mild supraumbilical bruising. I did recommend he keep his lifting restrictions for 3 more weeks less than 10 lb. Regarding history of stone disease, he does return today with KUB which does show some left nonobstructing stones as well as a possible small punctate right nonobstructing stone. We will continue to monitor this for now given his recent surgery. Most recent BMP 06/24/2024 shows creatinine 1.17, K 4.5, and calcium 9.7. 24 hour urine Litholink was completed earlier this year in March 2024 revealing the followin-LL (03/20/24) - UVol 1.59 (L), UCa 244 (H), UOx 34, UCit 997, UpH 5.83, UUa 0.712, Mihai 274 (H). Based on these results I have recommended patient continue to work on keeping his fluid intake high and decreasing sodium. I have recommended he stop Flomax at this time. I will have him follow up in 3 months with a Litholink and uroflow study. Patient agrees with plan of care and all questions were answered to satisfaction. Modifier 22 being added due to separate management of condition apart from normal postoperative period (kidney stones ). Please note that I am providing longitudi nal care for a specific serious/complex urologic condition that I am assuming responsibility for (modifier G2211). UA: 3+ blood, 1+ LE PVR: 0 mL Summary of old records: Previous office and operative note reviewed Urinalysis today: No results for input(s): EXTPOCURCO , EXTPOCURCH , EXTPOCAPP , EXTPOCURBS , EXTPOCURBIL , EXTPOCUKET , EXTPOCUSPG , EXTPOCUHGB , EXTPOCUPRO , EXTPOCUURO , EXTPOCULEU , EXTPOCUNIT , EXTPOCUWBC , EXTPOCUBLD , EXTPOCURBC , EXTPOCUCRY , EXTPOCUBAC , EXTPOCUTREP , EXTPOCUPH , EXTPOCUL EE in the last 72 hours. Last BUN and creatinine: Lab Results Component Value Date BUN 28 (H) 06/09/2024 Lab Results Component Value Date CREATININE 0.94 06/09/2024 Last PSA: Lab Results Component Value Date [...] past medical history, past social history, past surgicalhistory and problem list. Past Medical History: Diagnosis Date Arthritis back- bulging disks- L1-L5 Back pain Benign headache Benign prostatic hyperplasia with urinary frequency DDD (degenerative disc disease), lumbar Dental crown present Fatty liver GERD (gastroesophageal reflux disease) HL (hearing loss) slight HTN (hypertension) Hx of detached retina repair 04/2017 bilateral- repaired Hyperlipidemia no meds Kidney stone on left side here for workup for pending cysto lithotripsy Nocturia Numbness right thigh and left large toe Pneumonia hx of Visual floaters left worse than right Visual impairment glasses Past Surgical History: Procedure Laterality Date COLONOSCOPY CYST REMOVAL left side of head near ear- benign CYSTOSCOPY N/A 02/01/2024 Performed by Leslie Barillas MD at [facility] CYSTOSCOPY FLEXIBLE N/A 07/04/2018 Performed by Yuri Gomez MD at [facility] CYSTOSCOPY HOLMIUM LASER URETEROSCOPY Left 08/14/2020 Performed by Yuri Gomez MD at [facility] CYSTOSCOPY INSERTION STENT Left 08/14/2020 Performed by Yuri Gomez MD at [facility] CYSTOSCOPY REMOVAL STENT Left 08/19/2020 Performed by Yuri Gomez MD at [facility] CYSTOSCOPY W/ LASER LITHOTRIPSY DAVINCI PROSTATECTOMY SIMPLE N/A 06/08/2024 Performed by Leslie Barillas MD at [facility] EGD, DILATATION and biopsy N/A 07/25/2020 Performed by Antione Marin MD at [facility] ENDOSCOPY ESOPHAGOSCOPY / EGD with dilation HERNIA REPAIR 1980s left inguinal KNEE ARTHROSCOPY WITH SUBTOTAL MEDIAL MENISECTOMY, MEDIAL FEMORAL CONDYLE CHONDROPLASTY, PATELLA CHONDROPLASTY Right 02/05/2023 Performed by Edgardo Estrada MD at [facility] LASER REPAIR RETINOL TEAR JERO Bilateral 04/21/2017 Performed by Kasia Pepper MD at [facility] LITHOTRIPSY Left 08/29/2018 Performed by Yuri Gomez MD at [facility] LITHOTRIPSY Left 07/04/2018 Performed by Yuri Gomez MD at [facility] SKIN BIOPSY right side of face- benign Family History Problem Relation Age of Onset Cancer Mother ovarian Cancer Father bladder Heart disease Father Hypertension Father No Known Problems Brother No Known Problems Brother Early Maternal Grandmother Other Maternal Grandmother childbirth Lung cancer Maternal Grandfather Stroke Paternal Grandmother Macular degeneration Neg Hx Diabetes Neg Hx Cataracts Neg Hx Glaucoma Neg Hx Anesthesia problems Neg Hx Bleeding Disorder Neg Hx Clotting disorder Neg Hx Prostate cancer Neg Hx Colon cancer Neg Hx Current Outpatient Medications Medication Sig Dispense Refill acetaminophen (TYLENOL) 325 mg tablet Take 2 tablets (650 mg total) by mouth every 6 (six) hours asneeded for pain. amLODIPine (NORVASC) 5 mg tablet Take 1 tablet (5 mg total) by mouth in the morning. diclofenac (VOLTAREN) 75 mg EC tablet Take 1 tablet (75 mg total) by mouth in the morning and 1 tablet (75 mg total) before bedtime. With food . ezetimibe (ZETIA) 10 mg tablet Take 1 tablet (10 mg total) by mouth in the morning. hydroCHLOROthiazide (HYDRODIURIL) 25 mg tablet TAKE 1 TABLET BY MOUTH TWICE A DAY BEFORE MEALS (Patient taking differently: Take 1 tablet (25 mg total) by mouth daily Indications: high blood pressure, prevention of calcium-containing kidney stones. Pt takes as needed) 180 tablet 4 lidocaine (LIDODERM) 5 % Place 1 patch on the skin daily. Remove & Discard patch within 12 hours or as directed by MD-uses as needed losartan (COZAAR) 50 mg tablet Take 1 tablet (50 mg total) by mouth in the morning and 1 tablet (50mg total) before bedtime. 3 magnesium oxide 500 mg capsule Take 1 capsule (500 mg total) by mouth in the morning. ypuwbjvt-slaf-MA-calcium &mins (THERAGRAN-M) 9 mg iron-400 mcg tablet Take 1 tablet by mouth inthe morning. omeprazole (PriLOSEC OTC) 20 mg tablet,delayed release (DR/EC) TAKE 1 TABLET BY MOUTH EVERY MORNINGBEFORE BREAKFAST. (Patient taking differently: Take 1 tablet (20 mg total) by mouth every morning before breakfast.) 28 tablet 5 oxyCODONE (ROXICODONE) 5 mg immediate release tablet Take 1 tablet (5 mg total) by mouth every 6 (six) hours as needed. Takes one every am oxyCODONE (ROXICODONE) 5 mg immediate release tablet Take 1 tablet (5 mg total) by mouth every 4 (four) hours as needed for pain for up to 10 doses. Max Daily Amount: 30 mg 10 tablet 0 polyethylene glycol (GLYCOLAX) 17 gram packet Take 17 g by mouth in the morning for 30 days. 30 packet 0 potassium citrate (UROCIT-K) 10 mEq (1,080 mg) CR tablet TAKE 1 TABLET BY MOUTH IN THE MORNING AND IN THE EVENING WITH MEALS 180 tablet 0 cyclobenzaprine (FLEXERIL) 10 mg tablet TAKE 1 TABLET BY MOUTH THREE TIMES A DAY NEEDED FOR MUSCLE SPASM (Patient not taking: Reported on 06/28/2024) hyoscyamine (ANASPAZ,LEVSIN) 0.125 mg tablet Take 1 tablet (0.125 mg total) by mouth every 4 (four)hours as needed for cramping (bladder spasm). (Patient not taking: Reported on 06/28/2024) 30 tablet0 ondansetron (ZOFRAN) 4 mg tablet Take 1 tablet (4 mg total) by mouth every 8 (eight) hours as needed for nausea or vomiting. (Patient not taking: Reported on 06/28/2024) No current facility-administered medications for this visit. [...] vomitting. -per HPI Physical Exam: BP (!) 140/97 (BP Site: Left Arm, BP Postition: Sitting) Pulse 85 Ht 177.8 cm (5' 10 ) Wt 99.9 kg (220 lb 3.2 oz) BMI 31.60 kg/m General: Alert, well appearing, and in no distress Integumentary: Normal coloration of skin, normal skin moisture Chest and lung exam: quiet, even and easy respiratory effort with no use of accessory muscles Neurologic: Normal coordination, normal gait Assessment and Plan: Amber was seen today for follow-up. Diagnoses and all orders for this visit: Calculus of kidney - Measure post void residual - POCT Urinalysis Auto, W/O Microscopy - [facility] 24 Hour (Non-[facility]); Future Benign prostatic hyperplasia with urinary frequency - Uroflowmetry; Future Problem List Genitourinary Calculus of kidney - Primary Overview 04/13/23: Hx ca ox stone disease w/ hypercalciuria s/p L URS/HLL 08/14/20 100% ca ox mono; ERV [place] 04/08/23 - R low back, hx spinal [...] ca cit supp, F/U 6 mo KUB/LL 4/3/24: KUB 12/22/23 - L nonobs neph, inc since 2020 (?R side punctate stone)>worsening; 24-LL (12/08/23) - UVol 1.75 (L), UCa 325 (H), UOx 31, UCit 632 (BL), UpH 5.98, UUa 0.936 (H), Mihai 336 (H)>>>inc fluids+lemon, stop Ca cit, start Urocit K 10 mEq BID, dec Na, F/U 6 mo KUB/LL/BMP 06/28/24: KUB 06/28/24 - non-obs stones (7mm largest), ?3mm punctate R stone; Cr 1.17, K 4.5, Ca 9.7 (06/24/24); 24-LL (03/20/24) - UVol 1.59 (L), UCa 244 (H), UOx 34, UCit 997, UpH 5.83, UUa 0.712, Mihai 274 (H)>>>inc fluids, dec Na, F/U 3 mo LL Relevant Orders Measure post void residual (Completed) POCT Urinalysis Auto, W/O Microscopy (Completed) [facility] 24 Hour (Non-[facility]) Other Benign prostatic hyperplasia with urinary frequency Overview 04/13/23: AUA-SS 12/3 (on Flomax 0.4 mg qd), PSA 3.71 (01/18/23) Cr 1.00 (04/08/23), PVR 0 mL; FHx bladder ca (father); JEREMY 50+g benign; cysto 08/14/20 (EP) - TL- BPH/large IPE - will monitor for now 12/22/23: AUA 14/4 (urg), bothered despite Flomax - plan local cysto, get outside CT images 02/01/24: Cysto - TL-BPH (small IPE), sig lat lobes; G2-3 trab/DTM; CT-L/WOC - prost vol >100 mL (04/14/23) 03/29/24: Discussed options - plan RASP 06/08/24: RASP - path benign (58g) 06/28/24: PVR 0 - F/U 3 mo UF, stop Flomax Relevant Orders Uroflowmetry Follow-up: Three-months LESLIE BARILLAS MD This note was created with the assistance of a speech recognition program. While intending to generate a timely document that accurately reflects the content of the visit, no guarantee can be provided that every grammatical or spelling mistake has been or will be identified or corrected. Thank you for your understanding. [facility] Miscellaneous Notes* Telephone Encounter - Yonatan Rosenbaum CMA - 06/21/2024 2:17 PM EDT Called pt to remind him to get BMP completed per Dr. Barillas orders. Pt requested for the order juliet faxed to [facility]. Faxed over and status is success. documented [facility] Telephone encounter Note* Telephone Encounter - Yonatan Rosenbaum CMA - 06/21/2024 2:17 PM EDT Called pt to remind him to get BMP completed per Dr. Barillas orders. Pt requested for the order juliet faxed to [facility]. Faxed over and status is success. [facility] History of Present illness Narrative* Rose Worthington LPN - 06/16/2024 9:00 AM EDT Patient presents for fill and pull per Provider-Dr. Leslie Barillas MD . Explained procedure to pt and he agrees to proceed. Drainage bag with 200cc dark yellow urine cloudy Instilled approx 175cc's of sterile water through verdugo catheter. Pt felt strong urge to urinate. Balloon deflated and 22fr 3 way siliconefoley removed without difficulty. Pt was able to urinate 75cc's. Light red clear urine lost urge to void. Gave pt instruction sheet and informed pt to call if any concerns. Pt tolerated procedure well Ordering Provider: Dr. Leslie Barillas MD Supervising Provider: Dr Ольга Rubin documented in this [facility]09-20-2024 Miscellaneous Notes* Telephone Encounter - Leslie Barillas MD - 06/09/2024 3:59 PM EDT Patient had robotic simple prostatectomy 06/08. He needs to be scheduled for fill and pull voiding trial, nursing visit, in one-week. He has follow up appointment in early June which he can keep with me. Thanks. * Telephone Encounter - Anna You - 06/09/2024 3:59 PM EDT Spoke with pt, he has been scheduled for void trial Saturday 06/16 Pt was also reminded of his follow up date in June with KUB before. documented [facility] Telephone encounter Note* Telephone Encounter - Leslie Barillas MD - 06/09/2024 3:59 PM EDT Patient had robotic simple prostatectomy 06/08. He needs to be scheduled for fill and pull voiding trial, nursing visit, in one-week. He has follow up appointment in early June which he can keep with me. Thanks. [facility] Telephone encounter Note* Telephone Encounter - Anna You - 06/09/2024 3:59 PM EDT Spoke with pt, he has been scheduled for void trial Saturday 06/16 Pt was also reminded of his follow up date in June with KUB before. [facility] Miscellaneous Notes* Telephone Encounter - Yonatan Rosenbaum CMA - 06/05/2024 1:[address] Barillas, Pt is scheduled for a DaVinci prostatectomy simple on 06/08/24. Pt was wondering if there was any bowel prep for his procedure? Pt was also wondering if there was going to be 6 incisions? * Telephone Encounter - Leslie Barillas MD - 06/05/2024 1:07 PM EDT No prep. Yes 6 small incisions. * Telephone Encounter - Yonatan Rosenbaum CMA - 06/05/2024 1:07 [address] you Dr. Barillas. Pt has been informed. documented [facility] Telephone encounter Note* Telephone Encounter - Yonatan Rosenbaum CMA - 06/05/2024 1:[address] Barillas, Pt is scheduled for a DaVinci prostatectomy simple on 06/08/24. Pt was wondering if there was any bowel prep for his procedure? Pt was also wondering if there was going to be 6 incisions? [facility] Telephone encounter Note* Telephone Encounter - Leslie Barillas MD - 06/05/2024 1:07 PM EDT No prep. Yes 6 small incisions. [facility] Telephone encounter Note* Telephone Encounter - Yonatan DIANA Rosenbaum - 06/05/2024 1:[address] you [address] Barillas. Pt has been informed. [facility]09-05-[facility] History and physical note* Kirstie Gopi Zhao, [employer] SUPPORT [employer]OCIATE-[employer]IDENTIAL SALES REP - 05/25/2024 11:00 AM EDT PRE-OPERATIVE HISTORY AND PHYSICAL Exam Date: 05/25/24 Surgery Date: 06/08/24 PCP: MITCHEL GUERRERO DO Surgeon: Leslie Barillas MD CC: Benign prostatic hyperplasia with urinary frequency HPI: Amber Henson is a 69 y.o. male who presents for pre-op H&P for planned davinci simple prostatectomy. In a review of the record, he was last seen by Dr. Barillas on 03/29/24. He had a cystoscopy on 02/01/24 that revealed trilobar BPH with significant lateral lobe obstruction and a small intravesical component. He had grade 2 to 3 bladder trabeculations with posterior wall diverticuli. He r eports that he has had nocturia and an enlarged prostate for years. He is up every 1 to 2 hours to void. He has some dribbling on occasion as well as a variable stream. He denies any hematuria. He denies any fever, chills or sweats. He denies any abdominal or rectal pain. He denies recurrent bladder or prostate infections. No Known Allergies Prior to Admission medications Medication Sig Start Date End Date Taking? Authorizing Provider acetaminophen (TYLENOL) 325 mg tablet Take 2 tablets (650 mg total) by mouth every 6 (six) hours asneeded for pain. Not In System Ref Prov amLODIPine (NORVASC) 5 mg tablet Take 1 tablet (5 mg total) by mouth in the morning. 06/11/21 Not InSystem Ref Prov cyclobenzaprine (FLEXERIL) 10 mg tablet TAKE 1 TABLET BY MOUTH THREE TIMES A DAY NEEDED FOR MUSCLE SPASM 04/09/23 Not In System Ref Prov diclofenac (VOLTAREN) 75 mg EC tablet Take 1 tablet (75 mg total) by mouth in the morning and 1 tablet (75 mg total) before bedtime. With food . Not In System Ref Prov hydroCHLOROthiazide (HYDRODIURIL) 25 mg tablet TAKE 1 TABLET BY MOUTH TWICE A DAY BEFORE MEALS Patient taking differently: Take 1 tablet (25 mg total) by mouth daily. 02/17/23 Yuri Gomez MD losartan (COZAAR) 50 mg tablet Take 1 tablet (50 mg total) by mouth in the morning. 04/15/18 Not In System Ref Prov kxodoppa-povv-RL-calcium &mins (THERAGRAN-M) 9 mg iron-400 mcg tablet Take 1 tablet by mouth inthe morning. Not In System Ref Prov omeprazole (PriLOSEC OTC) 20 mg tablet,delayed release (DR/EC) TAKE 1 TABLET BY MOUTH EVERY MORNINGBEFORE BREAKFAST. Patient taking differently: Take 1 tablet (20 mg total) by mouth every morning before breakfast. 12/11/20 Antione Marin MD ondansetron (ZOFRAN) 4 mg tablet Take 1 tablet (4 mg total) by mouth every 8 (eight) hours as needed for nausea or vomiting. Not In System Ref Prov oxyCODONE (ROXICODONE) 5 mg immediate release tablet Take 1 tablet (5 mg total) by mouth every 6 (six) hours as needed. 01/19/22 Not In System Ref Prov potassium citrate (UROCIT-K) 10 mEq (1,080 mg) CR tablet TAKE 1 TABLET BY MOUTH IN THE MORNING AND IN THE EVENING WITH MEALS 03/19/24 Leslie Barillas MD tamsulosin (FLOMAX) 0.4 mg capsule Take 1 capsule (0.4 mg total) by mouth in the morning. Not In System Ref Prov History : Past Medical History: Diagnosis Date Arthritis back- bulging disks- L1-L5 Back pain Benign headache Benign prostatic hyperplasia with urinary frequency DDD (degenerative disc disease), lumbar Dental crown present Fatty liver GERD (gastroesophageal reflux disease) HL (hearing loss) slight HTN (hypertension) Hx of detached retina repair 04/2017 bilateral- repaired Hyperlipidemia no meds Kidney stone on left side here for workup for pending cysto lithotripsy Nocturia Numbness right thigh and left large toe Pneumonia 1980s hx of Visual floaters left worse than right Visual impairment glasses Past Surgical History: Procedure Laterality Date COLONOSCOPY CYST REMOVAL left side of head near ear- benign CYSTOSCOPY N/A 02/01/2024 Performed by Leslie Barillas MD at [facility] CYSTOSCOPY FLEXIBLE N/A 07/04/2018 Performed by Yuri Gomez MD at [facility] CYSTOSCOPY HOLMIUM LASER URETEROSCOPY Left 08/14/2020 Performed by Yuri Gomez MD at [facility] CYSTOSCOPY INSERTION STENT Left 08/14/2020 Performed by Yuri Gomez MD at [facility] CYSTOSCOPY REMOVAL STENT Left 08/19/2020 Performed by Yuri Gomez MD at [facility] CYSTOSCOPY W/ LASER LITHOTRIPSY EGD, DILATATION and biopsy N/A 07/25/2020 Performed by Antione Marin MD at [facility] ENDOSCOPY ESOPHAGOSCOPY / EGD with dilation HERNIA REPAIR 1980s left inguinal KNEE ARTHROSCOPY WITH SUBTOTAL MEDIAL MENISECTOMY, MEDIAL FEMORAL CONDYLE CHONDROPLASTY, PATELLA CHONDROPLASTY Right 02/05/2023 Performed by Edgardo Estrada MD at [facility] LASER REPAIR RETINOL TEAR JERO Bilateral 04/21/2017 Performed by Kasia Pepper MD at [facility] SURGERY LITHOTRIPSY Left 08/29/2018 Performed by Yuri Gomez MD at [facility] SURGERY LITHOTRIPSY Left 07/04/2018 Performed by Yuri Gomez MD at [facility] SKIN BIOPSY right side of face- benign Family History Problem Relation Age of Onset Cancer Mother ovarian Cancer Father bladder Heart disease Father Hypertension Father No Known Problems Brother No Known Problems Brother Early Maternal Grandmother Other Maternal Grandmother childbirth Lung cancer Maternal Grandfather Stroke Paternal Grandmother Macular degeneration Neg Hx Diabetes Neg Hx Cataracts Neg Hx Glaucoma Neg Hx Anesthesia problems Neg Hx Bleeding Disorder Neg Hx Clotting disorder Neg Hx Prostate cancer Neg Hx Colon cancer Neg Hx Social History Socioeconomic History Marital status: Spouse name: Not on file Number of children: Not on file Years of education: Not on file Highest education level: Not on file Occupational History Not on file Tobacco Use Smoking status: Never Smokeless tobacco: Never Vaping Use Vaping status: Never Used Substance and Sexual Activity Alcohol use: Yes Comment: OCC Drug use: No Sexual activity: Defer Other Topics Concern Not on file Social History Narrative Lives with . Social Determinants of Health Financial Resource Strain: Not on file Food Insecurity: No Food Insecurity (05/25/2024) Hunger Screening Food Insecurity - Worry: Never True Food Insecurity - Inability: Never True Transportation Needs: Not on file Physical Activity: Not on file Stress: Not on file Social Connections: Not on file Interpersonal Safety: Not on file Housing Instability: Not on file Review of Systems Review of Systems Constitutional: Positive for fatigue. Negative for fever, chills, diaphoresis and unexpected weightchange. HENT: Positive for dental problem (has a crown), hearing loss and sore throat. Negative for congestion, ear pain, nosebleeds, sinus pressure, tinnitus and trouble swallowing. Eyes: Positive for visual disturbance (wears glasses). Negative for pain and discharge. Respiratory: Negative for cough, choking, shortness of breath and wheezing. Cardiovascular: Negative for chest pain, leg swelling, PND and orthopnea. Gastrointestinal: Negative for nausea, vomiting, abdominal pain, diarrhea, constipation, blood in stool, anal bleeding, rectal pain and black tarry stool. Endocrine: Negative for polydipsia, polyphagia and polyuria. Genitourinary: Positive for frequency. Negative for bladder incontinence, dysuria, urgency, hematuria, enuresis and difficulty urinating. Has nocturia Musculoskeletal: Positive for myalgias, back pain, arthralgias and gait problem (walks with a cane). Negative for joint swelling. Skin: Negative for rash. Neurological: Negative for seizures, speech difficulty, weakness, numbness and headaches. Hematological: Does not bruise/bleed easily. Psychiatric/Behavioral: Positive for sleep disturbance. Negative for dysphoric mood and suicidal ideas. The patient is not nervous/anxious. Vital Signs BP 128/89 Pulse 87 Temp 36.4 C (97.5 F) (Temporal) Resp 16 Ht 177.8 cm (5' 10 ) Wt 101.2 kg (223 lb 1.7 oz) SpO2 96% BMI 32.01 kg/m Labs/Diagnostics: Recent Results (from the past 24 hour(s)) Urinalysis Collection Time: 05/25/24 11:40 AM Result Value Ref Range Color YELLOW YELLOW^YELLOW Turbidity CLEAR CLEAR^CLEAR Specific gravity 1.024 1.003 - 1.035 Nitrite Negative Negative^Negative Ph urine 7.0 5.0 - 8.5 Leukocyte esterase Negative Negative^Negative Protein Trace (A) Negative^Negative mg/dL Glucose, Ur Negative Negative^Negative mg/dL Ketones urine Negative Negative^Negative mg/dL Urobilinogen <1.1 <1.1 eu/dL Bilirubin, urine Negative Negative^Negative Hemoglobin Negative Negative^Negative Mucus, UA PRESENT (A) NONE^NONE RBC 1 0 - 5 /hpf Squamous epithelium <1 0 - 5 /hpf WBC 3 0 - 5 /hpf Physical Exam Physical Exam Constitutional He is oriented to person, place, and time. He appears well- developed and well-nourished. HENT Head Normocephalic and atraumatic. Ears Right Ear: Tympanic membrane, external ear and ear canal normal. Right external auditory canal: External auditory canal is normal. Left Ear: Tympanic membrane, external ear and ear canal normal. Left external auditory canal: External auditory canal is normal. Nose Nose normal. No rhinorrhea. Mucosa/turbinates: Negative for rhinorrhea. Turbinates normal Mouth/Throat Oral Cavity: normal tongue. Throat: Oropharynx: oropharynx clear and moist normal. Oropharynx negative for abnormal hard palate and abnormal oral tongue. Tonsils: right tonsil normal and left tonsil normal Able to visualize hard and soft palate and 1/4 tonsillar pillar Eyes: Conjunctivae and EOM are normal. Pupils are equal, round, and reactive to light. Right eye exhibits no discharge and no exudate. Left eye exhibits no discharge and no exudate. Conjunctiva: Right conjunctiva is not injected. Negative for exudate.Left conjunctiva is not injected. Negative for exudate.Negative for scleral icterus. Neck Normal range of motion. Neck supple. Carotid bruit is not present. . Negative for thyromegaly. Cardiovascular: Normal rate and regular rhythm. No murmur heard. Pulses: intact distal pulses Heart Sounds: normal heart sounds. no friction rub Pulmonary/Chest: Effort normal and breath sounds normal. He has no wheezes. Abdominal: Bowel sounds are normal. He exhibits no mass. Soft. There is no hepatosplenomegaly. There is no abdominal tenderness. There is no rebound and no guarding. Musculoskeletal: General: Normal range of motion. Cervical back: Normal range of motion and neck supple. Neurological He is alert and oriented to person, place, and time. He has normal reflexes. Speech: normal speech Skin: Skin is warm and dry. Psychiatric: He has a normal mood and affect. His speech is normal and behavior is normal. Judgment and thought content normal. Assessment Benign prostatic hyperplasia with urinary frequency 2. Hypertension 3. GERD Plan davinci simple prostatectomy Follow anesthesia guidelines regarding medications Continue current medications WAQAS Pickens 05/25/24 [address] [employer] Phone: [phone] 768-590409-05-2024 History and physical note* WAQAS Pickens - 05/25/2024 11:00 AM EDT PRE-OPERATIVE HISTORY AND PHYSICAL Exam Date: 05/25/24 Surgery Date: 06/08/24 PCP: MITCHEL GUERRERO DO Surgeon: Leslie Barillas MD CC: Benign prostatic hyperplasia with urinary frequency HPI: Amber Henson is a 69 y.o. male who presents for pre-op H&P for planned davinci simple prostatectomy. In a review of the record, he was last seen by Dr. Barillas on 03/29/24. He had a cystoscopy on 02/01/24 that revealed trilobar BPH with significant lateral lobe obstruction and a small intravesical component. He had grade 2 to 3 bladder trabeculations with posterior wall diverticuli. He r eports that he has had nocturia and an enlarged prostate for years. He is up every 1 to 2 hours to void. He has some dribbling on occasion as well as a variable stream. He denies any hematuria. He denies any fever, chills or sweats. He denies any abdominal or rectal pain. He denies recurrent bladder or prostate infections. No Known Allergies Prior to Admission medications Medication Sig Start Date End Date Taking? Authorizing Provider acetaminophen (TYLENOL) 325 mg tablet Take 2 tablets (650 mg total) by mouth every 6 (six) hours asneeded for pain. Not In System Ref Prov amLODIPine (NORVASC) 5 mg tablet Take 1 tablet (5 mg total) by mouth in the morning. 06/11/21 Not InSystem Ref Prov cyclobenzaprine (FLEXERIL) 10 mg tablet TAKE 1 TABLET BY MOUTH THREE TIMES A DAY NEEDED FOR MUSCLE SPASM 04/09/23 Not In System Ref Prov diclofenac (VOLTAREN) 75 mg EC tablet Take 1 tablet (75 mg total) by mouth in the morning and 1 tablet (75 mg total) before bedtime. With food . Not In System Ref Prov hydroCHLOROthiazide (HYDRODIURIL) 25 mg tablet TAKE 1 TABLET BY MOUTH TWICE A DAY BEFORE MEALS Patient taking differently: Take 1 tablet (25 mg total) by mouth daily. 02/17/23 Yuri Gomez MD losartan (COZAAR) 50 mg tablet Take 1 tablet (50 mg total) by mouth in the morning. 04/15/18 Not In System Ref Prov jgqzfwms-nzyv-CG-calcium &mins (THERAGRAN-M) 9 mg iron-400 mcg tablet Take 1 tablet by mouth inthe morning. Not In System Ref Prov omeprazole (PriLOSEC OTC) 20 mg tablet,delayed release (DR/EC) TAKE 1 TABLET BY MOUTH EVERY MORNINGBEFORE BREAKFAST. Patient taking differently: Take 1 tablet (20 mg total) by mouth every morning before breakfast. 12/11/20 Antione Marin MD ondansetron (ZOFRAN) 4 mg tablet Take 1 tablet (4 mg total) by mouth every 8 (eight) hours as needed for nausea or vomiting. Not In System Ref Prov oxyCODONE (ROXICODONE) 5 mg immediate release tablet Take 1 tablet (5 mg total) by mouth every 6 (six) hours as needed. 01/19/22 Not In System Ref Prov potassium citrate (UROCIT-K) 10 mEq (1,080 mg) CR tablet TAKE 1 TABLET BY MOUTH IN THE MORNING AND IN THE EVENING WITH MEALS 03/19/24 Leslie Barillas MD tamsulosin (FLOMAX) 0.4 mg capsule Take 1 capsule (0.4 mg total) by mouth in the morning. Not In System Ref Prov History : Past Medical History: Diagnosis Date Arthritis back- bulging disks- L1-L5 Back pain Benign headache Benign prostatic hyperplasia with urinary frequency DDD (degenerative disc disease), lumbar Dental crown present Fatty liver GERD (gastroesophageal reflux disease) HL (hearing loss) slight HTN (hypertension) Hx of detached retina repair 04/2017 bilateral- repaired Hyperlipidemia no meds Kidney stone on left side here for workup for pending cysto lithotripsy Nocturia Numbness right thigh and left large toe Pneumonia 1980s hx of Visual floaters left worse than right Visual impairment glasses Past Surgical History: Procedure Laterality Date COLONOSCOPY CYST REMOVAL left side of head near ear- benign CYSTOSCOPY N/A 02/01/2024 Performed by Leslie Barillas MD at [facility] CYSTOSCOPY FLEXIBLE N/A 07/04/2018 Performed by Yuri Gomez MD at [facility] CYSTOSCOPY HOLMIUM LASER URETEROSCOPY Left 08/14/2020 Performed by Yuri Gomez MD at [facility] CYSTOSCOPY INSERTION STENT Left 08/14/2020 Performed by Yuri Gomez MD at [facility] CYSTOSCOPY REMOVAL STENT Left 08/19/2020 Performed by Yuri Gomez MD at [facility] CYSTOSCOPY W/ LASER LITHOTRIPSY EGD, DILATATION and biopsy N/A 07/25/2020 Performed by Antione Marin MD at [facility] ENDOSCOPY ESOPHAGOSCOPY / EGD with dilation HERNIA REPAIR 1980s left inguinal KNEE ARTHROSCOPY WITH SUBTOTAL MEDIAL MENISECTOMY, MEDIAL FEMORAL CONDYLE CHONDROPLASTY, PATELLA CHONDROPLASTY Right 02/05/2023 Performed by Edgardo Estrada MD at [facility] LASER REPAIR RETINOL TEAR JERO Bilateral 04/21/2017 Performed by Kasia Pepper MD at [facility] SURGERY LITHOTRIPSY Left 08/29/2018 Performed by Yuri Gomez MD at [facility] SURGERY LITHOTRIPSY Left 07/04/2018 Performed by Yuri Gomez MD at [facility] SKIN BIOPSY right side of face- benign Family History Problem Relation Age of Onset Cancer Mother ovarian Cancer Father bladder Heart disease Father Hypertension Father No Known Problems Brother No Known Problems Brother Early Maternal Grandmother Other Maternal Grandmother childbirth Lung cancer Maternal Grandfather Stroke Paternal Grandmother Macular degeneration Neg Hx Diabetes Neg Hx Cataracts Neg Hx Glaucoma Neg Hx Anesthesia problems Neg Hx Bleeding Disorder Neg Hx Clotting disorder Neg Hx Prostate cancer Neg Hx Colon cancer Neg Hx Social History Socioeconomic History Marital status: Spouse name: Not on file Number of children: Not on file Years of education: Not on file Highest education level: Not on file Occupational History Not on file Tobacco Use Smoking status: Never Smokeless tobacco: Never Vaping Use Vaping status: Never Used Substance and Sexual Activity Alcohol use: Yes Comment: OCC Drug use: No Sexual activity: Defer Other Topics Concern Not on file Social History Narrative Lives with . Social Determinants of Health Financial Resource Strain: Not on file Food Insecurity: No Food Insecurity (05/25/2024) Hunger Screening Food Insecurity - Worry: Never True Food Insecurity - Inability: Never True Transportation Needs: Not on file Physical Activity: Not on file Stress: Not on file Social Connections: Not on file Interpersonal Safety: Not on file Housing Instability: Not on file Review of Systems Review of Systems Constitutional: Positive for fatigue. Negative for fever, chills, diaphoresis and unexpected weightchange. HENT: Positive for dental problem (has a crown), hearing loss and sore throat. Negative for congestion, ear pain, nosebleeds, sinus pressure, tinnitus and trouble swallowing. Eyes: Positive for visual disturbance (wears glasses). Negative for pain and discharge. Respiratory: Negative for cough, choking, shortness of breath and wheezing. Cardiovascular: Negative for chest pain, leg swelling, PND and orthopnea. Gastrointestinal: Negative for nausea, vomiting, abdominal pain, diarrhea, constipation, blood in stool, anal bleeding, rectal pain and black tarry stool. Endocrine: Negative for polydipsia, polyphagia and polyuria. Genitourinary: Positive for frequency. Negative for bladder incontinence, dysuria, urgency, hematuria, enuresis and difficulty urinating. Has nocturia Musculoskeletal: Positive for myalgias, back pain, arthralgias and gait problem (walks with a cane). Negative for joint swelling. Skin: Negative for rash. Neurological: Negative for seizures, speech difficulty, weakness, numbness and headaches. Hematological: Does not bruise/bleed easily. Psychiatric/Behavioral: Positive for sleep disturbance. Negative for dysphoric mood and suicidal ideas. The patient is not nervous/anxious. Vital Signs BP 128/89 Pulse 87 Temp 36.4 C (97.5 F) (Temporal) Resp 16 Ht 177.8 cm (5' 10 ) Wt 101.2 kg (223 lb 1.7 oz) SpO2 96% BMI 32.01 kg/m Labs/Diagnostics: Recent Results (from the past 24 hour(s)) Urinalysis Collection Time: 05/25/24 11:40 AM Result Value Ref Range Color YELLOW YELLOW^YELLOW Turbidity CLEAR CLEAR^CLEAR Specific gravity 1.024 1.003 - 1.035 Nitrite Negative Negative^Negative Ph urine 7.0 5.0 - 8.5 Leukocyte esterase Negative Negative^Negative Protein Trace (A) Negative^Negative mg/dL Glucose, Ur Negative Negative^Negative mg/dL Ketones urine Negative Negative^Negative mg/dL Urobilinogen <1.1 <1.1 eu/dL Bilirubin, urine Negative Negative^Negative Hemoglobin Negative Negative^Negative Mucus, UA PRESENT (A) NONE^NONE RBC 1 0 - 5 /hpf Squamous epithelium <1 0 - 5 /hpf WBC 3 0 - 5 /hpf Physical Exam Physical Exam Constitutional He is oriented to person, place, and time. He appears well- developed and well-nourished. HENT Head Normocephalic and atraumatic. Ears Right Ear: Tympanic membrane, external ear and ear canal normal. Right external auditory canal: External auditory canal is normal. Left Ear: Tympanic membrane, external ear and ear canal normal. Left external auditory canal: External auditory canal is normal. Nose Nose normal. No rhinorrhea. Mucosa/turbinates: Negative for rhinorrhea. Turbinates normal Mouth/Throat Oral Cavity: normal tongue. Throat: Oropharynx: oropharynx clear and moist normal. Oropharynx negative for abnormal hard palate and abnormal oral tongue. Tonsils: right tonsil normal and left tonsil normal Able to visualize hard and soft palate and 1/4 tonsillar pillar Eyes: Conjunctivae and EOM are normal. Pupils are equal, round, and reactive to light. Right eye exhibits no discharge and no exudate. Left eye exhibits no discharge and no exudate. Conjunctiva: Right conjunctiva is not injected. Negative for exudate.Left conjunctiva is not injected. Negative for exudate.Negative for scleral icterus. Neck Normal range of motion. Neck supple. Carotid bruit is not present. . Negative for thyromegaly. Cardiovascular: Normal rate and regular rhythm. No murmur heard. Pulses: intact distal pulses Heart Sounds: normal heart sounds. no friction rub Pulmonary/Chest: Effort normal and breath sounds normal. He has no wheezes. Abdominal: Bowel sounds are normal. He exhibits no mass. Soft. There is no hepatosplenomegaly. There is no abdominal tenderness. There is no rebound and no guarding. Musculoskeletal: General: Normal range of motion. Cervical back: Normal range of motion and neck supple. Neurological He is alert and oriented to person, place, and time. He has normal reflexes. Speech: normal speech Skin: Skin is warm and dry. Psychiatric: He has a normal mood and affect. His speech is normal and behavior is normal. Judgment and thought content normal. Assessment Benign prostatic hyperplasia with urinary frequency 2. Hypertension 3. GERD Plan davinci simple prostatectomy Follow anesthesia guidelines regarding medications Continue current medications WAQAS Pickens 05/25/24 [id number] documented in this encounterMercy [facility] HospitalCortex Pharmaceuticals [id number] Instructions* Patient Instructions* Christiane Simpson RN - 05/25/2024 11:00 AM EDT Bathing Before Surgery- Patients greater than 2 months of age You can help to lower your chance of infection at the site of your surgery by showering or bathing with a special soap called chlorhexidine gluconate (CHG). Germs live on your skin. This special soapwill help lower the amount of germs so they do not get into your surgery site. Special points to know: Do not use this soap if you know that you are allergic to CHG. Shower or bathe with CHG the night before and the morning of surgery. Do not shave the area of your body where the surgery will be done within 7 days of surgery. The CHG may make your skin a little dry, but do not use lotion. Steps for Bathing: Wash your hair as usual with your normal shampoo. Rinse your hair and body well after you shampoo to get rid all of the shampoo. Wash gently with the CHG from the neck down, but do not scrub the skin to hard. Be sure to wash thearea of your surgery very well. If showering, turn the water off while washing and then turn the water back onto rinse. Do not get CHG in the genital (private) area. Do not get CHG in the eyes, ears, nose or mouth. (If the soap gets into the eyes, flush them immediately with water). Do not wash with regular soap after CHG is used. Pat skin dry with a soft, clean towel. Patient should sleep in freshly laundered night clothes and report for surgery in clean clothes. Your surgery/procedure is scheduled at [facility] on 06/08/24 at 11:30 am Arrival Time 9:30 am [facility] Address: [address] [place] [address]. [place], [place] [address] [address] located on [facility]. Report to the Entrance B. Check in at the information desk the surgery. The waiting room located on the second floor. If you have any questions prior to surgery, please call Pre-Admission Clinic at [phone] between 7:30 am and 4:30 pm Wednesday through Wednesday. If you have questions the morning of surgery, please call the Pre-op Department at [phone]. Notify your SURGEON if you develop any illness such as a cold, cough, fever, sore throat, vomiting or are hospitalized between now and your surgery. Medication Instructions (Do not stop your medications without consulting the prescribing physician). Take the following medications the morning of surgery with a sip of water: amlodipine and omeprazole oxycodone . Blood thinners: Please contact your prescribing physician regarding a stop/hold date for these medications. Medications such as Coumadin, Heparin, Aspirin, Plavix, Eliquis, Pradaxa Non-steriodal Anti-Inflammatory Drugs (NSAIDS)- Hold 7 days prior to surgery unless otherwise directed by your surgeon. Vitamins/Herbal Products: STOP taking all vitamins, supplements, and herbal products/teas one week prior to your surgery. If you have been given bowel prep instructions by your surgeon, please call the surgeon's office with any questions about these instructions. What do I do the day of Surgery? Age 2 through adult - Stop all solids by midnight, You may have clear liquids up to 2 hours before surgery, unless otherwise instructed by your surgeon. Clear liquids are: water, sports drinks such as Gatorade or G2, or apple juice. You may NOT have: tube feedings, dairy products, alcoholic beverages, orange juice, or any liquids with solids or pulp in it. shower again with CHG soap the morning of your surgery. If you received a green plastic bracelet, bring it with you the day of surgery and your nurse will put it on you. In order to help prevent infection post-operatively, you may be asked to use a CHG mouthwash when you arrive to the Pre-op area. Your nurse will provide instruction the morning of. What do I need to do to prepare for surgery? You should not smoke or drink alcohol 24 hours before your surgery. Alcohol thins the blood and may cause bleeding problems during surgery. Smoking increases the risk of breathing problems after surgery. Do not use lotions, creams, powders, perfume, make up, cologne or after-shaves day of surgery. Remove ALL jewelry including wedding rings, body piercings (including dermal piercings ,hair extensions that contain metal, nail wolof, make-up, and contact lens. You may brush your teeth the morning of surgery, but do not swallow the water. Wear your dentures and partial plates to the hospital (no adhesive). Shower the night the before. use the CHG (chlorhexidine gluconate) soap What should I bring to the hospital? If you received a green plastic bracelet, bring it with you the day of surgery and your nurse will put it on you. Eyeglass or contact lens case If you will be spending the night, please bring personal care items and leave them in the car untilyou are taken to your room after surgery. Leave ALL valuables at home. If any of these instructions conflict with those you received from the surgeon, please seek clarification from your surgeon's office. DEEP BREATHING EXERCISES This exercise helps promote good air exchange and helps to prevent pneumonia after surgery. Breathe in slowly and deeply through the nose. Hold your breath for a few seconds and then exhale slowly through the mouth. Repeat this three times and then cough.Coughing helps to clear your lungs. If you have had a surgery with an incision into your abdomen or chest, press gently against your incision with a pillow or a folded blanket when you cough. Please be aware - it may not be edwards to cough following some types of surgeries involving the eyes,ears, sinuses and throat. Always follow your doctor's instructions. LEG EXERCISE These exercises help promote good circulation and help to prevent blood clots after surgery. Point your toes to the ceiling and then point them to the wall. Do this slowly about 15-20 times. You may also move your feet in circles. Do the exercise that is most comfortable for you. If you have had surgery involving your shoulder or arm, we recommend you move your fingers. PRACTICING We ask that you begin practicing these exercises before your surgery. After surgery try to do both exercises at least every 2 hours during the day and early evening. SURGICAL SITE INFECTION PREVENTION What is a Surgical Site Infection? Infection can happen to the area of the body where surgery is done. This is called a surgical site infection (SSI). A SSI does not happen very often. Can SSIs be treated? Antibiotics are used to treat SSI. Some patients may need another surgery to treat the infection. The doctor will discuss treatment options with you. What are some of the things that hospitals are doing to prevent SSIs? Soap and water or alcohol hand rub are used before and after caring for each patient. Special soap is used to clean surgery workers hands and arms just before the surgery. Masks, gowns, gloves and hair covers are worn during the surgery to keep the area clean. Hair in the surgery area may be removed with clippers (not razors). A special soap that kills germs is used to clean the skin at the surgery site. Antibiotics may be given before the surgery starts. What can you do to prevent SSIs? Before surgery: You may be asked to shower or bathe with a special soap that kills germs the night before and the day of surgery. Use the soap as you were told. If you smoke, stop or cut down. Ask your doctor about ways to quit. Do not shave near where you will have surgery. Shaving can irritate the skin and make it easier to get and infection. After surgery: Be sure that the doctors and nurses clean their hands before and after touching you. Be sure your family and friends clean their hands before and after visiting you. Do not be afraid to remind them. * Care for your wound at home as told by your doctor or nurse * Call your doctor right away if you have fever, redness, increased pain, or drainage at the surgery site. Further questions? Contact the doctor, nurse or the Infection Prevention and Control department if you have any questions. PATIENT RIGHTS AND RESPONSIBILITIES As a patient at [facility], you have the right to: Receive medical care and be informed of who is taking care of you Be treated with dignity and respect Have a family member/front desk representative of choice and your physician notified of your admission Receive information and actively participate in decisions about your care and treatment Refuse care, treatment and services Decide who may provide your support and speak for you Access latter-day and spiritual services Participate in ethical issues and questions about your care Receive private and confidential care Have appropriate assessment and management of your pain Know guest visitation restrictions or limitations Have an advance directive Access protective services Consent or refuse to participate in research studies or production or recordings, films or other images Have resolution of your complaints Receive information of hospital charges and payment methods Patient/patient front desk representative responsibilities are to: Provide information about health status to facilitate care, treatment and services Follow the treatment, plan, keep appointments and speak up when you do not understand the plan Respect the rights of other patients and healthcare personnel Follow organizational rules and regulations that support quality care and a safe environment Fulfill financial obligations as promptly as possible documented in this encounter[facility] Miscellaneous Notes* Telephone Encounter - Rosibel Funez CMA - 05/16/2024 10:28 AM EDT Patient is scheduled for a prostatectomy and said pain med wants to do a steroid injection in his SI joints on 05/30. He said he was told he might want to check to make sure there are now contraindications with the surgery and the injection. * Telephone Encounter - Leslie Barillas MD - 05/16/2024 10:28 AM EDT No that is fine. * Telephone Encounter - Rosibel Funez CMA - 05/16/2024 10:28 AM EDT Patient informed documented in this encounterEast [facility]08-27-[facility]24 Telephone encounter Note* Telephone Encounter - Rosibel Funez CMA - 05/16/2024 10:28 AM EDT Patient is scheduled for a prostatectomy and said pain med wants to do a steroid injection in his SI joints on 05/30. He said he was told he might want to check to make sure there are now contraindications with the surgery and the injection. [facility] Telephone encounter Note* Telephone Encounter - Leslie Barillas MD - 05/16/2024 10:28 AM EDT No that is fine. [facility]-27-[facility] Telephone encounter Note* Telephone Encounter - Rosibel Funez CMA - 05/16/2024 10:28 AM EDT Patient informed [facility]07-24-[facility] Miscellaneous Notes* Telephone Encounter - Suzanne Chavez - 2024 10:18 AM EDT PATIENT CALLED TO SCHEDULE A DAVINCI SIMPLE PROSTATECTOMY IN SEPT BETWEEN HIS SPOUSE'S SURGERIES. IHAVE SCHEDULED FOLLOWS: PAT- 05/25/2024 AT 11AM SURG AT TT- 06/08/2024 PATIENT TO ARRIVE AT 930AM. WENT OVER INSTRUCTIONS. LETTER TO PATIENT INTO MY CHART. DR BARILLAS: SEEMA. PLEASE ADVISE IF THIS IS CORRECT ORDER THANK YOU documented in this encounterEast [facility]07-24-2024 Telephone encounter Note* Telephone Encounter - Suzanne Chavez - 2024 10:18 AM EDT PATIENT CALLED TO SCHEDULE A DAVINCI SIMPLE PROSTATECTOMY IN SEPT BETWEEN HIS SPOUSE'S SURGERIES. IHAVE SCHEDULED FOLLOWS: PAT- 05/25/2024 AT 11AM SURG AT TT- 06/08/2024 PATIENT TO ARRIVE AT 930AM. WENT OVER INSTRUCTIONS. LETTER TO PATIENT INTO MY CHART. DR BARILLAS: SEEMA. PLEASE ADVISE IF THIS IS CORRECT ORDER THANK YOU [facility]07-10-[facility]24 History of Present illness Narrative* Leslie Barillas MD - 03/29/2024 10:15 AM EDT Images from the original note were not included. [id number] [facility] [id number] Patient: Amber Henson Date of : 1955 Encounter Date: 03/29/2024 History of Present Illness: Chief Complaint: BPH The patient is a 69 y.o. male, an established patient, and is here for follow-up of BPH. Patient previously underwent local cystoscopy on 02/01/2024 revealing trilobar BPH with significant lateral lobe obstruction and small intravesical component. He did have significant bladder dysfunction on evaluation with previous CT scan of the lumbar spine on 04/14/2023 showing prostate volume over 100 mL putting him in the largest category of prostate volume. His is currently going through surgical planning for breast reconstruction after mastectomy. He is interested in surgical treatment due to having significant lower urinary tract symptoms despite pharmacologic therapy. I discussed with the patient that based on the most recent AUA guidelines (2020), he meets criteriafor surgical management of lower urinary tract symptoms/obstruction secondary to BPH. These criteria include renal insufficiency secondary to BPH, refractory urinary retention secondary to BPH, recurrent urinary tract infections (UTIs), recurrent bladder stones or gross hematuria due to BPH, and/orpatients with LUTS refractory to or unwilling to use other therapies. I also did discuss the etiology and natural course of outlet obstruction including progressive bladder dysfunction and deterioration. The various treatment options offered for surgical management include: Transurethral incision of prostate (TUIP): TUIP is a minimally invasive option for patients with prostates ?30cc for the surgical treatment ofBPH/LUTS, patients with primary bladder neck obstruction, and patients who desire to preserve sexual function, particularly antegrade ejaculation, either through a unilateral or bilateral approach. The specific risks of infection, bleeding, damage to surrounding structures including the bladder, ureteral orifices, and external rhabdosphincter causing stress urinary incontinence, scarring/stricture, need for reoperation, and risks related to general or spinal anesthesia including but not limitedto VTE, cardiopulmonary events, and were discussed. The need for temporary postoperative gracie terization 24-72 hours was discussed. Prostatic urethral lift (PUL): PUL is a minimally invasive treatment option for patients with BPH/LUTS provided prostate volume 30-80cc and ideally with an absence of an obstructive median lobe. I discussed the minimal impact on sexual function, particularly antegrade ejaculation and erectile function, with this approach. Specifically, I discussed the at least 5 year durability of this procedure, usually obviating the need for postoperative catheterization, and early return to activity. I also discussed the utility in patients who have undergone radiation or who have bradykinesia secondary to Parkinson's disease to reduce the risk of stress urinary incontinence. The specific risks of infection, bleeding, damage to surrounding structures including the bladder, need for future outlet procedure, and risks related to monitor anesthesia including but not limited to VTE, cardiopulmonary events, and were discussed. Transurethral resection of the prostate (TURP): TURP is a minimally invasive treatment option for patients with BPH/LUTS with prostate volume 30-80+cc and is useful for patients with obstructive median lobes. This procedure can be performed in a staged manner for larger prostates. The specific risks of infection, bleeding with 1% risk of transfusion, damage to surrounding structures including the bladder, ureteral orifices, and external rhabdosphincter causing stress urinary incontinence, erectile dysfunction, scarring/stricture, need for reoperation, expected outcome of retrograde ejaculation, discovery of incidental prostate cancer, and risks related to general or spinal anesthesia including but not limited to VTE, cardiopulmonary events, and were discussed. I did discuss the need for temporary postoperative catheterization ric20-01 hours and the 4-6 week postoperative course and restrictions during which time I would likelyutilize finasteride, a 5-MERCEDES, to reduce bleeding risks postoperatively. GreenLight photovaporization of the prostate (PVP): PVP is a minimally invasive treatment option for patients with BPH/LUTS with prostate volume 30-80+cc and is useful for patients with obstructive median lobes. This procedure is useful for patients who are anticoagulated or are at otherwise high risk for bleeding postoperatively. The specific risksof infection, bleeding, damage to surrounding structures including the bladder, ureteral orifices, and external rhabdosphincter causing stress urinary incontinence, erectile dysfunction, scarring/stricture, need for reoperation, expected outcome of retrograde ejaculation, and risks related to general or spinal anesthesia including but not limited to VTE, cardiopulmonary events, and were discussed. I did discuss the need for temporary postoperative catheterization for 24-72 hours and the 4-8 week postoperative course with some irritative lower urinary tract symptoms, and restrictions during which time I would likely utilize finasteride, a 5-MERCEDES, to reduce bleeding risks postoperatively. Robotic-assisted laparoscopic simple prostatectomy (RASP): RASP is a minimally invasive treatment option for patients with BPH/LUTS with prostate volume 80+ cc and is useful for patients with obstructive median lobes and potentially for patients with large bladder stones or bladder diverticulae. This procedure provides the highest durability with significant improvements in voiding postoperatively at the cost of being a more invasive abdominal surgery. The specific risks of infection, bleeding with 1% risk of transfusion, damage to surrounding structures including bowel, major neurovascular structures, ureteral orifices, rectum and external rhabdosphincter causing stress urinary incontinence, erectile dysfunction, scarring/stricture, need for reoperation, expected outcome of retrograde ejaculation, discovery of incidental prostate cancer, and risks related to general anesthesia including but not limited to VTE, cardiopulmonary events, and deathwere discussed. I did discuss the need for temporary postoperative catheterization for 7-10 days and the 4-6 week postoperative course and restrictions. After discussion of all relevant management options, prostate volume and anatomical considerations,and specific patient characteristics and preferences, patient would like to proceed with robotic simple prostatectomy. I will plan to schedule him in between his 's surgeries as desired. He will also follow up in June for stone disease. Patient expressed understanding of plan of care. All questions were answered to satisfaction. I will plan to schedule the patient for the procedure at their convenience. High MDM due to chronic condition with exacerbation (worsening urinary tract symptomsdespite medication), record review x2, labs and tests ordered and reviewed x2 with plans for major operative intervention under general anesthesia. Please note that I am providing longitudinal care for a specific serious/complex urologic condition that I am assuming responsibility for (modifier [id number]). UA: tr blo PVR: 16 mL Summary of old records: Previous office note and operative note reviewed Urinalysis today: No results for input(s): EXTPOCURCO , EXTPOCURCH , EXTPOCAPP , EXTPOCURBS , EXTPOCURBIL , EXTPOCUKET , EXTPOCUSPG , EXTPOCUHGB , EXTPOCUPRO , EXTPOCUURO , EXTPOCULEU , EXTPOCUNIT , EXTPOCUWBC , EXTPOCUBLD , EXTPOCURBC , EXTPOCUCRY , EXTPOCUBAC , EXTPOCUTREP , EXTPOCUPH , EXTPOCUL EE in the last 72 hours. Last BUN and creatinine: Lab Results Component Value Date BUN 21 08/07/2020 Lab Results Component Value Date CREATININE 1.00 08/07/2020 Last PSA: Lab Results Component Value Date PSA 3.49 09/17/2022 PSA 3.28 12/27/2018 Lab Results Component Value Date PROSTATICSP 2.71 08/07/2020 Additional Lab/Culture results: None Imaging Reviewed during this Office Visit: None (Results were independently reviewed by physician and radiology report verified) Past Medical, Family, and Social History Update: The following portions of the patient's history were reviewed and updated as appropriate: allergies, current medications, past family history, past medical history, past social history, past surgicalhistory and problem list. Past Medical History: Diagnosis [...] side of head near ear- benign CYSTOSCOPY N/A 02/01/2024 Performed by Leslie Barillas MD at [facility] CYSTOSCOPY FLEXIBLE N/A 07/04/2018 Performed by Yuri Gomez MD at [facility] CYSTOSCOPY HOLMIUM LASER URETEROSCOPY Left 08/14/2020 Performed by Yuri Gomez MD at [facility] CYSTOSCOPY INSERTION STENT Left 08/14/2020 Performed by Yuri Gomez MD at [facility] CYSTOSCOPY REMOVAL STENT Left 08/19/2020 Performed by Yuri Gomez MD at [facility] CYSTOSCOPY W/ LASER LITHOTRIPSY EGD, DILATATION and biopsy N/A 07/25/2020 Performed by Antione Marin MD at [facility] ENDOSCOPY ESOPHAGOSCOPY / EGD with dilation HERNIA REPAIR 1980s left inguinal KNEE ARTHROSCOPY WITH SUBTOTAL MEDIAL MENISECTOMY, MEDIAL FEMORAL CONDYLE CHONDROPLASTY, PATELLA CHONDROPLASTY Right 02/05/2023 Performed by Edgardo Estrada MD at [facility] LASER REPAIR RETINOL TEAR JERO Bilateral 04/21/2017 Performed by Kasia Pepper MD at [facility] SURGERY LITHOTRIPSY Left 08/29/2018 Performed by Yuri Gomez MD at [facility] LITHOTRIPSY Left 07/04/2018 Performed by Yuri Gomez MD at [facility] SURGERY SKIN BIOPSY right side of face- benign [...] total) by mouth every 6 (six) hours asneeded for pain. amLODIPine (NORVASC) 5 mg tablet [...] BY MOUTH TWICE A DAY BEFORE MEALS (Patient taking differently: Take 1 tablet (25 mg total) by mouth daily.) 180 tablet 4 losartan (COZAAR) 50 mg tablet Take 1 tablet (50 mg total) by mouth in the morning. 3 zuqgjnei-qpcp-PT-calcium &mins (THERAGRAN-M) 9 mg iron-400 mcg tablet Take 1 tablet by mouth inthe morning. omeprazole (PriLOSEC OTC) 20 mg tablet,delayed release (DR/EC) TAKE 1 TABLET BY MOUTH EVERY MORNINGBEFORE BREAKFAST. (Patient taking differently: Take 1 tablet (20 mg total) by mouth every morning before breakfast.) 28 tablet 5 ondansetron (ZOFRAN) 4 mg tablet Take 1 tablet (4 mg total) by mouth every 8 (eight) hours as needed for nausea or vomiting. oxyCODONE (ROXICODONE) 5 mg immediate release tablet Take 1 tablet (5 mg total) by mouth every 6 (six) hours as needed. potassium citrate (UROCIT-K) 10 mEq (1,080 mg) CR tablet TAKE 1 TABLET BY MOUTH IN THE MORNING AND IN THE EVENING WITH MEALS 180 tablet 0 tamsulosin (FLOMAX) 0.4 mg capsule Take 1 capsule (0.4 mg total) by mouth in the morning. No current facility-administered medications for this visit. [...] vomitting. -per HPI Physical Exam: BP (!) 127/93 Pulse 89 Ht 177.8 cm (5' 10 ) Wt 101.2 kg (223 lb) BMI 32.00 kg/m General: Alert, well appearing, and in no distress Integumentary: Normal coloration of skin, normal skin moisture Chest and lung exam: quiet, even and easy respiratory effort with no use of accessory muscles Neurologic: Normal coordination, normal gait Assessment and Plan: Amber was seen today for follow-up. Diagnoses and all orders for this visit: Calculus of kidney - Measure post void residual - POCT Urinalysis Auto, W/O Microscopy Benign prostatic hyperplasia with urinary frequency Problem List Genitourinary Calculus of kidney - Primary Overview 04/13/23: Hx ca ox stone disease w/ hypercalciuria s/p L URS/HLL 08/14/20 100% ca ox mono; ERV [place] 04/08/23 - R low back, hx spinal [...] dec Na, F/U 6 mo KUB/LL/BMP Relevant Orders Measure post void residual (Completed) POCT Urinalysis Auto, W/O Microscopy (Completed) Other Benign prostatic hyperplasia with urinary frequency Overview 04/13/23: AUA-SS 12/3 (on Flomax 0.4 mg qd), PSA 3.71 (01/18/23) Cr 1.00 (04/08/23), PVR 0 mL; FHx bladder ca (father); JEREMY 50+g benign; cysto 08/14/20 (EP) - TL- BPH/large IPE - will monitor for now 12/22/23: AUA 14/4 (urg), bothered despite Flomax - plan local cysto, get outside CT images 02/01/24: Cysto - TL-BPH (small IPE), sig lat lobes; G2-3 trab/DTM; CT-L/WOC - prost vol >100 mL (04/14/23) 03/29/24: Discussed options - plan RASP Follow-up: For robotic simple prostatectomy LESLIE BARILLAS MD This note was created with the assistance of a speech recognition program. While intending to generate a timely document that accurately reflects the content of the visit, no guarantee can be provided that every grammatical or spelling mistake has been or will be identified or corrected. Thank you for your understanding. documented [facility] Miscellaneous Notes* Telephone Encounter - Rosibel Kurtz RN - 03/22/2024 2:40 PM EDT Patient was seen in office by Dr. Barillas on 12/22/23. Patient was to have a 6 mo follow up with repeat Litholink and KUB. Patient scheduled his appointment for 03/29/24 (3 months) because his has same day appointment. Does patient need to reschedule for June with testing as ordered or can he be seen on 03/29/24? If he is to keep his upcoming appointment, do you want him to have this testing done prior to said appointment or wait until June? Please advise. documented in this encounterEast [facility]24 Telephone encounter Note* Telephone Encounter - Rosibel Kurtz RN - 03/22/2024 2:40 PM EDT Patient was seen in office by Dr. Barillas on 12/22/23. Patient was to have a 6 mo follow up with repeat Litholink and KUB. Patient scheduled his appointment for 03/29/24 (3 months) because his has same day appointment. Does patient need to reschedule for June with testing as ordered or can he be seen on 03/29/24? If he is to keep his upcoming appointment, do you want him to have this testing done prior to said appointment or wait until June? Please advise. [facility] History of Present illness Narrative* Kasia Pepper MD - 02/11/2024 8:00 AM EDT Amber Kelleypinky Narayan had concerns including Retinal tear of left eye. HPI Patient here for a yr follow up. Patient says his vision has been stable since his last visit. He denies any change in floaters, any flashes or any discomfort. He denies using any ocular drops. Last edited by Dorinda Good on 02/11/2024 7:52 AM. ROS Positive for: Genitourinary, Cardiovascular Negative for: Constitutional, Gastrointestinal, Neurological, Skin, Musculoskeletal, HENT, Endocrine, Eyes, Respiratory, Psychiatric, Allergic/Imm, Heme/Lymph Last edited by Dorinda Good on 02/11/2024 7:52 AM. No current outpatient medications on file. (Ophthalmic Drugs) No current facility-administered medications for this visit. (Ophthalmic Drugs) Current Outpatient Medications (Other) Medication Sig acetaminophen (TYLENOL) 325 mg tablet Take 2 tablets (650 mg total) by mouth every 6 (six) hours asneeded for pain. amLODIPine (NORVASC) 5 mg tablet [...] BY MOUTH TWICE A DAY BEFORE MEALS (Patient taking differently: Take 1 tablet (25 mg total) by mouth daily.) losartan (COZAAR) 50 mg tablet Take 1 tablet (50 mg total) by mouth in the morning. kmqyeplq-tvem-NI-calcium &mins (THERAGRAN-M) 9 mg iron-400 mcg tablet Take 1 tablet by mouth inthe morning. omeprazole (PriLOSEC OTC) 20 mg tablet,delayed release (DR/EC) TAKE 1 TABLET BY MOUTH EVERY MORNINGBEFORE BREAKFAST. (Patient taking differently: Take 1 tablet (20 mg total) by mouth every morning before breakfast.) ondansetron (ZOFRAN) 4 mg tablet Take 1 tablet (4 mg total) by mouth every 8 (eight) hours as needed for nausea or vomiting. oxyCODONE (ROXICODONE) 5 mg immediate release tablet Take 1 tablet (5 mg total) by mouth every 6 (six) hours as needed. potassium citrate (UROCIT-K) 10 mEq (1,080 mg) CR tablet Take 1 tablet (10 mEq total) by mouth in the morning and 1 tablet (10 mEq total) in the evening. Take with meals. tamsulosin (FLOMAX) 0.4 mg capsule Take 1 capsule (0.4 mg total) by mouth in the morning. No current facility-administered medications for this visit. (Other) Social History Socioeconomic History Marital status: Spouse name: Not on file Number of children: Not on file Years of education: Not on file Highest education level: Not on file Occupational History Not on file Tobacco Use Smoking status: Never Smokeless tobacco: Never Vaping Use Vaping status: Never Used Substance and Sexual Activity Alcohol use: Yes Comment: OCC Drug use: No Sexual activity: Defer Other Topics Concern Not on file Social History Narrative Not on file Social Determinants of Health Financial Resource Strain: Not on file Food Insecurity: No Food Insecurity (04/13/2023) Hunger Screening Food Insecurity - Worry: Never True Food Insecurity - Inability: Never True Transportation Needs: Not on file Physical Activity: Not on file Stress: Not on file Social Connections: Not on file Interpersonal Safety: Not on file Housing Instability: Not on file Family History Problem Relation Age of Onset Cancer Mother ovarian Cancer Father bladder Heart disease Father Hypertension Father No Known Problems Brother No Known Problems Brother Macular degeneration Neg Hx Diabetes Neg Hx Cataracts Neg Hx Glaucoma Neg Hx Anesthesia problems Neg Hx Mr. Henson has a past medical history of Arthritis, Benign headache, Fatty liver, GERD (gastroesophageal reflux disease), HL (hearing loss), HTN (hypertension), detached retina repair (04/2017), Hyperlipidemia, Kidney stone on left side, Pneumonia (), Visual floaters, and Visual impairment. He has a past surgical history that includes Colonoscopy; Cystoscopy w/ laser lithotripsy; Esophagoscopy / EGD; Cyst Removal; Extracorporeal shock wave lithotripsy (Left, 07/04/2018); Cystoscopy (N/A, 07/04/2018); Extracorporeal shock wave lithotripsy (Left, 08/29/2018); Esophagogastroduodenoscopy (N/A, 07/25/2020); Eye surgery (Bilateral, 04/21/2017); Hernia repair (); Skin biopsy; Cystourethroscopy (Left, 08/14/2020); Cystoscopy w/ ureteral stent placement (Left, 08/14/2020); Cystoscopy w/ ureteral stent removal (Left, 08/19/2020); Knee arthroscopy w/ meniscectomy (Right, 02/05/2023); and Cystoscopy (N/A, 02/01/2024). Base Eye Exam Visual Acuity (Snellen - Linear) Right Left Dist cc 20/20 -1 20/20 -1 Correction: Glasses Tonometry (Tonopen, 7:57 AM) Right Left Pressure 17 14 Pupils Pupils Right PERRL Left PERRL Visual Packer (Counting fingers) Right Left Full Full Extraocular Movement Right Left Full Full Neuro/Psych Oriented x3: Yes Mood/Affect: Normal Dilation Both eyes: 1.0% Tropicamide, 2.5% Phenylephrine Hydrochloride @ 7:57 AM Slit Lamp and Fundus Exam External Exam Right Left External Normal Normal Slit Lamp Exam Right Left Lids/Lashes Meibomian gland dysfunction Meibomian gland dysfunction Conjunctiva/Sclera White and quiet White and quiet Cornea Clear Clear Anterior Chamber Deep and quiet Deep and quiet Iris Round and reactive Round and reactive Lens 1+ Nuclear sclerosis 1+ Nuclear sclerosis Fundus Exam Right Left Vitreous Posterior vitreous detachment Posterior vitreous detachment, floaters Disc Normal Normal C/D Ratio 0.2 0.2 Macula Normal Normal Vessels Normal Normal Periphery Inferior laser, vitreoretinal tuft inferior Supratemporal laser Refraction Wearing Rx Age: 3yrs Diagnosis 1. Retinal tear of left eye 2. Lattice degeneration of retina, right 3. Nuclear sclerotic cataract of both eyes 4. Posterior vitreous detachment of both eyes 5. Photopsia of right eye ASSESSMENT/PLAN 1. Retinal tear of left eye LEFT EYE- s/p RTR 04-21-17 -Observation 2. Lattice degeneration of retina, right RIGHT EYE- s/p RTR prophylaxis 04-21-17 - No additional tears noted. 3. Nuclear sclerotic cataract of both eyes BOTH EYES- stable. -Nuclear sclerotic cataract noted on examination. -Visual requirement for cataract surgery: (-) -Continue observation. 4. Posterior vitreous detachment of both eyes BOTH EYES- no holes or tears noted. - Vitreous opacity noted on exam -Patient instructed to return sooner if any visual changes are noted. -The patient was made aware signs and symptoms of retinal tear. - Recommend observation 5. Photopsia of right eye RIGHT EYE - Observation Patient Education: Questions were encouraged to stated satisfaction from the patient. Discussed with patient that failure to follow up as recommended (appointment time, onset of new ocular symptoms) can lead to permanent loss of vision and/or blindness. Patient understands and agrees. Return Visit: 1 year DFE OU Physician: Kasia Pepper MD Scribe: EDMUNDO Hazel Scribe Statement: Scribed for and in the presence of Kasia Pepper MD by EDMUNDO Hazel I, Kasia Pepper MD personally performed the services described in the documentation, as scribed by Juanita WYATT in my presence, and it is both accurate and complete. documented in this encounter[facility]05-[facility]24 Miscellaneous Notes* Telephone Encounter - Leslie Barillas MD - 02/01/2024 9:59 AM EDT Patient had cysto today. Please have him follow up with me in 3 months in the office. Thank you. documented in [facility] encounter[facility]05-14-[facility]24 Telephone encounter Note* Telephone Encounter - Leslie Barillas MD - 02/01/2024 9:59 AM EDT Patient had cysto today. Please have him follow up with me in 3 months in the office. Thank you. [facility]04-03-[facility] History of Present illness Narrative* Leslie Barillas MD - 12/22/2023 8:30 AM EDT Images from the original note were not included. [address] [facility] [id number] Patient: Amber Henson Date of : 1955 Encounter Date: 12/22/2023 History of Present Illness: Chief Complaint: FOLLOW UP 6 MO LITHOLINK The patient is a 68 y.o. male, an established patient, and is here for kidney stones, BPH. Previousoffice note x1 reviewed. Patient presents today for follow- up of BPH and kidney stones. He denies [...] 632 (BL), UpH 5.98, UUa 0.936 (H), [id number] (H). Based on this, his urinary volume is still significantly low and I did advise him to increase his fluids as well as add lemon juice or other citric acid containing foods/compounds to increase citrateload which is still borderline low. His urinary calcium remains quite elevated and we will stop hiscalcium citrate supplement and after discussion of risks [...] images from previous CT scan obtained at [facility] for stone disease to measure the [...] plans for diagnostic/operative evaluation. AUA-SS: 01/01 (urg) EEDNILSON: 15 Summary of old records: OPV 06/16/23: [...] reduce his added salt to reduce his riskof stones as well as make his medication more efficacious. He does not need a refill at this time. I also advised to increase his fluids so that he has 2.5 L at least of urinary volume per day and add lemon as well as a calcium citrate supplement to increase his citrate load to prevent future stoneepisodes. I will plan to have the patient follow back up with a KUB in 6 months as well as a Litholink. Patient agrees with plan of care and all questions were answered to satisfaction. Moderate MDM due to chronic condition addressed with exacerbation, record reviewed x1, labs and tests ordered andreviewed x3 with pharmacologic management. Urinalysis today: No results for input(s): EXTPOCURCO , EXTPOCURCH , EXTPOCAPP , EXTPOCURBS , EXTPOCURBIL , EXTPOCUKET , EXTPOCUSPG , EXTPOCUHGB , EXTPOCUPRO , EXTPOCUURO , EXTPOCULEU , EXTPOCUNIT , EXTPOCUWBC , EXTPOCUBLD , EXTPOCURBC , EXTPOCUCRY , EXTPOCUBAC , EXTPOCUTREP , EXTPOCUPH , EXTPOCUL EE in the last 72 hours. Last BUN [...] past medical history, past social history, past surgicalhistory and problem list. Past Medical History: Diagnosis [...] 07/04/2018 Performed by Yuri Gomez MD at [facility] CYSTOSCOPY HOLMIUM LASER URETEROSCOPY Left 08/14/2020 Performed by Yuri Gomez MD at [facility] CYSTOSCOPY INSERTION STENT Left 08/14/2020 Performed by Yuri Gomez MD at [facility] CYSTOSCOPY REMOVAL STENT Left 08/19/2020 Performed by Yuri Gomez MD at [facility] CYSTOSCOPY W/ LASER LITHOTRIPSY EGD, DILATATION and biopsy N/A 07/25/2020 Performed by Antione Marin MD at [facility] ENDOSCOPY ESOPHAGOSCOPY / EGD with dilation HERNIA REPAIR 1980s left inguinal KNEE ARTHROSCOPY WITH SUBTOTAL MEDIAL MENISECTOMY, MEDIAL FEMORAL CONDYLE CHONDROPLASTY, PATELLA CHONDROPLASTY Right 02/05/2023 Performed by Edgardo Estrada MD at [facility] LASER REPAIR RETINOL TEAR JERO Bilateral 04/21/2017 Performed by Kasia Pepper MD at [facility] SURGERY LITHOTRIPSY Left 08/29/2018 Performed by Yuri Gomez MD at [facility] LITHOTRIPSY Left 07/04/2018 Performed by Yuri Gomez MD at [facility] SKIN BIOPSY right side of face- [...] total) by mouth every 6 (six) hours asneeded for pain. amLODIPine (NORVASC) 5 mg tablet [...] total) by mouth in the morning. 3 cgovhevd-tjvt-JA-calcium &mins (THERAGRAN-M) 9 mg iron-400 mcg tablet Take 1 tablet by mouth inthe morning. omeprazole (PriLOSEC OTC) 20 mg tablet,delayed release (DR/EC) TAKE 1 TABLET BY MOUTH EVERY MORNINGBEFORE BREAKFAST. 28 tablet 5 ondansetron (ZOFRAN) 4 [...] tablet by mouth every 6 (six) hours asneeded for pain for up to 20 doses. [...] URS/HLL 08/14/20 100% ca ox mono; ERV [place] 04/08/23 - R low back, hx spinal [...] JEREMY 50+g benign; cysto 08/14/20 (EP) - TL- BPH/large IPE - will monitor for now 12/22/23: [...] you for your understanding. documented in this encounterEast [facility]02-[facility] Evaluation note* Encounter Date Diagnosis Assessment Notes Treatment Notes Treatment Clinical Notes Oct, Lumbosacral spondylosis with radiculopathy (ICD-10 - M47.27) Pager Other 01-19-2024 Evaluation note* Encounter Date Diagnosis [...] report is being monitored every 90 days. Pager Other 12-04-2023 Evaluation note* Encounter Date Diagnosis Assessment Notes Treatment Notes Treatment Clinical Notes Aug, Lumbosacral spondylosis with radiculopathy (ICD-10 - M47.27) Pager Other 11-30-2023 Evaluation note* Encounter Date Diagnosis [...] (ICD-10 - G89.29) Follow up after procedure. Pager Other 10-19-2023 Evaluation note* Encounter Date Diagnosis [...] index [BMI] 32.0-32.9, adult (ICD-10 - Z68.32) Pager Other 09-19-2023 Evaluation note* Encounter Date Diagnosis Assessment Notes Treatment Notes Treatment Clinical Notes May, Lumbar spondylosis (ICD-10 - M47.816) Pager Other 08-28-2023 Evaluation note* Encounter Date Diagnosis [...] - M48.062) Continue with current treatment plan. Pager Other 08-21-2023 Evaluation note* Encounter Date Diagnosis Assessment Notes Treatment Notes Treatment Clinical Notes Apr, Lumbar spondylosis (ICD-10 - M47.816) Pager Other 08-08-2023 Evaluation note* Encounter Date Diagnosis Assessment Notes Treatment Notes Treatment Clinical Notes Apr, Lumbar degenerative disc disease (ICD-10 - M51.36) Pager Other 08-07-2023 Evaluation note* Encounter Date Diagnosis [...] stenosis with neurogenic claudication (ICD-10 - M48.062) Pager Other 08-04-2023 Evaluation note* Encounter Date Diagnosis Assessment Notes Treatment Notes Treatment Clinical Notes Apr, Lumbar spondylosis (ICD-10 - M47.816) Pager Other 08-03-2023 Evaluation note* Encounter Date Diagnosis Assessment Notes Treatment Notes Treatment Clinical Notes Apr, Liver mass (ICD-10 - R16.0) Pager Other 07-28-2023 Evaluation note* Encounter Date Diagnosis [...] in so much pain Goal < 140/90 Pager Other 07-03-2023 Evaluation note* Encounter Date Diagnosis [...] They may safely use Tylenol as needed. Pager Other 06-02-2023 Evaluation note* Encounter Date Diagnosis Assessment Notes Treatment Notes Treatment Clinical Notes Feb, Lumbosacral spondylosis with radiculopathy (ICD-10 - M47.27) Pager Other 05-02-2023 Evaluation note* Encounter Date Diagnosis Assessment Notes Treatment Notes Treatment Clinical Notes January, Hyperlipidemia type II (ICD-10 - E78.01) Pager Other 04-17-2023 Evaluation note* Encounter Date Diagnosis [...] (ICD-10 - Z12.5) Yearly JEREMY and PSA Pager Other 04-06-2023 Evaluation note* Encounter Date Diagnosis [...] call the office if his symptoms worsen. Pager Other 03-17-2023 Evaluation note* Encounter Date Diagnosis [...] - G89.29) Continue with current treatment plan Pager Other 03-15-2023 Evaluation note* Encounter Date Diagnosis Assessment Notes Treatment Notes Treatment Clinical Notes Nov, Lumbosacral spondylosis with radiculopathy (ICD-10 - M47.27) Pager Other 03-07-2023 Evaluation note* Encounter Date Diagnosis [...] - G89.29) Continue with current treatment plan Pager Other 07-28-2022 Evaluation note* Encounter Date Diagnosis [...] Mar, Left lumbar radiculopathy (ICD-10 - M54.16) Pager Other 06-16-2022 Evaluation note* Encounter Date Diagnosis [...] Feb, Chronic pain (ICD-10 - G89.29) Stable. 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 Pain significantly increased approx. 2 years ago [...] negative findings were considered in medical decision-making. Pager Other 05-24-2022 Evaluation note* Encounter Date Diagnosis [...] of left sacroiliac joint (ICD-10 - M46.1) [facility] [employer] Other evaluation noteNo InformationNortLehigh [facility] [address] [employer] Other Evaluation note* Diagnosis Onset Date Resolution Status Chronic pain acute Lumbar degenerative disc disease acute Lumbar radiculopathy acute [facility] Work Phone: Evaluation note* Diagnosis Onset Date Resolution Status Chronic pain acute Lumbar degenerative disc disease acute Lumbar radiculopathy acute Lumbar spondylosis acute [facility] Work Phone: Evaluation note* Diagnosis Onset Date Resolution Status Chronic pain acute Lumbar degenerative disc disease acute Lumbar radiculopathy acute Lumbar spondylosis acute Chronic pain acute Lumbar radiculopathy acute Lumbosacral spondylosis acut e [facility] Work Phone: Evaluation note* Diagnosis Onset Date Resolution Status Chronic pain acute Lumbar degenerative disc disease acute Lumbar radiculopathy acute Lumbar spondylosis acute Chronic pain acute Lumbar radiculopathy acute Lumbosacral spondylosis acut e Essential hypertension acute Hypercholesterolemia acute Lumbar spondylosis acute Obesity acute Opiate analgesic use agreement exists acute Screening PSA (prostate specific antigen) acute Medicare annual wellness visit, subsequent noneactive [facility] Work Phone: Evaluation note* Diagnosis Onset Date Resolution Status Chronic pain acute Lumbar radiculopathy acute Lumbosacral spondylosis acut e Essential hypertension acute Hypercholesterolemia acute Lumbar spondylosis acute Obesity acute Opiate analgesic use agreement exists acute Screening PSA (prostate specific antigen) acute Medicare annual wellness visit, subsequent noneactive Chronic pain acute Lumbar radiculopathy acute Lumbosacral spondylosis acut e [facility] Work Phone: Evaluation note* Diagnosis Onset Date Resolution Status Essential hypertension acute Hypercholesterolemia acute Lumbar spondylosis acute Obesity acute Opiate analgesic use agreement exists acute Screening PSA (prostate specific antigen) acute Medicare annual wellness visit, subsequent noneactive Chronic pain acute Lumbar radiculopathy acute Lumbosacral spondylosis acut e Chronic pain acute Lumbar radiculopathy acute Lumbosacral spondylosis acut e Sacroiliitis acute [facility] Work Phone: Evaluation note* Diagnosis Onset [...] acute Opiate analgesic use agreement exists acute [facility] Work Phone: Evaluation note* Diagnosis Onset Date Resolution Status Chronic pain acute Lumbar radiculopathy acute Lumbosacral spondylosis acut e Chronic pain acute Lumbar radiculopathy acute Lumbosacral spondylosis acut e Sacroiliitis acute Essential hypertension acute Hypercholesterolemia acute Lumbar spondylosis acute Obesity acute Opiate analgesic use agreement exists acute Chronic pain acute Lumbar radiculopathy acute Lumbosacral spondylosis acut e Sacroiliitis acute [facility] Work Phone: Evaluation note* Diagnosis Onset [...] acute Lumbar stenosis without neurogenic claudication acute [facility] Work Phone: Evaluation note* Diagnosis Onset [...] acute Lumbosacral spondylosis acut e Sacroiliitis acute [facility] Work Phone: Evaluation note* Diagnosis Benign prostatic hyperplasia with urinary frequency- Primary [facility] Diagnosis Retinal tear of left eye- Primary Lattice degeneration of retina, right Lattice degeneration of peripheral retina Nuclear sclerotic cataract of both eyes Senile nuclear sclerosis Posterior vitreous detachment of both eyes Vitreous degeneration Photopsia of right eye [facility] Diagnosis Calculus of kidney- Primary Benign prostatic hyperplasia with urinary frequency Benign prostatic hyperplasia with urinary frequency [facility]* Diagnosis Calculus of kidney- Primary Benign prostatic hyperplasia with urinary frequency documented [facility]* Diagnosis Benign prostatic hyperplasia with urinary frequency- Primary documented in [facility]* Diagnosis Preop testing- Primary Unspecified pre-operative examination Benign prostatic hyperplasia with urinary frequency Benign prostatic hyperplasia with urinary frequency documented [facility]* Diagnosis Calculus of kidney- Primary Benign prostatic hyperplasia with urinary frequency documented [facility] encounter [facility]* Diagnosis Calculus of kidney- Primary Benign prostatic hyperplasia with urinary frequency documented [facility]* Diagnosis Retinal tear of left eye- Primary Posterior vitreous detachment of both eyes Vitreous degeneration Nuclear sclerotic cataract of both eyes Senile nuclear sclerosis Lattice degeneration of retina, right Lattice degeneration of peripheral retina Photopsia of right eye Retinal tear of left eye documented in [facility] encounter [facility]* Diagnosis Retinal tear of left eye [facility] Diagnosis Benign prostatic hyperplasia with urinary frequency- Primary Calculus of kidney [facility] N[facility]ative - Reported* Type Description Date Medical History hypertension Medical History hypercholesterolemia Surgical History inguinal hernia repair Surgical History lithotripsy Surgical History EGD Surgical History eyes Surgical History ureteral stent placement Hospitalization History See Above Pager Other History general Narrative - Reported* Type Description [...] ureteral stent placement Hospitalization History See Above Pager Other History general Narrative - Reported* Type Description [...] knee arthroscopy 01/2023 Hospitalization History See Above Pager Other Hospital Discharge instructionsAmbulatory Orders* Referral to Neurosurgery Location: None Selected [facility] Work Phone: InstructionsNot on filedocumented in this encounter [facility]ructionsNot on filedocumented in this encounter [facility] SystemInstructionsNot on filedocumented in this encounter [facility]* Attachments The following attachments cannot be sent through Care Everywhere. * How to Care for Your Eyes (Belgian) documented in this encounterProMedica Health SystemInstructionsNot on file documented in this encounterProMedica Health SystemInstructionsNot on file [facility] [employer] SystemInstructions* Attachments The following attachments cannot be sent through Care Everywhere. * Benign prostatic hyperplasia (enlarged prostate) (Belgian) [facility] [employer] SystemInstructions* Attachments The following attachments cannot be sent through Care Everywhere. * Cystoscopy (Belgian) [facility] [employer] SystemInstructionsNot on file documented in [facility] encounterNor[facility] [employer] SystemInstructionsNot on file documented in this encounterNor[facility] [employer] SystemInstructionsNot on file documented in this encounterMount [facility] SystemInstructions* Attachments The following attachments cannot be sent through Care Everywhere. * Kidney stones in adults (Belgian) documented [facility] [employer] SystemInstructionsNot on file documented in this encounterNor[facility] [employer] SystemInstructionsNot on file documented in this encounterMount [facility] SystemInstructions* Attachments The following attachments cannot be sent through Care Everywhere. * Benign prostatic hyperplasia (enlarged prostate) (Belgian) documented in [facility] [employer] SystemInstructionsNot on file documented in this encounterProH[facility] [employer] SystemInstructionsNot on file documented in this encounterProH[facility] [employer] SystemInstructions* Attachments The following attachments cannot be sent through Care Everywhere. * Kidney stone diet (Belgian) documented in [facility] [employer] SystemReason for referral (narrative)No reason for referral information availableSt. [facility] Work Phone: Reason for Referral Reason *Waiting for appt Evaluate and Treat Back Pain Please have Dr Tubbs read Dr Aldridge office note for specifics Diagnosis 1 Lumbar stenosis with out neurogenic claudication (M48.061) Referral Organization [facility] Referring Provider First Name Andre Referring Provider Last Name Becka Referring Provider Specialty Neurologica l Surgery Referred Organization [facility] t Referred Provider Ceasar Tubbs Referred Address [address] [place] [id number] Referred Provider Specialty Pain Medicin e Referral Priority Routine General Notes Deepti Burns 022 07:27:46 AM >Received today and sent P2P Specialty Diagnoses / Procedures Referred By Conthany t Referred To Contact Diagnoses Calculus of kidney Procedures Measure post void residual Leslie Barillas MD [address] [place] [address] Referral ID Status Reason Start Date Expiration Date V isits Requested Visits Authorized [id number] Pending Review 03/29/2024 03/29/2025 1 1 Specialty Diagnoses / Procedures Referred By Contac t Referred To Contact Diagnoses Benign prostatic hyperplasia with urinary frequency Procedures Void Trial Leslie Barillas MD [address] [place] [address] Referral ID Status Reason Start Date Expiration Date V isits Requested Visits Authorized [id number] Pending Review 06/16/2024 06/16/2025 1 1 Specialty Diagnoses / Procedures Referred By Contac t Referred To Contact Diagnoses Preop testing Procedures ECG 12 lead Jessica Fagan MD [address] [facility], [address] [place] [id number] Referral ID Status Reason Start Date Expiration Date V isits Requested Visits Authorized [id number] Pending Review 05/25/2024 05/25/2025 1 1 Summary Purpose Family History Relationship Condition Age at Onset Recorded Date/T jennifer father Heart disease Unknown Malignant neoplasm Unknown mother Malignant neoplasm Unknown Advance Directives Advance Directive Response Recorded Date/ Time Advance Directives No December 08, 024 4:31pm Advance Directive Response Recorded Date/ Time Advance Directives No April 24 024 3:20pm Date Activated Date Inactivated Comments 06/08/2024 9:17 AM 06/09/2024 7:06 PM Advance Directive Response Recorded Date/ Time Advance Directives No April 24 024 2:20pm Date Activated Date Inactivated Comments 06/08/2024 9:17 AM 06/09/2024 7:06 PM Date Activated Date Inactivated Comments 06/08/2024 9:17 AM Chief Complaint and Reason for Visit Chief [...] Lumbar epidural steroid injection f/u after LES MCR WELLNESS Reason for Visit Chronic pain Lumbar [...] Opiate analgesic use agreement exists Chief Complaint MCR WELLNESS Back Pain M47.817 [...] neurogenic claudication Chronic pain Lumbosacral spondylosis Sacroiliitis Chief Complaint Admit Date low back pain discuss injection August 29, 2024 11:06am Back Pain August 30, 2024 8:23am Back Pain August 30, 2024 10:13am f/u after right LTR September 25, 2024 1: 46pm 3 month f/u November 02, 2024 9:17am Reason for Visit Admit Date Chronic pain August 29, 2024 11:06am Lumbar radiculopathy August 29, 2024 11:06am Lumbosacral spondylosis August 29, 024 11:06am Sacroiliitis August 29, 2024 11:06am Chronic pain September 25, 2024 1: 46pm Lumbar radiculopathy September 25, 2024 1 :46pm Lumbosacral spondylosis September 25 1:46pm Sacroiliitis September 25, 2024 1: 46pm Benign prostatic hyperplasia with lower urinary tract symptoms November 02, 2024 9:17am Essential hypertension November 02 9:17am Hypercholesterolemia November 02, 2024 9:17am Lumbar spondylosis November 02, 2024 9:17am Obesity November 02, 2024 9:17am Opiate analgesic use agreement exists bruary 2024 9:17am Chief Complaint Admit Date Back Pain August 30, 2024 8:23am Back Pain August 30, 2024 10:13am f/u after right LTR September 25, 2024 1: 46pm 3 month f/u November 02, 2024 9:17am FOLLOW UP TO REASSESS LOW BACK PAIN Diego ferreira 2024 4:28pm Reason for Visit Admit Date Chronic pain September 25, 2024 1: 46pm Lumbar radiculopathy September 25, 2024 1 :46pm Lumbosacral spondylosis September 25 1:46pm Sacroiliitis September 25, 2024 1: 46pm Essential hypertension November 02 9:17am Hypercholesterolemia November 02, 2024 9:17am Lumbar spondylosis November 02, 2024 9:17am Obesity November 02, 2024 9:17am Opiate analgesic use agreement exists [facility] 2024 9:17am Influenza A (H1N1) November 02, 2024 9:17am Chronic pain November 22, 2024 4:28 pm Lumbar radiculopathy November 22, 2024 4:2 8pm Lumbosacral spondylosis November 22, 2024 4:28pm Sacroiliitis November 22, 2024 4:28 pm Chief Complaint Admit Date f/u after right LTR September 25, 2024 1: 46pm 3 month f/u November 02, 2024 9:17am FOLLOW UP TO REASSESS LOW BACK PAIN Diego ольга 2024 4:28pm jero SI joint inj November 28, 2024 2:5 9pm Chief Complaint Admit Date f/u after right LTR September 25, 2024 1: 46pm 3 month f/u November 02, 2024 9:17am FOLLOW UP TO REASSESS LOW BACK PAIN Diego h 2024 4:28pm jero SI joint inj November 28, 2024 2:5 9pm f/u after jero SI joint inj December 06, 2 025 2:49pm Reason for Visit Admit Date Chronic pain September 25, 2024 1: 46pm Lumbar radiculopathy September 25, 2024 1 :46pm Lumbosacral spondylosis September 25 1:46pm Sacroiliitis September 25, 2024 1: 46pm Essential hypertension November 02 9:17am Hypercholesterolemia November 02, 2024 9:17am Lumbar spondylosis November 02, 2024 9:17am Obesity November 02, 2024 9:17am Opiate analgesic use agreement exists Jimena bruary 2024 9:17am Influenza A (H1N1) November 02, 2024 9:17am Chronic pain November 22, 2024 4:28 pm Lumbar radiculopathy November 22, 2024 4:2 8pm Lumbosacral spondylosis November 22, 2024 4:28pm Sacroiliitis November 22, 2024 4:28 pm Chronic pain December 06, 2024 2:4 9pm Lumbosacral spondylosis December 06, 2024 2:49pm Sacroiliitis December 06, 2024 2:4 9pm Chief Complaint Admit Date Wellness February 06, 2025 9:23a m increased back pain March 05, 2025 4:28 pm JERO SACROILIAC JOINT INJ March 15, 2025 11:39am Reason for Visit Admit Date Benign prostatic hyperplasia with lower urinary tract symptoms February 06, 2025 9:23am Essential hypertension February 06, 2025 9: 23am Hypercholesterolemia February 06, 2025 9:23 am Lumbar spondylosis February 06, 2025 9:23a m Obesity February 06, 2025 9:23a m Opiate analgesic use agreement exists Amaury berger 2024 9:23am Screening PSA (prostate specific antigen ) February 06, 2025 9:23am Medicare annual wellness visit, nella nt February 06, 2025 9:23am Chronic pain Ivette 16th, 2025 4:28 pm Lumbosacral spondylosis March 05, 2025 4:28pm Sacroiliitis March 05, 2025 4:28 pm Chief Complaint Admit Date Wellness February 06, 2025 9:23a m increased back pain March 05, 2025 4:28 pm JERO SACROILIAC JOINT INJ March 15, 2025 11:39am FOLLOW UP AFTER JERO SI March 28, 2025 4: 01pm Reason for Visit Admit Date Benign prostatic hyperplasia with lower urinary tract symptoms February 06, 2025 9:23am Essential hypertension February 06, 2025 9: 23am Hypercholesterolemia February 06, 2025 9:23 am Lumbar spondylosis February 06, 2025 9:23a m Obesity February 06, 2025 9:23a m Opiate analgesic use agreement exists Ma y 2024 9:23am Screening PSA (prostate specific antigen ) February 06, 2025 9:23am Medicare annual wellness visit, subseque nt February 06, 2025 9:23am Chronic pain March 05, 2025 4:28 pm Lumbosacral spondylosis March 05, 2025 4:28pm Sacroiliitis March 05, 2025 4:28 pm Chronic pain March 28, 2025 4:01p m Lumbosacral spondylosis March 28, 2025 4 :01pm Sacroiliitis March 28, 2025 4:01p m Additional Source Comments REASON FOR VISIT (unrecogniz ed section and content) Reason Comments Med Refill Reason Comments Retinal tear of left eye Reason Comments Follow-up Reason Comments Follow-up FOLLOW UP 6 MO LITHO LINK Reason Comments Urinary Retention Post op Reason Comments Follow-up Reason Comments Follow-up Reason Comments Retinal tear of left eye Reason Comments Follow-up X6 months; elevated psa and kubTenderness during bladder scan (unrecognized sect ion and content) No Status Records FoundNo Status Records FoundNo Status Records FoundNo Status Records FoundNo Status Records Found INFORMATION SOURCE (unrecogn ized section and content) DATE CREATED AUTHOR 01/23/2023 [facility] DATE CREATED AUTHOR AUTHOR'S ORGANIZ ATION 02/13/2024 [facility] DATE CREATED AUTHOR AUTHOR'S ORGANIZ ATION 09/10/2024 [facility] DATE CREATED AUTHOR AUTHOR'S ORGANIZ ATION 04/22/2025 [facility] DATE CREATED AUTHOR AUTHOR'S ORGANIZ ATION 04/28/2025 [facility] Care Teams (unrecognized sec tion and content) Team Status: Active Member Role Status Remy Guerrero DO Primary Care Provider Active Team [...] 2023 Ambar Resendiz Attending Provider Active Start: Jimena godoy 2023 Team Status: Active Member Role Status [...] October 08, 2023 End: October 08, 2023 Team Status: Active Member Role Status [...] June 06, 2024 End: June 06, 2024 Fish [employer] Relationship Specialty Start Date End Date Mitchel Guerrero DO [address] [place] [address] PCP - General 04/21/17 Fish [employer] Relationship Specialty Start Date End Date Mitchel Guerrero DO [address] [place] [address] PCP - General 04/21/17 Team Status: Inactive Member Role Status Dates Mitchel Guerrero DO Primary Care Provider Active Start: August 29, 2024 End: August 29, 2024 Ceasar Tubbs MD Attending Provider Active Sta rt: August 29, 2024 End: August 29, 2024 Team Status: Inactive Member Role Status Dates Mitchel Guerrero DO Primary Care Provider Active Start: August 30, 2024 End: August 30, 2024 Ceasar Tubbs MD Attending Provider Active Sta rt: August 30, 2024 End: August 30, 2024 Team Status: Active Member Role Status Dates Mitchel Guerrero DO Primary Care Provider Active Start: August 30, 2024 Ceasar Tubbs MD Attending Provider, Other Provider Active Start: August 30, 2024 Team Status: Inactive Member Role Status Dates Mitchel Guerrero DO Primary Care Provider Active Start: September 25, 2024 End: September 25, 2024 Ceasar Tubbs MD Attending Provider Active Sta rt: September 25, 2024 End: September 25, 2024 Team Status: Inactive Member Role Status Dates Mitchel Guerrero DO Primary Care Provide r, Attending Provider Active Start: November 02, 2024 End: November 02, 2024 Fish Warden Relationship Specialty Start Date End Date Mitchel Guerrero DO [address] [place] [address] PCP - General 04/21/17 Fish Warden Relationship Specialty Start Date End Date Mitchel Guerrero DO [address] [place] [address] PCP - General 04/21/17 Fish Warden Relationship Specialty Start Date End Date Cesar Mitchel Garcia DO [address] [place] [address] PCP - General 04/21/17 Fish Warden Relationship Specialty Start Date End Date Cesar Mitchel Garcia DO [address] [place] [address] PCP - General 04/21/17 Fish Warden Relationship Specialty Start Date End Date Mitchel Guerrero DO [address] [place] [address] PCP - General 04/21/17 Fish Warden Relationship Specialty Start Date End Date Mitchel Guerrero DO [address] [place] [address] PCP - General 04/21/17 Fish Warden Relationship Specialty Start Date End Date Mitchel Guerrero DO [address] [place] [address] PCP - General 04/21/17 Fish Warden Relationship Specialty Start Date End Date Cesar Mitchel Garcia DO [address] [place] [address] PCP - General 04/21/17 Fish Warden Relationship Specialty Start Date End Date Mitchel Guerrero DO [address] [place] [address] PCP - General 04/21/17 Fish Warden Relationship Specialty Start Date End Date Mitchel Guerrero DO [address] [place] [address] PCP - General 04/21/17 Fish Warden Relationship Specialty [place] [address] [place] [address] PCP - General 04/21/17 Fish Warden Relationship Specialty Start [place] [address] [place] [address] PCP - General 04/21/17 Fish Warden Relationship Specialty Start [place] [address] [place] [address] PCP - General 04/21/17 Fish Warden Relationship Specialty Start [place] [address] [place] [address] PCP - General 04/21/17 Fish Warden Relationship Specialty Start Date End Date Mitchel Guerrero DO [address] [place] [address] PCP - General 04/21/17 Team Status: Inactive Member Role Status Dates Mitchel Guerrero DO Primary Care Provider Active Start: November 22, 2024 End: November 22, 2024 Ceasar Tubbs MD Attending Provider Active Sta rt: November 22, 2024 End: November 22, 2024 Team Status: Inactive Member Role Status Dates Mitchel Guerrero DO Primary Care Provider Active Start: November 28, 2024 End: November 28, 2024 Ceasar Tubbs MD Attending Provider Active Sta rt: November 28, 2024 End: November 28, 2024 Team Status: Active Member Role Status Dates Mitchel Guerrero DO Primary Care Provider Active Start: November 28, 2024 Ceasar Tubbs MD Attending Provider Active Sta rt: November 28, 2024 Team Status: Inactive Member Role Status Dates Mitchel Guerrero DO Primary Care Provider Active Start: December 06, 2024 End: December 06, 2024 Ceasar Tubbs MD Attending Provider Active Sta rt: December 06, 2024 End: December 06, 2024 Fish Warden Relationship Specialty Start Date End Date Mitchel Guerrero [address] [place] [address] PCP - General 04/21/17 Team Status: Inactive Member Role Status Dates Mitchel Guerrero DO Primary Care Provider Active Start: February 06, 2025 End: February 06, 2025 Mitchel Guerrero DO Attending Provider Active Sta rt: February 06, 2025 End: February 06, 2025 Team Status: Inactive Member Role Status Dates Mitchel Guerrero DO Primary Care Provider Active Start: March 05, 2025 End: March 05, 2025 Ceasar Tubbs MD Attending Provider Active Sta rt: March 05, 2025 End: March 05, 2025 Team Status: Inactive Member Role Status Dates Mitchel Guerrero DO Primary Care Provider Active Start: March 15, 2025 End: March 15, 2025 Ceasar Tubbs MD Attending Provider Active Sta rt: March 15, 2025 End: March 15, 2025 Team Status: Active Member Role Status Dates Mitchel Guerrero DO Primary Care Provider Active Start: March 15, 2025 Ceasar Tubbs MD Attending Provider Active Sta rt: March 15, 2025 Team Status: Inactive Member Role Status Dates Mitchel Guerrero DO Primary Care Provider Active Start: March 28, 2025 End: March 28, 2025 Ceasar Tubbs MD Attending Provider Active Sta rt: March 28, 2025 End: March 28, 2025 Fish Warden Relationship Specialty Start Date End Date Mitchel GuerreroDO [address] [place] [id number] PCP - General 04/21/17 Fish Warden Relationship Specialty Start Date End Date Mitchel GuerreroDO [address] [place] [address] PCP - General 04/21/17 Goals (unrecognized section and content) Goals may [...] BE BASED ON THE PRIMARY CLINICAL RECORDS. [employer] [facility]. provides no warranty or guarantee of the accuracy or completeness of information in this document.
== END 2025-05-09 19:55 | disposition home or self-care (01) ==
PROVIDERS: PCP Internal Medicine; Visit Provider Internal Medicine
DX: G47.33 Obstructive sleep apnea (adult) (pediatric) (principal)
CPT/HCPCS: 95810

== ENCOUNTER 2025-06-20 19:54 | Outpatient (OUT) | payer MEDICARE, SELFPAY ==
--- OUTSIDE RECORDS SUMMARY | 2025-04-25 09:37 | XMS_ITS ---
Author Organization [facility] Care Team Providers Care Funeral Prearrangement Counselor Name Role Phone Klever Tubbspaco Gtz Attending Unavailable Ceasar Tubbs Admitting Unavailable Ball, Mitchel Primary Care Unavailable BALL, MITCHEL E Referring Unavailable BALL, MITCHEL E Primary Care Unavailable LESLIE SHAH Attending Unavailable BALL, MITCHEL E Referring Unavailable BALL, MITCHEL E Primary Care Unavailable BALL, MITCHEL E Referring Unavailable BALL, MITCHEL E Primary Care Unavailable LESLIE SHAH Attending Unavailable BALL, MITCHEL E Referring Unavailable BALL, MITCHEL E Primary Care Unavailable LARSKASIA Attending Unavailable BALL, MITCHEL E Referring Unavailable BALL, MITCHEL E Primary Care Unavailable LARS, KASIA L Referring Unavailable BALL, MITCHEL E Primary Care Unavailable BALL, MITCHEL E Referring Unavailable BALL, MITCHEL E Primary Care Unavailable BALL, MITCHEL E Referring Unavailable BALL, MITCHEL E Primary Care Unavailable LESLIE SHAH Attending Unavailable BALL, MITCHEL E Referring Unavailable BALL, MITCHEL E Primary Care Unavailable Purpose PROBLEMS DATE TYPE CONDITION / CODE ATTENDING STATUS [facility] 11/07/2024 Unknown Calculus of kidn ey / N20.0(ICD-10) [facility] 11/07/2024 Unknown Benign prostatic hyperplasia with lower urinary tract symptoms / N40.1(ICD-10) [facility] 11/07/2024 Unknown Frequency of micturition / R35.0(ICD-10) [facility] 04/20/2025 Unknown Pure hypercholesterolemia, unspecified / E78.00(ICD-10) [facility] 04/20/2025 Unknown Encounter for screening for malignant neoplasm of prostate / Z12.5(ICD-10) [facility] 04/20/2025 Unknown Other longterm (current) drug therapy / Z79.899(ICD-10) [facility] 04/20/2025 Unknown Essential (prima ry) hypertension / I10(ICD-10) [facility] 02/19/2020 Unknown Lattice degenera tion of retina, 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-10) [facility] 12/22/2018 Unknown Other subjective visual disturbances / H53.19(ICD-10) [facility] 04/25/2017 Unknown Age-related nucl ear cataract, bilateral / H25.13(ICD-10) [facility] 04/25/2017 Unknown Vitreous degener ation, bilateral / H43.813(ICD-10) [facility] 04/25/2017 Unknown 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, left eye / H33.312(ICD-10) [facility] 02/15/2025 Unknown Retinal tear of left eye / UNK(Unknown) [facility] 08/30/2024 Unknown Other chronic pa in / G89.29(ICD-10) Ceasar Tubbs [facility] 06/28/2024 Unknown Follow-up / FREETEXT(AOF) LESLIE SHAH Active [facility] PROCEDURES No Procedure Records Found VITAL SIGNS No Vital Signs Records Found RESULTS XR ABDOMEN AP 1 VW Observed: 04/25/2025 9:36 AM Status: COMPLETED Source: [facility] XR ABDOMEN AP 1 VW XR ABDOMEN AP 1 VW HISTORY: Kidney stones COMPARISON: 06/28/2024 FINDINGS: 2 images of the abdomen KUB obtained. Nonobstructive bowel gas pattern. Multiple calcifications overlying the left kidney, largest one measuring about 8 mm in the inferior pole. Small punctate densities overlying the right kidney, likely punctate calculi. No calcifications seen overlying the ureters. Pelvic phleboliths. IMPRESSION: Stable bilateral nephrolithiasis. Approved by Ahmet Durbin MD on 04/26/2025 6:40 AM IFritz MD have personally reviewed the image(s) and agree with and/or edited the report Finalized by Fritz Davidson MD on 04/26/2025 11:37 AM CBC WITH AUTO DIFFERENTIAL Collected: 0 04/20/2025 10:15 AM Status: COMPLETED Source: [facility] TYPE CODE TESTS RESULT OUT OF RANGE REFERENCE UNITS LAB WBC WBC 5.5 4-11 x10E9/L LAB RBC RBC COUNT 4.99 4.1-5.7 X10E12/L LAB HGB HEMOGLOBIN 15.6 13-17 g/dL LAB HCT HEMATOCRIT 45.3 39-50 % LAB MCV MCV 91 80-100 fL LAB MCH MCH 31.3 27-34 pg LAB MCHC MCHC 34.5 32-36 g/dL LAB RDW RDW 12.8 11.5-15 % LAB PLTC PLATELET COUNT 255 150-450 X10E9/L LAB MPV MPV 7.5 7-12 fL LAB NEUT NEUTROPHILS RELATIVE PERCENT BY AUTOMATED COUNT 58.3 % LAB LYMP LYMPHOCYTES RELATIVE PERCENT BY AUTOMATED COUNT 28.4 % LAB MONO MONOCYTES RELATIVE PERCENT BY AUTOMATED COUNT 9.0 % LAB EOS EOSINOPHILS RELATIVE PERCENT BY AUTOMATED COUNT 3.1 % LAB BASO BASOPHILS RELATIVE PERCENT BY AUTOMATED COUNT 1.2 % LAB ANEUT NEUTROPHILS ABSOLUTE COUNT BY AUTOMATED COUNT 3.2 1.5-6.6 10*3/uL LAB ALYMP LYMPHOCYTES ABSOLUTE COUNT (10*3/UL) BY AUTOMATED COUNT 1.6 1.0-3.5 10*3/uL LAB AMONO MONOCYTES ABSOLUTE COUNT (10*3/UL) BY AUTOMATED COUNT 0.5 0.0-0.9 10*3/uL LAB AEOS EOSINOPHILS ABSOLUTE COUNT (10*3/UL) BY AUTOMATED COUNT 0.2 0.0-0.4 10*3/uL LAB ABASO BASOPHILS ABSOLUTE COUNT (10*3/UL) BY AUTOMATED COUNT 0.1 0.0-0.2 10*3/uL LAB DTYPE CELLAVISION DIFFERENTIAL TYPE AUTOMATED DIFFERENTIAL Performed By: #### CBCA #### [facility] ([facility]) [address] [place] [address] VIR PROSTATIC SPECIFIC ANTIGEN, DIAGNOSTIC Collected: 04/20/2025 10:15 AM Status: COMPLETED Source: [facility] TYPE CODE TESTS RESULT OUT OF RANGE REFERENCE UNITS LAB PSA PROSTATIC SPEC ANT 0.50 0.00-4.00 ng/mL Result Comment: The method u sed for this test is [employer] DXI chemiluminescent immunoassay. Values obtained by different assay methods cannot be used interchangeably. Performed By: #### PSA #### [facility] ([facility]) [address] [place] [address] VIR COMPREHENSIVE METABOLIC PANEL Collected : 04/20/2025 10:15 AM Status: COMPLETED Source: [facility] TYPE CODE TESTS RESULT OUT OF RANGE REFERENCE UNITS LAB NA SODIUM 139 134-146 mmol/L LAB K POTASSIUM 4.1 3.5-5.0 mmol/L LAB CL CHLORIDE 100 98-109 mmol/L LAB CO2 CARBON DIOXIDE 30 22-32 mmol/L LAB AGAP ANION GAP 9 5-15 mmol/L LAB BUN BLOOD UREA NITROGEN 22 5-27 mg/dL LAB CRET CREATININE 0.92 0.60-1.30 mg/dL Result Comment: METHOD TRACE ABLE TO IDMS STANDARD LAB GLU GLUCOSE 93 65-99 mg/dL LAB CA CALCIUM 9.5 8.5-10.5 mg/dL LAB TP TOTAL PROTEIN 7.0 6.0-8.0 g/dL LAB ALB ALBUMIN 4.3 3.2-5.3 g/dL LAB ALK ALKALINE PHOSPHATASE 72 39-130 U/L LAB AST AST 41 <=41 U/L LAB ALT ALT 59 High <=40 U/L LAB TBIL BILIRUBIN,TOTAL 0.7 0.3-1.2 mg/dL LAB EGFR EGFR (CKD-EPI) NON-RACE DEPENDENT 90 >=60 ml/min/1 .73sq.m Result Comment: Reported eGF R is based on the CKD-EPI 2020 equation that does not use a race coefficient. Performed By: #### CMP #### [facility] ([facility]) [address] [place] [address] VIR LIPID PROFILE Collected: 04/20/2025 10:15 AM Status: COMPLETED Source: [facility] TYPE CODE TESTS RESULT OUT OF RANGE REFERENCE UNITS LAB CHOL CHOLESTEROL 207 High 150-200 mg/dL LAB TRIG TRIGLYCERIDE 123 27-150 mg/dL LAB HDL HDL CHOLESTEROL 41 >39 mg/dL Result Comment: HDL <40 mg/d L - High Risk HDL > or = 40mg/dL- Desirable HDL >60 mg/dL - Negative Risk LAB LDL LDL (CALC) 141 High <130 mg/dL Result Comment: LDL <100 mg/ dL - Desirable LDL >160 mg/dL - High Risk LAB CHDL CHOLESTEROL:HDL 5.0 1.0-5.0 NA LAB VLDL VERY LOW LIPOPROTEIN 25 0-30 mg/dL Performed By: #### LIPR #### [facility] ([facility]) [address] [place] [address] VIR MAGNESIUM Collected: 10:15 AM Status: COMPLETED Source: [facility] TYPE CODE TESTS RESULT OUT OF RANGE REFERENCE UNITS LAB MG MAGNESIUM 1.8 1.8-2.6 mg/dL Performed By: #### MG #### [facility] ([facility]) [address] [place] [address] VIR XR ABDOMEN AP 1 VW Observed: 06/28/2024 7:48 AM Status: COMPLETED Source: [facility] XR ABDOMEN AP 1 VW HISTORY: Kidney stones COMPARISON: Abdominal x-ray 12/22/2023 FINDINGS: AP supine view of the abdomen was performed. Multiple calculi overlie the left kidney, with largest measuring up to 7 mm . Additional calculi in the left kidney measuring less than 5 mm in size. Subtle punctate density overlying the right renal silhouette could represent a 3 mm stone versus bowel content. Nonobstructive bowel gas pattern. Significant degenerative changes involving the lumbar spine. Phleboliths in the pelvis. IMPRESSION: * Multiple left renal calculi measuring up to 7 mm in size. * Punctate density overlying the right kidney could represent bowel content versus 3 mm stone. Finalized by Eleazar Bender MD on 06/28/2024 8:40 PM ALLERGIES DATE TYPE / CODE NAME / CODE REACTION SEVERITY SOURCE 08/30/2024 Drug Allergy/059996 002(SNOMED CT) Jwbrmbv-DIU-TeO Reductase Inhibitor/O19074122 5(RXNORM) MUSCLE ACHES Unknown [facility] Drug Class/00936957 3(SNOMED CT) NO KNOWN ALLERGIES [facility] ENCOUNTERS ADMIT/DISCHARGE ACCOUNT NUMBER ADMITTING ENCOUNTER CLASS LOCATION SOURCE 04/25/2025/04/25/20 [id number] [address] [place] [address] 04/25/2025/04/25/20 [id number] Ambulatory Building:[facility] 04/20/2025 [id number] Ambulatory Building:[facility] 02/15/2025/02/16/20 [id number] Ambulatory Building:[facility] 02/15/2025/02/16/20 [id number] Ambulatory Building:[facility] 10/24/2024/10/24/19 [id number] [facility] [place] [address] 10/24/2024/10/25/19 [id number] [address] [place] [address] 08/30/2024/08/30/20 24 [id number] [facility] 06/28/2024/06/28/20 24 [id number] [facility] [place] [address] 06/28/2024/06/28/20 24 [id number] Ambulatory Building:[facility] FUNCTIONAL STATUS No Functional Status Records Found EQUIPMENT No Equipment Records Found PAYERS ENCOUNTER GUARANTOR PAYER SUBSCRIBER SOURCE 04/25/2025 AMBER CLEMENTOB: [place], [place] [address]Ban: () Primary Insurance:MEDICARE PART A & BPolicy Number: [id number] Date:2021-03-20 AMBER CLEMENTOB: [id number] [place] [address] [facility] 04/25/2025 Secondary Insura nce:AARP SUPPLEMENTPolicy Number: [id number] Date:2021-10-21 AMBER CLEMENTOB: [id number] [address] 04/25/2025 AMBER CLEMENTOB: [place], [place] [address]Juv: () Primary Insurance:MEDICARE PART A & BPolicy Number: [id number] Date:2021-03-20 AMBER CLEMENTOB: [id number] [place] [address] [facility] 04/25/2025 Secondary Insura nce:AARP SUPPLEMENTPolicy Number: [id number] Date:2021-10-21 AMBER CLEMETNOB: [id number] [place] [address] [facility] 04/20/2025 AMBER FOXSDOB: [place], [place] [address]Wbr: () Primary Insurance:MEDICARE PART A & BPolicy Number: [id number] Date:2021-03-20 AMBER FOXSDOB: [id number] [place] [address] [facility] 04/20/2025 Secondary Insura nce:AARP SUPPLEMENTPolicy Number: [id number] Date:2021-10-21 AMBER CLEMENTOB: [id number] [place] [address] [facility] 02/15/2025 AMBER CLEMENTOB: [place], [place] [address]Owq: (HP) Primary Insurance:MEDICARE PART A & BPolicy Number: [id number] Date:2021-03-20 AMBER CLEMENTOB: [id number] [place], [place] [address]Axf: () [facility] 02/15/2025 Secondary Insura nce:AAR SUPPLEMENTPolicy Number: [id number] Date:2021-10-21 AMBER CLEMENTOB: [id number] [place], [place] [address]Qlf: (HP) [facility] 02/15/2025 AMBER CLEMENTOB: [place], [place] [address]Mgn: (HP) Primary Insurance:MEDICARE PART A & BPolicy Number: [id number] Date:2021-03-20 AMBER CLEMENTOB: [id number] [place], [place] [address]Ero: (HP) [facility] 02/15/2025 Secondary Insura nce:AAR SUPPLEMENTPolicy Number: [id number] Date:2021-10-21 AMBER CLEMENTOB: [id number] [place], [place] [address]Mrv: () [facility] 10/24/2024 AMBER CLEMENTOB: [place], [place] [address]Fpk: () Primary Insurance:MEDICARE PART A & BPolicy Number: [id number] Date:2021-03-20 AMBER CLEMENTOB: [id number] [place], [place] [address]Yex: () [facility] 10/24/2024 Secondary Insura nce:AARP SUPPLEMENTPolicy Number: [id number] Date:2021-10-21 AMBER FOXSDOB: [id number] [place], [place] [address]Ocq: () [facility] 10/24/2024 AMBER FOXSDOB: [place], [place] [address]Glw: () Primary Insurance:MEDICARE PART A & BPolicy Number: [id number] Date:2021-03-20 AMBER FOXSDOB: [id number] [place], [place] [address]Kab: () [facility] 10/24/2024 Secondary Insura nce:AARP SUPPLEMENTPolicy Number: [id number] Date:2021-10-21 AMBER FOXSDOB: [id number] [place], [place] [address]Aov: () [facility] 08/30/2024 Amber [address]ombs[address] [place] [address]Vgf: (HP) Primary Insurance:MedicarePolicy Number: [id number] Date:2024-08-29 Amber FoxsDOB: [id number] [place] [address]Eex: () [facility] 08/30/2024 Secondary Insura nce:[facility] Health ClaimsPolicy Number: [id number] Date:2024-08-29 Amber ClementOB: [id number] [place] [address]Iln: () [facility] 08/30/2024 Tertiary Insuran ce:Self PayPolicy Number: Effective Date:2024-08-29 [facility]/2024 AMBER CLEMENTOB: [place], [place] [address]Frs: () Primary Insurance:MEDICARE PART A & BPolicy Number: [id number] Date:2021-03-20 AMBER CLEMENTOB: [id number] [place], [place] [address]Bna: () [facility] 06/28/2024 Secondary Insura nce:AAR SUPPLEMENTPolicy Number: [id number] Date:2021-10-21 AMBER CLEMENTOB: [id number] [place], [place] [address]Ppe: () [facility] 06/28/2024 AMBER CLEMENTOB: [id number] [place], [place] [address]Dfi: () Primary Insurance:MEDICARE PART A & BPolicy Number: [id number] Date:2021-03-20 AMBER CLEMENTOB: [id number] [place], [place] [address]Edm: () [facility] 06/28/2024 Secondary Insura nce:AAR SUPPLEMENTPolicy Number: [id number] Date:2021-10-21 AMBER CLEMENTOB: [id number] [place], [place] [address]Sec: () [facility] SOCIAL HISTORY No Social History Records Found FAMILY HISTORY No Family History Records Found No Status Records Found ADVANCE DIRECTIVES No Advanced Directives Records Found INFORMATION SOURCE DATE CREATED AUTHOR AUTHOR'S PATRICIO ATION 06/20/2025 [facility]
--- OUTSIDE RECORDS SUMMARY | 2025-06-20 19:57 | XMS_ITS | Clinical Summary ---
Author Organization mEgo tem Address [id number] [address] [place] [address] Care Team Providers Care Print Buyer Name Role Phone CesarMitchel Primary Care Provider [phone] Allergies No known active allergies Medications diclofenac (VOLTAREN) 75 mg EC tablet Take 1 tablet (75 mg total) by mouth in the morning and 1 tablet (75 mg total) before bedtime. With food . Active losartan (COZAAR) 50 mg tablet Take 1 tablet (50 mg total) by mouth in the morning and 1 tablet (50 mg total) before bedtime. 3 8 Active acetaminophen (TYLENOL) 325 mg tablet Take 2 tablets (650 mg total) by mouth every 6 (six) hours as needed for pain. Active ondansetron (ZOFRAN) 4 mg tablet Take 1 tablet (4 mg total) by mouth every 8 (eight) hours as needed for nausea or vomiting. Active jeshxthl-tggc-FF -calcium &mins (THERAGRAN-M) 9 mg iron-400 mcg tablet Take 1 tablet by mouth in the morning. Active omeprazole (PriLOSEC OTC) 20 mg tablet,delayed release (DR/EC)Indicatio ns:Esophageal dysphagia,Gastro esophageal reflux disease, unspecified whether esophagitis present TAKE 1 TABLET BY MOUTH EVERY MORNING BEFORE BREAKFAST. 28 tablet 5 1 Active Additional Information Patient taking differently: 20 mg oral Every morning before breakfast, Reported on 04/25/2025 amLODIPine (NORVASC) 5 mg tablet Take 1 tablet (5 mg total) by mouth in the morning. 1 Active oxyCODONE (ROXICODONE) 5 mg immediate release tablet Take 1 tablet (5 mg total) by mouth every 6 (six) hours as needed. Takes one every am 2 Active hydroCHLOROthiaz christina (HYDRODIURIL) 25 mg tablet TAKE 1 TABLET BY MOUTH TWICE A DAY BEFORE MEALS 180 tablet 4 3 Active Additional Information Patient taking differently: 25 mg oral Daily, Pt takes as needed, Indications: calcium renal calculi prevention, hypertension, Reported on 04/25/2025 cyclobenzaprine (FLEXERIL) 10 mg tablet 3 Active magnesium oxide 500 mg capsule Take 1 capsule (500 mg total) by mouth in the morning. Active ezetimibe (ZETIA) 10 mg tablet Take 1 tablet (10 mg total) by mouth in the morning. Active lidocaine (LIDODERM) 5 % Place 1 patch on the skin daily. Remove & Discard patch within 12 hours or as directed by MD-uses as needed Active oxyCODONE (ROXICODONE) 5 mg immediate release tabletIndication s:Acute post-operative pain Take 1 tablet (5 mg total) by mouth every 4 (four) hours as needed for pain for up to 10 doses. Max Daily Amount: 30 mg 10 tablet 4 Active Additional Information Patient not taking.Reported on 10/24/2024 potassium citrate (UROCIT-K) 10 mEq (1,080 mg) CR tablet TAKE 1 TABLET BY MOUTH IN THE MORNING AND IN THE EVENING WITH MEALS 100 tablet 1 5 Active docusate sodium (COLACE) 100 mg capsule Take 1 capsule (100 mg total) by mouth in the morning and 1 capsule (100 mg total) before bedtime. Active Active Problems Problem Noted Date Diagnosed Date Benign prostatic hyperplasia with lower urinary tract symptoms 06/08/2024 Benign prostatic hyperplasia with urinary freque ncy 05/01/2023 Overview (11/07/2024): 04/13/23: AUA-SS 12/3 (on Flomax 0.4 mg [...] 38 mL (vv 106 mL) - monitor Tear of medial meniscus of right knee 01/27/2023 Overview (01/27/2023): Added automatically from request for surgery [id number] Photopsia of right eye 12/22/2018 Ocular migraine 12/22/2018 Calculus of kidney 01/14/2018 Overview (11/07/2024): 04/13/23: Hx ca ox stone disease w/ hypercalciuria s/p L URS/HLL 08/14/20 100% ca ox mono; ERV [place] 04/08/23 - R low back, hx spinal stenosis, Cr 1.00, K 3.9, Ca 9.5, UA neg blood, pH7 - CTAP - BL stones nonobs; on HCTZ 25 mg qd x1 yr - get CTAP uploaded, check LL 2 mo 06/16/23: 24-LL (05/04/23) - UVol 1.59 (L), UCa 271 (H), UOx 30 (BL), UCit 679, UpH 5.87, UUa 0.817, Miahi 316 - inc HCTZ BID, cut Na, [...] HCTZ daily, UCK BID - monitor KUB Retinal tear 04/25/2017 Vitreous hemorrhage 04/25/2017 Posterior vitreous detachment 04/25/2017 Floaters 04/25/2017 Nuclear sclerotic cataract of both eyes 04/25/20 17 Lattice degeneration of retina, 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 - Radiology [address] [facility] [address] [place] [phone] Calculus of kidney Discharge Disposition: Home 04/24/2025 Travel 04/20/2025 Travel 04/19/2025 Telephone [facility] [address] [place] [address] Yonatan Rosenbaum CMA 04/08/2025 Refill [facility] [address] [place] [phone] Anil Barillas MD from Last 3 Months Immunizations Immunization Administration Dates Next Due COVID-19, mRNA, LNP-S, PF, 1 00mcg/0.5mL Dose 07/20/2021,10/16/2020,09/18/2020 Covid-19, Mrna, Lnp-s, Bival ent, Pf, 50mcg/0.5ml or 25mcg/0.25ml 07/14/2022 H1N1 Inj Preservative Free 07/19/2009 Influenza, High-dose, Quadrivalent 07/14/2022 Influenza, Injectable, quadrivalent (PF) 021,06/20/2020 Tetanus 01/27/2006 Family History Medical History Relation Name Comments No Known Problems Brother 1 No Known Problems Brother 2 Cancer Father N/AN/A bladder Heart disease Father N/AN/A Hypertension Father N/AN/A Lung cancer Maternal Grandfather Early Maternal Grandmother Other Maternal Grandmother childbi rth Arthritis Mother n/a Cancer Mother n/a ovarian Ovarian cancer Mother n/a Stroke Paternal Grandmother Anesthesia problems Neg Hx Bleeding Disorder Neg Hx Cataracts Neg Hx Clotting disorder Neg Hx Colon cancer Neg Hx Diabetes Neg Hx Glaucoma Neg Hx Macular degeneration Neg Hx Prostate cancer Neg Hx Relation Name Status Comments Brother 1 Alive Brother 2 Alive Father N/AN/A Maternal Grandfather Maternal Grandmother Mother n/a Paternal Grandfather Paternal Grandmother Social History Tobacco Use Types Packs/Day Years Used Date Smoking Tobacco: Never Smokeless Tobacco: Never Alcohol Use Standard Drinks/Week Comments Yes 0 (1 standard drink = 0.6 oz pur e alcohol) [facility] Utilities Answer Date Recorded In the past 12 months has e electric, gas, oil, or water company threatened to shut off services in your home? No 06/08/2024 AUDIT-C Answer Date Recorded Q1: How often do you have a drink containing alcohol? Never 06/08/2024 Q2: How many drinks containi ng alcohol do you have on a typical day when you are drinking? Patient does not drink Q3: How often do you have si x or more drinks on one occasion? Never 06/08/2024 PHQ-2 Answer Date Recorded Total Score 0 06/08/2024 PRAPARE - Transportation Answer Date Re corded In the past 12 months, has l ack of transportation kept you from medical appointments or from getting medications? No 05/21 In the past 12 months, has l ack of transportation kept you from meetings, work, or from getting things needed for daily living? No 06/08/2024 Housing Instability Answer Date Recorde d Are you worried or concerned that in the next two months you may not have stable housing that you own, rent or stay in as a part of a household? No 06/08/2024 Childcare Answer Date Recorded Childcare Unknown 02/27/2019 Employment Answer Date Recorded Employment Unknown 02/27/2019 Hunger Screening Answer Date Recorded Within the past 12 months we worried whether our food would run out before we got money to buy more. Never True 10/24/2024 Within the past 12 months th e food we bought just didn't last and we didn't have money to get more. Never True 10/24/2024 Purpose - Life Answer Date Recorded Purpose and direction in life Unknown Sex and Gender Information Value Date Recorded Sex Assigned at Male 04/25/2025 10:53 AM EDT Legal Sex Male 1:05 PM EDT Gender Identity Male 04/25/2025 10:53 AM EDT Sexual Orientation Straight 04/25/2025 10 :53 AM EDT Last Filed Vital Signs Vital Sign Reading Time Taken Comments Blood Pressure 142/98 04/25/2025 10:56 AM EDT Pulse 82 04/25/2025 10:56 AM EDT Temperature 36.7 C (98.1 F) 06/09/2024 3:50 PM EDT Respiratory Rate 18 06/09/2024 3:50 PM EDT Oxygen Saturation 95% 06/09/2024 3:50 PM EDT Inhaled Oxygen Concentration - - Weight 102.8 kg (226 lb 9.6 oz) 025 10:56 AM EDT Height 177.8 cm (5' 10 ) 04/25/2025 10: 56 AM EDT Body Mass Index 32.51 04/25/2025 10:56 AM EDT Plan of Treatment Upcoming Encounters Date Type Department Care Team (Late st Contact Info) Description 02/20/2026 8:10 AM EDT Office Visit [facility], A Department of [facility] [address] [facility] [address] [place] [phone] Bladimir Pepper MD [address] [facility] [address] [place] [address] 05/01/2026 8:15 AM EDT Office Visit [facility] [address] [place] [phone] Anil Barillas MD [address] [place] [address] Health Maintenance Due Date Last Done Comments Adult BMI Follow Up Plan 1974 DTaP,Tdap and Td Vaccines (1 - Tdap) 1975 Zoster (Shingles) Vaccine (1 of 2) 2006 Fall Risk Screening 2021 COVID-19 Vaccine (5 - 2024-2 6 season) 2025 07/14/2022, 07/20/2021, 10/16/2020, Additional history exists Influenza Vaccine 05/21/2025 07/14/2022, , 06/20/2020, Additional history exists Depression Screening 06/08/2025 06/08/2024 Adult BMI Screening 04/25/2026 04/25/2025 Tobacco Screening 05/08/2026 05/08/2025 Medical Devices Explanted Type Area Mirror Polisher Device Identifier Shelf Expiration Date Model / Serial / Lot Stnt Uret 6fr 26cm Pgtl Crv Rpl [id number] - [id number] Implanted:Qty : 1 on 08/14/2020 by Yuri Gomez MD at [facility] Explanted:Qty : 1 on 08/19/2020 by Yuri Gomez MD at [facility] Stent Left: [employer] [id number] 05/15/2023 [id number] Procedures Procedure Name Priority Date/Time Associated Diagnosis Comments POCT URINALYSIS DIPSTICK ONLY Routine 04/25/2025 11:07 AM EDT Benign prostatic hyperplasia with urinary frequency MEASURE POST VOID RESIDUAL Routine 04/25/2025 10:59 AM EDT Benign prostatic hyperplasia with urinary frequency XR ABDOMEN AP 1 VW Routine 04/25/2025 9: 37 AM EDT Calculus of kidney MAGNESIUM Add-On 04/20/2025 10:15 AM EDT Pure hypercholesterolemia , unspecified Encounter for screening for malignant neoplasm of prostate Other detention (current) drug therapy Essential (primary) hypertension Benign prostatic hyperplasia with urinary frequency LIPID PROFILE Routine 04/20/2025 10:15 AM EDT Pure hypercholesterolemia , unspecified Encounter for screening for malignant neoplasm of prostate Other detention (current) drug therapy Essential (primary) hypertension CBC WITH AUTO DIFFERENTIAL Routine 04/20/2025 10:15 AM EDT Pure hypercholesterolemia , unspecified Encounter for screening for malignant neoplasm of prostate Other intermediate manager (current) drug therapy Essential (primary) hypertension COMPREHENSIVE METABOLIC PANEL Routine 04/20/2025 10:15 AM EDT Pure hypercholesterolemia , unspecified Encounter for screening for malignant neoplasm of prostate Other detention (current) drug therapy Essential (primary) hypertension PROSTATIC SPECIFIC ANTIGEN, DIAGNOSTIC Routine 04/20/2025 10:15 AM EDT Benign prostatic hyperplasia with urinary frequency from Last 3 Months Results * POCT urinalysis dipstick only (04/25/2025 11:07 AM EDT) External Poct Urine Glucose Negative MANUALLY TRANSCRIBED RESULTS External Poct Urine Bilirubin Negative MANUALLY TRANSCRIBED RESULTS External Poct Urine Blood Negative MANUALLY TRANSCRIBED RESULTS External Poct Urine Ph 6.0 MANUALLY TRANSCRIBED RESULTS External Poct Urine Protein Trace MANUALLY TRANSCRIBED RESULTS External Poct Urine Nitrite Negative MANUALLY TRANSCRIBED RESULTS External Poct Urine Leukocyte Esterase Negative MANUALLY TRANSCRIBED RESULTS Urine 04/25/2025 11:0 7 AM EDT us Anil Barillas MD POINT OF CARE TEST ORDERABL ES Final Result Performing Organization Address [facility] de Phone Number MANUALLY TRANSCRIBED RESULTS * Measure post void residual (04/25/2025 10:59 AM EDT) Volume 0 ml MANUALLY TRANSCRIBED RESULTS us Anil Barillas MD NURSING ASSESSMENTS Final R esult Performing Organization Address [facility] de Phone Number MANUALLY TRANSCRIBED RESULTS * X-ray abdomen ap 1 view (04/25/2025 9:37 AM EDT) Anatomical Region Laterality Modality Body, Abdomen N/A Computed Radiogr aphy 04/26/2025 6:40 AM EDT Narrative 04/26/2025 11:37 AM EDT XR ABDOMEN AP 1 VW HISTORY: Kidney [...] Ahmet Durbin MD on 04/26/2025 6:40 AM Fritz Haque MD have personally reviewed the image(s) and agree with and/or edited the report Finalized by Fritz Davidson MD on 04/26/2025 11:37 AM Procedure Note Fritz Davidson MD - 04/26/2025 XR ABDOMEN AP 1 VW HISTORY: Kidney stones COMPARISON: 06/28/2024 FINDINGS: 2 images of the abdomen KUB obtained. Nonobstructive bowel gas pattern. Multiple calcifications overlying theleft kidney, largest one measuring about 8 mm in the inferior pole. Smallpunctate densities overlying the right kidney, likely punctate calculi.No calcifications seen overlying the ureters. Pelvic phleboliths. IMPRESSION: Stable bilateral nephrolithiasis. Approved by Ahmet Durbin MD on 04/26/2025 6:40 AM I, Fritz Davidson MD have personally reviewed the image(s) and agree withand/or edited the report Finalized by Fritz Davidson MD on 04/26/2025 11:37 AM Anil Barillas MD IMG DIAGNOSTIC IMAGING [facility] Final Result * CBC auto differential (04/20/2025 10:15 AM EDT) WBC 5.5 4 - 11 x10E9/L 04/20/2025 1:19 PM EDT [facility] RBC Count 4.99 4.1 - 5.7 X10E12/L 04/20/2025 1:19 PM EDT [facility] Hemoglobin 15.6 13 - 17 g/dL 04/20/2025 1:19 PM EDT [facility] Hematocrit 45.3 39 - 50 % 04/20/2025 1:19 PM EDT [facility] MCV 91 80 - 100 fL 04/20/2025 1:19 PM EDT [facility] MCH 31.3 27 - 34 pg 04/20/2025 1:19 PM EDT [facility] MCHC 34.5 32 - 36 g/dL 04/20/2025 1:19 PM EDT [facility] RDW 12.8 11.5 - 15 % 04/20/2025 1:19 PM EDT [facility] Platelet Count 255 150 - 450 X10E9/L 04/20/2025 1:19 PM EDT [facility] MPV 7.5 7 - 12 fL 04/20/2025 1:19 PM EDT [facility] Neutrophils % 58.3 % 04/20/2025 1:19 PM EDT [facility] Lymphocytes % 28.4 % 04/20/2025 1:19 PM EDT [facility] Monocytes % 9.0 % 04/20/2025 1:19 PM EDT [facility] Eosinophils % 3.1 % 04/20/2025 1:19 PM EDT [facility] Basophils % 1.2 % 04/20/2025 1:19 PM EDT [facility] Neutrophils Absolute (A) 3.2 1.5 - 6.6 10*3/uL 04/20/2025 1:19 PM EDT [facility] Lymphocytes Absolute 1.6 1.0 - 3.5 10*3/uL 04/20/2025 1:19 PM EDT [facility] Monocytes Absolute 0.5 0.0 - 0.9 10*3/uL 04/20/2025 1:19 PM EDT [facility] Eosinophils Absolute 0.2 0.0 - 0.4 10*3/uL 04/20/2025 1:19 PM EDT [facility] Basophils Absolute 0.1 0.0 - 0.2 10*3/uL 04/20/2025 1:19 PM EDT [facility] Differential Type AUTOMATED DIFFERENTIAL 04/20/2025 1:19 PM EDT [facility] Blood Venous blood / Unknown Venipuncture / Unknown 04/20/2025 10:15 AM EDT 04/20/2025 10:16 AM EDT us Mitchel Guerrero DO LAB BLOOD ORDERABLES Final Re sult [facility] [address] [place] [address], * Prostatic specific antigen, diagnostic (04/20/2025 10:15 AM EDT) PROSTATIC SPEC ANT 0.50 0.00 - 4.00 ng/mL 04/20/2025 1:58 PM EDT [facility] Comment: The method used for this test is Naeem Mobilewalla DXI chemiluminescent immunoassay. Values obtained by different assay methods cannot be used interchangeably. Blood Venipuncture / Unknown 04/20/2025 10:15 AM EDT 04/20/2025 10:16 AM EDT Anil Barillas MD LAB BLOOD ORDERABLES Final Result Performing Organization Address City/[facility]/ZIP Co de Phone Number [facility] [address] [place] [address], [place] [phone] * Magnesium (04/20/2025 10:15 AM EDT) MAGNESIUM 1.8 1.8 - 2.6 mg/dL 04/20/2025 2:26 PM EDT [facility] Blood Venous blood / Unknown Venipuncture / Unknown 04/20/2025 10:15 AM EDT 04/20/2025 11:32 AM EDT Mitchel Guerrero DO LAB BLOOD ORDERABLES Final Re sult Performing Organization Address City/[facility]/ZIP Co de Phone Number [facility] [address] [place] [address], * (ABNORMAL) Lipid profile (04/20/2025 10:15 AM EDT) CHOLESTEROL 207(H) 150 - 200 mg/dL 04/20/2025 2:06 PM EDT [facility] TRIGLYCERIDE 123 27 - 150 mg/dL 04/20/2025 2:06 PM EDT [facility] HDL CHOLESTEROL 41 >39 mg/dL 2:06 PM EDT [facility] Comment: HDL <40 mg/dL - High Risk HDL > or = 40mg/dL- Desirable HDL >60 mg/dL - Negative Risk LDL (CALC) 141(H) <130 mg/dL 04/20/2025 2:06 PM EDT [facility] Comment: LDL <100 mg/dL - Desirable LDL >160 mg/dL - High Risk CHOLESTEROL:HDL 5.0 1.0 - 5.0 2:06 PM EDT [facility] VERY LOW LIPOPROTEIN 25 0 - 30 mg/dL 04/20/2025 2:06 PM EDT [facility] Blood Venous blood / Unknown Venipuncture / Unknown 04/20/2025 10:15 AM EDT 04/20/2025 11:32 AM EDT us Mitchel Guerrero DO LAB BLOOD ORDERABLES Final Re sult [facility] [address] [place] [address], [place] [phone] * (ABNORMAL) Comprehensive metabolic panel (04/20/2025 10:15 AM EDT) SODIUM 139 134 - 146 mmol/L 04/20/2025 2:06 PM EDT [facility] POTASSIUM 4.1 3.5 - 5.0 mmol/L 04/20/2025 2:06 PM EDT [facility] CHLORIDE 100 98 - 109 mmol/L 04/20/2025 2:06 PM EDT [facility] CARBON DIOXIDE 30 22 - 32 mmol/L 04/20/2025 2:06 PM EDT [facility] ANION GAP 9 5 - 15 mmol/L 04/20/2025 2:06 PM EDT [facility] BLOOD UREA NITROGEN 22 5 - 27 mg/dL 04/20/2025 2:06 PM EDT [facility] CREATININE 0.92 0.60 - 1.30 mg/dL 04/20/2025 2:06 PM EDT [facility] Comment:METHOD TRACEABLE TO IDMS STANDARD GLUCOSE 93 65 - 99 mg/dL 04/20/2025 2:06 PM EDT [facility] CALCIUM 9.5 8.5 - 10.5 mg/dL 04/20/2025 2:06 PM EDT [facility] TOTAL PROTEIN 7.0 6.0 - 8.0 g/dL 04/20/2025 2:06 PM EDT [facility] ALBUMIN 4.3 3.2 - 5.3 g/dL 04/20/2025 2:06 PM EDT [facility] ALKALINE PHOSPHATASE 72 39 - 130 U/L 04/20/2025 2:06 PM EDT [facility] AST 41 <=41 U/L 04/20/2025 2:06 PM EDT [facility] ALT 59(H) <=40 U/L 04/20/2025 2:06 PM EDT [facility] BILIRUBIN,TOTAL 0.7 0.3 - 1.2 mg/dL 04/20/2025 2:06 PM EDT [facility] EGFR Non-Race Dependent 90 >=60 ml/min/1.7 3sq.m 04/20/2025 2:06 PM EDT [facility] Comment: Reported eGFR is based on the CKD-EPI 2020 equation that does not use a race coefficient. Blood Venous blood / Unknown Venipuncture / Unknown 04/20/2025 10:15 AM EDT 04/20/2025 11:32 AM EDT us Mitchel Guerrero DO LAB BLOOD ORDERABLES Final Re sult [facility] [address] [place] [address], from Last 3 Months Insurance MEDICARE [facility] Advance Directives * Full Code (Latest Code Status on File) Date Activated Date Inactivated Comments 06/08/2024 9:17 AM 06/09/2024 7:06 PM Care Teams Print Buyer Relationship Specialty Start Date End Date Mitchel Guerrero DO [address] [place] [address] PCP - General 04/21/17
--- OUTSIDE RECORDS SUMMARY | 2025-06-20 19:57 | XMS_ITS | Encounter Summary ---
Author Organization [facility] [employer] tem Address [id number] [address] [place] [address] Care Team Providers Care Over Short And Damage Clerk Name Role Phone Mitchel Guerrero Primary Care Provider [phone] Encounter Details Date Type Department Care Team (Late st Contact Info) Description 12/31/2023 Telephone [facility] [address] [place] [address] Anil Barillas MD [address] [place] [phone] Social History Tobacco Use Types Packs/Day Years Used Date Smoking Tobacco: Never Smokeless Tobacco: Never Alcohol Use Standard Drinks/Week Comments Yes 0 (1 standard drink = 0.6 oz pur e alcohol) OCC Childcare Answer Date Recorded Childcare Unknown 02/27/2019 Employment Answer Date Recorded Employment Unknown 02/27/2019 Hunger Screening Answer Date Recorded Within the past 12 months we worried whether our food would run out before we got money to buy more. Never True 04/13/2023 Within the past 12 months th e food we bought just didn't last and we didn't have money to get more. Never True 04/13/2023 Purpose - Life Answer Date Recorded Purpose and direction in life Unknown Sex and Gender Information Value Date Recorded Sex Assigned at Male 04/25/2025 10:53 AM EDT Legal Sex Male 1:05 PM EDT Gender Identity Male 04/25/2025 10:53 AM EDT Sexual Orientation Straight 04/25/2025 10 :53 AM EDT documented as of this encounter Miscellaneous Notes * Telephone Encounter - Maggy Beaver - 12/31/2023 3:03 PM EDT SPOKE WITH PT AND SCHEDULED FOR A LOCAL CYSTO ON 02/01/24 AT 930A ARRIVE AT 830A documented in this encounter Plan of Treatment Upcoming Encounters Date Type Department Care Team (Late st Contact Info) Description 02/20/2026 8:10 AM EDT Office Visit [facility] Department of [facility] [address] [facility] [address] [place] [phone] Bladimir Pepper MD [address] [facility] [address] [place] [phone] 05/01/2026 8:15 AM EDT Office Visit [facility] [address] [place] [phone] Anil Barillas MD [address] [place] [address] documented as of this encounter Visit Diagnoses Not on filedocumented in this encounter Care Teams Over Short And Damage Clerk Relationship Specialty [place] [address] [place] [address] PCP - General 04/21/17 documented as of this encounter
--- OUTSIDE RECORDS SUMMARY | 2025-06-20 19:57 | XMS_ITS | Encounter Summary ---
Author Organization [employer] s tem Address [id number] [address] [place] [address] Care Team Providers Care Explosive Ordnance Handler Name Role Phone Mitchel Guerrero DO Primary Care Provider [phone] Encounter Details Date Type Department Care Team (Late st Contact Info) Description 02/01[facility]2024 [facility] [address] [place] [phone] Mellissa Srivastava CMA Social History Tobacco Use Types Packs/Day Years [...] encounter Miscellaneous Notes * Telephone Encounter - Mellissa Srivastava CMA - 02/01/2024 12:55 PM EDT Called patient to schedule 3 month f/u. Patient will call back once he looks at his schedule. documented in this encounter Plan of Treatment Upcoming Encounters Date Type Department Care Team (Late st Contact Info) Description 02/20/2026 8:10 AM EDT Office Visit [facility] Department of [facility] [address] [facility] [address] [place] [phone] Bladimir Pepper MD [address] [facility] [address] [place] [address] 05/01/2026 8:15 AM EDT Office Visit [facility] [address] [place] [phone] Anil Barillas MD [address] [place] [phone] documented as of this encounter Visit Diagnoses Not on filedocumented in this encounter Care Teams Explosive Ordnance Handler Relationship Specialty Start Date End Date Mitchel Guerrero DO [address] [place] [address] PCP - General 04/21/17 documented as of this encounter
--- OUTSIDE RECORDS SUMMARY | 2025-06-20 19:57 | XMS_ITS | Continuity of Care Document ---
Author Organization [facility] Address [address] [place] [address] Problems Unknown Problems Results Test Value / Unit Interpretation Reference Ran ge SARS-COV-2 (COVID19), NAAT[[id number]] Collected: 08/16/2020 05:09 PM Specimen Received: 08/17/2020 05:56 PM SARS-CoV-2 INTERPRETATION [[id number]] Negative Leyda l See Note SARS-CoV-2 RNA NOT DETECTEDN egative results do not preclude SARS-CoV-2 infection and should notbe used as the sole basis for patient management decisions. Negativeresults must be combined with clinical observations, patient history,and epidemiological information. Optimum specimen types and timingfor peak viral levels during infections caused by SARS-CoV-2 have notbeen determined. Collection of multiple specimens or types ofspecimens may be necessary to detect virus. Improper specimencollection and handling, sequence variability under primers/probes,or organism present below the limit of detection may lead to falsenegative results. Positive and negative predictive values oftesting are highly dependent on prevalence. False negative testresults are more likely when prevalence is high. SOURCE [[id number]] NASOPHARYNGEAL Normal Note: Methodology is [employer] Real-Time RT-PCR. The expected result or reference range is NEGATIVE (Not Detected). For more information regarding COVID-19 testing to include clinicalinformation, methodology detail, intended use, FDA authorization andrecommended fact sheets for patients or healthcare providers, see NewInnerWorkings Announcement: SARS-CoV-2 (COVID-19) by NAAT at URL below (note,fact sheets are provided by method given in report:[email or web address]-communications/ Alternatively, see downloadable PDF fact sheet at:[email or web address] SARS-COV-2 (COVID19), NAAT[[id number]] Collected: 07/22/2020 01:24 PM Specimen Received: 07/23/2020 04:57 PM SARS-CoV-2 INTERPRETATION [[id number]] Negative Leyda l See Note SARS-CoV-2 RNA NOT DETECTEDN egative results do not preclude SARS-CoV-2 infection and should notbe used as the sole basis for patient management decisions. Negativeresults must be combined with clinical observations, patient history,and epidemiological information. Optimum specimen types and timingfor peak viral levels during infections caused by SARS-CoV-2 have notbeen determined. Collection of multiple specimens or types ofspecimens may be necessary to detect virus. Improper specimencollection and handling, sequence variability under primers/probes,or organism present below the limit of detection may lead to falsenegative results. Positive and negative predictive values oftesting are highly dependent on prevalence. False negative testresults are more likely when prevalence is high. SOURCE [[id number]] NASOPHARYNGEAL Normal Note: Methodology is [employer] Real-Time RT-PCR. The expectedresult or reference range is NEGATIVE (Not Detected). For more information regarding COVID-19 testing to include clinicalinformation, methodology detail, intended use, FDA authorization andrecommended fact sheets for patients or healthcare providers, see NewInnerWorkings Announcement: SARS-CoV-2 (COVID-19) by NAAT at URL below (note,fact sheets are provided by method given in report:[email or web address]-communications/ Alternatively, see downloadable PDF fact sheet at:https://www.[email or web address]/[email or web address] Allergies, adverse reactions, alerts No known allergies and adverse reactions Medications No administered medications reported Vital Signs No vital signs reported Social History No smoking Hx information available
--- OUTSIDE RECORDS SUMMARY | 2025-06-20 19:57 | XMS_ITS | Encounter Summary ---
Author Organization [facility] Address [id number] [address] [place] [address] Care Team Providers Care Snaker Driving Horses Name Role Phone Mitchel Guerrero Primary Care Provider [phone] Encounter Details Date Type Department Care Team (Late st Contact Info) Description 06/26/2024 Orders Only [facility] [address] [place] [address] Ml [place] Calculus of kidney Social History Tobacco Use Types Packs/Day Years Used Date Smoking Tobacco: Never Smokeless Tobacco: Never Alcohol Use Standard Drinks/Week Comments Yes 0 (1 standard drink = 0.6 oz pur e alcohol) [facility] Utilities Answer Date Recorded In the past [...] got money to buy more. Never True 06/28/2024 Within the past 12 months th e food we bought just didn't last and we didn't have money to get more. Never True 06/28/2024 Purpose - Life Answer Date Recorded Purpose and direction in life Unknown Sex and Gender Information Value Date Recorded Sex Assigned at Male 04/25/2025 10:53 AM EDT Legal Sex Male 1:05 PM EDT Gender Identity Male 04/25/2025 10:53 AM EDT Sexual Orientation Straight 04/25/2025 10 :53 AM EDT documented as of this encounter Plan of Treatment Upcoming Encounters Date Type Department Care Team (Late st Contact Info) Description 02/20/2026 8:10 AM EDT Office Visit [facility], A Department of [facility] [address] [address] Bladimir Pepper MD [address] [facility] [address] [place] [address] 05/01/2026 8:15 AM EDT Office Visit [facility] [address] [place] [address] Anil Barillas MD [address] [place] [address] documented as of this encounter Procedures Procedure Name Priority Date/Time Associated Diagnosis Comments BASIC METABOLIC PANEL Routine 05/25/2024 Calculus of kidney documented in this encounter Results * Basic Metabolic Panel (05/25/2024) 05/25/2024 us Anil Barillas MD LAB BLOOD ORDERABLES Final Result SUNQUEST documented in this encounter Visit Diagnoses Diagnosis Calculus of kidney documented in this encounter Additional Health Concerns Assessment Noted Time PHQ-9 Depression Total Score: 0 06/08/20 24 6:28 PM EDT documented as of this encounter Care Teams Snaker Driving Horses Relationship Specialty Start Date End Date Mitchel Guerrero DO [address] [place] [address] PCP - General 04/21/17 documented as of this encounter
--- OUTSIDE RECORDS SUMMARY | 2025-06-20 19:57 | XMS_ITS | Encounter Summary ---
Author Organization [facility] Address [facility] [id number] [address] [place] [address] Care Team Providers Care Personnel Research Scientist Name Role Phone Mitchel Guerrero Primary Care Provider [phone] Encounter Details Date Type Department Care Team (Late st Contact Info) Description 10/17/2024 Orders Only [facility] [address] [place] [address] Ml [place] Calculus of kidney Social History Tobacco Use Types Packs/Day Years Used Date Smoking Tobacco: Never Smokeless Tobacco: Never Alcohol Use Standard Drinks/Week Comments Yes 0 (1 standard drink = 0.6 oz pur e alcohol) [facility] Utilities Answer Date Recorded In the [...] Description 02/20/2026 8:10 AM EDT Office Visit Jori Cintron Department of [facility] [address] [address] Bladimir Pepper MD [address] [address] 05/01/2026 8:15 AM EDT Office Visit [facility] [address] [place] [address] Anil Barillas MD [address] [place] [address] documented as of this encounter Procedures Procedure Name Priority Date/Time Associated Diagnosis Comments LITHOLINK 24 HOUR (NON-[place]) Routine 025 Calculus of kidney documented in this encounter Results * Litholink 24 Hour ([facility]) (10/12/2024) 10/12/2024 us Anil Barillas MD URINE ORDERABLES Final Resu lt MANUALLY TRANSCRIBED RESULTS documented in this encounter Visit Diagnoses Diagnosis Calculus of kidney documented in this encounter Additional Health Concerns Assessment Noted Time PHQ-9 Depression Total Score: 0 06/08/20 24 6:28 PM EDT documented as of this encounter Care Teams Personnel Research Scientist Relationship Specialty Start Date End Date Mitchel Guerrero DO [address] [place] [address] PCP - General 04/21/17 documented as of this encounter
--- OUTSIDE RECORDS SUMMARY | 2025-06-20 19:57 | XMS_ITS | Clinical Summary ---
Author Organization [facility] Address [address] [place] [address], [address] [place] [address] Care Team Providers Care Platform Attendant Name Role Phone Unavailable Primary Care Provider Unavailabl e Social History Tobacco Use Types Packs/Day Years Used Date Smoking Tobacco: Never Assessed Sex and Gender Information Value Date Recorded Sex Assigned at Not on file Legal Sex Male 12:56 PM EST Gender Identity Not on file Sexual Orientation Not on file Plan of Treatment Not on file
--- OUTSIDE RECORDS SUMMARY | 2025-06-20 19:57 | XMS_ITS | Encounter Summary ---
Author Organization [facility] Address [facility] [place][id number] [address] [place] [address] Care Team Providers Care Search Lead Name Role Phone Mitchel Guerrero DO Primary Care Provider [phone] Encounter Details Date Type Department Care Team (Late st Contact Info) Description 04/14/2023 Orders Only [facility] [address] [place] [address] External, Scanning Provider Social History Tobacco Use Types Packs/Day Years [...] Description 02/20/2026 8:10 AM EDT Office Visit [facility] Department of [facility] [address] [facility] [address] [place] [address] Bladimir Pepper MD [address] [facility] [address] [place] [address] 05/01/2026 8:15 AM EDT Office Visit [facility] [address] [place] [address] Anil Barillas MD [address] [place] [address] documented as of this encounter Procedures Procedure Name Priority Date/Time Associated Diagnosis Comments CT ABDOMEN AND PELVIS WO CONT Routine 04/14/2023 7:37 AM EDT documented in this encounter Results * CT abdomen and pelvis without contrast (04/14/2023 7:37 AM EDT) Anatomical Region Laterality Modality Body, Abdomen, Body Covera N/A Compu janna Tomography us Scanning Provider External IMG CT ORDERABLES Fin al Result documented in this encounter Visit Diagnoses Not on filedocumented in this encounter Care Teams Search Lead Relationship Specialty Start Date End Date Mitchel Guerrero DO [address] [place] [address] PCP - General 04/21/17 documented as of this encounter
--- OUTSIDE RECORDS SUMMARY | 2025-06-20 19:57 | XMS_ITS | Encounter Summary ---
Author Organization [facility] [email or web address] [facility] tem Address [facility]-[id number] [address] [place] [address] Care Team Providers Care Outbound Supervisor Name Role Phone Mitchel Guerrero DO Primary Care Provider [phone] Encounter Details Date Type Department Care Team (Late st Contact Info) Description 09/23/2022 Abstract [facility] [address] [place] [address] External, Scanning Provider Social History Tobacco Use Types Packs/Day Years Used Date Smoking Tobacco: Never Smokeless Tobacco: Never Alcohol Use Standard Drinks/Week Comments Yes 0 (1 standard drink = 0.6 oz pur e alcohol) OCC Childcare Answer Date Recorded Childcare Unknown 02/27/2019 Employment Answer Date Recorded Employment Unknown 02/27/2019 Purpose - Life Answer Date Recorded Purpose [...] 8:10 AM EDT Office Visit Roberto Maza, Jori Department of [facility] [address] [facility] [address] [place] [address] Bladimir Pepper MD [address] [facility] [address] [place] [address] 05/01/2026 8:15 AM EDT Office Visit [facility] [address] [place] [address] Anil Barillas MD [address] [place] [address] documented as of this encounter Procedures Procedure Name Priority Date/Time Associated Diagnosis Comments XR ABDOMEN AP 1 VW Routine 09/23/2022 9:46 AM EST documented in this encounter Results * X-ray abdomen ap 1 view (09/23/2022 9:46 AM EST) Anatomical Region Laterality Modality Body, Abdomen N/A Computed Radiogr aphy us Scanning Provider External IMG DIAGNOSTIC IMAGIN G ORDERABLES Final Result documented in this encounter Visit Diagnoses Not on filedocumented in this encounter Care Teams Outbound Supervisor Relationship Specialty Start Date End Date Mitchel Guerrero DO [address] [place] [address] PCP - General 04/21/17 documented as of this encounter
--- OUTSIDE RECORDS SUMMARY | 2025-06-20 19:57 | XMS_ITS | Encounter Summary ---
Author Organization [facility] Address [facility] [place]-[id number] [address] [place] [address] Care Team Providers Care Deck Specialist Name Role Phone CesarMitchel Primary Care Provider [phone] Encounter Details Date Type Department Care Team (Late st Contact Info) Description 06/28/2024 [facility]phone [facility] [address] [place] [address] Mellissa Srivastava CMA Social History Tobacco Use Types Packs/Day Years Used Date Smoking Tobacco: Never Smokeless Tobacco: Never Alcohol Use Standard Drinks/Week Comments Yes 0 (1 standard drink = 0.6 oz pur e alcohol) [facility] Utilities Answer Date Recorded In [...] Telephone Encounter - Mellissa Srivastava CMA - 06/28/2024 8:57 AM EDT Send litholink. documented in this encounter Plan of Treatment Upcoming Encounters Date Type Department Care Team (Late st Contact Info) Description 02/20/2026 8:10 AM EDT Office Visit [facility], A Department of [facility] [address] [facility] [address] [place] [address] Bladimir Pepper MD [address] [facility] [address] [place] [address] 05/01/2026 8:15 AM EDT Office Visit [facility] [address] [place] [address] Anil Barillas MD [address] [place] [address] documented as of this encounter Visit Diagnoses Not on filedocumented in this encounter Additional Health Concerns Assessment Noted Time PHQ-9 Depression Total Score: 0 06/08/20 24 6:28 PM EDT documented as of this encounter Care Teams Deck Specialist Relationship Specialty Start Date End Date Mitchel Guerrero DO [address] [place] [address] PCP - General 04/21/17 documented as of this encounter
--- OUTSIDE RECORDS SUMMARY | 2025-06-20 19:57 | XMS_ITS | Encounter Summary ---
Author Organization [facility] Address [id number] [address] [place] [address] Care Team Providers Care E Commerce Strategist Name Role Phone Mitchel Guerrero Primary Care Provider Encounter Details Date Type Department Care Team (Late st Contact Info) Description 10/25/2024 Orders Only [facility] [address] [place] [address] Ml [place] Benign prostatic hyperplasia with urinary frequency Social History Tobacco Use Types Packs/Day Years Used Date Smoking Tobacco: Never Smokeless Tobacco: Never Alcohol Use Standard Drinks/Week Comments Yes 0 (1 standard drink = 0.6 oz pur e alcohol) [facility] Utilities Answer Date Recorded In the past 12 months has th e electric, gas, oil, or water company [...] Description 02/20/2026 8:10 AM EDT Office Visit Ute Cintron Department of [facility] [address] [address] Bladimir Pepper MD [address] [address] 05/01/2026 8:15 AM EDT Office Visit [facility] [address] [place] [address] Anil Barillas MD [address] [place] [address] documented as of this encounter Procedures Procedure Name Priority Date/Time Associated Diagnosis Comments UROFLOWMETRY Routine 10/24/2024 Benign prostatic hyperplasia with urinary frequency documented in this encounter Results * Uroflowmetry (10/24/2024) 10/24/2024 us Anil Barillas MD PROCEDURE ORDERABLES Fin al Result MANUALLY TRANSCRIBED RESULTS documented in this encounter Visit Diagnoses Diagnosis Benign prostatic hyperplasia with urinary frequency documented in this encounter Additional Health Concerns Assessment Noted Time PHQ-9 Depression Total Score: 0 06/08/20 24 6:28 PM EDT documented as of this encounter Care Teams E Commerce Strategist Relationship Specialty Start Date End Date Mitchel Guerrero DO [address] [place] [address] PCP - General 04/21/17 documented as of this encounter
--- OUTSIDE RECORDS SUMMARY | 2025-06-20 19:57 | XMS_ITS | Encounter Summary ---
Author Organization [facility] tem Address [id number] [address] [place] [address] Care Team Providers Care Commercial Announcer Name Role Phone Mitchel Guerrero DO Primary Care Provider [phone] Encounter Details Date Type Department Care Team (Late st Contact Info) Description 03/27/2024 Orders Only [facility] [address] [place] [address] Ml [place] Calculus of kidney Social History [...] got money to buy more. Never True 03/29/2024 Within the past 12 months th e food we bought just didn't last and we didn't have money to get more. Never True 03/29/2024 Purpose - Life Answer Date Recorded Purpose [...] EDT Office Visit Jori Cintron Department of [facility] [address] [place] [address] [place] [address] Bladimir Pepper MD [address] [facility] [address] [place] [address] 05/01/2026 8:15 AM EDT Office Visit [facility] [address] [place] [address] Anil Barillas MD [address] [place] [address] documented as of this encounter Procedures Procedure Name Priority Date/Time Associated Diagnosis Comments LITHOLINK 24 HOUR (NON-[place]) Routine 024 Calculus of kidney documented in this encounter Results * Litholink 24 Hour ([facility]) (03/20/2024) 03/20/2024 us Anil Barillas MD URINE ORDERABLES Final Resu lt MANUALLY TRANSCRIBED RESULTS documented in this encounter Visit Diagnoses Diagnosis Calculus of kidney documented in this encounter Care Teams Commercial Announcer Relationship Specialty [place] [address] [place] [address] PCP - General 04/21/17 documented as of this encounter
--- OUTSIDE RECORDS SUMMARY | 2025-06-20 19:57 | XMS_ITS | Encounter Summary ---
Author Organization [employer] [facility] tem Address [facility]-[id number] [address] [place] [address] Care Team Providers Care Home Extension Agent Name Role Phone Mtichel Guerrero Primary Care Provider [phone] Encounter Details Date Type Department Care Team (Late st Contact Info) Description 12/22/2023 Telephone [facility] [address] [place] [address] Mellissa Srivastava CMA Social History Tobacco Use [...] Telephone Encounter - Mellissa Srivastava CMA - 12/22/2023 8:53 AM EDT Michael sent documented in this encounter Plan of Treatment Upcoming Encounters Date Type Department Care Team (Late st Contact Info) Description 02/20/2026 8:10 AM EDT Office Visit Roberto Maza, A Department of [facility] [address] [facility] [address] [place] [address] Bladimir Pepper MD [address] [facility] [address] [place] [address] 05/01/2026 8:15 AM EDT Office Visit [facility] [address] [place] [address] Anil Barillas MD [address] [place] [address] documented as of this encounter Visit Diagnoses Not on filedocumented in this encounter Care Teams Home Extension Agent Relationship Specialty Start Date End Date Mitchel Guerrero DO [address] [place] [address] PCP - General 04/21/17 documented as of this encounter
--- OUTSIDE RECORDS SUMMARY | 2025-06-20 19:57 | XMS_ITS | Encounter Summary ---
Author Organization [facility] tem Address [facility]-[id number] [address] [place] [address] Care Team Providers Care Director Personal Name Role Phone Mitchel Guerrero DO Primary Care Provider [phone] Encounter Details Date Type Department Care Team (Late st Contact Info) Description 06/13/2018 Documentation [facility] Ad[facility] Testing [address] [place] [address] Sunita Ferrara RN Social History Tobacco Use Types Packs/Day Years Used Date Smoking Tobacco: Never Smokeless Tobacco: Never Alcohol Use Standard Drinks/Week Comments No 0 (1 standard drink = 0.6 oz pur e alcohol) Sex and Gender Information Value Date Recorded Sex Assigned at Male 04/25/2025 10:53 AM EDT Legal Sex Male 1:05 PM EDT Gender Identity Male 04/25/2025 10:53 AM EDT Sexual Orientation Straight 04/25/2025 10 :53 AM EDT documented as of this encounter Miscellaneous Notes * Perioperative Nursing Note - Sunita Ferrara RN - 06/13/2018 11:32 AM EDT Faxed H&P, Prelim EKG to Darnell at [facility] office. documented in this encounter Plan of Treatment Upcoming Encounters Date Type Department Care Team (Late st Contact Info) Description 02/20/2026 8:10 AM EDT Office Visit Roberto Maza, A Department of [facility] [address] [place] [address] Bladimir Pepper MD [address] [facility] [address] [place] [address] 05/01/2026 8:15 AM EDT Office Visit [facility] [address] [place] [address] Anil Barillas MD [address] [place] [address] documented as of this encounter Visit Diagnoses Not on filedocumented in this encounter Care Teams Director Personal Relationship Specialty Start Date End Date Mitchel Guerrero DO [address] [place] [address] PCP - General 04/21/17 documented as of this encounter
--- OUTSIDE RECORDS SUMMARY | 2025-06-20 19:57 | XMS_ITS | Encounter Summary ---
Author Organization [facility] Address [facility] [place][id number] [address] [place] [address] Care Team Providers Care Environmental Emergencies Planner Name Role Phone Mitchel Guerrero DO Primary Care Provider [phone] Encounter Details Date Type Department Care Team (Late st Contact Info) Description 05/10/2023 Orders Only [facility] [address] [place] [address] Ml [place] Calculus of kidney Social History [...] EDT Office Visit Jori Cintron Department of [facility] [address] [place] [address] [place] [address] Bladimir Pepper MD [address] [facility] [address] [place] [address] 05/01/2026 8:15 AM EDT Office Visit [facility] [address] [place] [address] Anil Barillas MD [address] [place] [address] documented as of this encounter Procedures Procedure Name Priority Date/Time Associated Diagnosis Comments LITHOLINK 24 HOUR (NON-[place]) Routine 023 Calculus of kidney documented in this encounter Results * Litholink 24 Hour (Non-[facility]) (05/04/2023) 05/04/2023 us Anil Barillas MD URINE ORDERABLES Final Resu lt MANUALLY TRANSCRIBED RESULTS documented in this encounter Visit Diagnoses Diagnosis Calculus of kidney documented in this encounter Care Teams Environmental Emergencies Planner Relationship Specialty [place] [address] [place] [address] PCP - General 04/21/17 documented as of this encounter
--- OUTSIDE RECORDS SUMMARY | 2025-06-20 19:57 | XMS_ITS | Encounter Summary ---
[facility] tem Address [facility]-[id number] [address] [place] [address] Care Team Providers Care Patient Service Rep Name Role Phone Mitchel Guerrero DO Primary Care Provider [phone] Encounter Details Date Type Department Care Team (Late st Contact Info) Description 12/14/2023 Orders Only [facility] [address] [place] [phone] Ml Jackson Calculus of kidney Social History [...] EDT Office Visit Jori Cintron Department of [facility] [address] [place] [address] Bladimir Pepper MD [address] [place] [address] 05/01/2026 8:15 AM EDT Office Visit [facility] [address] [place] [phone] Anil Barillas MD [address] [place] [phone] documented as of this encounter Procedures Procedure Name Priority Date/Time Associated Diagnosis Comments LITHOLINK 24 HOUR (NON-[place]) Routine 024 Calculus of kidney documented in this encounter Results * Litholink 24 Hour (Non-[facility]) (12/08/2023) 12/08/2023 us Anil Barillas MD URINE ORDERABLES Final Resu lt MANUALLY TRANSCRIBED RESULTS documented in this encounter Visit Diagnoses Diagnosis Calculus of kidney documented in this encounter Care Teams Patient Service Rep Relationship Specialty Start [place] [address] [place] [id number] PCP - General 04/21/17 documented as of this encounter
--- OUTSIDE RECORDS SUMMARY | 2025-06-20 19:57 | XMS_ITS | Encounter Summary ---
Author Organization [facility] tem Address [facility]-[id number] [address] [place] [address] Care Team Providers Care Saxophone Teacher Name Role Phone Mitchel Guerrero DO Primary Care Provider [phone] Encounter Details Date Type Department Care Team (Late st Contact Info) Description 09/17/2022 Abstract [facility] [address] [place] [phone] External, Scanning Provider Social History Tobacco Use [...] EDT Office Visit Jori Cintron Department of [facility] [address] [facility] [address] [place] [address] Bladimir Pepper MD [address] [place] [address] 05/01/2026 8:15 AM EDT Office Visit [facility] [address] [place] [address] Anil Barillas MD [address] [place] [phone] documented as of this encounter Procedures Procedure Name Priority Date/Time Associated Diagnosis Comments PROSTATIC SPECIFIC ANTIGEN, DIAGNOSTIC Routine 09/17/2022 documented in this encounter Results * Prostatic specific antigen, diagnostic (09/17/2022) Psa 3.49 MANUALLY TRANSCRIBED RESULTS Comment:[facility] 09/17/2022 us Scanning Provider External LAB BLOOD ORDERABLES Final Result MANUALLY TRANSCRIBED RESULTS documented in this encounter Visit Diagnoses Not on filedocumented in this encounter Care Teams Saxophone Teacher Relationship Specialty [place] [address] [place] [id number] PCP - General 04/21/17 documented as of this encounter
== END 2025-06-20 19:55 | disposition home or self-care (01) ==
LOC: SLEEP 19:55
PROVIDERS: PCP Internal Medicine; Visit Provider Internal Medicine
DX: G47.33 Obstructive sleep apnea (adult) (pediatric) (principal)
CPT/HCPCS: 95811